=== PATIENT | female | born 1935 | race Caucasian/White ===

== ENCOUNTER 2019-07-01 12:00 | Emergency (ER) | payer MEDICARE, OTHER ==
[2019-07-01 12:09] VITALS: BP 141/79; PULSE 104
[2019-07-01] MEDS ORDERED: Albuterol/Ipratropium 3.0-0.5 MG/3 ML Neb Soln NEB ONE (12:13)
[2019-07-01] MEDS ORDERED: Sodium Chloride 0.9% 10 ML Syringe FLUSH PRN (12:13)
--- NOTE | 2019-07-01 12:41 | EDM.PDOC ---
<Dory Jerome [place] - Last Filed: 07/01/19 14:11> ED HPI GENERAL MEDICAL PROBLEM - General Chief Complaint: Respiratory Problem Stated Complaint: SOB Time Seen by Provider: 07/01/19 12:04 Source of Information: Reports: Patient, RN Notes Reviewed History Limitations: Reports: No Limitations - History of Present Illness INITIAL COMMENTS - FREE TEXT/NARRATIVE: Patient is an 83-year-old female who presents to the ED for the evaluation of increasing shortness of breath. The patient notes this has been increasing since Friday, she states she is not able to do much of her activities at all without feeling winded. She is on chronic oxygen at 4 to 5 L during the day, and 2 L at night. Her primary care provider is Dr. Partida. She notes that she was seen by him last week, and she called him again for follow-up as she was not feeling much better, and he told her to come here for further evaluation. Patient is not complaining of any chest pain, fevers or chills, nausea or vomiting or diarrhea. She does have a mild cough, she does state that she got the influenza vaccine for this year. She does appreciate a mild amount of swelling on her ankles, she states she is also not coughing any sputum up. She states she has a history of pulmonary hypertension, but does not have any history of COPD or asthma that she has been told. The patient also has a history of factor V Leiden deficiency, and blood clots and pulmonary embolus. On warfarin therapy for an anticoagulant. - Related Data Allergies Allergy/AdvReac Type Severity Reaction Status Date / Time naproxen Allergy Rash Verified 07/01/19 12:09 Home Meds: Home Meds Calcium Carbonate [Calcium] 2,000 mg PO DAILY 05/10/14 [History] Cholecalciferol (Vitamin D3) [Vitamin D3] 2,000 unit PO DAILY 05/10/14 [History] Glucosamine/Chondro Herrera A [Cosamin DS] 1 each PO BID 05/10/14 [History] Omeprazole [Prilosec] 40 mg PO DAILY 05/10/14 [History] Warfarin [Coumadin] 5 mg PO DAILY #30 tablet 06/06/14 [Rx] Albuterol Sulfate [Ventolin Hfa] 18 gm IH QID PRN #1 hfa.aer.[id number] 03/14/16 [Rx] Furosemide [Lasix] 60 mg PO DAILY 03/14/16 [History] Dulaglutide [Trulicity] 1.5 mg SQ DAILY 07/01/19 [History] Magnesium 30 mg PO 07/01/19 [History] Montelukast [Singulair] 10 mg PO DAILY 07/01/19 [History] Potassium Chloride 20 meq PO DAILY 07/01/19 [History] Rosuvastatin [Crestor] 10 mg PO DAILY 07/01/19 [History] Spironolactone [Aldactone] 100 mg PO DAILY 07/01/19 [History] amLODIPine [Norvasc] 5 mg PO DAILY 07/01/19 [History] Past Medical History HEENT History: Reports: Cataract, Other (See Below) Other HEENT History: wears glasses Cardiovascular History: Reports: Blood Clots/VTE/DVT, High Cholesterol Respiratory History: Reports: PE Gastrointestinal History: Reports: GERD RN PSYCHIATRIC History: Reports: Hematologic History: Reports: Other (See Below) Other Hematologic History: factor 5 positive - Past Surgical History HEENT Surgical History: Reports: Cataract Surgery Cardiovascular Surgical History: Reports: Other (See Below) GI Surgical History: Reports: Appendectomy, Cholecystectomy Female Surgical History: Reports: Hysterectomy Musculoskeletal Surgical History: Reports: None Social & Family History - Family History Family Medical History: Noncontributory - Tobacco Use Smoking Status *Q: Former Smoker Used Tobacco, but Quit: Yes Month/Year Tobacco Last Used: 06/1979 Second Hand Smoke Exposure: Yes - Caffeine Use Caffeine Use: Reports: Coffee - Recreational Drug Use Recreational Drug Use: No ED ROS GENERAL - Review of Systems Review Of Systems: See Below Constitutional: Denies: Fever, Chills HEENT: Denies: Rhinitis Respiratory: Reports: Shortness of Breath. Denies: Cough, Sputum Cardiovascular: Denies: Chest Pain GI/Abdominal: Denies: Abdominal Pain, Diarrhea, Nausea, Vomiting Neurological: Denies: Confusion, Syncope ED EXAM, GENERAL - Physical Exam Exam: See Below Exam Limited By: No Limitations General Appearance: Alert, WD/WN, Mild Distress (pt is breathing heavy, but in normal rhythm) Eye Exam: Bilateral Eye: EOMI, Normal Inspection, PERRL Ears: Normal External Exam Nose: Normal Inspection Throat/Mouth: Normal Inspection, Normal Lips, Normal Teeth, Normal Gums, Normal Oropharynx, Normal Voice, No Airway Compromise Head: Atraumatic, Normocephalic Neck: Normal Inspection Respiratory/Chest: No Respiratory Distress, Lungs Clear, No Accessory Muscle Use , Chest Non-Tender, Decreased Breath Sounds (diffuse bilaterally) Cardiovascular: Normal Peripheral Pulses, Regular Rate, Rhythm, No Murmur, Other (1+ edema to bilateral ankles) Peripheral Pulses: 3+: Radial (L), Radial (R), Dorsalis Pedis (L), Dorsalis Pedis (R) GI/Abdominal: Normal Bowel Sounds, Soft, Non-Tender, No Distention, No Mass Extremities: Normal Inspection, Normal Capillary Refill Neurological: Alert, Oriented, Normal Cognition, No Motor/Sensory Deficits Psychiatric: Normal Affect, Normal Mood, Anxious (mildly d/t SOB) Skin Exam: Warm, Dry, Intact, Normal Color, No Rash EKG INTERPRETATION EKG Date: 07/01/19 Time: 12:35 Rhythm: NSR Rate (Beats/Min): 89 Elsa: Normal P-Wave: Present QRS: Normal ST-T: Normal QT: Normal EKG Interpretation Comments: Reviewed with Dr. Vasquez, no acute ischemic changes noted. Course - Vital Signs Last Recorded V/S: Last Vital Signs Temp 98.1 F 07/01/19 12:03 Pulse 104 H 07/01/19 12:03 Resp 24 H 07/01/19 12:03 BP 141/79 H 07/01/19 12:03 Pulse Ox 96 07/01/19 14:07 - Orders/Labs/Meds Labs: Laboratory Tests 07/01/19 07/01/19 07/01/19 Range/Units 12:30 12:30 12:30 WBC 7.52 (3.98-10.04) K/mm3 RBC 4.39 (3.98-5.22) M/mm3 Hgb 13.0 (11.2-15.7) gm/dl Hct 37.8 (34.1-44.9) % MCV 86.1 D (79.4-94.8) fl MCH 29.6 (25.6-32.2) pg MCHC 34.4 (32.2-35.5) g/dl RDW Std Deviation 40.5 (36.4-46.3) fL Plt Count 297 (182-369) K/mm3 MPV 8.2 L (9.4-12.3) fl Neutrophils % (Manual) 72 H (40-60) % Band Neutrophils % 0 (0-10) % Lymphocytes % (Manual) 4 L (20-40) % Atypical Lymphs % 12 % Monocytes % (Manual) 11 H (2-10) % Eosinophils % (Manual) 0 L (0.7-5.8) % Basophils % (Manual) 1 (0.1-1.2) Platelet Estimate Adequate Plt Morphology Comment See note RBC Morph Comment Not Reportable PT 26.5 H (9.7-12.0) SECONDS INR 2.56 APTT 37 H (22-31) SECONDS D-Dimer, Quantitative (0.19-0.50) mg/L Puncture Site ABG pH (7.35-7.45) ABG pCO2 (35.0-45.0) mmHg ABG pO2 (80.0-100.0) mmHg ABG HCO3 (22.0-26.0) meq/L ABG O2 Saturation (96.0-97.0) % ABG Base Excess (-2-2.0) Andre Test A-a Gradient mmHg O2 Delivery Device Oxygen Flow Rate FiO2 (21.00-100.00) % Sodium 122 L D (136-145) mEq/L Potassium 6.1 H D (3.5-5.1) mEq/L Chloride 86 L (98-107) mEq/L Carbon Dioxide 26 (21-32) mEq/L Anion Gap 16.1 H (5-15) BUN 37 H (7-18) mg/dL Creatinine 2.1 H (0.55-1.02) mg/dL Est Cr Clr Drug Dosing 15.09 mL/min Estimated GFR (MDRD) 23 (>60) mL/min BUN/Creatinine Ratio 17.6 (14-18) Glucose 115 (83-115) mg/dL Calcium 9.4 (8.5-10.1) mg/dL Total Bilirubin 0.7 (0.2-1.0) mg/dL AST 40 H (15-37) U/L ALT 59 (14-59) U/L Alkaline Phosphatase 47 (46-116) U/L Troponin I < 0.017 (0.00-0.056) ng/mL NT-Pro-B Natriuret Pep (0-450) pg/mL Total Protein 7.5 (6.4-8.2) g/dl Albumin 3.3 L (3.4-5.0) g/dl Globulin 4.2 gm/dL Albumin/Globulin Ratio 0.8 L (1-2) 07/01/19 07/01/19 07/01/19 Range/Units 12:30 12:30 12:34 WBC (3.98-10.04) K/mm3 RBC (3.98-5.22) M/mm3 Hgb (11.2-15.7) gm/dl Hct (34.1-44.9) % MCV (79.4-94.8) fl MCH (25.6-32.2) pg MCHC (32.2-35.5) g/dl RDW Std Deviation (36.4-46.3) fL Plt Count (182-369) K/mm3 MPV (9.4-12.3) fl Neutrophils % (Manual) (40-60) % Band Neutrophils % (0-10) % Lymphocytes % (Manual) (20-40) % Atypical Lymphs % % Monocytes % (Manual) (2-10) % Eosinophils % (Manual) (0.7-5.8) % Basophils % (Manual) (0.1-1.2) Platelet Estimate Plt Morphology Comment RBC Morph Comment PT (9.7-12.0) SECONDS INR APTT (22-31) SECONDS D-Dimer, Quantitative 0.25 (0.19-0.50) mg/L Puncture Site Rt radial ABG pH 7.44 (7.35-7.45) ABG pCO2 35.0 (35.0-45.0) mmHg ABG pO2 112.0 H (80.0-100.0) mmHg ABG HCO3 23.3 (22.0-26.0) meq/L ABG O2 Saturation 98.9 H (96.0-97.0) % ABG Base Excess 0.0 (-2-2.0) Andre Test Positive A-a Gradient 102 mmHg O2 Delivery Device Nasal cannula Oxygen Flow Rate 4.0 FiO2 36.00 (21.00-100.00) % Sodium (136-145) mEq/L Potassium (3.5-5.1) mEq/L Chloride (98-107) mEq/L Carbon Dioxide (21-32) mEq/L Anion Gap (5-15) BUN (7-18) mg/dL Creatinine (0.55-1.02) mg/dL Est Cr Clr Drug Dosing mL/min Estimated GFR (MDRD) (>60) mL/min BUN/Creatinine Ratio (14-18) Glucose (83-115) mg/dL Calcium (8.5-10.1) mg/dL Total Bilirubin (0.2-1.0) mg/dL AST (15-37) U/L ALT (14-59) U/L Alkaline Phosphatase (46-116) U/L Troponin I (0.00-0.056) ng/mL NT-Pro-B Natriuret Pep 386 (0-450) pg/mL Total Protein (6.4-8.2) g/dl Albumin (3.4-5.0) g/dl Globulin gm/dL Albumin/Globulin Ratio (1-2) Meds: Medications Discontinued Medications Generic Name Dose Route Start Last Admin Trade Name Freq PRN Reason Stop Dose Admin Albuterol 2.5 mg 07/01/19 14:07 07/01/19 14:07 Proventil Neb Soln [facility] 07/01/19 14:08 2.5 mg ONETIME ONE Administration Albuterol/Ipratropium 3 ml 07/01/19 12:13 07/01/19 12:37 Duoneb 3.0-0.5 Mg/3 Ml [facility] 07/01/19 12:14 3 ml ONETIME ONE Administration Calcium Gluconate 1 gm 07/01/19 14:06 07/01/19 14:17 Calcium Gluconate IVPUSH 07/01/19 14:07 1 gm ONETIME ONE Administration Sodium Bicarbonate 50 meq 07/01/19 14:06 07/01/19 14:17 Sodium Bicarbonate 8.4% IVPUSH 07/01/19 14:07 50 meq ONETIME ONE Administration Sodium Chloride 10 ml 07/01/19 12:13 07/01/19 13:01 Saline Flush FLUSH 10 ml ASDIRECTED PRN Administration Keep Vein Open - Re-Assessments/Exams Free Text/Narrative Re-Assessment/Exam: 07/01/19 12:41 Patient presents to the ED for the evaluation of increasing shortness of breath. I did order an EKG, chest x-ray, CBC, CMP, troponin, d-dimer, coagulation studies, BNP, an ABG, and influenza screen, and a DuoNeb for initial management. 07/01/19 13:57 Preliminary labs have resulted. CBC essentially WNL, metabolic panel impressive for a decreased sodium at 122, and increased potassium at 2.1, creatinine is also mildly elevated at 2.1, her baseline seems to run around 1.6-1.7. At this time due to the nature of her illnesses, and metabolic abnormalities I do believe she needs hospital admission and she would be better served at [facility] in [place] where her specialty doctors are. Patient and family member agree, patient will be transferred to the [facility] for further management. I did talk with Dr. Rodriguez, hospitalist and she accept the patient for transfer at this time. Work requesting management of her hyperkalemia, and wanted some meds given. I did discuss this with Dr. Vasquez, and he recommends doing calcium gluconate, 1 g, and sodium bicarb 50 mEq, and repeating an albuterol neb. As we recently had to ambulance transfers from this facility, we will have time to get this done, and will transfer the patient as ambulance service is available. Departure - Departure Time of Disposition: 14:04 Disposition: DC/Tfer to Acute Hospital 02 Condition: Fair Clinical Impression: Pulmonary hypertension, Hyponatremia, Hyperkalemia, Renal insufficiency - Discharge Information *PRESCRIPTION DRUG MONITORING PROGRAM REVIEWED*: No *COPY OF PRESCRIPTION DRUG MONITORING REPORT IN PATIENT ANTONETTE: No Referrals: Ludin Burk MD [Primary Care Provider] - Forms: ED Department Discharge Sepsis Event Note - Evaluation Sepsis Screening Result: Possible Sepsis Risk - Focused Exam Date Exam was Performed: 07/01/19 Time Exam was Performed: 14:11 <Ashish Vasquez - Last Filed: 07/04/19 07:38> Course - Re-Assessments/Exams Free Text/Narrative Re-Assessment/Exam: 07/01/19 14:49 Initial hx and exam was done by DEVAN Merida. I agree with her history and exam as documented. I have also interviewed and examined patient. 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 When I first saw her today she was quite tachypnic even at rest with oxygen. Her history of pulmonary hypertension is her major underlying medical problem. Now we have the findings of hyperkalemia, hyponatremia and rising creatinine. Her states that she is on potassium supplementation and also is on spironolactone in addition to her furosemide and other current medications. She is under the care of pulmonology in [place]. She is going to be best served by going to [facility] where specialty consultation will be available as needed for complicated history and multiple current medical problems. She has been given albuterol nebs, we have given calcium gluconate 1 g IV for her hyperkalemia and also 1 amp sodium bicarbonate. Her EKG was narrow complex with very mildly peaked T waves. Other labs are as documented. Chest x-ray did not show obvious infiltrate or pulmonary congestion. She will be transferred by ground ambulance. Sepsis Event Note - Focused Exam Date Exam was Performed: 07/04/19 Time Exam was Performed: 07:37
[2019-07-01] MEDS ORDERED: Calcium Gluconate 10% 1 GM/10 ML SDV IVPUSH ONE (14:06)
[2019-07-01] MEDS ORDERED: Sodium Bicarbonate 8.4% 50 MEQ/50 ML Syringe IVPUSH ONE (14:06)
[2019-07-01] MEDS ORDERED: Albuterol 0.083% 2.5 MG/3 ML Neb Soln NEB ONE (14:07)
--- NOTE | 2019-07-01 14:19 | CR ---
Chest: Two views of the chest were obtained. Comparison: Prior chest x-ray of 11/13/18. Heart size is normal. Upper mediastinum is normal. Lung markings are mildly increased believed to be chronic. No acute parenchymal change is suggested. Stable granuloma is noted within the left upper lung. Degenerative change is noted within the spine. Mild anterior wedge deformity is noted within the mid thoracic spine which is stable. Impression: 1. Findings as noted above. 2. Nothing acute is appreciated. Diagnostic code #2 Study was dictated in [place] [employer] [place]
== END 2019-07-01 15:40 ==
LOC: JD.ED 12:00
DX: E87.5 Hyperkalemia (principal); E87.1 Hypo-osmolality and hyponatremia; N28.9 Disorder of kidney and ureter, unspecified; I27.20 Pulmonary hypertension, unspecified; E78.00 Pure hypercholesterolemia, unspecified; Z86.718 Personal history of other venous thrombosis and embolism; K21.9 Gastro-esophageal reflux disease without esophagitis; Z86.711 Personal history of pulmonary embolism; Z87.891 Personal history of nicotine dependence; Z88.8 Allergy status to other drugs, medicaments and biological substances; Z79.01 Long term (current) use of anticoagulants; Z79.899 Other long term (current) drug therapy
CPT/HCPCS: 36415; 36600; 71046; 80053; 82803; 83880; 84484; 85007; 85027; 85379; 85610; 85730; 87804; 93005; 94640; 96374; 96375; 99285; J0610; 93010; 99284; J7620-GY

== ENCOUNTER 2020-04-14 14:29 | Inpatient (IN) | payer MEDICARE, OTHER ==
--- NOTE | 2020-04-14 15:05 | EDM.PDOC ---
ED HPI GENERAL MEDICAL PROBLEM - General Chief Complaint: Respiratory Problem Stated Complaint: COVID + WITH COUGH AND SOB Time Seen by Provider: 04/14/20 15:05 Source of Information: Reports: Patient History Limitations: Reports: No Limitations - History of Present Illness INITIAL COMMENTS - FREE TEXT/NARRATIVE: 84-year-old female from [facility] presents to the ED per [facility] with known Covid positive diagnosis last evening. She was screened for this disease on April 12. She developed symptoms that day with fever headache and body ache. Subsequently has developed a more congested intermittently productive cough. Initial sputum was yellow but today it was clear. She is oxygen dependent at 2 L usually overnight and 4 L during the day as she deteriorates quite quickly on minimal exertion. 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 She failed Eliquis treatment and developed a second PE 2 weeks after the first. She subsequently been placed on Coumadin and advised to stay on Coumadin for the rest of her life by Dr. Garcia her customer experience associate. Patient is generally weak. She did take Tylenol last evening but nothing today. Recently her INR was elevated at 4.6. Her Coumadin dosage used to be 7.5 mg every day except for 1 day a week she took 5 mg. She currently has started 7.5 mg alternating with 5 mg. She had labs tested but nobody got back to her with current INR. Patient has loss of appetite. She had 1 diarrheal stool last evening. Minimal sore throat and nasal congestion. Still has a good sense of taste and smell. She does feel subjectively dyspneic. She is course very anxious as she understands that Covid could be life-threatening. Patient was in hospital last spring for 3-1/2 weeks and was discharged I believe from [facility] in [place] to a penitentiary with anticipation of . She got better and better in the penitentiary and actually was able to be discharged to [facility] with her I believe in February of this year. By history she also has mild congestive heart failure and is currently listed as being on Lasix 60 mg daily and Aldactone 100 mg once daily. Was unclear about this diagnosis. 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 O2 sats in the ED are 100% on 3 L/min by nasal cannula. Onset: Sudden Onset Date: 10/28/20 (Hearted with headache and low-grade fever and chills 3 days ago.) Duration: Day(s): (Hunter Armijo date day 3 of illness.), Getting Worse Location: Reports: Generalized, Other (Neurolyse myalgia with low-grade headache. Increased dyspnea even at rest.) Quality: Reports: Other (Covid positive diagnosis last evening.) Severity: Moderate Improves with: Reports: Medication Worsens with: Reports: Movement Context: Reports: Sick Contact (Her was diagnosed with COVID-19 illness 1 week ago). Denies: Activity, Exercise, Lifting Associated Symptoms: Reports: Cough, cough w sputum (Sputum was yellow a few days ago but the last day and a half has been clear to white.), Fever/Chills, Headaches, Loss of Appetite, Malaise, Shortness of Breath (Increased from her norm.), Other (1 diarrhea stool last evening.). Denies: Confusion, Chest Pain, Nausea/Vomiting, Syncope, Weakness Treatments CRUSHER: Reports: Acetaminophen, Oxygen - Related Data Allergies Allergy/AdvReac Type Severity Reaction Status Date / Time naproxen Allergy Severe Rash Verified 04/14/20 14:41 Home Meds: Home Meds Calcium Carbonate [Calcium] 2,000 mg PO DAILY 05/10/14 [History] Cholecalciferol (Vitamin D3) [Vitamin D3] 2,000 unit PO DAILY 05/10/14 [History] Glucosamine/Chondro Herrera A [Cosamin DS] 1 each PO BID 05/10/14 [History] Omeprazole [Prilosec] 40 mg PO DAILY 05/10/14 [History] Furosemide [Lasix] 60 mg PO DAILY 03/14/16 [History] Dulaglutide [Trulicity] 1.5 mg SQ DAILY 07/01/19 [History] Montelukast [Singulair] 10 mg PO DAILY 07/01/19 [History] Potassium Chloride 20 meq PO DAILY 07/01/19 [History] Rosuvastatin [Crestor] 10 mg PO DAILY 07/01/19 [History] Spironolactone [Aldactone] 100 mg PO DAILY 07/01/19 [History] amLODIPine [Norvasc] 5 mg PO DAILY 07/01/19 [History] Albuterol Sulfate 2.5 mg IH ASDIRECTED 04/14/20 [History] Ferrous Gluconate 324 mg PO ASDIRECTED 04/14/20 [History] Losartan Potassium 25 mg PO ASDIRECTED 04/14/20 [History] Magnesium 250 mg PO ASDIRECTED 04/14/20 [History] Warfarin [Coumadin] 5 mg PO ASDIRECTED 04/14/20 [History] Zolpidem Tartrate [Ambien] 2.5 mg PO BEDTIME 04/14/20 [History] Past Medical History HEENT History: Reports: Cataract, Other (See Below) Other HEENT History: wears glasses Cardiovascular History: Reports: Blood Clots/VTE/DVT, High Cholesterol Respiratory History: Reports: PE Gastrointestinal History: Reports: 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: Reports: Hematologic History: Reports: Other (See Below) Other Hematologic History: factor 5 positive - Past Surgical History HEENT Surgical History: Reports: Cataract Surgery Cardiovascular Surgical History: Reports: Other (See Below) GI Surgical History: Reports: Appendectomy, Cholecystectomy Female Surgical History: Reports: Hysterectomy Musculoskeletal Surgical History: Reports: None Social & Family History - Family History Family Medical History: Noncontributory - Caffeine Use Caffeine Use: Reports: Coffee - Living Situation & Occupation Living situation: Reports: Occupation: Retired (Both her and her are currently living at [facility] ED ROS GENERAL - Review of Systems Review Of Systems: See Below Constitutional: Reports: Fever, Chills, Malaise, Weakness, Fatigue, Decreased Appetite (Quite severe loss of appetite.) HEENT: Reports: Sinus Problem, Throat Pain (Minimal sinus congestion) Respiratory: Reports: Shortness of Breath (. Mild sore throat.), Cough, Sputum. Denies: Wheezing, Pleuritic Chest Pain Cardiovascular: Reports: Dyspnea on Exertion (Niccoli due to known pulmonary tension development after pulmonary embolus x2.), Orthopnea. Denies: Chest Pain (Sputum was yellow-tinged 2 days ago but is now more clear.), Blood Pressure Problem, Claudication, Edema, Lightheadedness Endocrine: Reports: Fatigue GI/Abdominal: Reports: Anorexia, Diarrhea, Nausea (Intermittent nausea.). Denies: Abdominal Pain, Constipation, Difficulty Swallowing (Loose diarrheal stool last evening.), Distension, Flatus, Hematemesis, Hematochezia, Vomiting, Other : Reports: Other (Is appreciated urine is darker in color than normal.) Musculoskeletal: Reports: Muscle Pain (Neurolyse myalgia.) Skin: Reports: Bruising (Bruises easily as she is on Coumadin. Recently over the last week diagnosed with elevated INR at 4.5.) Neurological: Reports: No Symptoms, Dizziness, Headache, Difficulty Walking, Weakness. Denies: Confusion, Numbness, Syncope, Tingling Psychiatric: Reports: No Symptoms (Due to weakness.) Hematologic/Lymphatic: Reports: No Symptoms Immunologic: Reports: No Symptoms ED EXAM, GENERAL - Physical Exam Exam: See Below Exam Limited By: No Limitations General Appearance: Alert, WD/WN, Mild Distress, Other (Temperature is 37.6 even though she feels much warmer than this. Heart rate was 93 respiratory of 16 with O2 sats of 99% on 3 L/min by nasal cannula. BP is 1 3879.) Eye Exam: Bilateral Eye: Normal Inspection, PERRL Throat/Mouth: Normal Lips, Normal Teeth, Other (Is mildly dry and coated.) Head: Atraumatic, Normocephalic Neck: Normal Inspection, Supple, Non-Tender, Full Range of Motion. No: Lymphadenopathy (L), Lymphadenopathy (R) Respiratory/Chest: Respiratory Distress (Mild tachypnea.), Decreased Breath Sounds (. Creased air into the lower 40% lung swanson posteriorly.), Rales (Coarse rales throughout the left lung swanson) Cardiovascular: Regular Rate, Rhythm, No Edema, No Gallop, No Murmur, No Rub Peripheral Pulses: 2+: Carotid (L), Carotid (R), Posterior Tibial (L), Posterior Tibial (R), Dorsalis Pedis (L), Dorsalis Pedis (R) GI/Abdominal: Soft, Non-Tender ( mildly hyper increase in all 4 quadrants.), No Organomegaly, No Mass, Pelvis Stable, Abnormal Bowel Sounds (Bowel sounds are) Back Exam: Normal Inspection, Full Range of Motion. No: CVA Tenderness (L), CVA Tenderness (R) Extremities: Normal Inspection, Normal Range of Motion, Non-Tender, Pedal Edema Neurological: Alert, Oriented, CN II-XII Intact, Normal Cognition Psychiatric: Anxious, Tearful Skin Exam: Warm, Dry, Intact, Normal Color, No Rash #1 Interpretation EKG Date: 04/14/20 Time: 16:07 Rate (Beats/Min): 90 [place]: LAD-Left [place] Deviation (-31 degrees.) P-Wave: Present QRS: Other (Tall R wave in lead I 1 suggest left ventricular hypertrophy pattern. There is poor R wave progression with late transition pattern. Consider right ventricular hypertrophy. Diffuse low voltage appreciated in the precordial leads.) ST-T: Other (Diffuse early repolarization pattern. T wave flattening lead V2 nonspecific.) QT: Normal EKG Interpretation Comments: Abnormal ECG Course - Vital Signs Last Recorded V/S: Last Vital Signs Temp 37.6 C 04/14/20 14:42 Pulse 93 04/14/20 14:42 Resp 16 04/14/20 14:42 BP 138/79 04/14/20 14:42 Pulse Ox 99 04/14/20 15:52 - Orders/Labs/Meds Orders: Active Orders 24 hr Category Date Time Status EKG Documentation Completion [RC] STAT Care 04/14/20 15:07 Active Oxygen Therapy [RC] ASDIRECTED Care 04/14/20 15:09 Active CULTURE BLOOD [BC] Stat Lab 04/14/20 15:30 Received CULTURE BLOOD [BC] Stat Lab 04/14/20 16:05 Received FERRITIN [CHEM] Stat Lab 04/14/20 15:30 Received URINALYSIS W/MICROSCOPIC [UA W/MICROSCOPIC] [URIN] Stat Lab 04/14/20 15:10 Ordered Acetaminophen [TylenoL] Med 04/14/20 15:06 Active 650 mg PO Q4H PRN Dextrose 5%-0.9% NaCl [Dextrose 5%-Normal Saline] 1,000 Med 04/14/20 15:15 Active ml IV ASDIRECTED Blood Culture x2 Reflex Set [OM.PC] Stat Oth 04/14/20 15:09 Ordered Medication Orders Acetaminophen (Tylenol) 650 mg PO Q4H PRN PRN Reason: Pain Last Admin: 04/14/20 16:02 Dose: 650 mg Documented by: TOBIN Dextrose/Sodium Chloride (Dextrose 5%-Normal Saline) 1,000 mls @ 100 mls/hr IV ASDIRECTED EMIGDIO Last Admin: 04/14/20 16:03 Dose: 100 mls/hr Documented by: TOBIN Labs: Laboratory Tests 04/14/20 04/14/20 04/14/20 Range/Units 15:30 15:30 15:30 WBC 4.95 (3.98-10.04) K/mm3 RBC 4.26 (3.98-5.22) M/mm3 Hgb 12.3 (11.2-15.7) gm/dl Hct 38.9 (34.1-44.9) % MCV 91.3 (79.4-94.8) fl MCH 28.9 (25.6-32.2) pg MCHC 31.6 L (32.2-35.5) g/dl RDW Std Deviation 44.4 (36.4-46.3) fL Plt Count 157 L D (182-369) K/mm3 MPV 9.2 L (9.4-12.3) fl Neut % (Auto) 75.1 H (34.0-71.1) % Lymph % (Auto) 18.0 L (19.3-51.7) % [place] % (Auto) 6.9 (4.7-12.5) % Eos % (Auto) 0 L (0.7-5.8) Baso % (Auto) 0.0 L (0.1-1.2) % Neut # (Auto) 3.72 (1.56-6.13) K/mm3 Lymph # (Auto) 0.89 L (1.18-3.74) K/mm3 [place] # (Auto) 0.34 (0.24-0.36) K/mm3 Eos # (Auto) 0.00 L (0.04-0.36) K/mm3 Baso # (Auto) 0.00 L (0.01-0.08) K/mm3 ESR (0-20) mm/hr PT 23.3 H (9.7-12.0) SECONDS INR 2.21 APTT 41.6 H (21.7-31.4) SECONDS Sodium 137 (136-145) mEq/L Potassium 3.9 (3.5-5.1) mEq/L Chloride 99 (98-107) mEq/L Carbon Dioxide 27 (21-32) mEq/L Anion Gap 14.9 (5-15) BUN 26 H (7-18) mg/dL Creatinine 1.4 H (0.55-1.02) mg/dL Est Cr Clr Drug Dosing 22.25 mL/min Estimated GFR (MDRD) 36 (>60) mL/min BUN/Creatinine Ratio 18.6 H (14-18) Glucose 100 (83-115) mg/dL Lactic Acid (0.4-2.0) mmol/L Calcium 8.5 (8.5-10.1) mg/dL Magnesium 2.1 (1.8-2.4) mg/dl Total Bilirubin 0.4 (0.2-1.0) mg/dL AST 43 H (15-37) U/L ALT 40 (14-59) U/L Alkaline Phosphatase 61 (46-116) U/L Lactate Dehydrogenase 351 H (81-234) U/L Troponin I < 0.017 (0.00-0.056) ng/mL C-Reactive Protein 8.8 H* (<1.0) mg/dL NT-Pro-B Natriuret Pep (0-450) pg/mL Total Protein 7.1 (6.4-8.2) g/dl Albumin 3.0 L (3.4-5.0) g/dl Globulin 4.1 gm/dL Albumin/Globulin Ratio 0.7 L (1-2) 04/14/20 04/14/20 04/14/20 Range/Units 15:30 15:30 15:30 WBC (3.98-10.04) K/mm3 RBC (3.98-5.22) M/mm3 Hgb (11.2-15.7) gm/dl Hct (34.1-44.9) % MCV (79.4-94.8) fl MCH (25.6-32.2) pg MCHC (32.2-35.5) g/dl RDW Std Deviation (36.4-46.3) fL Plt Count (182-369) K/mm3 MPV (9.4-12.3) fl Neut % (Auto) (34.0-71.1) % Lymph % (Auto) (19.3-51.7) % [place] % (Auto) (4.7-12.5) % Eos % (Auto) (0.7-5.8) Baso % (Auto) (0.1-1.2) % Neut # (Auto) (1.56-6.13) K/mm3 Lymph # (Auto) (1.18-3.74) K/mm3 [place] # (Auto) (0.24-0.36) K/mm3 Eos # (Auto) (0.04-0.36) K/mm3 Baso # (Auto) (0.01-0.08) K/mm3 ESR 53 H (0-20) mm/hr PT (9.7-12.0) SECONDS INR APTT (21.7-31.4) SECONDS Sodium (136-145) mEq/L Potassium (3.5-5.1) mEq/L Chloride (98-107) mEq/L Carbon Dioxide (21-32) mEq/L Anion Gap (5-15) BUN (7-18) mg/dL Creatinine (0.55-1.02) mg/dL Est Cr Clr Drug Dosing mL/min Estimated GFR (MDRD) (>60) mL/min BUN/Creatinine Ratio (14-18) Glucose (83-115) mg/dL Lactic Acid 0.8 (0.4-2.0) mmol/L Calcium (8.5-10.1) mg/dL Magnesium (1.8-2.4) mg/dl Total Bilirubin (0.2-1.0) mg/dL AST (15-37) U/L ALT (14-59) U/L Alkaline Phosphatase (46-116) U/L Lactate Dehydrogenase (81-234) U/L Troponin I (0.00-0.056) ng/mL C-Reactive Protein (<1.0) mg/dL NT-Pro-B Natriuret Pep 129 (0-450) pg/mL Total Protein (6.4-8.2) g/dl Albumin (3.4-5.0) g/dl Globulin gm/dL Albumin/Globulin Ratio (1-2) Meds: Medications Generic Name Dose Route Start Last Admin Trade Name Freq PRN Reason Stop Dose Admin Acetaminophen 650 mg 04/14/20 15:06 04/14/20 16:02 Tylenol PO 650 mg Q4H PRN Administration Pain Dextrose/Sodium Chloride 1,000 mls @ 100 mls/hr 04/14/20 15:15 04/14/20 16:03 Dextrose 5%-Normal Saline IV 100 mls/hr ASDIRECTED EMIGDIO Administration - Radiology Interpretation Free Text/Narrative:: 84-year-old female presents to the ED with known Covid positive testing on April 06 and received results last evening that she is positive. Her was diagnosed with Covid positivity 1 week ago. He is age 89. They both reside at [facility]. 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 She has COPD/pulmonary hypertension secondary to pulmonary emboli x2 about 2 weeks apart that occurred perhaps 3 to 4 years ago. She failed initial treatment with Eliquis and developed a second PE in spite of treatment 2 weeks later. She since has been on Coumadin to prevent PE. She reported last week her INR was elevated between 4.2 and 4.7. She has changed her Coumadin dosing which is in the evening to 7.5 mg alternating with 5 mg every other day. She has had her PT/INR done this week but has not received the results. Patient is febrile. She is anorexic. She is weak. She is on oxygen usually 4 L/min during the day when active. She is on 2 L/min per nasal cannula overnight. She is currently on 3 L per nasal cannula and maintaining sats of 99%. She appreciates a productive cough mostly of white-clear secretions without hemoptysis. She had 1 diarrheal stool last night. She has a headache minimal sinus congestion and has her sense of taste and smell preserved. Last Tylenol dose was last evening. Plan she will have Covid labs performed and blood cultures x2. This will include an LDH, ferritin, troponin, lactic acid level. Single view chest x-ray will be done. Note this is day 3 of current illness. - Re-Assessments/Exams Free Text/Narrative Re-Assessment/Exam: 04/14/20 16:00: X-ray done portably reveals an elevated right hemidiaphragm. She has a linear band suggesting fluid or scarring in the azygous fissure on the right side. Cardiac silhouette is likely normal per portable technique. No pleural effusions are evident. There is a slight groundglass appearance to theL lower/mid lung . 04/14/20 16:34 Lab reveals a normal white count at 4.95. The auto differential reveals 75% neutrophils. Hemoglobin is 12.3 with hematocrit of 38.9. Platelet count is 157,000. Sed rate is elevated at 53. PTT today is 41.6 with a PT of 23.3 and an INR of 2.21. Sodium is 137 with a potassium of 3.9. Chloride 99 with a bicarb 27. Anion gap is 14.9. BUN is 26 with a creatinine of 1.4. GFR is 36 i.e. stage IIIb renal insufficiency. Glucose 100 with a lactic acid of 0.8. Calcium is 8.5. Magnesium is normal at 2.1. Bilirubin is normal at 0.4 AST minimally elevated at 43. ALT is 40. Lactate dehydrogenase is elevated at 351. Troponin I is less than 0.017. C-reactive protein elevated 8.8. BNP is 129. Total protein 7.1 with an albumin fraction of 3.0. Will require admission to the hospital as she is a high risk patient due to COVID-19 illness. Is currently residing in a assisted living center at [facility]. 04/14/20 16:49 Discussed the case with Dr. Burns and he is willing to admit her to the floor at this time. She is in the early stages of COVID-19 but of course is extremely high risk for deterioration due to need for continuous oxygen and pulmonary hypertension secondary to massive PE in the past. Analysis is pending. Departure - Departure Time of Disposition: 16:50 Disposition: Admitted As Inpatient 66 Condition: Fair Clinical Impression: Pulmonary hypertension, COVID-19 determined by clinical diagnostic criteria, Supplemental oxygen dependent Chronic renal insufficiency, stage III (moderate) Qualifiers: Chronic kidney disease stage 3 subtype: stage 3b (GFR 30-44) Qualified Code(s): N18.32 - Chronic kidney disease, stage 3b - Discharge Information *PRESCRIPTION DRUG MONITORING PROGRAM REVIEWED*: Not Applicable *COPY OF PRESCRIPTION DRUG MONITORING REPORT IN PATIENT ANTONETTE: Not Applicable Referrals: Ludin Burk MD [Primary Care Provider] - Forms: ED Department Discharge Sepsis Event Note (ED) - Evaluation Sepsis Screening Result: No Definite Risk - Focused Exam Vital Signs: Vital Signs Temp Pulse Resp BP Pulse Ox Pulse Ox 04/14/20 15:52 99 04/14/20 14:42 37.6 C 93 16 138/79 99 - My Orders Last 24 Hours: My Active Orders 04/14/20 15:06 Acetaminophen [TylenoL] 650 mg PO Q4H PRN 04/14/20 15:07 EKG Documentation Completion [RC] STAT 04/14/20 15:09 Oxygen Therapy [RC] ASDIRECTED Blood Culture x2 Reflex Set [OM.PC] Stat 04/14/20 15:10 URINALYSIS W/MICROSCOPIC [UA W/MICROSCOPIC] [URIN] Stat 04/14/20 15:15 Dextrose 5%-0.9% NaCl [Dextrose 5%-Normal Saline] 1,000 ml IV ASDIRECTED 04/14/20 15:30 CULTURE BLOOD [BC] Stat FERRITIN [CHEM] Stat 04/14/20 16:05 CULTURE BLOOD [BC] Stat - Assessment/Plan Last 24 Hours: My Active Orders 04/14/20 15:06 Acetaminophen [TylenoL] 650 mg PO Q4H PRN 04/14/20 15:07 EKG Documentation Completion [RC] STAT 04/14/20 15:09 Oxygen Therapy [RC] ASDIRECTED Blood Culture x2 Reflex Set [OM.PC] Stat 04/14/20 15:10 URINALYSIS W/MICROSCOPIC [UA W/MICROSCOPIC] [URIN] Stat 04/14/20 15:15 Dextrose 5%-0.9% NaCl [Dextrose 5%-Normal Saline] 1,000 ml IV ASDIRECTED 04/14/20 15:30 CULTURE BLOOD [BC] Stat FERRITIN [CHEM] Stat 04/14/20 16:05 CULTURE BLOOD [BC] Stat
[2020-04-14] MEDS ORDERED: Acetaminophen 325 MG Tab PO PRN (15:06)
--- NOTE | 2020-04-14 15:39 | CR ---
PROCEDURE INFORMATION: Exam: XR Chest, 1 View Exam date and time: 04/14/2020 2:56 PM Age: 84 years old Clinical indication: Shortness of breath and other: Pulmonary hypertension; Additional info: Covid- 19 positive TECHNIQUE: Imaging protocol: XR of the chest Views: 1 view. COMPARISON: CT Chest wo Cont 10/11/2019 12:07 PM FINDINGS: Lungs: Nonspecific faint ground-glass opacities are suggested in the left mid to lower lung Pleural space: There are no pleural effusions present. Heart/Mediastinum: The heart is not enlarged. There is prominence of the central pulmonary arteries compatible with pulmonary hypertension. Diaphragm: There is nonspecific elevation of the right hemidiaphragm. Bones/joints: Unremarkable IMPRESSION: Nonspecific faint ground-glass opacities in the left lung. Thank you for allowing us to participate in the care of your patient. Dictated and Authenticated by: Mik Lynn MD 04/14/2020 4:32 PM Central Time ([place] & [place]) [email or web address]
[2020-04-14] MEDS: Dextrose 5%-0.9% NaCl 1,000 ML IV SCH (16:03)
[2020-04-14] MEDS ORDERED: Ondansetron 4 MG/2 ML SDV IV PRN (17:33)
[2020-04-14] MEDS ORDERED: Ondansetron 4 MG Tab.DIS PO PRN (17:33)
[2020-04-14] MEDS ORDERED: REMDESIVIR 200 MG in Sodium Chloride 0.9% 250 ML IV ONE (17:33)
[2020-04-14] MEDS: Dexamethasone 4 MG Tab PO SCH (18:33)
[2020-04-14] MEDS ORDERED: Warfarin 5 MG Tab PO ONE (20:30)
--- NOTE | 2020-04-14 20:38 | PCM.HP.2 ---
H&P History of Present Illness - General Date of Service: 04/14/20 Admit Problem/Dx: Admission Diagnosis/Problem Admission Diagnosis/Problem Dyspnea - History of Present Illness Initial Comments - Free Text/Narative: 84-year-old female who is oxygen dependent secondary to 2 previous episodes of pulmonary embolism within 2 weeks, failing Eliquis the first time and being put on warfarin, presented to the outpatient clinic with worsening shortness of breath, fatigue, cough, and dyspnea on exertion. Patient was diagnosed yesterday with Covid and first developed symptoms, fatigue, 2 days ago. She states today she became more short of breath with activity but at rest she feels like she is at baseline. During the days she is often on 4 L via nasal cannula because she generally desaturates with activity. At night she is only on 2 L/min via nasal cannula. She does have a history of mild congestive heart f ailure and states that she takes furosemide 40 mg alternating with 20 mg daily. She states she was on higher doses and spironolactone in the past. In the emergency department her oxygen saturation was 100% on 3 L via nasal cannula. She denies any fevers or chills at home. She has a mildly productive cough. Patient does state that she has a poor appetite and has not eaten much. She had fish for lunch and was only able to eat half of it. - Related Data Allergies/Adverse Reactions: Allergies Allergy/AdvReac Type Severity Reaction Status Date / Time naproxen Allergy Severe Rash Verified 04/14/20 18:45 Home Medications: Home Meds Calcium Carbonate [Calcium] 2,000 mg PO DAILY 05/10/14 [History] Cholecalciferol (Vitamin D3) [Vitamin D3] 5,000 unit PO DAILY 05/10/14 [History] Glucosamine/Chondro Herrera A [Cosamin DS] 1 each PO BID 05/10/14 [History] Omeprazole [Prilosec] 40 mg PO DAILY 05/10/14 [History] Furosemide [Lasix] 20 mg PO DAILY 03/14/16 [History] Dulaglutide [Trulicity] 1.5 mg SQ DAILY 07/01/19 [History] Montelukast [Singulair] 10 mg PO DAILY 07/01/19 [History] Potassium Chloride 20 meq PO DAILY 07/01/19 [History] Rosuvastatin [Crestor] 10 mg PO DAILY 07/01/19 [History] Spironolactone [Aldactone] 100 mg PO DAILY 07/01/19 [History] amLODIPine [Norvasc] 5 mg PO DAILY 07/01/19 [History] Albuterol Sulfate 2.5 mg IH ASDIRECTED 04/14/20 [History] Ferrous Gluconate 324 mg PO ASDIRECTED 04/14/20 [History] Losartan Potassium 12.5 mg PO ASDIRECTED 04/14/20 [History] Magnesium 400 mg PO ASDIRECTED 04/14/20 [History] Warfarin [Coumadin] 7.5 mg PO ASDIRECTED 04/14/20 [History] Zolpidem Tartrate [Ambien] 2.5 mg PO BEDTIME PRN 04/14/20 [History] Past Medical History HEENT History: Reports: Cataract, Other (See Below) Other HEENT History: wears glasses Cardiovascular History: Reports: Blood Clots/VTE/DVT, High Cholesterol Other Cardiovascular History: bilateral PEs Respiratory History: Reports: PE, SOB Other Respiratory History: wears 4L O2 during day and 2L O2 at night Gastrointestinal History: Reports: GERD SOLE SKIVER History: Reports: Hematologic History: Reports: Other (See Below) Other Hematologic History: factor 5 positive - Infectious Disease History Infectious Disease History: Reports: Chicken Pox, Measles, Mumps Other Infectious Disease History: positive covid 04/12 - Past Surgical History HEENT Surgical History: Reports: Cataract Surgery GI Surgical History: Reports: Appendectomy, Cholecystectomy Female Surgical History: Reports: Hysterectomy Musculoskeletal Surgical History: Reports: None Social & Family History - Family History Family Medical History: Noncontributory - Tobacco Use Tobacco Use Status *Q: Never Tobacco User Second Hand Smoke Exposure: No - Caffeine Use Caffeine Use: Reports: Coffee - Recreational Drug Use Recreational Drug Use: No - Living Situation & Occupation Living situation: Reports: Occupation: Retired (Both her and her are currently living at [facility] [place] H&P Review of Systems - Review of Systems: Review Of Systems: Comprehensive ROS is negative, except as noted in HPI. Exam - Exam Exam: See Below - Vital Signs Vital Signs: Last Vital Signs Temp 99.9 F 04/14/20 17:57 Pulse 88 04/14/20 17:57 Resp 23 H 04/14/20 17:57 BP 109/86 04/14/20 17:57 Pulse Ox 96 04/14/20 18:12 Weight: 69.264 kg - Exam Quality Assessment: Supplemental Oxygen General: Alert, Oriented, 4 HEENT: Conjunctiva Clear, Hearing Intact, Mucosa Moist & [place] Neck: Supple, Trachea Midline, 2 Lungs: Rales (Bibasilar). No: Normal Respiratory Effort (Mildly increased respiratory effort and rate) Cardiovascular: Regular Rate, Regular Rhythm, Normal S1, Normal S2 GI/Abdominal Exam: Normal Bowel Sounds, Soft, Non-Tender, No Organomegaly, No Distention, No Abnormal Bruit Extremities: Normal Inspection, Normal Range of Motion, No Pedal Edema, Normal Capillary Refill Skin: Warm, Dry, Intact Neuro Extensive - Mental Status: Alert, Oriented x3, Normal Mood/Affect, Normal Cognition Psychiatric: Alert, Normal Affect, Normal Mood - Patient Data Lab Results Last 24 hrs: Laboratory Results - last 24 hr 04/14/20 04/14/20 04/14/20 Range/Units 15:30 15:30 15:30 WBC 4.95 (3.98-10.04) K/mm3 RBC 4.26 (3.98-5.22) M/mm3 Hgb 12.3 (11.2-15.7) gm/dl Hct 38.9 (34.1-44.9) % MCV 91.3 (79.4-94.8) fl MCH 28.9 (25.6-32.2) pg MCHC 31.6 L (32.2-35.5) g/dl RDW Std Deviation 44.4 (36.4-46.3) fL Plt Count 157 L D (182-369) K/mm3 MPV 9.2 L (9.4-12.3) fl Neut % (Auto) 75.1 H (34.0-71.1) % Lymph % (Auto) 18.0 L (19.3-51.7) % [place] % (Auto) 6.9 (4.7-12.5) % Eos % (Auto) 0 L (0.7-5.8) Baso % (Auto) 0.0 L (0.1-1.2) % Neut # (Auto) 3.72 (1.56-6.13) K/mm3 Lymph # (Auto) 0.89 L (1.18-3.74) K/mm3 [place] # (Auto) 0.34 (0.24-0.36) K/mm3 Eos # (Auto) 0.00 L (0.04-0.36) K/mm3 Baso # (Auto) 0.00 L (0.01-0.08) K/mm3 ESR (0-20) mm/hr PT 23.3 H (9.7-12.0) SECONDS INR 2.21 APTT 41.6 H (21.7-31.4) SECONDS Sodium 137 (136-145) mEq/L Potassium 3.9 (3.5-5.1) mEq/L Chloride 99 (98-107) mEq/L Carbon Dioxide 27 (21-32) mEq/L Anion Gap 14.9 (5-15) BUN 26 H (7-18) mg/dL Creatinine 1.4 H (0.55-1.02) mg/dL Est Cr Clr Drug Dosing 22.25 mL/min Estimated GFR (MDRD) 36 (>60) mL/min BUN/Creatinine Ratio 18.6 H (14-18) Glucose 100 (83-115) mg/dL Lactic Acid (0.4-2.0) mmol/L Calcium 8.5 (8.5-10.1) mg/dL Magnesium 2.1 (1.8-2.4) mg/dl Ferritin (8-252) ng/ml Total Bilirubin 0.4 (0.2-1.0) mg/dL AST 43 H (15-37) U/L ALT 40 (14-59) U/L Alkaline Phosphatase 61 (46-116) U/L Lactate Dehydrogenase 351 H (81-234) U/L Troponin I < 0.017 (0.00-0.056) ng/mL C-Reactive Protein 8.8 H* (<1.0) mg/dL NT-Pro-B Natriuret Pep (0-450) pg/mL Total Protein 7.1 (6.4-8.2) g/dl Albumin 3.0 L (3.4-5.0) g/dl Globulin 4.1 gm/dL Albumin/Globulin Ratio 0.7 L (1-2) Urine Color (Yellow) Urine Appearance (Clear) Urine pH (5.0-8.0) Ur Specific [place] (1.005-1.030) Urine Protein (Negative) Urine Glucose (UA) (Negative) Urine Ketones (Negative) Urine Occult Blood (Negative) Urine Nitrite (Negative) Urine Bilirubin (Negative) Urine Urobilinogen (0.2-1.0) Ur Leukocyte Esterase (Negative) U Hyaline Cast (Auto) (0-5) /lpf Urine RBC (0-5) /hpf Urine WBC (0-5) /hpf Ur Squamous Epith Cells (0-5) /hpf Urine Bacteria (FEW) /hpf Urine Mucus (FEW) /hpf Blood Type 04/14/20 04/14/20 04/14/20 Range/Units 15:30 15:30 15:30 WBC (3.98-10.04) K/mm3 RBC (3.98-5.22) M/mm3 Hgb (11.2-15.7) gm/dl Hct (34.1-44.9) % MCV (79.4-94.8) fl MCH (25.6-32.2) pg MCHC (32.2-35.5) g/dl RDW Std Deviation (36.4-46.3) fL Plt Count (182-369) K/mm3 MPV (9.4-12.3) fl Neut % (Auto) (34.0-71.1) % Lymph % (Auto) (19.3-51.7) % [place] % (Auto) (4.7-12.5) % Eos % (Auto) (0.7-5.8) Baso % (Auto) (0.1-1.2) % Neut # (Auto) (1.56-6.13) K/mm3 Lymph # (Auto) (1.18-3.74) K/mm3 [place] # (Auto) (0.24-0.36) K/mm3 Eos # (Auto) (0.04-0.36) K/mm3 Baso # (Auto) (0.01-0.08) K/mm3 ESR 53 H (0-20) mm/hr PT (9.7-12.0) SECONDS INR APTT (21.7-31.4) SECONDS Sodium (136-145) mEq/L Potassium (3.5-5.1) mEq/L Chloride (98-107) mEq/L Carbon Dioxide (21-32) mEq/L Anion Gap (5-15) BUN (7-18) mg/dL Creatinine (0.55-1.02) mg/dL Est Cr Clr Drug Dosing mL/min Estimated GFR (MDRD) (>60) mL/min BUN/Creatinine Ratio (14-18) Glucose (83-115) mg/dL Lactic Acid (0.4-2.0) mmol/L Calcium (8.5-10.1) mg/dL Magnesium (1.8-2.4) mg/dl Ferritin 2134 H (8-252) ng/ml Total Bilirubin (0.2-1.0) mg/dL AST (15-37) U/L ALT (14-59) U/L Alkaline Phosphatase (46-116) U/L Lactate Dehydrogenase (81-234) U/L Troponin I (0.00-0.056) ng/mL C-Reactive Protein (<1.0) mg/dL NT-Pro-B Natriuret Pep 129 (0-450) pg/mL Total Protein (6.4-8.2) g/dl Albumin (3.4-5.0) g/dl Globulin gm/dL Albumin/Globulin Ratio (1-2) Urine Color (Yellow) Urine Appearance (Clear) Urine pH (5.0-8.0) Ur Specific [place] (1.005-1.030) Urine Protein (Negative) Urine Glucose (UA) (Negative) Urine Ketones (Negative) Urine Occult Blood (Negative) Urine Nitrite (Negative) Urine Bilirubin (Negative) Urine Urobilinogen (0.2-1.0) Ur Leukocyte Esterase (Negative) U Hyaline Cast (Auto) (0-5) /lpf Urine RBC (0-5) /hpf Urine WBC (0-5) /hpf Ur Squamous Epith Cells (0-5) /hpf Urine Bacteria (FEW) /hpf Urine Mucus (FEW) /hpf Blood Type 04/14/20 04/14/20 04/14/20 Range/Units 15:30 15:30 17:27 WBC (3.98-10.04) K/mm3 RBC (3.98-5.22) M/mm3 Hgb (11.2-15.7) gm/dl Hct (34.1-44.9) % MCV (79.4-94.8) fl MCH (25.6-32.2) pg MCHC (32.2-35.5) g/dl RDW Std Deviation (36.4-46.3) fL Plt Count (182-369) K/mm3 MPV (9.4-12.3) fl Neut % (Auto) (34.0-71.1) % Lymph % (Auto) (19.3-51.7) % [place] % (Auto) (4.7-12.5) % Eos % (Auto) (0.7-5.8) Baso % (Auto) (0.1-1.2) % Neut # (Auto) (1.56-6.13) K/mm3 Lymph # (Auto) (1.18-3.74) K/mm3 [place] # (Auto) (0.24-0.36) K/mm3 Eos # (Auto) (0.04-0.36) K/mm3 Baso # (Auto) (0.01-0.08) K/mm3 ESR (0-20) mm/hr PT (9.7-12.0) SECONDS INR APTT (21.7-31.4) SECONDS Sodium (136-145) mEq/L Potassium (3.5-5.1) mEq/L Chloride (98-107) mEq/L Carbon Dioxide (21-32) mEq/L Anion Gap (5-15) BUN (7-18) mg/dL Creatinine (0.55-1.02) mg/dL Est Cr Clr Drug Dosing mL/min Estimated GFR (MDRD) (>60) mL/min BUN/Creatinine Ratio (14-18) Glucose (83-115) mg/dL Lactic Acid 0.8 (0.4-2.0) mmol/L Calcium (8.5-10.1) mg/dL Magnesium (1.8-2.4) mg/dl Ferritin (8-252) ng/ml Total Bilirubin (0.2-1.0) mg/dL AST (15-37) U/L ALT (14-59) U/L Alkaline Phosphatase (46-116) U/L Lactate Dehydrogenase (81-234) U/L Troponin I (0.00-0.056) ng/mL C-Reactive Protein (<1.0) mg/dL NT-Pro-B Natriuret Pep (0-450) pg/mL Total Protein (6.4-8.2) g/dl Albumin (3.4-5.0) g/dl Globulin gm/dL Albumin/Globulin Ratio (1-2) Urine Color Yellow (Yellow) Urine Appearance Clear (Clear) Urine pH 5.5 (5.0-8.0) Ur Specific [place] > or = 1.030 (1.005-1.030) Urine Protein 1+ H (Negative) Urine Glucose (UA) Negative (Negative) Urine Ketones Trace H (Negative) Urine Occult Blood Negative (Negative) Urine Nitrite Negative (Negative) Urine Bilirubin Negative (Negative) Urine Urobilinogen 0.2 (0.2-1.0) Ur Leukocyte Esterase Trace H (Negative) U Hyaline Cast (Auto) 5-10 H (0-5) /lpf Urine RBC Not seen (0-5) /hpf Urine WBC 5-10 H (0-5) /hpf Ur Squamous Epith Cells 0-5 (0-5) /hpf Urine Bacteria Moderate H (FEW) /hpf Urine Mucus Not seen (FEW) /hpf Blood Type A POSITIVE Result Diagrams: 04/14/20 15:30 04/14/20 15:30 #1 Interpretation EKG Date: 04/14/20 Rhythm: NSR [place]: LAD-Left [place] Deviation (Left anterior hemiblock) QRS: Other (Poor R wave progression with tall R wave in 1. Likely LVH) ST-T: Normal QT: Normal Sepsis Event Note - Evaluation Sepsis Screening Result: No Definite Risk - Focused Exam Vital Signs: Vital Signs Temp Temp Pulse Pulse Resp BP BP 04/14/20 18:12 04/14/20 17:57 99.9 F 88 23 H 109/86 04/14/20 17:30 97.8 F 04/14/20 16:33 04/14/20 15:52 04/14/20 14:42 99.6 F 93 16 138/79 Pulse Ox Pulse Ox 04/14/20 18:12 96 04/14/20 17:57 96 04/14/20 17:30 04/14/20 16:33 99 04/14/20 15:52 99 04/14/20 14:42 99 - Problem List (1) Pneumonia due to COVID-19 virus SNOMED Code(s): 019485387956653649 ICD Code: U07.1 - COVID-19; J12.89 - OTHER VIRAL PNEUMONIA Status: Acute Current Visit: Yes (2) Chronic renal insufficiency, stage III (moderate) SNOMED Code(s): 414218138 ICD Code: N18.30 - CHRONIC KIDNEY DISEASE, STAGE 3 UNSPECIFIED Status: Acute Current Visit: Yes Qualifiers: Chronic kidney disease stage 3 subtype: stage 3b (GFR 30-44) Qualified Code(s): N18.32 - Chronic kidney disease, stage 3b (3) Pulmonary hypertension SNOMED Code(s): 17845458 ICD Code: I27.20 - PULMONARY HYPERTENSION, UNSPECIFIED Status: Acute Current Visit: Yes (4) HTN, Essential hypertension SNOMED Code(s): 60730940 ICD Code: I10 - ESSENTIAL (PRIMARY) HYPERTENSION Status: Acute Current Visit: No Problem List Initiated/Reviewed/Updated: Yes Orders Last 24hrs: Active Orders 24 hr Category Date Time Status Admission Status [Patient Status] [ADT] Routine ADT 04/14/20 16:54 Active Oxygen Therapy [RC] PRN Care 04/14/20 17:34 Active RT Aerosol Therapy [RC] ASDIRECTED Care 04/14/20 18:12 Active RT Chest Physiotherapy [RC] ASDIRECTED Care 04/14/20 18:12 Active RT Incentive Spirometry [RC] ASDIRECTED Care 04/14/20 18:12 Active Up With Assistance [RC] ASDIRECTED Care 04/14/20 17:33 Active VTE/DVT Education [RC] PER UNIT ROUTINE Care 04/14/20 17:34 Active Verify Patient Consent Obtain [RC] ASDIRECTED Care 04/14/20 17:34 Active Vital Signs [RC] Q4HR Care 04/14/20 17:34 Active PT Evaluation and Treatment [CONS] Routine Cons 04/14/20 17:33 Active Regular Diet [DIET] Diet 04/14/20 Breakfast Active ABO/RH TYPE [BBK] Routine Lab 04/14/20 15:30 Results C-REACTIVE PROTEIN [CHEM] AM Lab 04/15/20 05:11 Ordered CBC WITH AUTO DIFF [HEME] AM Lab 04/15/20 05:11 Ordered CMP [COMPREHENSIVE METABOLIC PN,CMP] [CHEM] AM Lab 04/15/20 05:11 Ordered CULTURE BLOOD [BC] Stat Lab 04/14/20 15:30 Received CULTURE BLOOD [BC] Stat Lab 04/14/20 16:05 Received DD [D-DIMER QUANTITATIVE] [COAG] AM Lab 04/15/20 05:11 Ordered FRESH FROZEN PLASMA [BBK] Routine Lab 04/14/20 15:30 Results INR,PT,PROTHROMBIN TIME [COAG] AM Lab 04/15/20 05:11 Ordered INR,PT,PROTHROMBIN TIME [COAG] AM Lab 04/16/20 05:11 Ordered INR,PT,PROTHROMBIN TIME [COAG] AM Lab 04/17/20 05:11 Ordered INR,PT,PROTHROMBIN TIME [COAG] AM Lab 04/18/20 05:11 Ordered INR,PT,PROTHROMBIN TIME [COAG] AM Lab 04/19/20 05:11 Ordered INR,PT,PROTHROMBIN TIME [COAG] AM Lab 04/20/20 05:11 Ordered MAGNESIUM [CHEM] AM Lab 04/15/20 05:11 Ordered PATIENT RETYPE [BBK] Routine Lab 04/14/20 19:44 Received PHOSPHORUS [CHEM] AM Lab 04/15/20 05:11 Ordered Acetaminophen [TylenoL] Med 04/14/20 15:06 Active 650 mg PO Q4H PRN Albuterol [Proventil Neb Soln] Med 04/14/20 21:00 Active 2.5 mg NEB TIDRT Dextrose 5%-0.9% NaCl [Dextrose 5%-Normal Saline] 1,000 Med 04/14/20 15:15 Active ml IV ASDIRECTED Ondansetron [Zofran ODT] Med 04/14/20 17:33 Active 4 mg PO Q4H PRN Ondansetron [Zofran] Med 04/14/20 17:33 Active 4 mg IV Q4H PRN Pharmacy to Dose - Warfarin Med 04/14/20 17:45 Pending 1 dose .XX ASDIRECTED Remdesivir (Eua) [Remdesivir (EUA)] 100 mg Med 04/15/20 19:00 Active Sodium Chloride 0.9% [Normal Saline] 100 ml IV Q24H Warfarin [Coumadin] Med 04/14/20 20:30 Once 5 mg PO ONETIME ONE dexAMETHasone Med 04/14/20 18:00 Active 6 mg PO Q24H Blood Culture x2 Reflex Set [OM.PC] Stat Oth 04/14/20 15:09 Ordered Isolation [COMM] Stat Oth 04/14/20 17:34 Ordered Transfuse Fresh Frozen Plasma [COMM] Routine Oth 04/14/20 17:34 Ordered Resuscitation Status Routine Resus Stat 04/14/20 17:33 Ordered Medication Orders Acetaminophen (Tylenol) 650 mg PO Q4H PRN PRN Reason: Pain Last Admin: 04/14/20 16:02 Dose: 650 mg Documented by: TOBIN Albuterol (Proventil Neb Soln) 2.5 mg NEB TIDRT [facility] Dexamethasone (Dexamethasone) 6 mg PO Q24H [facility] Stop: 04/23/20 18:01 Last Admin: 04/14/20 18:33 Dose: 6 mg Documented by: KELESY Dextrose/Sodium Chloride (Dextrose 5%-Normal Saline) 1,000 mls @ 100 mls/hr IV ASDIRECTED [facility] Last Admin: 04/14/20 16:03 Dose: 100 mls/hr Documented by: TOBIN Remdesivir 100 mg/ Sodium (Chloride) 100 mls @ 100 mls/hr IV Q24H [facility] Stop: 04/18/20 19:59 Ondansetron HCl (Zofran) 4 mg IV Q4H PRN PRN Reason: Nausea/Vomiting Ondansetron HCl (Zofran Odt) 4 mg PO Q4H PRN PRN Reason: nausea, able to take PO Warfarin Sodium (Pharmacy To Dose - Warfarin) 1 dose .XX ASDIRECTED [facility] Warfarin Sodium (Coumadin) 5 mg PO ONETIME ONE Stop: 04/14/20 20:31 Assessment/Plan Comment:: Assessment 84-year-old female with 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 * X-ray is consistent with a groundglass opacity in the left lung also elevated right hemidiaphragm. This will make treatment more difficult because of the reduced pulmonary capacity. Patient also has underlying lung disease requiring supplemental O2 from pulmonary emboli, history of congestive heart failure, LVH via EKG criteria, and hypertension. This places the patient at high risk for poor outcome regarding pneumonia caused by COVID-19. Fortunately patient is early on in the course of the infection with symptoms only starting 2 days ago. She is also on warfarin hopefully reducing the risk for micro emboli. Fortunately it appears her heart failure is well controlled with a normal proBNP. * WBC is 4.95, INR 2.21, CRP 8.8, AST 43, ALT 40, LDH 351, proBNP 829, lactic acid 0.8, troponin less than 0.017 * I anticipate patient will have a high risk for worsening. She is very early on in the disease and generally the inflammatory response starts 5 to 10 days after initial symptoms. With aggressive treatment early on we could possibly prevent progression to the severe inflammatory component. Stage III chronic renal insufficiency Hypertension * Estimated GFR 36 which appears stable over the last year. Creatinine 1.4, BUN 26, 1+ protein on UA * Currently on losartan and Lasix History of pulmonary embolism on warfarin for anticoagulation Factor V deficiency positive * INR 2.21 * Coumadin alternating 7.5 and 5 mg daily Plan * Admit to medical floor on telemetry and continuous pulse ox * Start Covid specific treatment with remdesivir, convalescent plasma, and dexamethasone. * 1 unit convalescent plasma on admission and then the second unit 12 hours later to decrease risk for volume overload * Continue home meds * Follow CBC, CMP, mag, phosphorus, D-dimer, CRP * Antibiotics not necessary at this time. * CODE STATUS: Full code * VTE prophylaxis with warfarin Patient lives at [facility] and primary care provider is Dr. Ludin Partida. - Mortality Measure Prognosis:: Poor
[2020-04-14] MEDS ORDERED: Zolpidem 5 MG Tab PO PRN (20:39)
[2020-04-14] MEDS ORDERED: Losartan 25 MG Tab PO SCH (20:45)
[2020-04-14] MEDS ORDERED: Non-Formulary Medication 1 Each (Magnesium [Magnesium] 400 MG) PO SCH (20:45)
[2020-04-14] MEDS: Albuterol 0.083% 2.5 MG/3 ML Neb Soln NEB SCH (21:00)
[2020-04-14] MEDS ORDERED: Albuterol 0.021% 0.63 MG/3 ML Neb Soln NEB SCH ×2 (21:00)
[2020-04-14] MEDS ORDERED: Sodium Chloride 0.9% 250 ML IV SCH (21:45)
[2020-04-15] MEDS: Dextrose 5%-0.9% NaCl 1,000 ML IV SCH (05:45)
[2020-04-15] MEDS: Pantoprazole 40 MG Tab.CR PO SCH ×2 (05:53→06:08)
[2020-04-15] MEDS: Albuterol 0.083% 2.5 MG/3 ML Neb Soln NEB SCH ×3 (06:26→20:41)
[2020-04-15] MEDS: Losartan 25 MG Tab PO SCH (09:05)
[2020-04-15] MEDS: Potassium Chloride 20 MEQ Tab.ER PO SCH (09:06)
[2020-04-15] MEDS: Furosemide 20 MG Tab PO SCH (09:07)
[2020-04-15] MEDS: Magnesium Oxide 400 MG Tab PO SCH ×2 (09:07→21:28)
[2020-04-15] MEDS: Cholecalciferol (Vitamin D3) 25 MCG Tab PO SCH (09:08)
[2020-04-15] MEDS ORDERED: Warfarin 7.5 MG Tab PO SCH (18:00)
[2020-04-15] MEDS: REMDESIVIR 100 MG in Sodium Chloride 0.9% 100 ML IV SCH (18:10)
[2020-04-15] MEDS: Dexamethasone 4 MG Tab PO SCH (18:10)
--- NOTE | 2020-04-15 19:26 | PCM.PN ---
- General Info Date of Service: 04/15/20 Admission Dx/Problem (Free Text): Admission Diagnosis/Problem Admission Diagnosis/Problem Dyspnea Subjective Update: No significant change overnight. She still has a cough and shortness of breath. Appetite has been good and she has had 2 bowel movements. Functional Status: Reports: Pain Controlled - Review of Systems General: Reports: No Symptoms HEENT: Reports: No Symptoms Pulmonary: Reports: Shortness of Breath, Cough Cardiovascular: Reports: No Symptoms Gastrointestinal: Reports: No Symptoms Genitourinary: Reports: No Symptoms Neurological: Reports: No Symptoms Psychiatric: Reports: No Symptoms - Patient Data Vitals - Most Recent: Last Vital Signs Temp 97.9 F 04/15/20 18:16 Pulse 74 04/15/20 18:16 Resp 22 H 04/15/20 18:16 BP 110/70 04/15/20 18:16 Pulse Ox 96 04/15/20 18:16 Weight - Most Recent: 69.264 kg I&O - Last 24 Hours: Intake & Output 04/15/20 04/15/20 04/15/20 06:59 14:59 22:59 Intake Total 9824 293 1781 Output Total 900 850 Balance 1025 520 730 Lab Results Last 24 Hours: Laboratory Results - last 24 hr 04/14/20 04/14/20 04/14/20 Range/Units 04:10 15:30 23:00 WBC (3.98-10.04) K/mm3 RBC (3.98-5.22) M/mm3 Hgb (11.2-15.7) gm/dl Hct (34.1-44.9) % MCV (79.4-94.8) fl MCH (25.6-32.2) pg MCHC (32.2-35.5) g/dl RDW Std Deviation (36.4-46.3) fL Plt Count (182-369) K/mm3 MPV (9.4-12.3) fl Neut % (Auto) (34.0-71.1) % Lymph % (Auto) (19.3-51.7) % [place] % (Auto) (4.7-12.5) % Eos % (Auto) (0.7-5.8) Baso % (Auto) (0.1-1.2) % Neut # (Auto) (1.56-6.13) K/mm3 Lymph # (Auto) (1.18-3.74) K/mm3 [place] # (Auto) (0.24-0.36) K/mm3 Eos # (Auto) (0.04-0.36) K/mm3 Baso # (Auto) (0.01-0.08) K/mm3 Manual Slide Review PT (9.7-12.0) SECONDS INR D-Dimer, Quantitative (0.19-0.50) mg/L Sodium (136-145) mEq/L Potassium (3.5-5.1) mEq/L Chloride (98-107) mEq/L Carbon Dioxide (21-32) mEq/L Anion Gap (5-15) BUN (7-18) mg/dL Creatinine (0.55-1.02) mg/dL Est Cr Clr Drug Dosing mL/min Estimated GFR (MDRD) (>60) mL/min BUN/Creatinine Ratio (14-18) Glucose (83-115) mg/dL Calcium (8.5-10.1) mg/dL Phosphorus (2.6-4.7) mg/dL Magnesium (1.8-2.4) mg/dl Total Bilirubin (0.2-1.0) mg/dL AST (15-37) U/L ALT (14-59) U/L Alkaline Phosphatase (46-116) U/L C-Reactive Protein (<1.0) mg/dL Total Protein (6.4-8.2) g/dl Albumin (3.4-5.0) g/dl Globulin gm/dL Albumin/Globulin Ratio (1-2) Procalcitonin <0.05 (<0.10) ng/mL MRSA (PCR) Negative Blood Type A POSITIVE 04/15/20 04/15/20 04/15/20 Range/Units 04:10 04:10 04:10 WBC 2.81 L (3.98-10.04) K/mm3 RBC 3.97 L (3.98-5.22) M/mm3 Hgb 11.4 (11.2-15.7) gm/dl Hct 36.2 (34.1-44.9) % MCV 91.2 (79.4-94.8) fl MCH 28.7 (25.6-32.2) pg MCHC 31.5 L (32.2-35.5) g/dl RDW Std Deviation 43.0 (36.4-46.3) fL Plt Count 143 L (182-369) K/mm3 MPV 9.3 L (9.4-12.3) fl Neut % (Auto) 72.9 H (34.0-71.1) % Lymph % (Auto) 24.2 (19.3-51.7) % [place] % (Auto) 2.5 L (4.7-12.5) % Eos % (Auto) 0 L (0.7-5.8) Baso % (Auto) 0.0 L (0.1-1.2) % Neut # (Auto) 2.05 (1.56-6.13) K/mm3 Lymph # (Auto) 0.68 L (1.18-3.74) K/mm3 [place] # (Auto) 0.07 L (0.24-0.36) K/mm3 Eos # (Auto) 0.00 L (0.04-0.36) K/mm3 Baso # (Auto) 0.00 L (0.01-0.08) K/mm3 Manual Slide Review Abnormal smear PT 18.3 H (9.7-12.0) SECONDS INR 1.73 D-Dimer, Quantitative 0.23 (0.19-0.50) mg/L Sodium 141 (136-145) mEq/L Potassium 3.9 (3.5-5.1) mEq/L Chloride 105 (98-107) mEq/L Carbon Dioxide 26 (21-32) mEq/L Anion Gap 13.9 (5-15) BUN 27 H (7-18) mg/dL Creatinine 1.3 H (0.55-1.02) mg/dL Est Cr Clr Drug Dosing 28.81 mL/min Estimated GFR (MDRD) 39 (>60) mL/min BUN/Creatinine Ratio 20.8 H (14-18) Glucose 206 H (83-115) mg/dL Calcium 8.5 (8.5-10.1) mg/dL Phosphorus 3.4 (2.6-4.7) mg/dL Magnesium 2.2 (1.8-2.4) mg/dl Total Bilirubin 0.3 (0.2-1.0) mg/dL AST 41 H (15-37) U/L ALT 42 (14-59) U/L Alkaline Phosphatase 60 (46-116) U/L C-Reactive Protein 8.8 H* (<1.0) mg/dL Total Protein 6.5 (6.4-8.2) g/dl Albumin 2.6 L (3.4-5.0) g/dl Globulin 3.9 gm/dL Albumin/Globulin Ratio 0.7 L (1-2) Procalcitonin (<0.10) ng/mL MRSA (PCR) Blood Type Kevyn Results Last 24 Hours: Microbiology 04/14/20 15:30 Aerobic Blood Culture - Preliminary Blood - Venous NO GROWTH AFTER 1 DAY Anaerobic Blood Culture - Preliminary NO GROWTH AFTER 1 DAY 04/14/20 16:05 Aerobic Blood Culture - Preliminary Blood - Venous - Lab Draw NO GROWTH AFTER 1 DAY Anaerobic Blood Culture - Preliminary NO GROWTH AFTER 1 DAY 04/14/20 17:29 Urine Culture - Preliminary Urine, Bladder Gram Negative Rods 04/15/20 11:00 Gram Stain - Final Sputum - Expectorated Med Orders - Current: Current Medications Acetaminophen (Tylenol) 650 mg PO Q4H PRN PRN Reason: Pain Last Admin: 04/14/20 16:02 Dose: 650 mg Documented by: Albuterol (Proventil Neb Soln) 2.5 mg NEB TIDRT [facility] Last Admin: 04/15/20 13:58 Dose: 2.5 mg Documented by: Cholecalciferol (Vitamin D3) 125 mcg PO DAILY [facility] Last Admin: 04/15/20 09:08 Dose: 125 mcg Documented by: Dexamethasone (Dexamethasone) 6 mg PO Q24H [facility] Stop: 04/23/20 18:01 Last Admin: 04/15/20 18:10 Dose: 6 mg Documented by: Furosemide (Lasix) 30 mg PO DAILY [facility] Last Admin: 04/15/20 09:07 Dose: 30 mg Documented by: Remdesivir 100 mg/ Sodium (Chloride) 100 mls @ 100 mls/hr IV Q24H [facility] Stop: 04/18/20 19:59 Last Admin: 04/15/20 18:10 Dose: 100 mls/hr Documented by: Losartan Potassium (Cozaar) 12.5 mg PO DAILY [facility] Last Admin: 04/15/20 09:05 Dose: 12.5 mg Documented by: Magnesium Oxide (Magnesium Oxide) 400 mg PO BID [facility] Last Admin: 04/15/20 09:07 Dose: 400 mg Documented by: Ondansetron HCl (Zofran) 4 mg IV Q4H PRN PRN Reason: Nausea/Vomiting Ondansetron HCl (Zofran Odt) 4 mg PO Q4H PRN PRN Reason: nausea, able to take PO Pantoprazole Sodium (Protonix) 40 mg PO DAILY@0700 [facility] Last Admin: 04/15/20 06:08 Dose: Not Given Documented by: Potassium Chloride (Klor-Con M20) 20 meq PO DAILY [facility] Last Admin: 04/15/20 09:06 Dose: 20 meq Documented by: Warfarin Sodium (Pharmacy To Dose - Warfarin) 0 dose .XX ASDIRECTED PRN PRN Reason: RX TO DOSE WARFARIN Warfarin Sodium (Coumadin) 7.5 mg PO QPM [facility] Stop: 04/15/20 21:00 Last Admin: 04/15/20 18:10 Dose: 7.5 mg Documented by: Zolpidem Tartrate (Ambien) 2.5 mg PO BEDTIME PRN PRN Reason: Insomnia Discontinued Medications Albuterol (Proventil Neb Soln) 2.5 mg NEB TID EMIGDIO Albuterol (Proventil Neb Soln) 2.5 mg NEB TIDRT [facility] Dextrose/Sodium Chloride (Dextrose 5%-Normal Saline) 1,000 mls @ 100 mls/hr IV ASDIRECTED [facility] Last Admin: 04/15/20 05:45 Dose: 100 mls/hr Documented by: Remdesivir 200 mg/ Sodium (Chloride) 250 mls @ 250 mls/hr IV ONETIME ONE Stop: 04/14/20 17:34 Last Admin: 04/14/20 18:32 Dose: 250 mls/hr Documented by: Sodium Chloride (Normal Saline) 250 mls @ 50 mls/hr IV ASDIRECTED [facility] Losartan Potassium (Cozaar) 12.5 mg PO ASDIRECTED [facility] Non-Formulary Medication (Magnesium [Magnesium]) 400 mg PO ASDIRECTED [facility] Warfarin Sodium (Coumadin) 5 mg PO ONETIME ONE Stop: 04/14/20 20:31 Last Admin: 04/14/20 20:51 Dose: 5 mg Documented by: - Exam Quality Assessment: Supplemental Oxygen General: Alert, Oriented HEENT: Pupils Equal, Mucous Membr. Moist/[place] Neck: Supple Lungs: Rales ([place]as[place]). No: Normal Respiratory Effort (Increase respiratory rate and effort) Cardiovascular: Regular Rate, Regular Rhythm GI/Abdominal Exam: Normal Bowel Sounds, Soft, Non-Tender, No Organomegaly, No Distention Back Exam: Normal Inspection, Full Range of Motion Extremities: Normal Inspection, Normal Range of Motion, Non-Tender, No Pedal Edema, Normal Capillary Refill Skin: Warm, Dry, Intact Psy/Mental Status: Alert, Normal Affect, Normal Mood Sepsis Event Note - Evaluation Sepsis Screening Result: No Definite Risk - Focused Exam Vital Signs: Vital Signs Temp Pulse Resp BP Pulse Ox Pulse Ox 04/15/20 18:16 97.9 F 74 22 H 110/70 96 04/15/20 13:59 97 04/15/20 12:48 98.6 F 68 22 H 112/77 95 04/15/20 09:05 133/65 04/15/20 08:43 97.5 F 78 133/65 87 L - Problem List & Annotations (1) Pneumonia due to COVID-19 virus SNOMED Code(s): 632810201948600478 Code(s): U07.1 - COVID-19; J12.89 - OTHER VIRAL PNEUMONIA Status: Acute Current Visit: Yes (2) Chronic renal insufficiency, stage III (moderate) SNOMED Code(s): 733671338 Code(s): N18.30 - CHRONIC KIDNEY DISEASE, STAGE 3 UNSPECIFIED Status: Acute Current Visit: Yes Qualifiers: Chronic kidney disease stage 3 subtype: stage 3b (GFR 30-44) Qualified Code(s): N18.32 - Chronic kidney disease, stage 3b (3) Pulmonary hypertension SNOMED Code(s): 93074494 Code(s): I27.20 - PULMONARY HYPERTENSION, UNSPECIFIED Status: Acute Current Visit: Yes (4) HTN, Essential hypertension SNOMED Code(s): 40342787 Code(s): I10 - ESSENTIAL (PRIMARY) HYPERTENSION Status: Acute Current Visit: No - Problem List Review Problem List Initiated/Reviewed/Updated: Yes - My Orders Last 24 Hours: My Active Orders 04/14/20 20:39 Zolpidem [Ambien] 2.5 mg PO BEDTIME PRN 04/14/20 21:00 Albuterol [Proventil Neb Soln] 2.5 mg NEB TIDRT 04/14/20 21:40 Patient Status [ADT] Routine 04/14/20 21:42 Pulse Oximetry Continuous Monitoring [OM.PC] Routine 04/15/20 07:00 Pantoprazole [ProTONIX] 40 mg PO DAILY@0700 04/15/20 09:00 Cholecalciferol (Vitamin D3) [Vitamin D3] 125 mcg PO DAILY Furosemide [Lasix] 30 mg PO DAILY Losartan [Cozaar] 12.5 mg PO DAILY Magnesium Oxide 400 mg PO BID Potassium Chloride [Klor-Con M20] 20 meq PO DAILY 04/15/20 09:56 DIOMEDES Hose [Antiembolic Hose] [OM.PC] Routine 04/15/20 09:57 Antiembolic Devices [RC] PER UNIT ROUTINE 04/15/20 11:00 CULTURE SPUTUM + SMEAR [RM] Routine 04/15/20 18:00 Warfarin [Coumadin] 7.5 mg PO QPM 04/15/20 19:00 Remdesivir (Eua) [Remdesivir (EUA)] 100 mg Sodium Chloride 0.9% [Normal Saline] 100 ml IV Q24H 04/16/20 05:11 INR,PT,PROTHROMBIN TIME [COAG] AM 04/17/20 05:11 INR,PT,PROTHROMBIN TIME [COAG] AM 04/18/20 05:11 INR,PT,PROTHROMBIN TIME [COAG] AM 04/19/20 05:11 INR,PT,PROTHROMBIN TIME [COAG] AM 04/20/20 05:11 INR,PT,PROTHROMBIN TIME [COAG] AM - Plan Plan:: Assessment 04/14/2020 84-year-old female with 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 * X-ray is consistent with a groundglass opacity in the left lung also elevated right hemidiaphragm. This will make treatment more difficult because of the reduced pulmonary capacity. Patient also has underlying lung disease requiring supplemental O2 from pulmonary emboli, history of congestive heart failure, LVH via EKG criteria, and hypertension. This places the patient at high risk for poor outcome regarding pneumonia caused by COVID-19. Fortunately patient is early on in the course of the infection with symptoms only starting 2 days ago. She is also on warfarin hopefully reducing the risk for micro emboli. Fortunately it appears her heart failure is well controlled with a normal proBNP. * WBC is 4.95, INR 2.21, CRP 8.8, AST 43, ALT 40, LDH 351, proBNP 829, lactic acid 0.8, troponin less than 0.017 * I anticipate patient will have a high risk for worsening. She is very early on in the disease and generally the inflammatory response starts 5 to 10 days after initial symptoms. With aggressive treatment early on we could possibly prevent progression to the severe inflammatory component. Stage III chronic renal insufficiency Hypertension * Estimated GFR 36 which appears stable over the last year. Creatinine 1.4, BUN 26, 1+ protein on UA * Currently on losartan and Lasix History of pulmonary embolism on warfarin for anticoagulation Factor V deficiency positive * INR 2.21 * Coumadin alternating 7.5 and 5 mg daily 04/15/2020 * Pneumonia secondary to COVID-19 * Pulmonary hypertension secondary to previous pulmonary emboli * Interstitial lung disease * Anticoagulation on warfarin * Hypertension * Stage III chronic renal insufficiency Patient without any significant change in symptoms or oxygenation overnight. Currently on 2 to 3 L nasal cannula, but is usually on 4 L during the day and 2 L at night. Her INR was slightly low today at 1.7. D-dimer 0.23 and CRP of 8.8. Renal function slightly improved with an estimated GFR of 39 and a creatinine of 1.3. Blood sugars are starting to increase with a glucose of 206. This is likely secondary to dexamethasone. Plan * Remdesivir day 2 of 5 * Dexamethasone day 2 of 10 * 2 units convalescent plasma given * Stop IV fluids * Follow CBC, CMP, mag, phosphorus, D-dimer, CRP * FiO2 to keep SPO2 between 88 and 94%. She is on 4 L during the day and 2 L at night at baseline * Antibiotics not necessary at this time. * CODE STATUS: Full code * VTE prophylaxis with warfarin Patient lives at [facility] and primary care provider is Dr. Ludin Partida.
[2020-04-16] MEDS ORDERED: Albuterol 0.083% 2.5 MG/3 ML Neb Soln ONE (01:19)
[2020-04-16] MEDS: Albuterol 0.083% 2.5 MG/3 ML Neb Soln NEB SCH ×3 (06:06→21:35)
[2020-04-16] MEDS: Pantoprazole 40 MG Tab.CR PO SCH (06:15)
[2020-04-16] MEDS: Cholecalciferol (Vitamin D3) 25 MCG Tab PO SCH (08:54)
[2020-04-16] MEDS: Furosemide 20 MG Tab PO SCH (08:54)
[2020-04-16] MEDS: Losartan 25 MG Tab PO SCH (08:55)
[2020-04-16] MEDS: Magnesium Oxide 400 MG Tab PO SCH ×2 (08:56→20:47)
[2020-04-16] MEDS: Potassium Chloride 20 MEQ Tab.ER PO SCH (08:56)
[2020-04-16] MEDS: cefTRIAXone 2 GM in Sodium Chloride 0.9% 100 ML IV SCH (10:20)
[2020-04-16] MEDS: Azithromycin 500 MG in Sodium Chloride 0.9% 250 ML IV SCH (10:54)
[2020-04-16] MEDS ORDERED: Furosemide 20 MG/2 ML VIAL IVPUSH ONE (12:45)
[2020-04-16] MEDS: Dexamethasone 4 MG Tab PO SCH (17:08)
[2020-04-16] MEDS: REMDESIVIR 100 MG in Sodium Chloride 0.9% 100 ML IV SCH (18:20)
--- NOTE | 2020-04-16 19:12 | PCM.PN ---
- General Info Date of Service: 04/16/20 Admission Dx/Problem (Free Text): Admission Diagnosis/Problem Admission Diagnosis/Problem Dyspnea Subjective Update: Patient is more short of breath today. She is having significant desaturations with activity. Her appetite is good eating 100% of her meals. She has had a 1.7 kg increase in weight since yesterday. Functional Status: Reports: Pain Controlled - Review of Systems General: Reports: No Symptoms HEENT: Reports: No Symptoms Pulmonary: Reports: Shortness of Breath, Cough Cardiovascular: Reports: No Symptoms Gastrointestinal: Reports: No Symptoms Musculoskeletal: Reports: No Symptoms Neurological: Reports: No Symptoms Psychiatric: Reports: No Symptoms - Patient Data Vitals - Most Recent: Last Vital Signs Temp 98.4 F 04/16/20 14:40 Pulse 94 04/16/20 14:40 Resp 20 04/16/20 14:40 BP 122/66 04/16/20 14:40 Pulse Ox 89 L 04/16/20 14:40 Weight - Most Recent: 70.942 kg I&O - Last 24 Hours: Intake & Output 04/16/20 04/16/20 04/16/20 06:59 14:59 22:59 Intake Total 480 1000 Output Total 1750 Balance 480 -750 Lab Results Last 24 Hours: Laboratory Results - last 24 hr 04/16/20 04/16/20 04/16/20 Range/Units 05:54 05:54 05:54 WBC 4.19 (3.98-10.04) K/mm3 RBC 3.93 L (3.98-5.22) M/mm3 Hgb 11.1 L (11.2-15.7) gm/dl Hct 35.5 (34.1-44.9) % MCV 90.3 (79.4-94.8) fl MCH 28.2 (25.6-32.2) pg MCHC 31.3 L (32.2-35.5) g/dl RDW Std Deviation 42.8 (36.4-46.3) fL Plt Count 150 L (182-369) K/mm3 MPV 9.4 (9.4-12.3) fl Neut % (Auto) 74.9 H (34.0-71.1) % Lymph % (Auto) 19.6 (19.3-51.7) % [place] % (Auto) 5.3 (4.7-12.5) % Eos % (Auto) 0 L (0.7-5.8) Baso % (Auto) 0.0 L (0.1-1.2) % Neut # (Auto) 3.14 (1.56-6.13) K/mm3 Lymph # (Auto) 0.82 L (1.18-3.74) K/mm3 [place] # (Auto) 0.22 L (0.24-0.36) K/mm3 Eos # (Auto) 0.00 L (0.04-0.36) K/mm3 Baso # (Auto) 0.00 L (0.01-0.08) K/mm3 PT 22.8 H (9.7-12.0) SECONDS INR 2.16 D-Dimer, Quantitative 0.33 (0.19-0.50) mg/L Sodium 142 (136-145) mEq/L Potassium 4.5 (3.5-5.1) mEq/L Chloride 107 (98-107) mEq/L Carbon Dioxide 26 (21-32) mEq/L Anion Gap 13.5 (5-15) BUN 32 H (7-18) mg/dL Creatinine 1.3 H (0.55-1.02) mg/dL Est Cr Clr Drug Dosing 28.81 mL/min Estimated GFR (MDRD) 39 (>60) mL/min BUN/Creatinine Ratio 24.6 H (14-18) Glucose 156 H (83-115) mg/dL Calcium 8.4 L (8.5-10.1) mg/dL Phosphorus 3.4 (2.6-4.7) mg/dL Magnesium 2.0 (1.8-2.4) mg/dl Total Bilirubin 0.3 (0.2-1.0) mg/dL AST 52 H (15-37) U/L ALT 49 (14-59) U/L Alkaline Phosphatase 56 (46-116) U/L C-Reactive Protein 5.4 H* (<1.0) mg/dL Total Protein 6.0 L (6.4-8.2) g/dl Albumin 2.4 L (3.4-5.0) g/dl Globulin 3.6 gm/dL Albumin/Globulin Ratio 0.7 L (1-2) Kevyn Results Last 24 Hours: Microbiology 10/30/20 15:30 Aerobic Blood Culture - Preliminary Blood - Venous NO GROWTH AFTER 2 DAYS Anaerobic Blood Culture - Preliminary NO GROWTH AFTER 2 DAYS 04/14/20 16:05 Aerobic Blood Culture - Preliminary Blood - Venous - Lab Draw NO GROWTH AFTER 2 DAYS Anaerobic Blood Culture - Preliminary NO GROWTH AFTER 2 DAYS 04/15/20 11:00 Gram Stain - Final Sputum - Expectorated Sputum Culture - Preliminary 04/14/20 17:29 Urine Culture - Final Urine, Bladder Escherichia Coli Med Orders - Current: Current Medications Acetaminophen (Tylenol) 650 mg PO Q4H PRN PRN Reason: Pain Last Admin: 04/14/20 16:02 Dose: 650 mg Documented by: Albuterol (Proventil Neb Soln) 2.5 mg NEB TIDRT [facility] Last Admin: 04/16/20 13:51 Dose: 2.5 mg Documented by: Cholecalciferol (Vitamin D3) 125 mcg PO DAILY [facility] Last Admin: 04/16/20 08:54 Dose: 125 mcg Documented by: Dexamethasone (Dexamethasone) 6 mg PO Q24H [facility] Stop: 04/23/20 18:01 Last Admin: 04/16/20 17:08 Dose: 6 mg Documented by: Furosemide (Lasix) 30 mg PO DAILY [facility] Last Admin: 04/16/20 08:54 Dose: 30 mg Documented by: Remdesivir 100 mg/ Sodium (Chloride) 100 mls @ 100 mls/hr IV Q24H [facility] Stop: 04/18/20 19:59 Last Admin: 04/16/20 18:20 Dose: 100 mls/hr Documented by: Ceftriaxone Sodium 2 gm/ (Sodium Chloride) 100 mls @ 200 mls/hr IV Q24H [facility] Stop: 04/20/20 09:59 Last Admin: 04/16/20 10:20 Dose: 200 mls/hr Documented by: Azithromycin 500 mg/ Sodium (Chloride) 250 mls @ 250 mls/hr IV Q24H [facility] Stop: 04/18/20 10:59 Last Admin: 04/16/20 10:54 Dose: 250 mls/hr Documented by: Losartan Potassium (Cozaar) 12.5 mg PO DAILY [facility] Last Admin: 04/16/20 08:55 Dose: 12.5 mg Documented by: Magnesium Oxide (Magnesium Oxide) 400 mg PO BID [facility] Last Admin: 04/16/20 08:56 Dose: 400 mg Documented by: Ondansetron HCl (Zofran) 4 mg IV Q4H PRN PRN Reason: Nausea/Vomiting Ondansetron HCl (Zofran Odt) 4 mg PO Q4H PRN PRN Reason: nausea, able to take PO Pantoprazole Sodium (Protonix) 40 mg PO DAILY@0700 [facility] Last Admin: 04/16/20 06:15 Dose: 40 mg Documented by: Potassium Chloride (Klor-Con M20) 20 meq PO DAILY [facility] Last Admin: 04/16/20 08:56 Dose: 20 meq Documented by: Warfarin Sodium (Pharmacy To Dose - Warfarin) 0 dose .XX ASDIRECTED PRN PRN Reason: RX TO DOSE WARFARIN Zolpidem Tartrate (Ambien) 2.5 mg PO BEDTIME PRN PRN Reason: Insomnia Discontinued Medications Albuterol (Proventil Neb Soln) 2.5 mg NEB TID EMIGDIO Albuterol (Proventil Neb Soln) 2.5 mg NEB TIDRT EMIGDIO Albuterol (Proventil Neb Soln) Confirm Administered Dose 2.5 mg .ROUTE .STK-MED ONE Stop: 04/16/20 01:20 MST Last Admin: 04/16/20 05:39 Dose: Not Given Documented by: Furosemide (Lasix) 20 mg IVPUSH ONETIME ONE Stop: 04/16/20 12:46 Last Admin: 04/16/20 12:59 Dose: 20 mg Documented by: Dextrose/Sodium Chloride (Dextrose 5%-Normal Saline) 1,000 mls @ 100 mls/hr IV ASDIRECTED [facility] Last Admin: 04/15/20 05:45 Dose: 100 mls/hr Documented by: Remdesivir 200 mg/ Sodium (Chloride) 250 mls @ 250 mls/hr IV ONETIME ONE Stop: 04/14/20 17:34 Last Admin: 04/14/20 18:32 Dose: 250 mls/hr Documented by: Sodium Chloride (Normal Saline) 250 mls @ 50 mls/hr IV ASDIRECTED [facility] Losartan Potassium (Cozaar) 12.5 mg PO ASDIRECTED [facility] Non-Formulary Medication (Magnesium [Magnesium]) 400 mg PO ASDIRECTED [facility] Warfarin Sodium (Coumadin) 5 mg PO ONETIME ONE Stop: 04/14/20 20:31 Last Admin: 04/14/20 20:51 Dose: 5 mg Documented by: Warfarin Sodium (Coumadin) 7.5 mg PO QPM EMIGDIO Stop: 04/15/20 21:00 Last Admin: 04/15/20 18:10 Dose: 7.5 mg Documented by: - Exam Quality Assessment: Supplemental Oxygen General: Alert, Oriented HEENT: Pupils Equal, Mucous Membr. Moist/Doran Neck: Supple Lungs: Rales (Bibasilar). No: Normal Respiratory Effort (Increased respiratory rate and effort) Cardiovascular: Regular Rate, Regular Rhythm GI/Abdominal Exam: Normal Bowel Sounds, Soft, Non-Tender, No Distention, No Abnormal Bruit Back Exam: Normal Inspection, Full Range of Motion Extremities: Normal Inspection, Normal Range of Motion, Non-Tender, No Pedal Edema, Normal Capillary Refill Skin: Warm, Dry, Intact Neurological: No New Focal Deficit Psy/Mental Status: Alert, Normal Affect, Normal Mood Sepsis Event Note - Evaluation Sepsis Screening Result: No Definite Risk - Focused Exam Vital Signs: Vital Signs Temp Pulse Resp BP Pulse Ox Pulse Ox 04/16/20 14:40 98.4 F 92 20 122/66 89 L 04/16/20 13:51 92 L 04/16/20 11:33 98.2 F 77 18 122/88 96 04/16/20 08:55 118/52 L 04/16/20 08:43 98.2 F 90 20 118/52 L 95 - Problem List & Annotations (1) Pneumonia due to COVID-19 virus SNOMED Code(s): 388509537875427610 Code(s): U07.1 - COVID-19; J12.89 - OTHER VIRAL PNEUMONIA Status: Acute Current Visit: Yes (2) Chronic renal insufficiency, stage III (moderate) SNOMED Code(s): 275797229 Code(s): N18.30 - CHRONIC KIDNEY DISEASE, STAGE 3 UNSPECIFIED Status: Acute Current Visit: Yes Qualifiers: Chronic kidney disease stage 3 subtype: stage 3b (GFR 30-44) Qualified Code(s): N18.32 - Chronic kidney disease, stage 3b (3) Pulmonary hypertension SNOMED Code(s): 73644052 Code(s): I27.20 - PULMONARY HYPERTENSION, UNSPECIFIED Status: Acute Current Visit: Yes (4) HTN, Essential hypertension SNOMED Code(s): 76272818 Code(s): I10 - ESSENTIAL (PRIMARY) HYPERTENSION Status: Acute Current Visit: No - Problem List Review Problem List Initiated/Reviewed/Updated: Yes - My Orders Last 24 Hours: My Active Orders 04/16/20 09:30 cefTRIAXone [Rocephin] 2 gm Sodium Chloride 0.9% [Normal Saline] 100 ml IV Q24H 04/16/20 10:00 Azithromycin [Zithromax] 500 mg Sodium Chloride 0.9% [Normal Saline (AdvBag)] 250 ml IV Q24H 04/17/20 05:11 INR,PT,PROTHROMBIN TIME [COAG] AM 04/18/20 05:11 INR,PT,PROTHROMBIN TIME [COAG] AM 04/19/20 05:11 INR,PT,PROTHROMBIN TIME [COAG] AM 04/20/20 05:11 INR,PT,PROTHROMBIN TIME [COAG] AM - Plan Plan:: Assessment 04/14/2020 84-year-old female with 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 * X-ray is consistent with a groundglass opacity in the left lung also elevated right hemidiaphragm. This will make treatment more difficult because of the reduced pulmonary capacity. Patient also has underlying lung disease requiring supplemental O2 from pulmonary emboli, history of congestive heart failure, LVH via EKG criteria, and hypertension. This places the patient at high risk for poor outcome regarding pneumonia caused by COVID-19. Fortunately patient is early on in the course of the infection with symptoms only starting 2 days ago. She is also on warfarin hopefully reducing the risk for micro emboli. Fortunately it appears her heart failure is well controlled with a normal proBNP. * WBC is 4.95, INR 2.21, CRP 8.8, AST 43, ALT 40, LDH 351, proBNP 829, lactic acid 0.8, troponin less than 0.017 * I anticipate patient will have a high risk for worsening. She is very early on in the disease and generally the inflammatory response starts 5 to 10 days after initial symptoms. With aggressive treatment early on we could possibly prevent progression to the severe inflammatory component. Stage III chronic renal insufficiency Hypertension * Estimated GFR 36 which appears stable over the last year. Creatinine 1.4, BUN 26, 1+ protein on UA * Currently on losartan and Lasix History of pulmonary embolism on warfarin for anticoagulation Factor V deficiency positive * INR 2.21 * Coumadin alternating 7.5 and 5 mg daily 04/15/2020 * Pneumonia secondary to COVID-19 * Pulmonary hypertension secondary to previous pulmonary emboli * Interstitial lung disease * Anticoagulation on warfarin * Hypertension * Stage III chronic renal insufficiency Patient without any significant change in symptoms or oxygenation overnight. Currently on 2 to 3 L nasal cannula, but is usually on 4 L during the day and 2 L at night. Her INR was slightly low today at 1.7. D-dimer 0.23 and CRP of 8.8. Renal function slightly improved with an estimated GFR of 39 and a creatinine of 1.3. Blood sugars are starting to increase with a glucose of 206. This is likely secondary to dexamethasone. 04/16/2020 * Pneumonia secondary to COVID-19 * Pulmonary hypertension secondary to previous pulmonary emboli * Interstitial lung disease * Anticoagulation on warfarin * Hypertension * Stage III chronic renal insufficiency * Hypoalbuminemia Patient is generally worse overnight. This is not surprising considering the stage of the illness. She is requiring 4 L all the time now even at rest. Lab work continues to be reassuring with C-reactive protein of 5.4, D-dimer of 0.33, normal white count and neutrophil count. INR 2.16. Renal function is stable with GFR 39, creatinine 1.3, BUN 32. Albumin does continue to drop and is down to 2.4. She did have a slight weight increase and may benefit from extra Lasix today. Plan * Remdesivir day 3 of 5 * Dexamethasone day 3 of 10 * 2 units convalescent plasma given * Give an extra 20 mg IV Lasix this afternoon. * Follow CBC, CMP, mag, phosphorus, D-dimer, CRP * FiO2 to keep SPO2 between 88 and 94%. She is on 4 L during the day and 2 L at night at baseline * Start on Rocephin and azithromycin. Will need to follow INR closely. * CODE STATUS: Full code * VTE prophylaxis with warfarin Patient lives at [facility] and primary care provider is Dr. Ludin Partida.
[2020-04-16] MEDS ORDERED: Warfarin 5 MG Tab PO ONE (20:15)
[2020-04-17] MEDS: Albuterol 0.083% 2.5 MG/3 ML Neb Soln NEB SCH ×3 (05:46→20:40)
[2020-04-17] MEDS: Pantoprazole 40 MG Tab.CR PO SCH (06:10)
[2020-04-17] MEDS: Magnesium Oxide 400 MG Tab PO SCH ×2 (09:29→20:04)
[2020-04-17] MEDS: Cholecalciferol (Vitamin D3) 25 MCG Tab PO SCH (09:30)
[2020-04-17] MEDS: Losartan 25 MG Tab PO SCH (09:30)
[2020-04-17] MEDS: Potassium Chloride 20 MEQ Tab.ER PO SCH (09:30)
[2020-04-17] MEDS: Furosemide 20 MG Tab PO SCH (09:30)
[2020-04-17] MEDS: cefTRIAXone 2 GM in Sodium Chloride 0.9% 100 ML IV SCH (09:31)
[2020-04-17] MEDS: Azithromycin 500 MG in Sodium Chloride 0.9% 250 ML IV SCH ×2 (09:31→10:09)
--- NOTE | 2020-04-17 10:53 | CR ---
"PROCEDURE INFORMATION: Exam: XR Chest, 1 View Exam date and time: 04/17/2020 8:20 AM Age: 84 years old Clinical indication: Other: Covid-19 positive TECHNIQUE: Imaging protocol: XR of the chest Views: 1 view. COMPARISON: CR Chest 1V Frontal 04/14/2020 2:56 PM FINDINGS: Lungs: Lung volumes are low, decreased since 04/14/2020, more pronounced on the right compared to the left, with continued marked elevation of the right hemidiaphragm. Bilateral mixed interstitial and airspace opacities have increased, with a perihilar and left-sided predominance. Small calcified granuloma at the left apex. Bilateral central bronchial wall thickening. Small calcified granuloma at the right lung base. Mild central vascular congestion is likely present. Pleural space: Thickening of the right minor fissure, likely with atelectasis along the fissure as well. No pleural effusion or pneumothorax. Heart/Mediastinum: Heart size is upper normal. Aorta is mildly tortuous. There is atherosclerotic calcification at the aortic arch. Bones/joints: No acute osseous abnormality. Degenerative changes at the glenohumeral and acromioclavicular joints. IMPRESSION: 1. Patchy bilateral mixed interstitial and airspace opacities which have increased, with a perihilar and left-sided predominance. 2. Mild central vascular congestion likely present. 3. Low lung volumes particularly on the right. Thank you for allowing us to participate in the care of your patient. MAYE ORTIZ | Final Radiology Report CONFIDENTIALITY STATEMENT This report is intended only for use by the referring physician, and only in accordance with law. If you received this in error, call [phone]. Page 2 of 2 Dictated and Authenticated by: Gay Canales MD 04/17/2020 10:00 AM Central Time ([place] & [place]) PERRY"
--- NOTE | 2020-04-17 15:51 | PCM.PN ---
- General Info Date of Service: 04/17/20 Admission Dx/Problem (Free Text): Admission Diagnosis/Problem Admission Diagnosis/Problem Dyspnea Subjective Update: Patient states that she thinks she is feeling a little better today. Has a little less shortness of breath and appetite is returning. Functional Status: Reports: Pain Controlled - Review of Systems General: Reports: Fatigue HEENT: Reports: No Symptoms Pulmonary: Reports: Shortness of Breath, Cough Cardiovascular: Reports: No Symptoms Gastrointestinal: Reports: No Symptoms Musculoskeletal: Reports: No Symptoms Psychiatric: Reports: No Symptoms - Patient Data Vitals - Most Recent: Last Vital Signs Temp 97.5 F 04/17/20 12:09 Pulse 74 04/17/20 12:09 Resp 20 04/17/20 12:09 BP 101/56 L 04/17/20 12:09 Pulse Ox 88 L 04/17/20 14:04 Weight - Most Recent: 153 lb 8 oz I&O - Last 24 Hours: Intake & Output 04/17/20 04/17/20 04/17/20 06:59 14:59 22:59 Intake Total 900 360 Output Total 1650 Balance -750 360 Imaging Impressions - Last 24 Hours: Chest x-ray 1 view: 1. Patchy bilateral mixed interstitial and airspace opacities which have increased, with a perihilar and left-sided predominance. 2. Mild central vascular congestion likely present. 3. Low lung volumes particularly on the right Lab Results Last 24 Hours: Laboratory Results - last 24 hr 04/17/20 04/17/20 04/17/20 Range/Units 05:36 05:36 05:36 WBC 4.69 (3.98-10.04) K/mm3 RBC 4.03 (3.98-5.22) M/mm3 Hgb 11.3 (11.2-15.7) gm/dl Hct 36.0 (34.1-44.9) % MCV 89.3 (79.4-94.8) fl MCH 28.0 (25.6-32.2) pg MCHC 31.4 L (32.2-35.5) g/dl RDW Std Deviation 42.5 (36.4-46.3) fL Plt Count 155 L (182-369) K/mm3 MPV 9.5 (9.4-12.3) fl Neut % (Auto) 81.2 H (34.0-71.1) % Lymph % (Auto) 12.2 L (19.3-51.7) % Blount % (Auto) 6.6 (4.7-12.5) % Eos % (Auto) 0 L (0.7-5.8) Baso % (Auto) 0.0 L (0.1-1.2) % Neut # (Auto) 3.81 (1.56-6.13) K/mm3 Lymph # (Auto) 0.57 L (1.18-3.74) K/mm3 Blount # (Auto) 0.31 (0.24-0.36) K/mm3 Eos # (Auto) 0.00 L (0.04-0.36) K/mm3 Baso # (Auto) 0.00 L (0.01-0.08) K/mm3 PT 27.4 H (9.7-12.0) SECONDS INR 2.61 Sodium 138 (136-145) mEq/L Potassium 3.7 (3.5-5.1) mEq/L Chloride 103 (98-107) mEq/L Carbon Dioxide 25 (21-32) mEq/L Anion Gap 13.7 (5-15) BUN 40 H (7-18) mg/dL Creatinine 1.5 H (0.55-1.02) mg/dL Est Cr Clr Drug Dosing 24.97 mL/min Estimated GFR (MDRD) 33 (>60) mL/min BUN/Creatinine Ratio 26.7 H (14-18) Glucose 159 H (83-115) mg/dL Calcium 8.6 (8.5-10.1) mg/dL Phosphorus 4.3 (2.6-4.7) mg/dL Magnesium 1.9 (1.8-2.4) mg/dl Total Bilirubin 0.3 (0.2-1.0) mg/dL AST 73 H (15-37) U/L ALT 82 H (14-59) U/L Alkaline Phosphatase 59 (46-116) U/L C-Reactive Protein 3.6 H* (<1.0) mg/dL Total Protein 6.2 L (6.4-8.2) g/dl Albumin 2.5 L (3.4-5.0) g/dl Globulin 3.7 gm/dL Albumin/Globulin Ratio 0.7 L (1-2) Kevyn Results Last 24 Hours: Microbiology 04/15/20 11:00 Gram Stain - Final Sputum - Expectorated Sputum Culture - Final NORMAL RESPIRATORY EDA 2 DAYS 04/14/20 15:30 Aerobic Blood Culture - Preliminary Blood - Venous NO GROWTH AFTER 2 DAYS Anaerobic Blood Culture - Preliminary NO GROWTH AFTER 2 DAYS 04/14/20 16:05 Aerobic Blood Culture - Preliminary Blood - Venous - Lab Draw NO GROWTH AFTER 2 DAYS Anaerobic Blood Culture - Preliminary NO GROWTH AFTER 2 DAYS 04/14/20 17:29 Urine Culture - Final Urine, Bladder Escherichia Coli Med Orders - Current: Current Medications Acetaminophen (Tylenol) 650 mg PO Q4H PRN PRN Reason: Pain Last Admin: 04/14/20 16:02 Dose: 650 mg Documented by: Albuterol (Proventil Neb Soln) 2.5 mg NEB TIDRT [facility] Last Admin: 04/17/20 14:04 Dose: 2.5 mg Documented by: Cholecalciferol (Vitamin D3) 125 mcg PO DAILY [facility] Last Admin: 04/17/20 09:30 Dose: 125 mcg Documented by: Dexamethasone (Dexamethasone) 6 mg PO Q24H [facility] Stop: 04/23/20 18:01 Last Admin: 04/16/20 17:08 Dose: 6 mg Documented by: Furosemide (Lasix) 30 mg PO DAILY [facility] Last Admin: 04/17/20 09:30 Dose: 30 mg Documented by: Remdesivir 100 mg/ Sodium (Chloride) 100 mls @ 100 mls/hr IV Q24H [facility] Stop: 04/18/20 19:59 Last Admin: 04/16/20 18:20 Dose: 100 mls/hr Documented by: Ceftriaxone Sodium 2 gm/ (Sodium Chloride) 100 mls @ 200 mls/hr IV Q24H [facility] Stop: 04/20/20 09:59 Last Admin: 04/17/20 09:31 Dose: 200 mls/hr Documented by: Azithromycin 500 mg/ Sodium (Chloride) 250 mls @ 250 mls/hr IV Q24H [facility] Stop: 04/18/20 10:59 Last Admin: 04/17/20 10:09 Dose: 250 mls/hr Documented by: Losartan Potassium (Cozaar) 12.5 mg PO DAILY [facility] Last Admin: 04/17/20 09:30 Dose: 12.5 mg Documented by: Magnesium Oxide (Magnesium Oxide) 400 mg PO BID [facility] Last Admin: 04/17/20 09:29 Dose: 400 mg Documented by: Ondansetron HCl (Zofran) 4 mg IV Q4H PRN PRN Reason: Nausea/Vomiting Ondansetron HCl (Zofran Odt) 4 mg PO Q4H PRN PRN Reason: nausea, able to take PO Pantoprazole Sodium (Protonix) 40 mg PO DAILY@0700 [facility] Last Admin: 04/17/20 06:10 Dose: 40 mg Documented by: Potassium Chloride (Klor-Con M20) 20 meq PO DAILY [facility] Last Admin: 04/17/20 09:30 Dose: 20 meq Documented by: Warfarin Sodium (Pharmacy To Dose - Warfarin) 0 dose .XX ASDIRECTED PRN PRN Reason: RX TO DOSE WARFARIN Warfarin Sodium (Coumadin) 5 mg PO QPM [facility] Stop: 04/17/20 18:01 Zolpidem Tartrate (Ambien) 2.5 mg PO BEDTIME PRN PRN Reason: Insomnia Discontinued Medications Albuterol (Proventil Neb Soln) 2.5 mg NEB TID EMIGDIO Albuterol (Proventil Neb Soln) 2.5 mg NEB TIDRT [facility] Albuterol (Proventil Neb Soln) Confirm Administered Dose 2.5 mg .ROUTE .STK-MED ONE Stop: 04/16/20 01:20 [facility] Last Admin: 04/16/20 05:39 Dose: Not Given Documented by: Furosemide (Lasix) 20 mg IVPUSH ONETIME ONE Stop: 04/16/20 12:46 Last Admin: 04/16/20 12:59 Dose: 20 mg Documented by: Dextrose/Sodium Chloride (Dextrose 5%-Normal Saline) 1,000 mls @ 100 mls/hr IV ASDIRECTED [facility] Last Admin: 04/15/20 05:45 Dose: 100 mls/hr Documented by: Remdesivir 200 mg/ Sodium (Chloride) 250 mls @ 250 mls/hr IV ONETIME ONE Stop: 04/14/20 17:34 Last Admin: 04/14/20 18:32 Dose: 250 mls/hr Documented by: Sodium Chloride (Normal Saline) 250 mls @ 50 mls/hr IV ASDIRECTED [facility] Losartan Potassium (Cozaar) 12.5 mg PO ASDIRECTED [facility] Non-Formulary Medication (Magnesium [Magnesium]) 400 mg PO ASDIRECTED [facility] Warfarin Sodium (Pharmacy To Dose - Warfarin) 0 dose .XX ASDIRECTED PRN PRN Reason: RX TO DOSE WARFARIN Warfarin Sodium (Coumadin) 5 mg PO ONETIME ONE Stop: 04/14/20 20:31 Last Admin: 04/14/20 20:51 Dose: 5 mg Documented by: Warfarin Sodium (Coumadin) 7.5 mg PO QPM [facility] Stop: 04/15/20 21:00 Last Admin: 04/15/20 18:10 Dose: 7.5 mg Documented by: Warfarin Sodium (Coumadin) 5 mg PO ONETIME ONE Stop: 04/16/20 20:16 Last Admin: 04/16/20 20:46 Dose: 5 mg Documented by: - Exam Quality Assessment: Supplemental Oxygen General: Alert, Oriented HEENT: Pupils Equal, Mucous Membr. Moist/[place] Neck: Supple Lungs: Rales (Scattered). No: Normal Respiratory Effort (Increased respiratory rate and mild increase in effort) Cardiovascular: Regular Rate, Regular Rhythm GI/Abdominal Exam: Normal Bowel Sounds, Soft, Non-Tender, No Distention Extremities: Normal Inspection, Normal Range of Motion, Non-Tender, No Pedal Edema, Normal Capillary Refill Skin: Warm, Dry, Intact Neurological: No New Focal Deficit Psy/Mental Status: Alert, Normal Affect, Normal Mood Sepsis Event Note - Evaluation Sepsis Screening Result: No Definite Risk - Focused Exam Vital Signs: Vital Signs Temp Pulse Resp BP Pulse Ox Pulse Ox 04/17/20 14:04 88 L 04/17/20 12:09 97.5 F 74 20 101/56 L 90 L 04/17/20 09:30 122/61 04/17/20 09:29 98.1 F 87 20 122/61 94 L 04/17/20 07:52 89 L 04/17/20 05:52 93 L 04/17/20 04:38 97.7 F 54 L 20 113/53 L 88 L - Problem List & Annotations (1) Pneumonia due to COVID-19 virus SNOMED Code(s): 847582786475924975 Code(s): U07.1 - COVID-19; J12.89 - OTHER VIRAL PNEUMONIA Status: Acute Current Visit: Yes (2) Chronic renal insufficiency, stage III (moderate) SNOMED Code(s): 496633191 Code(s): N18.30 - CHRONIC KIDNEY DISEASE, STAGE 3 UNSPECIFIED Status: Acute Current Visit: Yes Qualifiers: Chronic kidney disease stage 3 subtype: stage 3b (GFR 30-44) Qualified Code(s): N18.32 - Chronic kidney disease, stage 3b (3) Pulmonary hypertension SNOMED Code(s): 47809051 Code(s): I27.20 - PULMONARY HYPERTENSION, UNSPECIFIED Status: Acute Current Visit: Yes (4) HTN, Essential hypertension SNOMED Code(s): 63865886 Code(s): I10 - ESSENTIAL (PRIMARY) HYPERTENSION Status: Acute Current Visit: No - Problem List Review Problem List Initiated/Reviewed/Updated: Yes - My Orders Last 24 Hours: My Active Orders 04/16/20 22:14 Warfarin Pharmacy to Dose [Pharmacy to Dose - Warfarin] 0 dose .XX ASDIRECTED PRN 04/17/20 Lunch Regular Diet [DIET] 04/17/20 18:00 Warfarin [Coumadin] 5 mg PO QPM 04/18/20 05:11 INR,PT,PROTHROMBIN TIME [COAG] AM 04/19/20 05:11 INR,PT,PROTHROMBIN TIME [COAG] AM 04/20/20 05:11 INR,PT,PROTHROMBIN TIME [COAG] AM - Plan Plan:: Assessment 04/14/2020 84-year-old female with 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 * X-ray is consistent with a groundglass opacity in the left lung also elevated right hemidiaphragm. This will make treatment more difficult because of the reduced pulmonary capacity. Patient also has underlying lung disease requiring supplemental O2 from pulmonary emboli, history of congestive heart failure, LVH via EKG criteria, and hypertension. This places the patient at high risk for poor outcome regarding pneumonia caused by COVID-19. Fortunately patient is early on in the course of the infection with symptoms only starting 2 days ago. She is also on warfarin hopefully reducing the risk for micro emboli. Fortunately it appears her heart failure is well controlled with a normal proBNP. * WBC is 4.95, INR 2.21, CRP 8.8, AST 43, ALT 40, LDH 351, proBNP 829, lactic acid 0.8, troponin less than 0.017 * I anticipate patient will have a high risk for worsening. She is very early on in the disease and generally the inflammatory response starts 5 to 10 days after initial symptoms. With aggressive treatment early on we could possibly prevent progression to the severe inflammatory component. Stage III chronic renal insufficiency Hypertension * Estimated GFR 36 which appears stable over the last year. Creatinine 1.4, BUN 26, 1+ protein on UA * Currently on losartan and Lasix History of pulmonary embolism on warfarin for anticoagulation Factor V deficiency positive * INR 2.21 * Coumadin alternating 7.5 and 5 mg daily 04/15/2020 * Pneumonia secondary to COVID-19 * Pulmonary hypertension secondary to previous pulmonary emboli * Interstitial lung disease * Anticoagulation on warfarin * Hypertension * Stage III chronic renal insufficiency Patient without any significant change in symptoms or oxygenation overnight. Currently on 2 to 3 L nasal cannula, but is usually on 4 L during the day and 2 L at night. Her INR was slightly low today at 1.7. D-dimer 0.23 and CRP of 8.8. Renal function slightly improved with an estimated GFR of 39 and a creatinine of 1.3. Blood sugars are starting to increase with a glucose of 206. This is likely secondary to dexamethasone. 04/16/2020 * Pneumonia secondary to COVID-19 * Pulmonary hypertension secondary to previous pulmonary emboli * Interstitial lung disease * Anticoagulation on warfarin * Hypertension * Stage III chronic renal insufficiency * Hypoalbuminemia Patient is generally worse overnight. This is not surprising considering the stage of the illness. She is requiring 4 L all the time now even at rest. Lab work continues to be reassuring with C-reactive protein of 5.4, D-dimer of 0.33, normal white count and neutrophil count. INR 2.16. Renal function is stable with GFR 39, creatinine 1.3, BUN 32. Albumin does continue to drop and is down to 2.4. She did have a slight weight increase and may benefit from extra Lasix today. 04/17/2020 * Pneumonia secondary to COVID-19 * Pulmonary hypertension secondary to previous pulmonary emboli * Interstitial lung disease * Anticoagulation on warfarin * Hypertension * Stage III chronic renal insufficiency * Hypoalbuminemia Symptomatically she has improved. Oxygenation is about the same as it was yesterday. Chest x-ray shows some vascular congestion and she did receive her Lasix 30 mg p.o. this morning. Lab work is consistent with some mild intravascular volume depletion. INR 2.6, GFR 33 which is down, creatinine 1.5, BUN 40, C-reactive protein 3.6 Plan * Remdesivir day 4 of 5 * Dexamethasone day 4 of 10 * 2 units convalescent plasma given * Lasix 30 mg p.o. daily * Follow CBC, CMP, mag, phosphorus, * FiO2 to keep SPO2 between 88 and 94%. Baseline: 4 L during the day and 2 L at night * Continue Rocephin and azithromycin, will need to follow INR closely. * CODE STATUS: Full code * VTE prophylaxis with warfarin Patient lives at [facility] and primary care provider is Dr. Ludin Partida.
[2020-04-17] MEDS ORDERED: Warfarin 5 MG Tab PO SCH (18:00)
[2020-04-17] MEDS: Dexamethasone 4 MG Tab PO SCH (18:57)
[2020-04-17] MEDS: REMDESIVIR 100 MG in Sodium Chloride 0.9% 100 ML IV SCH (18:57)
[2020-04-18] MEDS: Albuterol 0.083% 2.5 MG/3 ML Neb Soln NEB SCH ×3 (05:17→20:33)
[2020-04-18] MEDS: Pantoprazole 40 MG Tab.CR PO SCH ×2 (05:38→08:03)
[2020-04-18] MEDS: cefTRIAXone 2 GM in Sodium Chloride 0.9% 100 ML IV SCH (08:33)
[2020-04-18] MEDS: Furosemide 20 MG Tab PO SCH (08:35)
[2020-04-18] MEDS: Potassium Chloride 20 MEQ Tab.ER PO SCH (08:36)
[2020-04-18] MEDS: Losartan 25 MG Tab PO SCH (08:36)
[2020-04-18] MEDS: Magnesium Oxide 400 MG Tab PO SCH ×2 (08:38→21:46)
[2020-04-18] MEDS: Cholecalciferol (Vitamin D3) 25 MCG Tab PO SCH (08:38)
[2020-04-18] MEDS: Azithromycin 500 MG in Sodium Chloride 0.9% 250 ML IV SCH (09:31)
[2020-04-18] MEDS ORDERED: Warfarin Sliding Scale PO SCH (18:00)
[2020-04-18] MEDS: Dexamethasone 4 MG Tab PO SCH (18:31)
[2020-04-18] MEDS: REMDESIVIR 100 MG in Sodium Chloride 0.9% 100 ML IV SCH (18:33)
--- NOTE | 2020-04-18 19:11 | PCM.PN ---
- General Info Date of Service: 04/18/20 Admission Dx/Problem (Free Text): Admission Diagnosis/Problem Admission Diagnosis/Problem Dyspnea Subjective Update: Patient states that she is about the same as yesterday. 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 She was placed on atovaquone and told that anytime she rec eived steroids she need to be placed on this. She has been on it several times at 750 mg twice daily and she is usually on it for 3 weeks. Oxygenation continues to be poor. She is now requiring 5 L and she will drop to 70% FiO2 if she gets up to go the bathroom even on 4 L. Functional Status: Reports: Pain Controlled - Review of Systems General: Reports: No Symptoms HEENT: Reports: No Symptoms Pulmonary: Reports: Shortness of Breath, Cough Cardiovascular: Reports: No Symptoms Gastrointestinal: Reports: No Symptoms Musculoskeletal: Reports: No Symptoms Neurological: Reports: No Symptoms Psychiatric: Reports: No Symptoms - Patient Data Vitals - Most Recent: Last Vital Signs Temp 97.9 F 04/18/20 11:15 Pulse 87 04/18/20 11:15 Resp 16 04/18/20 11:15 BP 112/57 L 04/18/20 11:15 Pulse Ox 89 L 04/18/20 16:26 Weight - Most Recent: 154 lb I&O - Last 24 Hours: Intake & Output 04/18/20 04/18/20 04/18/20 06:59 14:59 22:59 Intake Total 272 020 4245 Output Total 1500 1100 Balance -1000 960 -50 Imaging Impressions - Last 24 Hours: Chest x-ray yesterday showed patchy bilateral mixed interstitial and airspace opacities which have increased with a perihilar and left-sided predominance. Lab Results Last 24 Hours: Laboratory Results - last 24 hr 04/18/20 04/18/20 04/18/20 Range/Units 05:29 05:29 05:29 WBC 5.27 (3.98-10.04) K/mm3 RBC 4.04 (3.98-5.22) M/mm3 Hgb 11.6 (11.2-15.7) gm/dl Hct 35.8 (34.1-44.9) % MCV 88.6 (79.4-94.8) fl MCH 28.7 (25.6-32.2) pg MCHC 32.4 (32.2-35.5) g/dl RDW Std Deviation 41.8 (36.4-46.3) fL Plt Count 166 L (182-369) K/mm3 MPV 10.0 (9.4-12.3) fl Neut % (Auto) 83.8 H (34.0-71.1) % Lymph % (Auto) 11.8 L (19.3-51.7) % [place] % (Auto) 4.0 L (4.7-12.5) % Eos % (Auto) 0.2 L (0.7-5.8) Baso % (Auto) 0.0 L (0.1-1.2) % Neut # (Auto) 4.42 (1.56-6.13) K/mm3 Lymph # (Auto) 0.62 L (1.18-3.74) K/mm3 [place] # (Auto) 0.21 L (0.24-0.36) K/mm3 Eos # (Auto) 0.01 L (0.04-0.36) K/mm3 Baso # (Auto) 0.00 L (0.01-0.08) K/mm3 PT 37.3 H D (9.7-12.0) SECONDS INR 3.57 Sodium 140 (136-145) mEq/L Potassium 4.1 (3.5-5.1) mEq/L Chloride 105 (98-107) mEq/L Carbon Dioxide 25 (21-32) mEq/L Anion Gap 14.1 (5-15) BUN 40 H (7-18) mg/dL Creatinine 1.5 H (0.55-1.02) mg/dL Est Cr Clr Drug Dosing 24.97 mL/min Estimated GFR (MDRD) 33 (>60) mL/min BUN/Creatinine Ratio 26.7 H (14-18) Glucose 180 H (83-115) mg/dL Calcium 8.3 L (8.5-10.1) mg/dL Phosphorus 3.6 (2.6-4.7) mg/dL Magnesium 2.0 (1.8-2.4) mg/dl Total Bilirubin 0.3 (0.2-1.0) mg/dL AST 53 H (15-37) U/L ALT 78 H (14-59) U/L Alkaline Phosphatase 64 (46-116) U/L Total Protein 6.0 L (6.4-8.2) g/dl Albumin 2.4 L (3.4-5.0) g/dl Globulin 3.6 gm/dL Albumin/Globulin Ratio 0.7 L (1-2) Kevyn Results Last 24 Hours: Microbiology 04/14/20 15:30 Aerobic Blood Culture - Preliminary Blood - Venous NO GROWTH AFTER 4 DAYS Anaerobic Blood Culture - Preliminary NO GROWTH AFTER 4 DAYS 04/14/20 16:05 Aerobic Blood Culture - Preliminary Blood - Venous - Lab Draw NO GROWTH AFTER 4 DAYS Anaerobic Blood Culture - Preliminary NO GROWTH AFTER 4 DAYS Med Orders - Current: Current Medications Acetaminophen (Tylenol) 650 mg PO Q4H PRN PRN Reason: Pain Last Admin: 04/14/20 16:02 Dose: 650 mg Documented by: Albuterol (Proventil Neb Soln) 2.5 mg NEB TIDRT [facility] Last Admin: 04/18/20 13:21 Dose: 2.5 mg Documented by: Cholecalciferol (Vitamin D3) 125 mcg PO DAILY [facility] Last Admin: 04/18/20 08:38 Dose: 125 mcg Documented by: Dexamethasone (Dexamethasone) 6 mg PO Q24H [facility] Stop: 04/23/20 18:01 Last Admin: 04/18/20 18:31 Dose: 6 mg Documented by: Furosemide (Lasix) 30 mg PO DAILY [facility] Last Admin: 04/18/20 08:35 Dose: 30 mg Documented by: Remdesivir 100 mg/ Sodium (Chloride) 100 mls @ 100 mls/hr IV Q24H [facility] Stop: 04/18/20 19:59 Last Admin: 04/18/20 18:33 Dose: 100 mls/hr Documented by: Ceftriaxone Sodium 2 gm/ (Sodium Chloride) 100 mls @ 200 mls/hr IV Q24H [facility] Stop: 04/20/20 09:59 Last Admin: 04/18/20 08:33 Dose: 200 mls/hr Documented by: Losartan Potassium (Cozaar) 12.5 mg PO DAILY [facility] Last Admin: 04/18/20 08:36 Dose: 12.5 mg Documented by: Magnesium Oxide (Magnesium Oxide) 400 mg PO BID [facility] Last Admin: 04/18/20 08:38 Dose: 400 mg Documented by: Atovaquone 750 Mg/5 (Ml Ptom) 0 each PO BID [facility] Ondansetron HCl (Zofran) 4 mg IV Q4H PRN PRN Reason: Nausea/Vomiting Ondansetron HCl (Zofran Odt) 4 mg PO Q4H PRN PRN Reason: nausea, able to take PO Pantoprazole Sodium (Protonix) 40 mg PO DAILY@0700 [facility] Last Admin: 04/18/20 08:03 Dose: Not Given Documented by: Potassium Chloride (Klor-Con M20) 20 meq PO DAILY [facility] Last Admin: 04/18/20 08:36 Dose: 20 meq Documented by: Warfarin Sodium (Pharmacy To Dose - Warfarin) 0 dose .XX ASDIRECTED PRN PRN Reason: RX TO DOSE WARFARIN Zolpidem Tartrate (Ambien) 2.5 mg PO BEDTIME PRN PRN Reason: Insomnia Discontinued Medications Albuterol (Proventil Neb Soln) 2.5 mg NEB TID EMIGDIO Albuterol (Proventil Neb Soln) 2.5 mg NEB TIDRT EMIGDIO Albuterol (Proventil Neb Soln) Confirm Administered Dose 2.5 mg .ROUTE .STK-MED ONE Stop: 04/16/20 01:20 [facility] Last Admin: 04/16/20 05:39 Dose: Not Given Documented by: Furosemide (Lasix) 20 mg IVPUSH ONETIME ONE Stop: 04/16/20 12:46 Last Admin: 04/16/20 12:59 Dose: 20 mg Documented by: Dextrose/Sodium Chloride (Dextrose 5%-Normal Saline) 1,000 mls @ 100 mls/hr IV ASDIRECTED [facility] Last Admin: 04/15/20 05:45 Dose: 100 mls/hr Documented by: Remdesivir 200 mg/ Sodium (Chloride) 250 mls @ 250 mls/hr IV ONETIME ONE Stop: 04/14/20 17:34 Last Admin: 04/14/20 18:32 Dose: 250 mls/hr Documented by: Sodium Chloride (Normal Saline) 250 mls @ 50 mls/hr IV ASDIRECTED [facility] Azithromycin 500 mg/ Sodium (Chloride) 250 mls @ 250 mls/hr IV Q24H [facility]IG[facility]IO Stop: 04/18/20 10:59 Last Admin: 04/18/20 09:31 Dose: 250 mls/hr Documented by: Losartan Potassium (Cozaar) 12.5 mg PO ASDIRECTED [facility] Non-Formulary Medication (Magnesium [Magnesium]) 400 mg PO ASDIRECTED [facility] Warfarin Sodium (Pharmacy To Dose - Warfarin) 0 dose .XX ASDIRECTED PRN PRN Reason: RX TO DOSE WARFARIN Warfarin Sodium (Coumadin) 5 mg PO ONETIME ONE Stop: 04/14/20 20:31 Last Admin: 04/14/20 20:51 Dose: 5 mg Documented by: Warfarin Sodium (Coumadin) 7.5 mg PO QPM [facility] Stop: 04/15/20 21:00 Last Admin: 04/15/20 18:10 Dose: 7.5 mg Documented by: Warfarin Sodium (Coumadin) 5 mg PO ONETIME ONE Stop: 04/16/20 20:16 Last Admin: 04/16/20 20:46 Dose: 5 mg Documented by: Warfarin Sodium (Coumadin) 5 mg PO QPM [facility] Stop: 04/17/20 18:01 Last Admin: 04/17/20 18:57 Dose: 5 mg Documented by: Warfarin Sodium (Coumadin Sliding Scale) 0 each PO QPM [facility] Stop: 04/18/20 18:01 Last Admin: 04/18/20 18:33 Dose: Not Given Documented by: - Exam Quality Assessment: Supplemental Oxygen General: Alert, Oriented HEENT: Pupils Equal, Mucous Membr. Moist/[place] Neck: Supple Lungs: Decreased Breath Sounds, Rales (Bibasilar rales). No: Normal Respiratory Effort (Increased respiratory rate and effort.) Cardiovascular: Regular Rate, Regular Rhythm GI/Abdominal Exam: Normal Bowel Sounds, Soft, Non-Tender, Distended (Obese) Extremities: Normal Inspection, Normal Capillary Refill, Pedal Edema Skin: Warm, Dry, Intact Neurological: No New Focal Deficit Psy/Mental Status: Alert, Normal Affect, Normal Mood Sepsis Event Note - Evaluation Sepsis Screening Result: No Definite Risk - Focused Exam Vital Signs: Vital Signs Temp Pulse Resp BP Pulse Ox Pulse Ox 04/18/20 16:26 89 L 04/18/20 14:12 91 L 04/18/20 13:21 96 04/18/20 11:15 97.9 F 87 16 112/57 L 89 L 04/18/20 09:00 91 L 04/18/20 08:36 120/59 L 04/18/20 08:13 98.6 F 89 16 120/59 L 91 L - Problem List & Annotations (1) Pneumonia due to COVID-19 virus SNOMED Code(s): 255238197327776928 Code(s): U07.1 - COVID-19; J12.89 - OTHER VIRAL PNEUMONIA Status: Acute Current Visit: Yes (2) Chronic renal insufficiency, stage III (moderate) SNOMED Code(s): 012422270 Code(s): N18.30 - CHRONIC KIDNEY DISEASE, STAGE 3 UNSPECIFIED Status: Acute Current Visit: Yes Qualifiers: Chronic kidney disease stage 3 subtype: stage 3b (GFR 30-44) Qualified Code(s): N18.32 - Chronic kidney disease, stage 3b (3) Pulmonary hypertension SNOMED Code(s): 12489074 Code(s): I27.20 - PULMONARY HYPERTENSION, UNSPECIFIED Status: Acute Current Visit: Yes (4) HTN, Essential hypertension SNOMED Code(s): 06184942 Code(s): I10 - ESSENTIAL (PRIMARY) HYPERTENSION Status: Acute Current Visit: No - Problem List Review Problem List Initiated/Reviewed/Updated: Yes - My Orders Last 24 Hours: My Active Orders 04/18/20 11:23 Urinary Catheter Assessment [RC] ASDIRECTED 04/18/20 11:30 Urinary Catheter Insertion [Insert Urinary Catheter] [OM.PC] Q24H 04/19/20 05:11 INR,PT,PROTHROMBIN TIME [COAG] AM 04/19/20 21:00 Non-Formulary Medication [NF Drug] 0 each PO BID 04/20/20 05:11 INR,PT,PROTHROMBIN TIME [COAG] AM - Plan Plan:: Assessment 04/14/2020 84-year-old female with 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 * X-ray is consistent with a groundglass opacity in the left lung also elevated right hemidiaphragm. This will make treatment more difficult because of the reduced pulmonary capacity. Patient also has underlying lung disease requiring supplemental O2 from pulmonary emboli, history of congestive heart failure, LVH via EKG criteria, and hypertension. This places the patient at high risk for poor outcome regarding pneumonia caused by COVID-19. Fortunately patient is early on in the course of the infection with symptoms only starting 2 days ago. She is also on warfarin hopefully reducing the risk for micro emboli. Fortunately it appears her heart failure is well controlled with a normal proBNP. * WBC is 4.95, INR 2.21, CRP 8.8, AST 43, ALT 40, LDH 351, proBNP 829, lactic acid 0.8, troponin less than 0.017 * I anticipate patient will have a high risk for worsening. She is very early on in the disease and generally the inflammatory response starts 5 to 10 days after initial symptoms. With aggressive treatment early on we could possibly prevent progression to the severe inflammatory component. Stage III chronic renal insufficiency Hypertension * Estimated GFR 36 which appears stable over the last year. Creatinine 1.4, BUN 26, 1+ protein on UA * Currently on losartan and Lasix History of pulmonary embolism on warfarin for anticoagulation Factor V deficiency positive * INR 2.21 * Coumadin alternating 7.5 and 5 mg daily 04/15/2020 * Pneumonia secondary to COVID-19 * Pulmonary hypertension secondary to previous pulmonary emboli * Interstitial lung disease * Anticoagulation on warfarin * Hypertension * Stage III chronic renal insufficiency Patient without any significant change in symptoms or oxygenation overnight. Currently on 2 to 3 L nasal cannula, but is usually on 4 L during the day and 2 L at night. Her INR was slightly low today at 1.7. D-dimer 0.23 and CRP of 8.8. Renal function slightly improved with an estimated GFR of 39 and a creatinine of 1.3. Blood sugars are starting to increase with a glucose of 206. This is likely secondary to dexamethasone. 04/16/2020 * Pneumonia secondary to COVID-19 * Pulmonary hypertension secondary to previous pulmonary emboli * Interstitial lung disease * Anticoagulation on warfarin * Hypertension * Stage III chronic renal insufficiency * Hypoalbuminemia Patient is generally worse overnight. This is not surprising considering the stage of the illness. She is requiring 4 L all the time now even at rest. Lab work continues to be reassuring with C-reactive protein of 5.4, D-dimer of 0.33, normal white count and neutrophil count. INR 2.16. Renal function is stable with GFR 39, creatinine 1.3, BUN 32. Albumin does continue to drop and is down to 2.4. She did have a slight weight increase and may benefit from extra Lasix today. 04/17/2020 * Pneumonia secondary to COVID-19 * Pulmonary hypertension secondary to previous pulmonary emboli * Interstitial lung disease * Anticoagulation on warfarin * Hypertension * Stage III chronic renal insufficiency * Hypoalbuminemia Symptomatically she has improved. Oxygenation is about the same as it was yesterday. Chest x-ray shows some vascular congestion and she did receive her Lasix 30 mg p.o. this morning. Lab work is consistent with some mild intravascular volume depletion. INR 2.6, GFR 33 which is down, creatinine 1.5, BUN 40, C-reactive protein 3.6 04/18/2020 * Pneumonia secondary to COVID-19 * History of pneumocystis pneumonia. * Pulmonary hypertension secondary to previous pulmonary emboli * Interstitial lung disease * Anticoagulation on warfarin-INR 3.57, pharmacy to dose * Hypertension-Blood pressure well controlled * Stage III chronic renal insufficiency-GFR 33, creatinine 1.5 * Hypoalbuminemia-Albumin 2.4 * Steroid-induced hyperglycemia-blood sugars increasing secondary to dexamethasone. No significant change. She has a history of Pneumocystis carinii and therefore needs to be placed on atovaquone. We called her local pharmacy who said they will order it and get it to us hopefully tomorrow. We are unable to get it from our pharmacy. Oxygenation is significantly worsening. She will finish her 5 days of remdesivir and 5 out of 10 days of dexamethasone today. Plan * Start atovaquone as soon as we get it 750 mg twice daily * Fingerstick blood sugars before every meal and before bedtime * Low-dose sliding scale insulin * Lasix 30 mg p.o. daily * Follow CBC, CMP, mag, phosphorus, * FiO2 to keep SPO2 between 88 and 94%. Baseline: 4 L during the day and 2 L at night * Completed remdesivir, convalescent plasma, azithromycin * Dexamethasone day 5 of 10 * Continue Rocephin will need to follow INR closely. * CODE STATUS: Full code * VTE prophylaxis with warfarin Patient lives at [facility] and primary care provider is Dr. Ludin Partida.
[2020-04-18] MEDS ORDERED: 50% Dextrose in Water 50 ML Syringe IV PRN (22:21)
[2020-04-19] MEDS: Albuterol 0.083% 2.5 MG/3 ML Neb Soln NEB SCH ×3 (05:15→21:14)
[2020-04-19] MEDS: Pantoprazole 40 MG Tab.CR PO SCH (06:20)
[2020-04-19] MEDS: Insulin Lispro 100 Units/ML 3 ML Vial SUBCUT SCH ×4 (09:00→21:51)
[2020-04-19] MEDS: Losartan 25 MG Tab PO SCH (09:04)
[2020-04-19] MEDS: Cholecalciferol (Vitamin D3) 25 MCG Tab PO SCH (09:04)
[2020-04-19] MEDS: Magnesium Oxide 400 MG Tab PO SCH ×2 (09:04→21:50)
[2020-04-19] MEDS: Potassium Chloride 20 MEQ Tab.ER PO SCH (09:06)
[2020-04-19] MEDS: Furosemide 20 MG Tab PO SCH (09:06)
[2020-04-19] MEDS: cefTRIAXone 2 GM in Sodium Chloride 0.9% 100 ML IV SCH (09:09)
--- NOTE | 2020-04-19 15:34 | PCM.PN ---
- General Info Date of Service: 04/19/20 Subjective Update: Patient feels SOB at rest, more profound with activity. Functional Status: Reports: Tolerating Diet - Review of Systems General: Reports: Weakness HEENT: Reports: No Symptoms Pulmonary: Reports: Shortness of Breath Cardiovascular: Reports: No Symptoms Gastrointestinal: Reports: No Symptoms Genitourinary: Reports: No Symptoms Musculoskeletal: Reports: No Symptoms Skin: Reports: No Symptoms Neurological: Reports: No Symptoms Psychiatric: Reports: No Symptoms - Patient Data Vitals - Most Recent: Last Vital Signs Temp 36.6 C 04/19/20 08:18 Pulse 81 04/19/20 08:18 Resp 20 04/19/20 08:18 BP 135/54 L 04/19/20 09:04 Pulse Ox 93 L 04/19/20 15:00 Weight - Most Recent: 69.853 kg I&O - Last 24 Hours: Intake & Output 04/19/20 04/19/20 04/19/20 06:59 14:59 22:59 Intake Total 200 580 Output Total 200 800 Balance 0 -220 Lab Results Last 24 Hours: Laboratory Results - last 24 hr 04/19/20 04/19/20 04/19/20 Range/Units 04:41 04:41 04:41 WBC 7.05 (3.98-10.04) K/mm3 RBC 3.98 (3.98-5.22) M/mm3 Hgb 11.2 (11.2-15.7) gm/dl Hct 35.6 (34.1-44.9) % MCV 89.4 (79.4-94.8) fl MCH 28.1 (25.6-32.2) pg MCHC 31.5 L (32.2-35.5) g/dl RDW Std Deviation 42.1 (36.4-46.3) fL Plt Count 157 L (182-369) K/mm3 MPV 10.3 (9.4-12.3) fl Neut % (Auto) 91.3 H (34.0-71.1) % Lymph % (Auto) 6.2 L (19.3-51.7) % [place] % (Auto) 2.1 L (4.7-12.5) % Eos % (Auto) 0 L (0.7-5.8) Baso % (Auto) 0.0 L (0.1-1.2) % Neut # (Auto) 6.43 H (1.56-6.13) K/mm3 Lymph # (Auto) 0.44 L (1.18-3.74) K/mm3 [place] # (Auto) 0.15 L (0.24-0.36) K/mm3 Eos # (Auto) 0.00 L (0.04-0.36) K/mm3 Baso # (Auto) 0.00 L (0.01-0.08) K/mm3 Manual Slide Review Abnormal smear PT 44.5 H (9.7-12.0) SECONDS INR 4.28 D-Dimer, Quantitative 5.70 H (0.19-0.50) mg/L Sodium 141 (136-145) mEq/L Potassium 4.1 (3.5-5.1) mEq/L Chloride 105 (98-107) mEq/L Carbon Dioxide 27 (21-32) mEq/L Anion Gap 13.1 (5-15) BUN 40 H (7-18) mg/dL Creatinine 1.4 H (0.55-1.02) mg/dL Est Cr Clr Drug Dosing 26.75 mL/min Estimated GFR (MDRD) 36 (>60) mL/min BUN/Creatinine Ratio 28.6 H (14-18) Glucose 183 H (83-115) mg/dL POC Glucose (83-110) mg/dL Calcium 8.2 L (8.5-10.1) mg/dL Phosphorus 3.1 (2.6-4.7) mg/dL Magnesium 1.9 (1.8-2.4) mg/dl Total Bilirubin 0.4 (0.2-1.0) mg/dL AST 29 (15-37) U/L ALT 65 H (14-59) U/L Alkaline Phosphatase 67 (46-116) U/L C-Reactive Protein 2.5 H* (<1.0) mg/dL Total Protein 5.7 L (6.4-8.2) g/dl Albumin 2.2 L (3.4-5.0) g/dl Globulin 3.5 gm/dL Albumin/Globulin Ratio 0.6 L (1-2) 04/19/20 04/19/20 Range/Units 06:23 11:11 WBC (3.98-10.04) K/mm3 RBC (3.98-5.22) M/mm3 Hgb (11.2-15.7) gm/dl Hct (34.1-44.9) % MCV (79.4-94.8) fl MCH (25.6-32.2) pg MCHC (32.2-35.5) g/dl RDW Std Deviation (36.4-46.3) fL Plt Count (182-369) K/mm3 MPV (9.4-12.3) fl Neut % (Auto) (34.0-71.1) % Lymph % (Auto) (19.3-51.7) % [place] % (Auto) (4.7-12.5) % Eos % (Auto) (0.7-5.8) Baso % (Auto) (0.1-1.2) % Neut # (Auto) (1.56-6.13) K/mm3 Lymph # (Auto) (1.18-3.74) K/mm3 [place] # (Auto) (0.24-0.36) K/mm3 Eos # (Auto) (0.04-0.36) K/mm3 Baso # (Auto) (0.01-0.08) K/mm3 Manual Slide Review PT (9.7-12.0) SECONDS INR D-Dimer, Quantitative (0.19-0.50) mg/L Sodium (136-145) mEq/L Potassium (3.5-5.1) mEq/L Chloride (98-107) mEq/L Carbon Dioxide (21-32) mEq/L Anion Gap (5-15) BUN (7-18) mg/dL Creatinine (0.55-1.02) mg/dL Est Cr Clr Drug Dosing mL/min Estimated GFR (MDRD) (>60) mL/min BUN/Creatinine Ratio (14-18) Glucose (83-115) mg/dL POC Glucose 173 H 293 H (83-110) mg/dL Calcium (8.5-10.1) mg/dL Phosphorus (2.6-4.7) mg/dL Magnesium (1.8-2.4) mg/dl Total Bilirubin (0.2-1.0) mg/dL AST (15-37) U/L ALT (14-59) U/L Alkaline Phosphatase (46-116) U/L C-Reactive Protein (<1.0) mg/dL Total Protein (6.4-8.2) g/dl Albumin (3.4-5.0) g/dl Globulin gm/dL Albumin/Globulin Ratio (1-2) Kevyn Results Last 24 Hours: Microbiology 04/14/20 15:30 Aerobic Blood Culture - Preliminary Blood - Venous NO GROWTH AFTER 4 DAYS Anaerobic Blood Culture - Preliminary NO GROWTH AFTER 4 DAYS 04/14/20 16:05 Aerobic Blood Culture - Preliminary Blood - Venous - Lab Draw NO GROWTH AFTER 4 DAYS Anaerobic Blood Culture - Preliminary NO GROWTH AFTER 4 DAYS Med Orders - Current: Current Medications Acetaminophen (Tylenol) 650 mg PO Q4H PRN PRN Reason: Pain Last Admin: 04/14/20 16:02 Dose: 650 mg Documented by: Albuterol (Proventil Neb Soln) 2.5 mg NEB TIDRT [facility] Last Admin: 04/19/20 14:30 Dose: 2.5 mg Documented by: Cholecalciferol (Vitamin D3) 125 mcg PO DAILY [facility] Last Admin: 04/19/20 09:04 Dose: 125 mcg Documented by: Dexamethasone (Dexamethasone) 6 mg PO Q24H [facility] Stop: 04/23/20 18:01 Last Admin: 04/18/20 18:31 Dose: 6 mg Documented by: Dextrose/Water (Dextrose 50% In Water) 50 ml IV ASDIRECTED PRN PRN Reason: Hypoglycemia Furosemide (Lasix) 30 mg PO DAILY [facility] Last Admin: 04/19/20 09:06 Dose: 30 mg Documented by: Ceftriaxone Sodium 2 gm/ (Sodium Chloride) 100 mls @ 200 mls/hr IV Q24H [facility] Stop: 04/20/20 09:59 Last Admin: 04/19/20 09:09 Dose: 200 mls/hr Documented by: Insulin Human Lispro (Humalog) 0 unit SUBCUT QIDACANDBED [facility]; Protocol Last Admin: 04/19/20 12:19 Dose: 3 units Documented by: Losartan Potassium (Cozaar) 12.5 mg PO DAILY [facility] Last Admin: 04/19/20 09:04 Dose: 12.5 mg Documented by: Magnesium Oxide (Magnesium Oxide) 400 mg PO BID [facility] Last Admin: 04/19/20 09:04 Dose: 400 mg Documented by: Atovaquone 750 Mg/5 (Ml Ptom) 0 each PO BID [facility] Ondansetron HCl (Zofran) 4 mg IV Q4H PRN PRN Reason: Nausea/Vomiting Ondansetron HCl (Zofran Odt) 4 mg PO Q4H PRN PRN Reason: nausea, able to take PO Pantoprazole Sodium (Protonix) 40 mg PO DAILY@0700 [facility] Last Admin: 04/19/20 06:20 Dose: 40 mg Documented by: Potassium Chloride (Klor-Con M20) 20 meq PO DAILY [facility] Last Admin: 04/19/20 09:06 Dose: 20 meq Documented by: Warfarin Sodium (Pharmacy To Dose - Warfarin) 0 dose .XX ASDIRECTED PRN PRN Reason: RX TO DOSE WARFARIN Warfarin Sodium (Coumadin Sliding Scale) 0 each PO QPM [facility] Stop: 04/19/20 18:01 Zolpidem Tartrate (Ambien) 2.5 mg PO BEDTIME PRN PRN Reason: Insomnia Discontinued Medications Albuterol (Proventil Neb Soln) 2.5 mg NEB TID EMIGDIO Albuterol (Proventil Neb Soln) 2.5 mg NEB TIDRT [facility] Albuterol (Proventil Neb Soln) Confirm Administered Dose 2.5 mg .ROUTE .STK-MED ONE Stop: 04/16/20 01:20 [facility] Last Admin: 04/16/20 05:39 Dose: Not Given Documented by: Furosemide (Lasix) 20 mg IVPUSH ONETIME ONE Stop: 04/16/20 12:46 Last Admin: 04/16/20 12:59 Dose: 20 mg Documented by: Dextrose/Sodium Chloride (Dextrose 5%-Normal Saline) 1,000 mls @ 100 mls/hr IV ASDIRECTED [facility] Last Admin: 04/15/20 05:45 Dose: 100 mls/hr Documented by: Remdesivir 200 mg/ Sodium (Chloride) 250 mls @ 250 mls/hr IV ONETIME ONE Stop: 04/14/20 17:34 Last Admin: 04/14/20 18:32 Dose: 250 mls/hr Documented by: Remdesivir 100 mg/ Sodium (Chloride) 100 mls @ 100 mls/hr IV Q24H [facility] Stop: 04/18/20 19:59 Last Admin: 04/18/20 18:33 Dose: 100 mls/hr Documented by: Sodium Chloride (Normal Saline) 250 mls @ 50 mls/hr IV ASDIRECTED [facility] Azithromycin 500 mg/ Sodium (Chloride) 250 mls @ 250 mls/hr IV Q24H [facility] Stop: 04/18/20 10:59 Last Admin: 04/18/20 09:31 Dose: 250 mls/hr Documented by: Losartan Potassium (Cozaar) 12.5 mg PO ASDIRECTED [facility] Non-Formulary Medication (Magnesium [Magnesium]) 400 mg PO ASDIRECTED [facility] Warfarin Sodium (Pharmacy To Dose - Warfarin) 0 dose .XX ASDIRECTED PRN PRN Reason: RX TO DOSE WARFARIN Warfarin Sodium (Coumadin) 5 mg PO ONETIME ONE Stop: 04/14/20 20:31 Last Admin: 04/14/20 20:51 Dose: 5 mg Documented by: Warfarin Sodium (Coumadin) 7.5 mg PO QPM [facility] Stop: 04/15/20 21:00 Last Admin: 04/15/20 18:10 Dose: 7.5 mg Documented by: Warfarin Sodium (Coumadin) 5 mg PO ONETIME ONE Stop: 04/16/20 20:16 Last Admin: 04/16/20 20:46 Dose: 5 mg Documented by: Warfarin Sodium (Coumadin) 5 mg PO QPM [facility] Stop: 04/17/20 18:01 Last Admin: 04/17/20 18:57 Dose: 5 mg Documented by: Warfarin Sodium (Coumadin Sliding Scale) 0 each PO QPM [facility] Stop: 04/18/20 18:01 Last Admin: 04/18/20 18:33 Dose: Not Given Documented by: - Exam Quality Assessment: Supplemental Oxygen, DVT Prophylaxis General: Alert, Oriented, Cooperative, Mild Distress HEENT: Pupils Equal, Pupils Reactive, EOMI Neck: Trachea Midline, No JVD Lungs: Decreased Breath Sounds, Rhonchi Cardiovascular: Regular Rate, Regular Rhythm GI/Abdominal Exam: Normal Bowel Sounds, Soft, Non-Tender (Female) Exam: Deferred Back Exam: Normal Inspection Extremities: Normal Inspection Skin: Warm Neurological: No New Focal Deficit Psy/Mental Status: Alert, Anxious Sepsis Event Note - Evaluation Sepsis Screening Result: No Definite Risk - Focused Exam Vital Signs: Vital Signs Temp Temp Pulse Pulse Resp BP BP 04/19/20 15:00 04/19/20 14:30 04/19/20 09:18 04/19/20 09:04 135/54 L 04/19/20 08:18 36.6 C 81 20 135/54 L 04/19/20 05:19 04/19/20 05:17 04/19/20 04:50 36.6 C 73 20 135/56 L 04/19/20 04:00 36.6 C 72 20 135/56 L Pulse Ox Pulse Ox Pulse Ox 04/19/20 15:00 93 L 04/19/20 14:30 91 L 04/19/20 09:18 89 L 04/19/20 09:04 04/19/20 08:18 78 L 04/19/20 05:19 95 04/19/20 05:17 95 04/19/20 04:50 86 L 04/19/20 04:00 86 L - Problem List & Annotations (1) COVID-19 determined by clinical diagnostic criteria SNOMED Code(s): 164014383, 154632685 Code(s): U07.1 - COVID-19 Status: Acute Current Visit: Yes (2) Chronic renal insufficiency, stage III (moderate) SNOMED Code(s): 979512525 Code(s): N18.30 - CHRONIC KIDNEY DISEASE, STAGE 3 UNSPECIFIED Status: Acute Current Visit: Yes Qualifiers: Chronic kidney disease stage 3 subtype: stage 3b (GFR 30-44) Qualified Code(s): N18.32 - Chronic kidney disease, stage 3b (3) Pneumonia due to COVID-19 virus SNOMED Code(s): 991701719482926307 Code(s): U07.1 - COVID-19; J12.89 - OTHER VIRAL PNEUMONIA Status: Acute Current Visit: Yes (4) Pulmonary hypertension SNOMED Code(s): 38078763 Code(s): I27.20 - PULMONARY HYPERTENSION, UNSPECIFIED Status: Acute Current Visit: Yes (5) Supplemental oxygen dependent SNOMED Code(s): 353404561074 Code(s): Z99.81 - DEPENDENCE ON SUPPLEMENTAL OXYGEN Status: Acute Current Visit: Yes (6) HTN, Essential hypertension SNOMED Code(s): 55546814 Code(s): I10 - ESSENTIAL (PRIMARY) HYPERTENSION Status: Acute Current Visit: No - Problem List Review Problem List Initiated/Reviewed/Updated: Yes - Plan Plan:: Assessment 04/14/2020 84-year-old female with 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 * X-ray is consistent with a groundglass opacity in the left lung also elevated right hemidiaphragm. This will make treatment more difficult because of the reduced pulmonary capacity. Patient also has underlying lung disease requiring supplemental O2 from pulmonary emboli, history of congestive heart failure, LVH via EKG criteria, and hypertension. This places the patient at high risk for poor outcome regarding pneumonia caused by COVID-19. Fortunately patient is early on in the course of the infection with symptoms only starting 2 days ago. She is also on warfarin hopefully reducing the risk for micro emboli. Fortunately it appears her heart failure is well controlled with a normal proBNP. * WBC is 4.95, INR 2.21, CRP 8.8, AST 43, ALT 40, LDH 351, proBNP 829, lactic acid 0.8, troponin less than 0.017 * I anticipate patient will have a high risk for worsening. She is very early on in the disease and generally the inflammatory response starts 5 to 10 days after initial symptoms. With aggressive treatment early on we could possibly prevent progression to the severe inflammatory component. Stage III chronic renal insufficiency Hypertension * Estimated GFR 36 which appears stable over the last year. Creatinine 1.4, BUN 26, 1+ protein on UA * Currently on losartan and Lasix History of pulmonary embolism on warfarin for anticoagulation Factor V deficiency positive * INR 2.21 * Coumadin alternating 7.5 and 5 mg daily 04/15/2020 * Pneumonia secondary to COVID-19 * Pulmonary hypertension secondary to previous pulmonary emboli * Interstitial lung disease * Anticoagulation on warfarin * Hypertension * Stage III chronic renal insufficiency Patient without any significant change in symptoms or oxygenation overnight. Currently on 2 to 3 L nasal cannula, but is usually on 4 L during the day and 2 L at night. Her INR was slightly low today at 1.7. D-dimer 0.23 and CRP of 8.8. Renal function slightly improved with an estimated GFR of 39 and a creatinine of 1.3. Blood sugars are starting to increase with a glucose of 206. This is likely secondary to dexamethasone. 04/16/2020 * Pneumonia secondary to COVID-19 * Pulmonary hypertension secondary to previous pulmonary emboli * Interstitial lung disease * Anticoagulation on warfarin * Hypertension * Stage III chronic renal insufficiency * Hypoalbuminemia Patient is generally worse overnight. This is not surprising considering the stage of the illness. She is requiring 4 L all the time now even at rest. Lab work continues to be reassuring with C-reactive protein of 5.4, D-dimer of 0.33, normal white count and neutrophil count. INR 2.16. Renal function is stable with GFR 39, creatinine 1.3, BUN 32. Albumin does continue to drop and is down to 2.4. She did have a slight weight increase and may benefit from extra Lasix today. 04/17/2020 * Pneumonia secondary to COVID-19 * Pulmonary hypertension secondary to previous pulmonary emboli * Interstitial lung disease * Anticoagulation on warfarin * Hypertension * Stage III chronic renal insufficiency * Hypoalbuminemia Symptomatically she has improved. Oxygenation is about the same as it was yesterday. Chest x-ray shows some vascular congestion and she did receive her Lasix 30 mg p.o. this morning. Lab work is consistent with some mild intravascular volume depletion. INR 2.6, GFR 33 which is down, creatinine 1.5, BUN 40, C-reactive protein 3.6 04/18/2020 * Pneumonia secondary to COVID-19 * History of pneumocystis pneumonia. * Pulmonary hypertension secondary to previous pulmonary emboli * Interstitial lung disease * Anticoagulation on warfarin-INR 3.57, pharmacy to dose * Hypertension-Blood pressure well controlled * Stage III chronic renal insufficiency-GFR 33, creatinine 1.5 * Hypoalbuminemia-Albumin 2.4 * Steroid-induced hyperglycemia-blood sugars increasing secondary to dexamethasone. No significant change. She has a history of Pneumocystis carinii and therefore needs to be placed on atovaquone. We called her local pharmacy who said they will order it and get it to us hopefully tomorrow. We are unable to get it from our pharmacy. Oxygenation is significantly worsening. She will finish her 5 days of remdesivir and 5 out of 10 days of dexamethasone today. Plan * Atovaquone 750 mg twice daily, first dose 04/19/2020 * Fingerstick blood sugars before every meal and before bedtime * Low-dose sliding scale insulin * Lasix 30 mg p.o. daily * Follow CBC, CMP, mag, phosphorus, * FiO2 to keep SPO2 between 88 and 94%. Baseline: 4 L during the day and 2 L at night * Completed remdesivir, convalescent plasma, azithromycin * Dexamethasone day 5 of 10 * Continue Rocephin will need to follow INR closely. * CODE STATUS: Full code * VTE prophylaxis with warfarin Patient lives at [facility] and primary care provider is Dr. Ludin Partida.
[2020-04-19] MEDS ORDERED: Warfarin Sliding Scale PO SCH (18:00)
[2020-04-19] MEDS: Dexamethasone 4 MG Tab PO SCH (18:04)
[2020-04-19] MEDS: ATOVAQUONE 750 MG/5 ML PO SCH (21:51)
[2020-04-20] MEDS: Albuterol 0.083% 2.5 MG/3 ML Neb Soln NEB SCH ×3 (05:47→20:36)
[2020-04-20] MEDS: Pantoprazole 40 MG Tab.CR PO SCH (06:58)
[2020-04-20] MEDS: Insulin Lispro 100 Units/ML 3 ML Vial SUBCUT SCH ×4 (07:52→22:28)
[2020-04-20] MEDS: Furosemide 20 MG Tab PO SCH (08:28)
[2020-04-20] MEDS: Potassium Chloride 20 MEQ Tab.ER PO SCH (08:28)
[2020-04-20] MEDS: Magnesium Oxide 400 MG Tab PO SCH ×2 (08:29→22:26)
[2020-04-20] MEDS: Losartan 25 MG Tab PO SCH (08:29)
[2020-04-20] MEDS: Cholecalciferol (Vitamin D3) 25 MCG Tab PO SCH (08:30)
[2020-04-20] MEDS: ATOVAQUONE 750 MG/5 ML PO SCH ×2 (08:30→22:30)
[2020-04-20] MEDS: cefTRIAXone 2 GM in Sodium Chloride 0.9% 100 ML IV SCH (08:30)
--- NOTE | 2020-04-20 16:02 | PCM.PN ---
- General Info Date of Service: 04/20/20 Subjective Update: Patient reports no improvement. Imaging to be checked, CXR. [facility]. Functional Status: Reports: Tolerating Diet - Review of Systems General: Reports: Weakness, Fatigue HEENT: Reports: No Symptoms Pulmonary: Reports: Shortness of Breath Cardiovascular: Reports: No Symptoms Gastrointestinal: Reports: No Symptoms Genitourinary: Reports: No Symptoms Musculoskeletal: Reports: No Symptoms Skin: Reports: No Symptoms Neurological: Reports: No Symptoms Psychiatric: Reports: No Symptoms - Patient Data Vitals - Most Recent: Last Vital Signs Temp 36.9 C 04/20/20 11:05 Pulse 76 04/20/20 11:05 Resp 20 04/20/20 11:05 BP 107/74 04/20/20 11:05 Pulse Ox 91 L 04/20/20 13:38 Weight - Most Recent: 69.853 kg I&O - Last 24 Hours: Intake & Output 04/20/20 04/20/20 04/20/20 06:59 14:59 22:59 Intake Total 300 540 Output Total 625 Balance -325 540 Lab Results Last 24 Hours: Laboratory Results - last 24 hr 04/14/20 04/19/20 04/19/20 Range/Units 15:30 16:48 21:05 WBC (3.98-10.04) K/mm3 RBC (3.98-5.22) M/mm3 Hgb (11.2-15.7) gm/dl Hct (34.1-44.9) % MCV (79.4-94.8) fl MCH (25.6-32.2) pg MCHC (32.2-35.5) g/dl RDW Std Deviation (36.4-46.3) fL Plt Count (182-369) K/mm3 MPV (9.4-12.3) fl Neut % (Auto) (34.0-71.1) % Lymph % (Auto) (19.3-51.7) % Archuleta % (Auto) (4.7-12.5) % Eos % (Auto) (0.7-5.8) Baso % (Auto) (0.1-1.2) % Neut # (Auto) (1.56-6.13) K/mm3 Lymph # (Auto) (1.18-3.74) K/mm3 Archuleta # (Auto) (0.24-0.36) K/mm3 Eos # (Auto) (0.04-0.36) K/mm3 Baso # (Auto) (0.01-0.08) K/mm3 Manual Slide Review PT (9.7-12.0) SECONDS INR Sodium (136-145) mEq/L Potassium (3.5-5.1) mEq/L Chloride (98-107) mEq/L Carbon Dioxide (21-32) mEq/L Anion Gap (5-15) BUN (7-18) mg/dL Creatinine (0.55-1.02) mg/dL Est Cr Clr Drug Dosing mL/min Estimated GFR (MDRD) (>60) mL/min BUN/Creatinine Ratio (14-18) Glucose (83-115) mg/dL POC Glucose 196 H 250 H (83-110) mg/dL Calcium (8.5-10.1) mg/dL Mycoplasma pneumon IgM (NEGATIVE) Blood Type A POSITIVE 04/20/20 04/20/20 04/20/20 Range/Units 05:04 05:04 05:04 WBC 6.73 (3.98-10.04) K/mm3 RBC 4.02 (3.98-5.22) M/mm3 Hgb 11.4 (11.2-15.7) gm/dl Hct 35.6 (34.1-44.9) % MCV 88.6 (79.4-94.8) fl MCH 28.4 (25.6-32.2) pg MCHC 32.0 L (32.2-35.5) g/dl RDW Std Deviation 40.9 (36.4-46.3) fL Plt Count 97 L (182-369) K/mm3 MPV 10.2 (9.4-12.3) fl Neut % (Auto) 90.7 H (34.0-71.1) % Lymph % (Auto) 5.8 L (19.3-51.7) % Archuleta % (Auto) 2.5 L (4.7-12.5) % Eos % (Auto) 0 L (0.7-5.8) Baso % (Auto) 0.1 (0.1-1.2) % Neut # (Auto) 6.10 (1.56-6.13) K/mm3 Lymph # (Auto) 0.39 L (1.18-3.74) K/mm3 Archule[place] # (Auto) 0.17 L (0.24-0.36) K/mm3 Eos # (Auto) 0.00 L (0.04-0.36) K/mm3 Baso # (Auto) 0.01 (0.01-0.08) K/mm3 Manual Slide Review Abnormal smear PT 39.8 H (9.7-12.0) SECONDS INR 3.82 Sodium 139 (136-145) mEq/L Potassium 3.9 (3.5-5.1) mEq/L Chloride 102 (98-107) mEq/L Carbon Dioxide 28 (21-32) mEq/L Anion Gap 12.9 (5-15) BUN 48 H (7-18) mg/dL Creatinine 1.4 H (0.55-1.02) mg/dL Est Cr Clr Drug Dosing 26.75 mL/min Estimated GFR (MDRD) 36 (>60) mL/min BUN/Creatinine Ratio 34.3 H (14-18) Glucose 191 H (83-115) mg/dL POC Glucose (83-110) mg/dL Calcium 8.4 L (8.5-10.1) mg/dL Mycoplasma pneumon IgM Negative (NEGATIVE) Blood Type 04/20/20 04/20/20 Range/Units 06:59 11:03 WBC (3.98-10.04) K/mm3 RBC (3.98-5.22) M/mm3 Hgb (11.2-15.7) gm/dl Hct (34.1-44.9) % MCV (79.4-94.8) fl MCH (25.6-32.2) pg MCHC (32.2-35.5) g/dl RDW Std Deviation (36.4-46.3) fL Plt Count (182-369) K/mm3 MPV (9.4-12.3) fl Neut % (Auto) (34.0-71.1) % Lymph % (Auto) (19.3-51.7) % Archule[place] % (Auto) (4.7-12.5) % Eos % (Auto) (0.7-5.8) Baso % (Auto) (0.1-1.2) % Neut # (Auto) (1.56-6.13) K/mm3 Lymph # (Auto) (1.18-3.74) K/mm3 [place] # (Auto) (0.24-0.36) K/mm3 Eos # (Auto) (0.04-0.36) K/mm3 Baso # (Auto) (0.01-0.08) K/mm3 Manual Slide Review PT (9.7-12.0) SECONDS INR Sodium (136-145) mEq/L Potassium (3.5-5.1) mEq/L Chloride (98-107) mEq/L Carbon Dioxide (21-32) mEq/L Anion Gap (5-15) BUN (7-18) mg/dL Creatinine (0.55-1.02) mg/dL Est Cr Clr Drug Dosing mL/min Estimated GFR (MDRD) (>60) mL/min BUN/Creatinine Ratio (14-18) Glucose (83-115) mg/dL POC Glucose 175 H 315 H (83-110) mg/dL Calcium (8.5-10.1) mg/dL Mycoplasma pneumon IgM (NEGATIVE) Blood Type Kevyn Results Last 24 Hours: Microbiology 04/14/20 15:30 Aerobic Blood Culture - Preliminary Blood - Venous NO GROWTH AFTER 5 DAYS Anaerobic Blood Culture - Preliminary NO GROWTH AFTER 5 DAYS 04/14/20 16:05 Aerobic Blood Culture - Preliminary Blood - Venous - Lab Draw NO GROWTH AFTER 5 DAYS Anaerobic Blood Culture - Preliminary NO GROWTH AFTER 5 DAYS Med Orders - Current: Current Medications Acetaminophen (Tylenol) 650 mg PO Q4H PRN PRN Reason: Pain Last Admin: 04/14/20 16:02 Dose: 650 mg Documented by: Albuterol (Proventil Neb Soln) 2.5 mg NEB TIDRT [facility] Last Admin: 04/20/20 13:37 Dose: 2.5 mg Documented by: Cholecalciferol (Vitamin D3) 125 mcg PO DAILY [facility] Last Admin: 04/20/20 08:30 Dose: 125 mcg Documented by: Dexamethasone (Dexamethasone) 6 mg PO Q24H [facility] Stop: 04/23/20 18:01 Last Admin: 04/19/20 18:04 Dose: 6 mg Documented by: Dextrose/Water (Dextrose 50% In Water) 50 ml IV ASDIRECTED PRN PRN Reason: Hypoglycemia Furosemide (Lasix) 30 mg PO DAILY [facility] Last Admin: 04/20/20 08:28 Dose: 30 mg Documented by: Insulin Human Lispro (Humalog) 0 unit SUBCUT QIDACANDBED [facility]; Protocol Last Admin: 04/20/20 11:32 Dose: 4 units Documented by: Losartan Potassium (Cozaar) 12.5 mg PO DAILY [facility] Last Admin: 04/20/20 08:29 Dose: 12.5 mg Documented by: Magnesium Oxide (Magnesium Oxide) 400 mg PO BID [facility] Last Admin: 04/20/20 08:29 Dose: 400 mg Documented by: Atovaquone 750 Mg/5 (Ml Ptom) 0 each PO BID [facility] Last Admin: 04/20/20 08:30 Dose: 1 each Documented by: Ondansetron HCl (Zofran) 4 mg IV Q4H PRN PRN Reason: Nausea/Vomiting Ondansetron HCl (Zofran Odt) 4 mg PO Q4H PRN PRN Reason: nausea, able to take PO Pantoprazole Sodium (Protonix) 40 mg PO DAILY@0700 [facility] Last Admin: 04/20/20 06:58 Dose: 40 mg Documented by: Potassium Chloride (Klor-Con M20) 20 meq PO DAILY [facility] Last Admin: 04/20/20 08:28 Dose: 20 meq Documented by: Warfarin Sodium (Pharmacy To Dose - Warfarin) 0 dose .XX ASDIRECTED PRN PRN Reason: RX TO DOSE WARFARIN Warfarin Sodium (Coumadin) 1 mg PO QPM [facility] Stop: 04/20/20 18:01 Zolpidem Tartrate (Ambien) 2.5 mg PO BEDTIME PRN PRN Reason: Insomnia Discontinued Medications Albuterol (Proventil Neb Soln) 2.5 mg NEB TID [facility] Albuterol (Proventil Neb Soln) 2.5 mg NEB TIDRT [facility] Albuterol (Proventil Neb Soln) Confirm Administered Dose 2.5 mg .ROUTE .STK-MED ONE Stop: 04/16/20 01:20 [facility] Last Admin: 04/16/20 05:39 Dose: Not Given Documented by: Furosemide (Lasix) 20 mg IVPUSH ONETIME ONE Stop: 04/16/20 12:46 Last Admin: 04/16/20 12:59 Dose: 20 mg Documented by: Dextrose/Sodium Chloride (Dextrose 5%-Normal Saline) 1,000 mls @ 100 mls/hr IV ASDIRECTED [facility] Last Admin: 04/15/20 05:45 Dose: 100 mls/hr Documented by: Remdesivir 200 mg/ Sodium (Chloride) 250 mls @ 250 mls/hr IV ONETIME ONE Stop: 04/14/20 17:34 Last Admin: 04/14/20 18:32 Dose: 250 mls/hr Documented by: Remdesivir 100 mg/ Sodium (Chloride) 100 mls @ 100 mls/hr IV Q24H [facility] Stop: 04/18/20 19:59 Last Admin: 04/18/20 18:33 Dose: 100 mls/hr Documented by: Sodium Chloride (Normal Saline) 250 mls @ 50 mls/hr IV ASDIRECTED [facility] Ceftriaxone Sodium 2 gm/ (Sodium Chloride) 100 mls @ 200 mls/hr IV Q24H [facility] Stop: 04/20/20 09:59 Last Admin: 04/20/20 08:30 Dose: 200 mls/hr Documented by: Azithromycin 500 mg/ Sodium (Chloride) 250 mls @ 250 mls/hr IV Q24H [facility] Stop: 04/18/20 10:59 Last Admin: 04/18/20 09:31 Dose: 250 mls/hr Documented by: Losartan Potassium (Cozaar) 12.5 mg PO ASDIRECTED [facility] Non-Formulary Medication (Magnesium [Magnesium]) 400 mg PO ASDIRECTED [facility] Warfarin Sodium (Pharmacy To Dose - Warfarin) 0 dose .XX ASDIRECTED PRN PRN Reason: RX TO DOSE WARFARIN Warfarin Sodium (Coumadin) 5 mg PO ONETIME ONE Stop: 04/14/20 20:31 Last Admin: 04/14/20 20:51 Dose: 5 mg Documented by: Warfarin Sodium (Coumadin) 7.5 mg PO QPM [facility] Stop: 04/15/20 21:00 Last Admin: 04/15/20 18:10 Dose: 7.5 mg Documented by: Warfarin Sodium (Coumadin) 5 mg PO ONETIME ONE Stop: 04/16/20 20:16 Last Admin: 04/16/20 20:46 Dose: 5 mg Documented by: Warfarin Sodium (Coumadin) 5 mg PO QPM [facility] Stop: 04/17/20 18:01 Last Admin: 04/17/20 18:57 Dose: 5 mg Documented by: Warfarin Sodium (Coumadin Sliding Scale) 0 each PO QPM [facility] Stop: 04/18/20 18:01 Last Admin: 04/18/20 18:33 Dose: Not Given Documented by: Warfarin Sodium (Coumadin Sliding Scale) 0 each PO QPM [facility] Stop: 04/19/20 18:01 Last Admin: 04/19/20 18:04 Dose: Not Given Documented by: - Exam Quality Assessment: Supplemental Oxygen General: Alert, Oriented, Cooperative HEENT: Pupils Equal, Pupils Reactive, EOMI Neck: Trachea Midline Lungs: Normal Respiratory Effort Cardiovascular: Regular Rate, Regular Rhythm GI/Abdominal Exam: Normal Bowel Sounds, Soft, Non-Tender, No Distention (Female) Exam: Deferred Back Exam: Normal Inspection Extremities: Normal Inspection, Normal Capillary Refill Skin: Warm Neurological: No New Focal Deficit, Normal Speech Psy/Mental Status: Alert Sepsis Event Note - Evaluation Sepsis Screening Result: No Definite Risk - Focused Exam Vital Signs: Vital Signs Temp Pulse Resp BP Pulse Ox Pulse Ox 04/20/20 13:38 91 L 04/20/20 11:05 36.9 C 76 20 107/74 88 L 04/20/20 08:42 90 L 04/20/20 08:29 128/79 04/20/20 08:15 37.0 C 92 20 128/79 84 L 04/20/20 05:48 93 L 04/20/20 04:56 69 88 L 04/20/20 04:55 36.7 C 71 20 133/83 87 L - Problem List & Annotations (1) COVID-19 determined by clinical diagnostic criteria SNOMED Code(s): 775462001, 149137686 Code(s): U07.1 - COVID-19 Status: Acute Current Visit: Yes (2) Chronic renal insufficiency, stage III (moderate) SNOMED Code(s): 717990106 Code(s): N18.30 - CHRONIC KIDNEY DISEASE, STAGE 3 UNSPECIFIED Status: Chronic Current Visit: Yes Qualifiers: Chronic kidney disease stage 3 subtype: stage 3b (GFR 30-44) Qualified Code(s): N18.32 - Chronic kidney disease, stage 3b (3) Pneumonia due to COVID-19 virus SNOMED Code(s): 464280794526185248 Code(s): U07.1 - COVID-19; J12.89 - OTHER VIRAL PNEUMONIA Status: Acute Current Visit: Yes (4) Pulmonary hypertension SNOMED Code(s): 77880619 Code(s): I27.20 - PULMONARY HYPERTENSION, UNSPECIFIED Status: Chronic Current Visit: Yes (5) Supplemental oxygen dependent SNOMED Code(s): 128734571209 Code(s): Z99.81 - DEPENDENCE ON SUPPLEMENTAL OXYGEN Status: Acute Current Visit: Yes (6) HTN, Essential hypertension SNOMED Code(s): 50890077 Code(s): I10 - ESSENTIAL (PRIMARY) HYPERTENSION Status: Chronic Current Visit: No - Problem List Review Problem List Initiated/Reviewed/Updated: Yes - My Orders Last 24 Hours: My Active Orders 04/20/20 18:00 Warfarin [Coumadin] 1 mg PO QPM 04/21/20 05:11 INR,PT,PROTHROMBIN TIME [COAG] AM 04/21/20 06:00 BASIC METABOLIC PANEL,BMP [CHEM] DAILY CRP [C-REACTIVE PROTEIN] [CHEM] DAILY D Dimer [D-DIMER QUANTITATIVE] [COAG] DAILY MAGNESIUM [CHEM] DAILY 04/21/20 08:00 CXR [Chest 1V Frontal] [CR] Routine 04/22/20 05:11 INR,PT,PROTHROMBIN TIME [COAG] AM 04/22/20 06:00 BASIC METABOLIC PANEL,BMP [CHEM] DAILY CRP [C-REACTIVE PROTEIN] [CHEM] DAILY D Dimer [D-DIMER QUANTITATIVE] [COAG] DAILY MAGNESIUM [CHEM] DAILY 04/23/20 05:11 INR,PT,PROTHROMBIN TIME [COAG] AM 04/23/20 06:00 BASIC METABOLIC PANEL,BMP [CHEM] DAILY CRP [C-REACTIVE PROTEIN] [CHEM] DAILY D Dimer [D-DIMER QUANTITATIVE] [COAG] DAILY 04/24/20 05:11 INR,PT,PROTHROMBIN TIME [COAG] AM 04/24/20 06:00 BASIC METABOLIC PANEL,BMP [CHEM] DAILY CRP [C-REACTIVE PROTEIN] [CHEM] DAILY - Plan Plan:: Assessment 04/14/2020 84-year-old female with 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 * X-ray is consistent with a groundglass opacity in the left lung also elevated right hemidiaphragm. This will make treatment more difficult because of the reduced pulmonary capacity. Patient also has underlying lung disease requiring supplemental O2 from pulmonary emboli, history of congestive heart failure, LVH via EKG criteria, and hypertension. This places the patient at high risk for poor outcome regarding pneumonia caused by COVID-19. For tunately patient is early on in the course of the infection with symptoms only starting 2 days ago. She is also on warfarin hopefully reducing the risk for micro emboli. Fortunately it appears her heart failure is well controlled with a normal proBNP. * WBC is 4.95, INR 2.21, CRP 8.8, AST 43, ALT 40, LDH 351, proBNP 829, lactic acid 0.8, troponin less than 0.017 * I anticipate patient will have a high risk for worsening. She is very early on in the disease and generally the inflammatory response starts 5 to 10 days after initial symptoms. With aggressive treatment early on we could possibly prevent progression to the severe inflammatory component. Stage III chronic renal insufficiency Hypertension * Estimated GFR 36 which appears stable over the last year. Creatinine 1.4, BUN 26, 1+ protein on UA * Currently on losartan and Lasix History of pulmonary embolism on warfarin for anticoagulation Factor V deficiency positive * INR 2.21 * Coumadin alternating 7.5 and 5 mg daily 04/15/2020 * Pneumonia secondary to COVID-19 * Pulmonary hypertension secondary to previous pulmonary emboli * Interstitial lung disease * Anticoagulation on warfarin * Hypertension * Stage III chronic renal insufficiency Patient without any significant change in symptoms or oxygenation overnight. Currently on 2 to 3 L nasal cannula, but is usually on 4 L during the day and 2 L at night. Her INR was slightly low today at 1.7. D-dimer 0.23 and CRP of 8.8. Renal function slightly improved with an estimated GFR of 39 and a creatinine of 1.3. Blood sugars are starting to increase with a glucose of 206. This is likely secondary to dexamethasone. 04/16/2020 * Pneumonia secondary to COVID-19 * Pulmonary hypertension secondary to previous pulmonary emboli * Interstitial lung disease * Anticoagulation on warfarin * Hypertension * Stage III chronic renal insufficiency * Hypoalbuminemia Patient is generally worse overnight. This is not surprising considering the stage of the illness. She is requiring 4 L all the time now even at rest. Lab work continues to be reassuring with C-reactive protein of 5.4, D-dimer of 0.33, normal white count and neutrophil count. INR 2.16. Renal function is stable with GFR 39, creatinine 1.3, BUN 32. Albumin does continue to drop and is down to 2.4. She did have a slight weight increase and may benefit from extra Lasix today. 04/17/2020 * Pneumonia secondary to COVID-19 * Pulmonary hypertension secondary to previous pulmonary emboli * Interstitial lung disease * Anticoagulation on warfarin * Hypertension * Stage III chronic renal insufficiency * Hypoalbuminemia Symptomatically she has improved. Oxygenation is about the same as it was yesterday. Chest x-ray shows some vascular congestion and she did receive her Lasix 30 mg p.o. this morning. Lab work is consistent with some mild intravascular volume depletion. INR 2.6, GFR 33 which is down, creatinine 1.5, BUN 40, C-reactive protein 3.6 04/18/2020 * Pneumonia secondary to COVID-19 * History of pneumocystis pneumonia. * Pulmonary hypertension secondary to previous pulmonary emboli * Interstitial lung disease * Anticoagulation on warfarin-INR 3.57, pharmacy to dose * Hypertension-Blood pressure well controlled * Stage III chronic renal insufficiency-GFR 33, creatinine 1.5 * Hypoalbuminemia-Albumin 2.4 * Steroid-induced hyperglycemia-blood sugars increasing secondary to dexamethasone. No significant change. She has a history of Pneumocystis carinii and therefore needs to be placed on atovaquone. We called her local pharmacy who said they will order it and get it to us hopefully tomorrow. We are unable to get it from our pharmacy. Oxygenation is significantly worsening. She will finish her 5 days of remdesivir and 5 out of 10 days of dexamethasone today. Impression: CVD-19, PNA; atypical PNA Hypercoagulable state, D Dimer INR, Coumadin on hold; supra-therapeutic Chronic IL disease PCP PNA PHTN Pulmonary embolus HTN Plan * Atovaquone 750 mg twice daily, first dose 04/19/2020 * CXR, 1 view * Check mycoplasma * Titrate O2, current HF 50/55% * Query empiric ATBs re: HCAP * Fingerstick blood sugars before every meal and before bedtime * Low-dose sliding scale insulin * Lasix 30 mg p.o. daily * Follow CBC, CMP, mag, phosphorus, * FiO2 to keep SPO2 between 88 and 94%. Baseline: 4 L during the day and 2 L at night * Completed remdesivir, convalescent plasma, azithromycin * Dexamethasone day 6 of 10 * Continue Rocephin will need to follow INR closely. * CODE STATUS: Full code * VTE prophylaxis with warfarin * DC plan->Patient lives at [facility] and primary care provider is Dr. Ludin Partida.
[2020-04-20] MEDS: Dexamethasone 4 MG Tab PO SCH (17:01)
[2020-04-21] MEDS: Albuterol 0.083% 2.5 MG/3 ML Neb Soln NEB SCH ×3 (05:29→20:44)
[2020-04-21] MEDS: Pantoprazole 40 MG Tab.CR PO SCH (07:29)
[2020-04-21] MEDS: Losartan 25 MG Tab PO SCH (08:23)
[2020-04-21] MEDS: Magnesium Oxide 400 MG Tab PO SCH ×2 (08:23→20:09)
[2020-04-21] MEDS: Cholecalciferol (Vitamin D3) 25 MCG Tab PO SCH (08:23)
[2020-04-21] MEDS: Potassium Chloride 20 MEQ Tab.ER PO SCH (08:24)
[2020-04-21] MEDS: Furosemide 20 MG Tab PO SCH (08:24)
[2020-04-21] MEDS: Insulin Lispro 100 Units/ML 3 ML Vial SUBCUT SCH ×4 (08:24→20:20)
[2020-04-21] MEDS: ATOVAQUONE 750 MG/5 ML PO SCH ×2 (08:29→20:09)
--- NOTE | 2020-04-21 09:28 | CR ---
PROCEDURE INFORMATION: Exam: XR Chest, 1 View Exam date and time: 04/21/2020 8:28 AM Age: 84 years old Clinical indication: Other: Viral pna TECHNIQUE: Imaging protocol: XR of the chest Views: 1 view. COMPARISON: CR Chest 1V Frontal 04/17/2020 8:20 AM FINDINGS: Lungs: There are similar mixed patchy interstitial and airspace opacities bilaterally. Pleural space: Unremarkable. No pleural effusion. No pneumothorax. Heart/Mediastinum: The cardiomediastinal silhouette is fairly stable in appearance. Diaphragm: The right hemidiaphragm is again elevated. Bones/joints: Unremarkable. IMPRESSION: Stable radiographic appearance of the chest since 04/17/20. Thank you for allowing us to participate in the care of your patient. Dictated and Authenticated by: Iftikhar Blackman MD 04/21/2020 10:23 AM Central Time ([place] & [place]) PERRY
[2020-04-21] MEDS ORDERED: Iopamidol 755 Mg/ML 100 ML Bottle IVPUSH ONE (10:21)
[2020-04-21] MEDS ORDERED: Sodium Chloride 0.9% 10 ML Syringe FLUSH PRN (10:21)
[2020-04-21] MEDS ORDERED: Sodium Chloride 0.9% 100 ML IV SCH (10:30)
--- NOTE | 2020-04-21 11:15 | CT ---
"PROCEDURE INFORMATION: Exam: CT Angiography Chest With Contrast Exam date and time: 04/21/2020 10:27 AM Age: 84 years old Clinical indication: Abnormal findings; Abnormal diagnostic tests; Elevated d- dimer; Additional info: Rule out pulmonary embolism TECHNIQUE: Imaging protocol: Computed tomographic angiography of the chest with intravenous contrast. 3D rendering (Not supervised by radiologist): MIP and/or 3D reconstructed images were created by the technologist. Radiation optimization: All CT scans at this facility use at least one of these dose optimization techniques: automated exposure control; mA and/or kV adjustment per patient size (includes targeted exams where dose is matched to clinical indication); or iterative reconstruction. Contrast material: ISOVUE 370; Contrast volume: 100 ml; Contrast route: INTRAVENOUS (IV); COMPARISON: CT - Chest wo Cont 10/11/2019 12:07:05 PM (report not provided) FINDINGS: Pulmonary arteries: There appear to be small filling defects of pulmonary embolus in peripheral pulmonary arterial branches in the right upper lobe (image 4:41) and in the right lower lobe (image 4:66). No embolus is identified elsewhere. Aorta: The thoracic aorta is nonaneurysmal. Atherosclerotic vascular calcifications are noted. Lungs: The lungs demonstrate ground-glass opacity throughout, moderate in the right upper and lower lobes, mild in the right middle lobe and more extensive in the left upper and lower lobes. Some of this is associated with intralobular septal thickening. A calcified granuloma is again present in the left upper lobe. The central airways appear patent. Pleural space: Unremarkable. No pneumothorax. No pleural effusion. Heart: Coronary artery calcifications are noted. No significant pericardial effusion. RV/LV ratio is less than 1. Lymph nodes: There are calcified pretracheal and subcarinal lymph nodes, without pathologic mediastinal or hilar lymphadenopathy identified. MAYE ORTIZ | Final Radiology Report CONFIDENTIALITY STATEMENT This report is intended only for use by the referring physician, and only in accordance with law. If you received this in error, call [phone]. Page 2 of 2 Gallbladder and bile ducts: Cholecystectomy clips are again present. Bones/joints: Degenerative changes again involve the spine and shoulders. Soft tissues: Unremarkable. IMPRESSION: 1. Small peripheral pulmonary emboli in the right upper and lower lobes without evidence of right heart compromise. 2. Bilateral pulmonary opacities as described. Such imaging features are commonly reported with COVID-19 pneumonia, but other processes such as influenza pneumonia and organizing pneumonia, as can be seen with drug toxicity and connective tissue disease, can cause a similar imaging pattern. (Reference: Kayden) REFERENCES: Kayden Perales et al., [employer] Society of [place] Expert Consensus Statement on Reporting Chest CT Findings Related to COVID-19. Endorsed by the Society of Thoracic Radiology, the [place], and RSNA. Published September 08, 2019. Thank you for allowing us to participate in the care of your patient. Dictated and Authenticated by: Iftikhar Blackman MD 04/21/2020 12:14 PM Central Time ([place] & [place]) PERRY"
[2020-04-21] MEDS ORDERED: Heparin Sodium/D5W 25,000 UNITS/500 ML BAG IV SCH ×2 (11:30→11:45)
--- NOTE | 2020-04-21 12:04 | PCM.PN ---
- General Info Date of Service: 04/21/20 Subjective Update: No change, c/o SOB. Mycoplasma is negative. Will check Chest CTA, re: PE; D Dimer>30, will recheck to confirm elevation. Possible change in AC vs empiric IV ATBs (Vancomycin/Zopsyn)-TBD. Functional Status: Reports: Pain Controlled, Tolerating Diet, Ambulating (minimal) - Review of Systems General: Reports: Weakness, Malaise HEENT: Reports: No Symptoms Pulmonary: Reports: Shortness of Breath, Pleuritic Chest Pain Cardiovascular: Reports: No Symptoms Gastrointestinal: Reports: No Symptoms Genitourinary: Reports: No Symptoms Musculoskeletal: Reports: No Symptoms Skin: Reports: No Symptoms Neurological: Reports: No Symptoms Psychiatric: Reports: No Symptoms - Patient Data Vitals - Most Recent: Last Vital Signs Temp 37.0 C 04/21/20 11:36 Pulse 77 04/21/20 11:36 Resp 18 04/21/20 11:36 BP 111/71 04/21/20 11:36 Pulse Ox 90 L 04/21/20 11:36 Weight - Most Recent: 70.035 kg I&O - Last 24 Hours: Intake & Output 04/20/20 04/21/20 04/21/20 22:59 06:59 14:59 Intake Total 1760 350 Output Total 1625 425 300 Balance 135 -425 50 Lab Results Last 24 Hours: Laboratory Results - last 24 hr 04/14/20 04/20/20 04/20/20 Range/Units 15:30 05:04 05:04 WBC 6.73 (3.98-10.04) K/mm3 RBC 4.02 (3.98-5.22) M/mm3 Hgb 11.4 (11.2-15.7) gm/dl Hct 35.6 (34.1-44.9) % MCV 88.6 (79.4-94.8) fl MCH 28.4 (25.6-32.2) pg MCHC 32.0 L (32.2-35.5) g/dl RDW Std Deviation 40.9 (36.4-46.3) fL Plt Count 97 L (182-369) K/mm3 MPV 10.2 (9.4-12.3) fl Neut % (Auto) 90.7 H (34.0-71.1) % Lymph % (Auto) 5.8 L (19.3-51.7) % [place] % (Auto) 2.5 L (4.7-12.5) % Eos % (Auto) 0 L (0.7-5.8) Baso % (Auto) 0.1 (0.1-1.2) % Neut # (Auto) 6.10 (1.56-6.13) K/mm3 Lymph # (Auto) 0.39 L (1.18-3.74) K/mm3 [place] # (Auto) 0.17 L (0.24-0.36) K/mm3 Eos # (Auto) 0.00 L (0.04-0.36) K/mm3 Baso # (Auto) 0.01 (0.01-0.08) K/mm3 Manual Slide Review Abnormal smear PT (9.7-12.0) SECONDS INR D-Dimer, Quantitative (0.19-0.50) mg/L Puncture Site ABG pH (7.35-7.45) ABG pCO2 (35.0-45.0) mmHg ABG pO2 (80.0-100.0) mmHg ABG HCO3 (22.0-26.0) meq/L ABG O2 Saturation (96.0-97.0) % ABG Base Excess (-2-2.0) Andre Test A-a Gradient mmHg O2 Delivery Device Oxygen Flow Rate FiO2 (21.00-100.00) % Sodium 139 (136-145) mEq/L Potassium 3.9 (3.5-5.1) mEq/L Chloride 102 (98-107) mEq/L Carbon Dioxide 28 (21-32) mEq/L Anion Gap 12.9 (5-15) BUN 48 H (7-18) mg/dL Creatinine 1.4 H (0.55-1.02) mg/dL Est Cr Clr Drug Dosing 26.75 mL/min Estimated GFR (MDRD) 36 (>60) mL/min BUN/Creatinine Ratio 34.3 H (14-18) Glucose 191 H (83-115) mg/dL POC Glucose (83-110) mg/dL Calcium 8.4 L (8.5-10.1) mg/dL Magnesium (1.8-2.4) mg/dl C-Reactive Protein (<1.0) mg/dL Mycoplasma pneumon IgM Negative (NEGATIVE) Blood Type A POSITIVE 04/20/20 04/20/20 04/21/20 Range/Units 16:52 21:14 05:38 WBC (3.98-10.04) K/mm3 RBC (3.98-5.22) M/mm3 Hgb (11.2-15.7) gm/dl Hct (34.1-44.9) % MCV (79.4-94.8) fl MCH (25.6-32.2) pg MCHC (32.2-35.5) g/dl RDW Std Deviation (36.4-46.3) fL Plt Count (182-369) K/mm3 MPV (9.4-12.3) fl Neut % (Auto) (34.0-71.1) % Lymph % (Auto) (19.3-51.7) % [place] % (Auto) (4.7-12.5) % Eos % (Auto) (0.7-5.8) Baso % (Auto) (0.1-1.2) % Neut # (Auto) (1.56-6.13) K/mm3 Lymph # (Auto) (1.18-3.74) K/mm3 [place] # (Auto) (0.24-0.36) K/mm3 Eos # (Auto) (0.04-0.36) K/mm3 Baso # (Auto) (0.01-0.08) K/mm3 Manual Slide Review PT 36.9 H (9.7-12.0) SECONDS INR 3.54 D-Dimer, Quantitative (0.19-0.50) mg/L Puncture Site ABG pH (7.35-7.45) ABG pCO2 (35.0-45.0) mmHg ABG pO2 (80.0-100.0) mmHg ABG HCO3 (22.0-26.0) meq/L ABG O2 Saturation (96.0-97.0) % ABG Base Excess (-2-2.0) Andre Test A-a Gradient mmHg O2 Delivery Device Oxygen Flow Rate FiO2 (21.00-100.00) % Sodium (136-145) mEq/L Potassium (3.5-5.1) mEq/L Chloride (98-107) mEq/L Carbon Dioxide (21-32) mEq/L Anion Gap (5-15) BUN (7-18) mg/dL Creatinine (0.55-1.02) mg/dL Est Cr Clr Drug Dosing mL/min Estimated GFR (MDRD) (>60) mL/min BUN/Creatinine Ratio (14-18) Glucose (83-115) mg/dL POC Glucose 146 H 323 H (83-110) mg/dL Calcium (8.5-10.1) mg/dL Magnesium (1.8-2.4) mg/dl C-Reactive Protein (<1.0) mg/dL Mycoplasma pneumon IgM (NEGATIVE) Blood Type 04/21/20 04/21/20 04/21/20 Range/Units 05:38 05:38 05:38 WBC 6.61 (3.98-10.04) K/mm3 RBC 4.08 (3.98-5.22) M/mm3 Hgb 11.6 (11.2-15.7) gm/dl Hct 36.0 (34.1-44.9) % MCV 88.2 (79.4-94.8) fl MCH 28.4 (25.6-32.2) pg MCHC 32.2 (32.2-35.5) g/dl RDW Std Deviation 40.9 (36.4-46.3) fL Plt Count 90 L (182-369) K/mm3 MPV 10.0 (9.4-12.3) fl Neut % (Auto) 88.9 H (34.0-71.1) % Lymph % (Auto) 7.1 L (19.3-51.7) % [place] % (Auto) 2.7 L (4.7-12.5) % Eos % (Auto) 0 L (0.7-5.8) Baso % (Auto) 0.2 (0.1-1.2) % Neut # (Auto) 5.88 (1.56-6.13) K/mm3 Lymph # (Auto) 0.47 L (1.18-3.74) K/mm3 [place] # (Auto) 0.18 L (0.24-0.36) K/mm3 Eos # (Auto) 0.00 L (0.04-0.36) K/mm3 Baso # (Auto) 0.01 (0.01-0.08) K/mm3 Manual Slide Review Abnormal smear PT (9.7-12.0) SECONDS INR D-Dimer, Quantitative > 35.20 H (0.19-0.50) mg/L Puncture Site ABG pH (7.35-7.45) ABG pCO2 (35.0-45.0) mmHg ABG pO2 (80.0-100.0) mmHg ABG HCO3 (22.0-26.0) meq/L ABG O2 Saturation (96.0-97.0) % ABG Base Excess (-2-2.0) Andre Test A-a Gradient mmHg O2 Delivery Device Oxygen Flow Rate FiO2 (21.00-100.00) % Sodium 138 (136-145) mEq/L Potassium 4.3 (3.5-5.1) mEq/L Chloride 102 (98-107) mEq/L Carbon Dioxide 27 (21-32) mEq/L Anion Gap 13.3 (5-15) BUN 46 H (7-18) mg/dL Creatinine 1.3 H (0.55-1.02) mg/dL Est Cr Clr Drug Dosing 28.81 mL/min Estimated GFR (MDRD) 39 (>60) mL/min BUN/Creatinine Ratio 35.4 H (14-18) Glucose 175 H (83-115) mg/dL POC Glucose (83-110) mg/dL Calcium 8.2 L (8.5-10.1) mg/dL Magnesium 2.3 (1.8-2.4) mg/dl C-Reactive Protein 3.2 H* (<1.0) mg/dL Mycoplasma pneumon IgM (NEGATIVE) Blood Type 04/21/20 04/21/20 04/21/20 Range/Units 05:38 06:29 11:33 WBC (3.98-10.04) K/mm3 RBC (3.98-5.22) M/mm3 Hgb (11.2-15.7) gm/dl Hct (34.1-44.9) % MCV (79.4-94.8) fl MCH (25.6-32.2) pg MCHC (32.2-35.5) g/dl RDW Std Deviation (36.4-46.3) fL Plt Count (182-369) K/mm3 MPV (9.4-12.3) fl Neut % (Auto) (34.0-71.1) % Lymph % (Auto) (19.3-51.7) % [place] % (Auto) (4.7-12.5) % Eos % (Auto) (0.7-5.8) Baso % (Auto) (0.1-1.2) % Neut # (Auto) (1.56-6.13) K/mm3 Lymph # (Auto) (1.18-3.74) K/mm3 [place] # (Auto) (0.24-0.36) K/mm3 Eos # (Auto) (0.04-0.36) K/mm3 Baso # (Auto) (0.01-0.08) K/mm3 Manual Slide Review PT (9.7-12.0) SECONDS INR D-Dimer, Quantitative (0.19-0.50) mg/L Puncture Site ABG pH (7.35-7.45) ABG pCO2 (35.0-45.0) mmHg ABG pO2 (80.0-100.0) mmHg ABG HCO3 (22.0-26.0) meq/L ABG O2 Saturation (96.0-97.0) % ABG Base Excess (-2-2.0) Andre Test A-a Gradient mmHg O2 Delivery Device Oxygen Flow Rate FiO2 (21.00-100.00) % Sodium (136-145) mEq/L Potassium (3.5-5.1) mEq/L Chloride (98-107) mEq/L Carbon Dioxide (21-32) mEq/L Anion Gap (5-15) BUN (7-18) mg/dL Creatinine (0.55-1.02) mg/dL Est Cr Clr Drug Dosing mL/min Estimated GFR (MDRD) (>60) mL/min BUN/Creatinine Ratio (14-18) Glucose (83-115) mg/dL POC Glucose 169 H 313 H (83-110) mg/dL Calcium (8.5-10.1) mg/dL Magnesium (1.8-2.4) mg/dl C-Reactive Protein (<1.0) mg/dL Mycoplasma pneumon IgM Negative (NEGATIVE) Blood Type 04/21/20 Range/Units 11:54 WBC (3.98-10.04) K/mm3 RBC (3.98-5.22) M/mm3 Hgb (11.2-15.7) gm/dl Hct (34.1-44.9) % MCV (79.4-94.8) fl MCH (25.6-32.2) pg MCHC (32.2-35.5) g/dl RDW Std Deviation (36.4-46.3) fL Plt Count (182-369) K/mm3 MPV (9.4-12.3) fl Neut % (Auto) (34.0-71.1) % Lymph % (Auto) (19.3-51.7) % [place] % (Auto) (4.7-12.5) % Eos % (Auto) (0.7-5.8) Baso % (Auto) (0.1-1.2) % Neut # (Auto) (1.56-6.13) K/mm3 Lymph # (Auto) (1.18-3.74) K/mm3 [place] # (Auto) (0.24-0.36) K/mm3 Eos # (Auto) (0.04-0.36) K/mm3 Baso # (Auto) (0.01-0.08) K/mm3 Manual Slide Review PT (9.7-12.0) SECONDS INR D-Dimer, Quantitative (0.19-0.50) mg/L Puncture Site Lt radial ABG pH 7.49 H (7.35-7.45) ABG pCO2 35.4 (35.0-45.0) mmHg ABG pO2 67.0 L (80.0-100.0) mmHg ABG HCO3 26.4 H (22.0-26.0) meq/L ABG O2 Saturation 93.1 L (96.0-97.0) % ABG Base Excess 3.4 H (-2-2.0) Andre Test Positive A-a Gradient 280 mmHg O2 Delivery Device [place] nasal cannula Oxygen Flow Rate 55.0 FiO2 55.00 (21.00-100.00) % Sodium (136-145) mEq/L Potassium (3.5-5.1) mEq/L Chloride (98-107) mEq/L Carbon Dioxide (21-32) mEq/L Anion Gap (5-15) BUN (7-18) mg/dL Creatinine (0.55-1.02) mg/dL Est Cr Clr Drug Dosing mL/min Estimated GFR (MDRD) (>60) mL/min BUN/Creatinine Ratio (14-18) Glucose (83-115) mg/dL POC Glucose (83-110) mg/dL Calcium (8.5-10.1) mg/dL Magnesium (1.8-2.4) mg/dl C-Reactive Protein (<1.0) mg/dL Mycoplasma pneumon IgM (NEGATIVE) Blood Type Kevyn Results Last 24 Hours: Microbiology 04/14/20 15:30 Aerobic Blood Culture - Preliminary Blood - Venous NO GROWTH AFTER 6 DAYS Anaerobic Blood Culture - Preliminary NO GROWTH AFTER 6 DAYS 04/14/20 16:05 Aerobic Blood Culture - Preliminary Blood - Venous - Lab Draw NO GROWTH AFTER 6 DAYS Anaerobic Blood Culture - Preliminary NO GROWTH AFTER 6 DAYS Med Orders - Current: Current Medications Acetaminophen (Tylenol) 650 mg PO Q4H PRN PRN Reason: Pain Last Admin: 04/14/20 16:02 Dose: 650 mg Documented by: Albuterol (Proventil Neb Soln) 2.5 mg NEB TIDRT [facility] Last Admin: 04/21/20 05:29 Dose: 2.5 mg Documented by: Cholecalciferol (Vitamin D3) 125 mcg PO DAILY [facility] Last Admin: 04/21/20 08:23 Dose: 125 mcg Documented by: Dexamethasone (Dexamethasone) 6 mg PO Q24H [facility] Stop: 04/23/20 18:01 Last Admin: 04/20/20 17:01 Dose: 6 mg Documented by: Dextrose/Water (Dextrose 50% In Water) 50 ml IV ASDIRECTED PRN PRN Reason: Hypoglycemia Furosemide (Lasix) 30 mg PO DAILY [facility] Last Admin: 04/21/20 08:24 Dose: 30 mg Documented by: Sodium Chloride (Normal Saline) 100 mls @ 75 mls/hr IV ASDIRECTED [facility] Stop: 04/21/20 13:00 Last Admin: 04/21/20 11:05 Dose: 75 mls/hr Documented by: Heparin Sodium/Dextrose (Heparin 25,000 Units In D5w 500 Ml) 25,000 units in 500 mls @ 16 mls/hr IV TITRATE [facility]; Protocol Insulin Human Lispro (Humalog) 0 unit SUBCUT QIDACANDBED [facility]; Protocol Last Admin: 04/21/20 08:24 Dose: 1 units Documented by: Losartan Potassium (Cozaar) 12.5 mg PO DAILY [facility] Last Admin: 04/21/20 08:23 Dose: 12.5 mg Documented by: Magnesium Oxide (Magnesium Oxide) 400 mg PO BID [facility] Last Admin: 04/21/20 08:23 Dose: 400 mg Documented by: Atovaquone 750 Mg/5 (Ml Ptom) 0 each PO BID [facility] Last Admin: 04/21/20 08:29 Dose: 5 each Documented by: Ondansetron HCl (Zofran) 4 mg IV Q4H PRN PRN Reason: Nausea/Vomiting Ondansetron HCl (Zofran Odt) 4 mg PO Q4H PRN PRN Reason: nausea, able to take PO Pantoprazole Sodium (Protonix) 40 mg PO DAILY@0700 [facility] Last Admin: 04/21/20 07:29 Dose: 40 mg Documented by: Potassium Chloride (Klor-Con M20) 20 meq PO DAILY [facility] Last Admin: 04/21/20 08:24 Dose: 20 meq Documented by: Sodium Chloride (Saline Flush) 10 ml FLUSH ONETIME PRN PRN Reason: IV FLUSH Stop: 04/21/20 13:00 Last Admin: 04/21/20 11:05 Dose: 10 ml Documented by: Zolpidem Tartrate (Ambien) 2.5 mg PO BEDTIME PRN PRN Reason: Insomnia Discontinued Medications Albuterol (Proventil Neb Soln) 2.5 mg NEB TID [facility] Albuterol (Proventil Neb Soln) 2.5 mg NEB TIDRT [facility] Albuterol (Proventil Neb Soln) Confirm Administered Dose 2.5 mg .ROUTE .STK-MED ONE Stop: 04/16/20 01:20 MST Last Admin: 04/16/20 05:39 Dose: Not Given Documented by: Furosemide (Lasix) 20 mg IVPUSH ONETIME ONE Stop: 04/16/20 12:46 Last Admin: 04/16/20 12:59 Dose: 20 mg Documented by: Dextrose/Sodium Chloride (Dextrose 5%-Normal Saline) 1,000 mls @ 100 mls/hr IV ASDIRECTED [facility] Last Admin: 04/15/20 05:45 Dose: 100 mls/hr Documented by: Remdesivir 200 mg/ Sodium (Chloride) 250 mls @ 250 mls/hr IV ONETIME ONE Stop: 04/14/20 17:34 Last Admin: 04/14/20 18:32 Dose: 250 mls/hr Documented by: Remdesivir 100 mg/ Sodium (Chloride) 100 mls @ 100 mls/hr IV Q24H [facility] Stop: 04/18/20 19:59 Last Admin: 04/18/20 18:33 Dose: 100 mls/hr Documented by: Sodium Chloride (Normal Saline) 250 mls @ 50 mls/hr IV ASDIRECTED [facility] Ceftriaxone Sodium 2 gm/ (Sodium Chloride) 100 mls @ 200 mls/hr IV Q24H [facility] Stop: 04/20/20 09:59 Last Admin: 04/20/20 08:30 Dose: 200 mls/hr Documented by: Azithromycin 500 mg/ Sodium (Chloride) 250 mls @ 250 mls/hr IV Q24H [facility] Stop: 04/18/20 10:59 Last Admin: 04/18/20 09:31 Dose: 250 mls/hr Documented by: Iopamidol (Isovue-370 (76%)) 100 ml IVPUSH ONETIME ONE Stop: 04/21/20 10:22 Last Admin: 04/21/20 11:05 Dose: 100 ml Documented by: Losartan Potassium (Cozaar) 12.5 mg PO ASDIRECTED [facility] Non-Formulary Medication (Magnesium [Magnesium]) 400 mg PO ASDIRECTED [facility] Warfarin Sodium (Pharmacy To Dose - Warfarin) 0 dose .XX ASDIRECTED PRN PRN Reason: RX TO DOSE WARFARIN Warfarin Sodium (Coumadin) 5 mg PO ONETIME ONE Stop: 04/14/20 20:31 Last Admin: 04/14/20 20:51 Dose: 5 mg Documented by: Warfarin Sodium (Coumadin) 7.5 mg PO QPM [facility] Stop: 04/15/20 21:00 Last Admin: 04/15/20 18:10 Dose: 7.5 mg Documented by: Warfarin Sodium (Coumadin) 5 mg PO ONETIME ONE Stop: 04/16/20 20:16 Last Admin: 04/16/20 20:46 Dose: 5 mg Documented by: Warfarin Sodium (Pharmacy To Dose - Warfarin) 0 dose .XX ASDIRECTED PRN PRN Reason: RX TO DOSE WARFARIN Warfarin Sodium (Coumadin) 5 mg PO QPM [facility] Stop: 04/17/20 18:01 Last Admin: 04/17/20 18:57 Dose: 5 mg Documented by: Warfarin Sodium (Coumadin Sliding Scale) 0 each PO QPM [facility] Stop: 04/18/20 18:01 Last Admin: 04/18/20 18:33 Dose: Not Given Documented by: Warfarin Sodium (Coumadin Sliding Scale) 0 each PO QPM [facility] Stop: 04/19/20 18:01 Last Admin: 04/19/20 18:04 Dose: Not Given Documented by: Warfarin Sodium (Coumadin) 1 mg PO QPM [facility] Stop: 04/20/20 18:01 Last Admin: 04/20/20 17:01 Dose: 1 mg Documented by: - Exam Quality Assessment: Supplemental Oxygen, DVT Prophylaxis General: Alert, Oriented, Cooperative, Mild Distress HEENT: Pupils Equal, Pupils Reactive, EOMI Neck: Trachea Midline, No JVD Lungs: Normal Respiratory Effort, Decreased Breath Sounds (decreased greater R side), Rales Cardiovascular: Regular Rate, Regular Rhythm GI/Abdominal Exam: Normal Bowel Sounds, Soft, Non-Tender, No Organomegaly, No Distention (Female) Exam: Deferred Back Exam: Normal Inspection Extremities: Normal Inspection, No Pedal Edema, Normal Capillary Refill Skin: Warm, Dry Neurological: No New Focal Deficit, Normal Speech Psy/Mental Status: Alert, Normal Affect, Normal Mood Sepsis Event Note - Evaluation Sepsis Screening Result: No Definite Risk - Focused Exam Vital Signs: Vital Signs Temp Pulse Resp BP Pulse Ox Pulse Ox 04/21/20 11:36 37.0 C 77 18 111/71 90 L 04/21/20 09:29 89 L 04/21/20 08:23 138/74 04/21/20 08:16 36.7 C 82 30 H 138/74 80 L 04/21/20 05:29 89 L 04/21/20 04:29 36.6 C 65 22 H 149/73 H 94 L 04/21/20 00:19 92 L - Problem List & Annotations (1) COVID-19 determined by clinical diagnostic criteria SNOMED Code(s): 841897407, 482567770 Code(s): U07.1 - COVID-19 Status: Acute Current Visit: Yes (2) Chronic renal insufficiency, stage III (moderate) SNOMED Code(s): 657889479 Code(s): N18.30 - CHRONIC KIDNEY DISEASE, STAGE 3 UNSPECIFIED Status: Chronic Current Visit: Yes Qualifiers: Chronic kidney disease stage 3 subtype: stage 3b (GFR 30-44) Qualified Code(s): N18.32 - Chronic kidney disease, stage 3b (3) Pneumonia due to COVID-19 virus SNOMED Code(s): 851684929254958530 Code(s): U07.1 - COVID-19; J12.89 - OTHER VIRAL PNEUMONIA Status: Acute Current Visit: Yes (4) Pulmonary hypertension SNOMED Code(s): 34396059 Code(s): I27.20 - PULMONARY HYPERTENSION, UNSPECIFIED Status: Chronic Current Visit: Yes (5) Supplemental oxygen dependent SNOMED Code(s): 703236601165 Code(s): Z99.81 - DEPENDENCE ON SUPPLEMENTAL OXYGEN Status: Acute Current Visit: Yes (6) HTN, Essential hypertension SNOMED Code(s): 94725039 Code(s): I10 - ESSENTIAL (PRIMARY) HYPERTENSION Status: Chronic Current Visit: No (7) Pulmonary embolism associated with COVID-19 SNOMED Code(s): 784906618 Code(s): U07.1 - COVID-19; I26.99 - OTHER PULMONARY EMBOLISM WITHOUT ACUTE COR PULMONALE Status: Acute Current Visit: Yes - Problem List Review Problem List Initiated/Reviewed/Updated: Yes - My Orders Last 24 Hours: My Active Orders 04/20/20 17:45 STREP PNEUMONIAE ANTIGEN [MREF] Routine 04/21/20 09:00 Consult to Spiritual Care [CONS] Routine 04/21/20 09:36 PTT,PARTIAL THROMBOPLSTIN TIME [COAG] Stat 04/21/20 11:30 Heparin Sodium/D5W [Heparin 25,000 Units in D5W 500 ML] 25,000 units in 500 ml IV TITRATE 04/22/20 05:11 INR,PT,PROTHROMBIN TIME [COAG] AM 04/22/20 06:00 BASIC METABOLIC PANEL,BMP [CHEM] DAILY CRP [C-REACTIVE PROTEIN] [CHEM] DAILY D Dimer [D-DIMER QUANTITATIVE] [COAG] DAILY MAGNESIUM [CHEM] DAILY 04/23/20 05:11 INR,PT,PROTHROMBIN TIME [COAG] AM 04/23/20 06:00 BASIC METABOLIC PANEL,BMP [CHEM] DAILY CRP [C-REACTIVE PROTEIN] [CHEM] DAILY D Dimer [D-DIMER QUANTITATIVE] [COAG] DAILY 04/24/20 05:11 INR,PT,PROTHROMBIN TIME [COAG] AM 04/24/20 06:00 BASIC METABOLIC PANEL,BMP [CHEM] DAILY CRP [C-REACTIVE PROTEIN] [CHEM] DAILY - Plan Plan:: Assessment 04/14/2020 84-year-old female with 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 * X-ray is consistent with a groundglass opacity in the left lung also elevated right hemidiaphragm. This will make treatment more difficult because of the reduced pulmonary capacity. Patient also has underlying lung disease requiring supplemental O2 from pulmonary emboli, history of congestive heart failure, LVH via EKG criteria, and hypertension. This places the patient at high risk for poor outcome regarding pneumonia caused by COVID-19. Fortunately patient is early on in the course of the infection with symptoms only starting 2 days ago. She is also on warfarin hopefully reducing the risk for micro emboli. Fortunately it appears her heart failure is well controlled with a normal proBNP. * WBC is 4.95, INR 2.21, CRP 8.8, AST 43, ALT 40, LDH 351, proBNP 829, lactic acid 0.8, troponin less than 0.017 * I anticipate patient will have a high risk for worsening. She is very early on in the disease and generally the inflammatory response starts 5 to 10 days after initial symptoms. With aggressive treatment early on we could possibly prevent progression to the severe inflammatory component. Stage III chronic renal insufficiency Hypertension * Estimated GFR 36 which appears stable over the last year. Creatinine 1.4, BUN 26, 1+ protein on UA * Currently on losartan and Lasix History of pulmonary embolism on warfarin for anticoagulation Factor V deficiency positive * INR 2.21 * Coumadin alternating 7.5 and 5 mg daily 04/15/2020 * Pneumonia secondary to COVID-19 * Pulmonary hypertension secondary to previous pulmonary emboli * Interstitial lung disease * Anticoagulation on warfarin * Hypertension * Stage III chronic renal insufficiency Patient without any significant change in symptoms or oxygenation overnight. Currently on 2 to 3 L nasal cannula, but is usually on 4 L during the day and 2 L at night. Her INR was slightly low today at 1.7. D-dimer 0.23 and CRP of 8.8. Renal function slightly improved with an estimated GFR of 39 and a creatinine of 1.3. Blood sugars are starting to increase with a glucose of 206. This is likely secondary to dexamethasone. 04/16/2020 * Pneumonia secondary to COVID-19 * Pulmonary hypertension secondary to previous pulmonary emboli * Interstitial lung disease * Anticoagulation on warfarin * Hypertension * Stage III chronic renal insufficiency * Hypoalbuminemia Patient is generally worse overnight. This is not surprising considering the stage of the illness. She is requiring 4 L all the time now even at rest. Lab work continues to be reassuring with C-reactive protein of 5.4, D-dimer of 0.33, normal white count and neutrophil count. INR 2.16. Renal function is stable with GFR 39, creatinine 1.3, BUN 32. Albumin does continue to drop and is down to 2.4. She did have a slight weight increase and may benefit from extra Lasix today. 04/17/2020 * Pneumonia secondary to COVID-19 * Pulmonary hypertension secondary to previous pulmonary emboli * Interstitial lung disease * Anticoagulation on warfarin * Hypertension * Stage III chronic renal insufficiency * Hypoalbuminemia Symptomatically she has improved. Oxygenation is about the same as it was yesterday. Chest x-ray shows some vascular congestion and she did receive her Lasix 30 mg p.o. this morning. Lab work is consistent with some mild intravascular volume depletion. INR 2.6, GFR 33 which is down, creatinine 1.5, BUN 40, C-reactive protein 3.6 04/18/2020 * Pneumonia secondary to COVID-19 * History of pneumocystis pneumonia. * Pulmonary hypertension secondary to previous pulmonary emboli * Interstitial lung disease * Anticoagulation on warfarin-INR 3.57, pharmacy to dose * Hypertension-Blood pressure well controlled * Stage III chronic renal insufficiency-GFR 33, creatinine 1.5 * Hypoalbuminemia-Albumin 2.4 * Steroid-induced hyperglycemia-blood sugars increasing secondary to dexamethasone. No significant change. She has a history of Pneumocystis carinii and therefore needs to be placed on atovaquone. We called her local pharmacy who said they will order it and get it to us hopefully tomorrow. We are unable to get it from our pharmacy. Oxygenation is significantly worsening. She will finish her 5 days of remdesivir and 5 out of 10 days of dexamethasone today. Impression: Covid-19 PNA Hypoxemia Right side PEs (upper/lower lobe) S/P Chest CTA Elevated D Dimer d/t PEs Supra-therapeutic INR Chronic S/P Frances filter PHTN PCP PNA CKD, stage III Plan * Atovaquone 750 mg twice daily, first dose 04/19/2020 * Fingerstick blood sugars before every meal and before bedtime * Low-dose sliding scale insulin * Lasix 30 mg p.o. daily * Follow CBC, CMP, mag, phosphorus, * FiO2 to keep SPO2 between 88 and 94%. Baseline: 4 L during the day and 2 L at night * Completed remdesivir, convalescent plasma, azithromycin * Dexamethasone day 8 of 10 * Continue Rocephin will need to follow INR closely. * 2D echo re: right sided strain * CODE STATUS: Full code * UFH gtt started; will confirm VTE/PE history regarding VKA only or NOAC exposure. Patient lives at [facility] and primary care provider is Dr. Ludin Partida.
[2020-04-21] MEDS ORDERED: Heparin Sodium 5,000 Units/ML Vial IVPUSH ONE (17:00)
[2020-04-21] MEDS: Dexamethasone 4 MG Tab PO SCH (17:06)
--- NOTE | 2020-04-21 19:26 | PCM.SN.2 ---
- Free Text/Narrative Note: Called to start IV. Needed ultrasound to locate and start IVs X2 after X3 attempts. First IV started at left proximal AC basilic vein with 1.88" 20g catheter. Second attempt was distal left forearm, but was unable to thread. Third attempt was at cephalic vein in left AC with 20g 1.88" catheter. Both were secured in the usual fashion. Sterile chloropreps were used at all sites prior to needling. PPE was worn by [employer] and RN to help perform cares and place IVs.
[2020-04-22] MEDS: Insulin Lispro 100 Units/ML 3 ML Vial SUBCUT SCH ×6 (00:20→22:57)
[2020-04-22] MEDS: Pantoprazole 40 MG Tab.CR PO SCH (06:11)
[2020-04-22] MEDS: Albuterol 0.083% 2.5 MG/3 ML Neb Soln NEB SCH ×3 (06:32→21:23)
[2020-04-22] MEDS ORDERED: Heparin Sodium 5,000 Units/ML Vial IVPUSH ONE (08:03)
[2020-04-22] MEDS: Magnesium Oxide 400 MG Tab PO SCH ×2 (08:32→20:13)
[2020-04-22] MEDS: Losartan 25 MG Tab PO SCH (09:06)
[2020-04-22] MEDS: Cholecalciferol (Vitamin D3) 25 MCG Tab PO SCH (09:06)
[2020-04-22] MEDS: ATOVAQUONE 750 MG/5 ML PO SCH ×2 (09:06→20:13)
[2020-04-22] MEDS: Furosemide 20 MG Tab PO SCH (09:06)
[2020-04-22] MEDS: Potassium Chloride 20 MEQ Tab.ER PO SCH (09:06)
--- NOTE | 2020-04-22 11:51 | PCM.PN ---
- General Info Date of Service: 04/22/20 Functional Status: Reports: Tolerating Diet, Ambulating - Review of Systems General: Reports: Weakness, Fatigue HEENT: Reports: No Symptoms Pulmonary: Reports: Shortness of Breath Cardiovascular: Reports: No Symptoms Gastrointestinal: Reports: No Symptoms Genitourinary: Reports: No Symptoms Musculoskeletal: Reports: No Symptoms Skin: Reports: No Symptoms Neurological: Reports: No Symptoms Psychiatric: Reports: No Symptoms - Patient Data Vitals - Most Recent: Last Vital Signs Temp 36.6 C 04/22/20 08:00 Pulse 71 04/22/20 08:00 Resp 28 H 04/22/20 08:00 BP 129/74 04/22/20 08:00 Pulse Ox 91 L 04/22/20 09:10 Weight - Most Recent: 70.67 kg I&O - Last 24 Hours: Intake & Output 04/21/20 04/22/20 04/22/20 22:59 06:59 14:59 Intake Total 1130 266 480 Output Total 550 800 400 Balance 580 -534 80 Lab Results Last 24 Hours: Laboratory Results - last 24 hr 04/21/20 04/21/20 04/21/20 Range/Units 09:36 11:54 16:05 WBC (3.98-10.04) K/mm3 RBC (3.98-5.22) M/mm3 Hgb (11.2-15.7) gm/dl Hct (34.1-44.9) % MCV (79.4-94.8) fl MCH (25.6-32.2) pg MCHC (32.2-35.5) g/dl RDW Std Deviation (36.4-46.3) fL Plt Count (182-369) K/mm3 MPV (9.4-12.3) fl Neut % (Auto) (34.0-71.1) % Lymph % (Auto) (19.3-51.7) % [place] % (Auto) (4.7-12.5) % Eos % (Auto) (0.7-5.8) Baso % (Auto) (0.1-1.2) % Neut # (Auto) (1.56-6.13) K/mm3 Lymph # (Auto) (1.18-3.74) K/mm3 [place] # (Auto) (0.24-0.36) K/mm3 Eos # (Auto) (0.04-0.36) K/mm3 Baso # (Auto) (0.01-0.08) K/mm3 Manual Slide Review PT (9.7-12.0) SECONDS INR APTT 35.3 H 34.2 H (21.7-31.4) SECONDS D-Dimer, Quantitative (0.19-0.50) mg/L Puncture Site Lt radial ABG pH 7.49 H (7.35-7.45) ABG pCO2 35.4 (35.0-45.0) mmHg ABG pO2 67.0 L (80.0-100.0) mmHg ABG HCO3 26.4 H (22.0-26.0) meq/L ABG O2 Saturation 93.1 L (96.0-97.0) % ABG Base Excess 3.4 H (-2-2.0) Andre Test Positive A-a Gradient 280 mmHg O2 Delivery Device Hiflow nasal cannula Oxygen Flow Rate 55.0 FiO2 55.00 (21.00-100.00) % Sodium (136-145) mEq/L Potassium (3.5-5.1) mEq/L Chloride (98-107) mEq/L Carbon Dioxide (21-32) mEq/L Anion Gap (5-15) BUN (7-18) mg/dL Creatinine (0.55-1.02) mg/dL Est Cr Clr Drug Dosing mL/min Estimated GFR (MDRD) (>60) mL/min BUN/Creatinine Ratio (14-18) Glucose (83-115) mg/dL POC Glucose (83-110) mg/dL Calcium (8.5-10.1) mg/dL Magnesium (1.8-2.4) mg/dl C-Reactive Protein (<1.0) mg/dL 04/21/20 04/21/20 04/21/20 Range/Units 16:51 20:18 23:18 WBC (3.98-10.04) K/mm3 RBC (3.98-5.22) M/mm3 Hgb (11.2-15.7) gm/dl Hct (34.1-44.9) % MCV (79.4-94.8) fl MCH (25.6-32.2) pg MCHC (32.2-35.5) g/dl RDW Std Deviation (36.4-46.3) fL Plt Count (182-369) K/mm3 MPV (9.4-12.3) fl Neut % (Auto) (34.0-71.1) % Lymph % (Auto) (19.3-51.7) % [place] % (Auto) (4.7-12.5) % Eos % (Auto) (0.7-5.8) Baso % (Auto) (0.1-1.2) % Neut # (Auto) (1.56-6.13) K/mm3 Lymph # (Auto) (1.18-3.74) K/mm3 [place] # (Auto) (0.24-0.36) K/mm3 Eos # (Auto) (0.04-0.36) K/mm3 Baso # (Auto) (0.01-0.08) K/mm3 Manual Slide Review PT (9.7-12.0) SECONDS INR APTT > 139.0 H* D (21.7-31.4) SECONDS D-Dimer, Quantitative (0.19-0.50) mg/L Puncture Site ABG pH (7.35-7.45) ABG pCO2 (35.0-45.0) mmHg ABG pO2 (80.0-100.0) mmHg ABG HCO3 (22.0-26.0) meq/L ABG O2 Saturation (96.0-97.0) % ABG Base Excess (-2-2.0) Andre Test A-a Gradient mmHg O2 Delivery Device Oxygen Flow Rate FiO2 (21.00-100.00) % Sodium (136-145) mEq/L Potassium (3.5-5.1) mEq/L Chloride (98-107) mEq/L Carbon Dioxide (21-32) mEq/L Anion Gap (5-15) BUN (7-18) mg/dL Creatinine (0.55-1.02) mg/dL Est Cr Clr Drug Dosing mL/min Estimated GFR (MDRD) (>60) mL/min BUN/Creatinine Ratio (14-18) Glucose (83-115) mg/dL POC Glucose 160 H 360 H (83-110) mg/dL Calcium (8.5-10.1) mg/dL Magnesium (1.8-2.4) mg/dl C-Reactive Protein (<1.0) mg/dL 04/22/20 04/22/20 04/22/20 Range/Units 00:44 06:09 06:09 WBC (3.98-10.04) K/mm3 RBC (3.98-5.22) M/mm3 Hgb (11.2-15.7) gm/dl Hct (34.1-44.9) % MCV (79.4-94.8) fl MCH (25.6-32.2) pg MCHC (32.2-35.5) g/dl RDW Std Deviation (36.4-46.3) fL Plt Count (182-369) K/mm3 MPV (9.4-12.3) fl Neut % (Auto) (34.0-71.1) % Lymph % (Auto) (19.3-51.7) % [place] % (Auto) (4.7-12.5) % Eos % (Auto) (0.7-5.8) Baso % (Auto) (0.1-1.2) % Neut # (Auto) (1.56-6.13) K/mm3 Lymph # (Auto) (1.18-3.74) K/mm3 [place] # (Auto) (0.24-0.36) K/mm3 Eos # (Auto) (0.04-0.36) K/mm3 Baso # (Auto) (0.01-0.08) K/mm3 Manual Slide Review PT 25.8 H D (9.7-12.0) SECONDS INR 2.45 APTT 79.8 H D 32.2 H D (21.7-31.4) SECONDS D-Dimer, Quantitative 27.02 H (0.19-0.50) mg/L Puncture Site ABG pH (7.35-7.45) ABG pCO2 (35.0-45.0) mmHg ABG pO2 (80.0-100.0) mmHg ABG HCO3 (22.0-26.0) meq/L ABG O2 Saturation (96.0-97.0) % ABG Base Excess (-2-2.0) Andre Test A-a Gradient mmHg O2 Delivery Device Oxygen Flow Rate FiO2 (21.00-100.00) % Sodium (136-145) mEq/L Potassium (3.5-5.1) mEq/L Chloride (98-107) mEq/L Carbon Dioxide (21-32) mEq/L Anion Gap (5-15) BUN (7-18) mg/dL Creatinine (0.55-1.02) mg/dL Est Cr Clr Drug Dosing mL/min Estimated GFR (MDRD) (>60) mL/min BUN/Creatinine Ratio (14-18) Glucose (83-115) mg/dL POC Glucose (83-110) mg/dL Calcium (8.5-10.1) mg/dL Magnesium (1.8-2.4) mg/dl C-Reactive Protein (<1.0) mg/dL 04/22/20 04/22/20 04/22/20 Range/Units 06:09 06:09 06:18 WBC 7.25 (3.98-10.04) K/mm3 RBC 3.91 L (3.98-5.22) M/mm3 Hgb 11.2 (11.2-15.7) gm/dl Hct 34.4 (34.1-44.9) % MCV 88.0 (79.4-94.8) fl MCH 28.6 (25.6-32.2) pg MCHC 32.6 (32.2-35.5) g/dl RDW Std Deviation 40.9 (36.4-46.3) fL Plt Count 104 L (182-369) K/mm3 MPV 10.3 (9.4-12.3) fl Neut % (Auto) 89.5 H (34.0-71.1) % Lymph % (Auto) 6.8 L (19.3-51.7) % [place] % (Auto) 2.6 L (4.7-12.5) % Eos % (Auto) 0 L (0.7-5.8) Baso % (Auto) 0.1 (0.1-1.2) % Neut # (Auto) 6.49 H (1.56-6.13) K/mm3 Lymph # (Auto) 0.49 L (1.18-3.74) K/mm3 [place] # (Auto) 0.19 L (0.24-0.36) K/mm3 Eos # (Auto) 0.00 L (0.04-0.36) K/mm3 Baso # (Auto) 0.01 (0.01-0.08) K/mm3 Manual Slide Review Abnormal smear PT (9.7-12.0) SECONDS INR APTT (21.7-31.4) SECONDS D-Dimer, Quantitative (0.19-0.50) mg/L Puncture Site ABG pH (7.35-7.45) ABG pCO2 (35.0-45.0) mmHg ABG pO2 (80.0-100.0) mmHg ABG HCO3 (22.0-26.0) meq/L ABG O2 Saturation (96.0-97.0) % ABG Base Excess (-2-2.0) Andre Test A-a Gradient mmHg O2 Delivery Device Oxygen Flow Rate FiO2 (21.00-100.00) % Sodium 137 (136-145) mEq/L Potassium 4.6 (3.5-5.1) mEq/L Chloride 101 (98-107) mEq/L Carbon Dioxide 27 (21-32) mEq/L Anion Gap 13.6 (5-15) BUN 46 H (7-18) mg/dL Creatinine 1.3 H (0.55-1.02) mg/dL Est Cr Clr Drug Dosing 28.81 mL/min Estimated GFR (MDRD) 39 (>60) mL/min BUN/Creatinine Ratio 35.4 H (14-18) Glucose 191 H (83-115) mg/dL POC Glucose 198 H (83-110) mg/dL Calcium 8.2 L (8.5-10.1) mg/dL Magnesium 2.5 H (1.8-2.4) mg/dl C-Reactive Protein 2.3 H* (<1.0) mg/dL Kevyn Results Last 24 Hours: Microbiology 04/20/20 17:45 Streptococcus pneumoniae Antigen (M - Final Urine - Clean Catch Midstream 04/14/20 15:30 Aerobic Blood Culture - Final Blood - Venous NO GROWTH AFTER 7 DAYS Anaerobic Blood Culture - Final NO GROWTH AFTER 7 DAYS 04/14/20 16:05 Aerobic Blood Culture - Final Blood - Venous - Lab Draw NO GROWTH AFTER 7 DAYS Anaerobic Blood Culture - Final NO GROWTH AFTER 7 DAYS Med Orders - Current: Current Medications Acetaminophen (Tylenol) 650 mg PO Q4H PRN PRN Reason: Pain Last Admin: 04/14/20 16:02 Dose: 650 mg Documented by: Albuterol (Proventil Neb Soln) 2.5 mg NEB TIDRT [facility] Last Admin: 04/22/20 06:32 Dose: 2.5 mg Documented by: Cholecalciferol (Vitamin D3) 125 mcg PO DAILY [facility] Last Admin: 04/21/20 08:23 Dose: 125 mcg Documented by: Dexamethasone (Dexamethasone) 6 mg PO Q24H [facility] Stop: 04/23/20 18:01 Last Admin: 04/21/20 17:06 Dose: 6 mg Documented by: Dextrose/Water (Dextrose 50% In Water) 50 ml IV ASDIRECTED PRN PRN Reason: Hypoglycemia Furosemide (Lasix) 30 mg PO DAILY [facility] Last Admin: 04/21/20 08:24 Dose: 30 mg Documented by: Heparin Sodium/Dextrose (Heparin 25,000 Units In D5w 500 Ml) 25,000 units in 500 mls @ 16 mls/hr IV TITRATE [facility]; Protocol Last Titration: 04/22/20 08:12 Dose: 1,220 units/hr, 24.4 mls/hr Documented by: Insulin Human Lispro (Humalog) 0 unit SUBCUT QIDACANDBED [facility]; Protocol Losartan Potassium (Cozaar) 12.5 mg PO DAILY [facility] Last Admin: 04/21/20 08:23 Dose: 12.5 mg Documented by: Magnesium Oxide (Magnesium Oxide) 400 mg PO BID [facility] Last Admin: 04/22/20 08:32 Dose: 400 mg Documented by: Atovaquone 750 Mg/5 (Ml Ptom) 0 each PO BID [facility] Last Admin: 04/21/20 20:09 Dose: 5 each Documented by: Ondansetron HCl (Zofran) 4 mg IV Q4H PRN PRN Reason: Nausea/Vomiting Ondansetron HCl (Zofran Odt) 4 mg PO Q4H PRN PRN Reason: nausea, able to take PO Pantoprazole Sodium (Protonix) 40 mg PO DAILY@0700 [facility] Last Admin: 04/22/20 06:11 Dose: 40 mg Documented by: Potassium Chloride (Klor-Con M20) 20 meq PO DAILY [facility] Last Admin: 04/21/20 08:24 Dose: 20 meq Documented by: Zolpidem Tartrate (Ambien) 2.5 mg PO BEDTIME PRN PRN Reason: Insomnia Discontinued Medications Albuterol (Proventil Neb Soln) 2.5 mg NEB TID EMIGDIO Albuterol (Proventil Neb Soln) 2.5 mg NEB TIDRT EMIGDIO Albuterol (Proventil Neb Soln) Confirm Administered Dose 2.5 mg .ROUTE .STK-MED ONE Stop: 04/16/20 01:20 [facility] Last Admin: 04/16/20 05:39 Dose: Not Given Documented by: Furosemide (Lasix) 20 mg IVPUSH ONETIME ONE Stop: 04/16/20 12:46 Last Admin: 04/16/20 12:59 Dose: 20 mg Documented by: Heparin Sodium (Porcine) (Heparin Sodium) 2,500 units IVPUSH ONETIME ONE Stop: 04/21/20 17:01 Last Admin: 04/21/20 16:59 Dose: 2,500 units Documented by: Heparin Sodium (Porcine) (Heparin Sodium) 2,500 units IVPUSH ONETIME ONE Stop: 04/22/20 08:04 Last Admin: 04/22/20 08:11 Dose: 2,500 units Documented by: Dextrose/Sodium Chloride (Dextrose 5%-Normal Saline) 1,000 mls @ 100 mls/hr IV ASDIRECTED [facility] Last Admin: 04/15/20 05:45 Dose: 100 mls/hr Documented by: Remdesivir 200 mg/ Sodium (Chloride) 250 mls @ 250 mls/hr IV ONETIME ONE Stop: 04/14/20 17:34 Last Admin: 04/14/20 18:32 Dose: 250 mls/hr Documented by: Remdesivir 100 mg/ Sodium (Chloride) 100 mls @ 100 mls/hr IV Q24H [facility] Stop: 04/18/20 19:59 Last Admin: 04/18/20 18:33 Dose: 100 mls/hr Documented by: Sodium Chloride (Normal Saline) 250 mls @ 50 mls/hr IV ASDIRECTED [facility] Ceftriaxone Sodium 2 gm/ (Sodium Chloride) 100 mls @ 200 mls/hr IV Q24H [facility] Stop: 04/20/20 09:59 Last Admin: 04/20/20 08:30 Dose: 200 mls/hr Documented by: Azithromycin 500 mg/ Sodium (Chloride) 250 mls @ 250 mls/hr IV Q24H [facility] Stop: 04/18/20 10:59 Last Admin: 04/18/20 09:31 Dose: 250 mls/hr Documented by: Sodium Chloride (Normal Saline) 100 mls @ 75 mls/hr IV ASDIRECTED EMIGDIO Stop: 04/21/20 13:00 Last Admin: 04/21/20 11:05 Dose: 75 mls/hr Documented by: Insulin Human Lispro (Humalog) 0 unit SUBCUT QIDACANDBED [facility]; Protocol Last Admin: 04/22/20 08:09 Dose: 1 units Documented by: Iopamidol (Isovue-370 (76%)) 100 ml IVPUSH ONETIME ONE Stop: 04/21/20 10:22 Last Admin: 04/21/20 11:05 Dose: 100 ml Documented by: Losartan Potassium (Cozaar) 12.5 mg PO ASDIRECTED [facility] Non-Formulary Medication (Magnesium [Magnesium]) 400 mg PO ASDIRECTED [facility] Sodium Chloride (Saline Flush) 10 ml FLUSH ONETIME PRN PRN Reason: IV FLUSH Stop: 04/21/20 13:00 Last Admin: 04/21/20 11:05 Dose: 10 ml Documented by: Warfarin Sodium (Pharmacy To Dose - Warfarin) 0 dose .XX ASDIRECTED PRN PRN Reason: RX TO DOSE WARFARIN Warfarin Sodium (Coumadin) 5 mg PO ONETIME ONE Stop: 04/14/20 20:31 Last Admin: 04/14/20 20:51 Dose: 5 mg Documented by: Warfarin Sodium (Coumadin) 7.5 mg PO QPM [facility] Stop: 04/15/20 21:00 Last Admin: 04/15/20 18:10 Dose: 7.5 mg Documented by: Warfarin Sodium (Coumadin) 5 mg PO ONETIME ONE Stop: 04/16/20 20:16 Last Admin: 04/16/20 20:46 Dose: 5 mg Documented by: Warfarin Sodium (Pharmacy To Dose - Warfarin) 0 dose .XX ASDIRECTED PRN PRN Reason: RX TO DOSE WARFARIN Warfarin Sodium (Coumadin) 5 mg PO QPM [facility] Stop: 04/17/20 18:01 Last Admin: 04/17/20 18:57 Dose: 5 mg Documented by: Warfarin Sodium (Coumadin Sliding Scale) 0 each PO QPM [facility] Stop: 04/18/20 18:01 Last Admin: 04/18/20 18:33 Dose: Not Given Documented by: Warfarin Sodium (Coumadin Sliding Scale) 0 each PO QPM [facility] Stop: 04/19/20 18:01 Last Admin: 04/19/20 18:04 Dose: Not Given Documented by: Warfarin Sodium (Coumadin) 1 mg PO QPM [facility] Stop: 04/20/20 18:01 Last Admin: 04/20/20 17:01 Dose: 1 mg Documented by: - Exam Quality Assessment: Supplemental Oxygen General: Alert, Oriented, Cooperative, No Acute Distress HEENT: Pupils Equal, Pupils Reactive, EOMI Neck: Trachea Midline, No JVD Lungs: Normal Respiratory Effort, Decreased Breath Sounds, Rales Cardiovascular: Regular Rate, Regular Rhythm GI/Abdominal Exam: Normal Bowel Sounds, Soft, Non-Tender, No Distention (Female) Exam: Deferred Back Exam: Normal Inspection Extremities: Normal Inspection, Normal Capillary Refill Skin: Warm Neurological: No New Focal Deficit, Normal Speech Psy/Mental Status: Alert Sepsis Event Note - Evaluation Sepsis Screening Result: No Definite Risk - Focused Exam Vital Signs: Vital Signs Temp Temp Pulse Pulse Resp BP BP 04/22/20 09:10 04/22/20 08:00 36.6 C 71 28 H 129/74 04/22/20 06:35 04/22/20 03:32 36.7 C 65 133/83 Pulse Ox Pulse Ox 04/22/20 09:10 91 L 04/22/20 08:00 90 L 04/22/20 06:35 88 L 04/22/20 03:32 93 L - Problem List & Annotations (1) COVID-19 determined by clinical diagnostic criteria SNOMED Code(s): 444772878, 539410119 Code(s): U07.1 - COVID-19 Status: Acute Current Visit: Yes (2) Chronic renal insufficiency, stage III (moderate) SNOMED Code(s): 434858408 Code(s): N18.30 - CHRONIC KIDNEY DISEASE, STAGE 3 UNSPECIFIED Status: Chronic Current Visit: Yes Qualifiers: Chronic kidney disease stage 3 subtype: stage 3b (GFR 30-44) Qualified Code(s): N18.32 - Chronic kidney disease, stage 3b (3) Pneumonia due to COVID-19 virus SNOMED Code(s): 105792731751535798 Code(s): U07.1 - COVID-19; J12.89 - OTHER VIRAL PNEUMONIA Status: Acute Current Visit: Yes (4) Pulmonary hypertension SNOMED Code(s): 05710045 Code(s): I27.20 - PULMONARY HYPERTENSION, UNSPECIFIED Status: Chronic Current Visit: Yes (5) Supplemental oxygen dependent SNOMED Code(s): 461405237271 Code(s): Z99.81 - DEPENDENCE ON SUPPLEMENTAL OXYGEN Status: Acute Current Visit: Yes (6) HTN, Essential hypertension SNOMED Code(s): 22243647 Code(s): I10 - ESSENTIAL (PRIMARY) HYPERTENSION Status: Chronic Current Visit: No (7) Pulmonary embolism associated with COVID-19 SNOMED Code(s): 253307520 Code(s): U07.1 - COVID-19; I26.99 - OTHER PULMONARY EMBOLISM WITHOUT ACUTE COR PULMONALE Status: Acute Current Visit: Yes - Problem List Review Problem List Initiated/Reviewed/Updated: Yes - My Orders Last 24 Hours: My Active Orders 04/21/20 11:30 Heparin Sodium/D5W [Heparin 25,000 Units in D5W 500 ML] 25,000 units in 500 ml IV TITRATE 04/22/20 Lunch [employer] Diet [DIET] Insulin Lispro [HumaLOG] See Protocol SUBCUT QIDACANDBED 04/22/20 11:16 GLUCOSE RANDOM [CHEM] Stat 04/22/20 12:30 aPTT [PTT,PARTIAL THROMBOPLSTIN TIME] [COAG] Routine 04/23/20 05:11 INR,PT,PROTHROMBIN TIME [COAG] AM 04/23/20 06:00 BASIC METABOLIC PANEL,BMP [CHEM] DAILY CRP [C-REACTIVE PROTEIN] [CHEM] DAILY D Dimer [D-DIMER QUANTITATIVE] [COAG] DAILY 04/24/20 05:11 INR,PT,PROTHROMBIN TIME [COAG] AM 04/24/20 06:00 BASIC METABOLIC PANEL,BMP [CHEM] DAILY CRP [C-REACTIVE PROTEIN] [CHEM] DAILY 04/24/20 07:00 CBC W/O DIFF,HEMOGRAM [HEME] MOTH@0700 04/27/20 07:00 CBC W/O DIFF,HEMOGRAM [HEME] MOTH@69905/01/20 07:00 CBC W/O DIFF,HEMOGRAM [HEME] MOTH@699 05/04/20 07:00 CBC W/O DIFF,HEMOGRAM [HEME] MOTH@0700 05/08/20 07:00 CBC W/O DIFF,HEMOGRAM [HEME] MOTH@0700 05/11/20 07:00 CBC W/O DIFF,HEMOGRAM [HEME] MOTH@0700 - Plan Plan:: Assessment 04/14/2020 84-year-old female with 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 * X-ray is consistent with a groundglass opacity in the left lung also elevated right hemidiaphragm. This will make treatment more difficult because of the reduced pulmonary capacity. Patient also has underlying lung disease requiring supplemental O2 from pulmonary emboli, history of congestive heart failure, LVH via EKG criteria, and hypertension. This places the patient at high risk for poor outcome regarding pneumonia caused by COVID-19. Fortunately patient is early on in the course of the infection with symptoms only starting 2 days ago. She is also on warfarin hopefully reducing the risk for micro emboli. Fortunately it appears her heart failure is well controlled with a normal proBNP. * WBC is 4.95, INR 2.21, CRP 8.8, AST 43, ALT 40, LDH 351, proBNP 829, lactic acid 0.8, troponin less than 0.017 * I anticipate patient will have a high risk for worsening. She is very early on in the disease and generally the inflammatory response starts 5 to 10 days after initial symptoms. With aggressive treatment early on we could possibly prevent progression to the severe inflammatory component. Stage III chronic renal insufficiency Hypertension * Estimated GFR 36 which appears stable over the last year. Creatinine 1.4, BUN 26, 1+ protein on UA * Currently on losartan and Lasix History of pulmonary embolism on warfarin for anticoagulation Factor V deficiency positive * INR 2.21 * Coumadin alternating 7.5 and 5 mg daily 04/15/2020 * Pneumonia secondary to COVID-19 * Pulmonary hypertension secondary to previous pulmonary emboli * Interstitial lung disease * Anticoagulation on warfarin * Hypertension * Stage III chronic renal insufficiency Patient without any significant change in symptoms or oxygenation overnight. Currently on 2 to 3 L nasal cannula, but is usually on 4 L during the day and 2 L at night. Her INR was slightly low today at 1.7. D-dimer 0.23 and CRP of 8.8. Renal function slightly improved with an estimated GFR of 39 and a creatinine of 1.3. Blood sugars are starting to increase with a glucose of 206. This is likely secondary to dexamethasone. 04/16/2020 * Pneumonia secondary to COVID-19 * Pulmonary hypertension secondary to previous pulmonary emboli * Interstitial lung disease * Anticoagulation on warfarin * Hypertension * Stage III chronic renal insufficiency * Hypoalbuminemia Patient is generally worse overnight. This is not surprising considering the stage of the illness. She is requiring 4 L all the time now even at rest. Lab work continues to be reassuring with C-reactive protein of 5.4, D-dimer of 0.33, normal white count and neutrophil count. INR 2.16. Renal function is stable with GFR 39, creatinine 1.3, BUN 32. Albumin does continue to drop and is down to 2.4. She did have a slight weight increase and may benefit from extra Lasix today. 04/17/2020 * Pneumonia secondary to COVID-19 * Pulmonary hypertension secondary to previous pulmonary emboli * Interstitial lung disease * Anticoagulation on warfarin * Hypertension * Stage III chronic renal insufficiency * Hypoalbuminemia Symptomatically she has improved. Oxygenation is about the same as it was yesterday. Chest x-ray shows some vascular congestion and she did receive her Lasix 30 mg p.o. this morning. Lab work is consistent with some mild intravascular volume depletion. INR 2.6, GFR 33 which is down, creatinine 1.5, BUN 40, C-reactive protein 3.6 04/19/2020 * Pneumonia secondary to COVID-19 * History of pneumocystis pneumonia. * Pulmonary hypertension secondary to previous pulmonary emboli * Interstitial lung disease * Anticoagulation on warfarin-INR 3.57, pharmacy to dose * Hypertension-Blood pressure well controlled * Stage III chronic renal insufficiency-GFR 33, creatinine 1.5 * Hypoalbuminemia-Albumin 2.4 * Steroid-induced hyperglycemia-blood sugars increasing secondary to dexamethasone. No significant change. She has a history of Pneumocystis carinii and therefore needs to be placed on atovaquone. We called her local pharmacy who said they will order it and get it to us hopefully tomorrow. We are unable to get it from our pharmacy. Oxygenation is significantly worsening. She will finish her 5 days of remdesivir and 5 out of 10 days of dexamethasone today. Impression: Covid-19 PNA Hypoxemia HCAP-empiric coverage (Vancomycin, Zosyn) Right side PEs (upper/lower lobe) S/P Chest CTA Elevated D Dimer d/t PEs; UFH gtt-elevated PTT; Lovenox not used d/t renal function Supra-therapeutic INR Chronic Query Factor V Leiden; history of failed NOAC--thus VKA S/P Frances filter PHTN PCP PNA CKD, stage III Plan * Atovaquone 750 mg twice daily, first dose 04/19/2020 * Fingerstick blood sugars before every meal and before bedtime * Low-dose sliding scale insulin * Lasix 30 mg p.o. daily * Follow CBC, CMP, mag, phosphorus, * FiO2 to keep SPO2 between 88 and 94%. Baseline: 4 L during the day and 2 L at night * Completed remdesivir, convalescent plasma, azithromycin * Dexamethasone day 9 of 10; confirm compeletion of therapy date * Vanco/Zosyn adjust frequency per pharmacy. * 2D echo re: right sided strain * PICC line d/t venous access difficulties. * CODE STATUS: Full code * UFH gtt started, recheck PTT at 1800.. Patient lives at [facility] and primary care provider is Dr. Ludin Partida.
[2020-04-22] MEDS ORDERED: Piperacillin/Tazobactam 4.5 GM in Sodium Chloride 0.9% 100 ML IV ONE (12:15)
[2020-04-22] MEDS ORDERED: Vancomycin 1.5 GM in Sodium Chloride 0.9% 500 ML IV ONE ×2 (13:00→15:15)
[2020-04-22] MEDS ORDERED: Vancomycin 1 GM SDV ONE (14:47)
--- NOTE | 2020-04-22 14:53 | PCM.SN.2 ---
- Free Text/Narrative Note: PICC Line Insertion. Order confirmed by nursing as requested by Dr. Tayler Langston. Informed consent obtained. Patient's questions were asked and answered. Timeout with nursing X2 at bedside at 1020. Patient needing line access for multiple therapies, primarily heparin and antibiotics. Patient has had multiple infiltrations of regular IVs and heparin, including one of the ones I started last night in her left proximal AC. Sterile chloroprep with drape and gown. Covid-19 precautions by everybody in the room. 2mL of 1% lidocaine skin wheal at skin was placed with 25g needle from kit. The right proximal AC basilic vein was cannulated with a 20g IV per PICC kit, using an [id number] technique with a sterile-socked linear ultrasound probe. Easy threading of guide wire. Introducer placed easily after skin gerardo with PICC kit provided sterile blade. Flushed X2 [place] NXT dual lumen 5 Polish catheter threaded easily. Radiology called to confirm placement. Initial measure at skin was 45cm and the tip appeared too deep and possibly in Right atrium, accordingly, the catheter was pulled back to 40cm at the skin and re-imaged prior to sending images to radiology. The second image catheter tip was found to be resting in the aortocaval junction per stat read from radiology. Catheter was flushed vigorously with 20 mL sterile normal saline per each port lumen with pressure caps applied. Both ports draw heme and flush easily. The arm was dressed with a Stat-lock and some biopatch-like Tegaderm this facility has for this purpose. The line is okay to use for therapies per radiology and myself. The patient tolerated the procedure well and was conversant throughout. The arm at the site measures 29.5cm on paper tape. Total procedure time was 30 minutes from 1020 to 1050. We then waited an additional 40 minutes to hear from radiology before removing the guidewire and then [place] capping the lines and making sure once again they tejal heme and flushed well with 10 mL sterile NS per each lumen. I suspect, despite holding pressure to the site the entire time we waited for the radiology read that the dressing will need changed prior to the usual 24 hour francisco. RNs are to observe site for excessive bleeding and have stopped heparin for at least an hour to recheck aPTT.
[2020-04-22] MEDS ORDERED: Piperacillin/Tazobactam 4.5 GM in Sodium Chloride 0.9% 100 ML IV SCH ×3 (15:15→20:00)
[2020-04-22] MEDS: Dexamethasone 4 MG Tab PO SCH (19:00)
[2020-04-22] MEDS: Heparin Sodium/D5W 25,000 UNITS/500 ML BAG IV SCH (20:01)
[2020-04-22] MEDS: Piperacillin/Tazobactam 4.5 GM in Sodium Chloride 0.9% 100 ML IV SCH (22:29)
[2020-04-23] MEDS: Pantoprazole 40 MG Tab.CR PO SCH (06:02)
[2020-04-23] MEDS: Piperacillin/Tazobactam 4.5 GM in Sodium Chloride 0.9% 100 ML IV SCH ×3 (06:02→21:03)
[2020-04-23] MEDS: Albuterol 0.083% 2.5 MG/3 ML Neb Soln NEB SCH ×3 (06:46→21:14)
[2020-04-23] MEDS: Insulin Lispro 100 Units/ML 3 ML Vial SUBCUT SCH ×5 (08:43→23:39)
[2020-04-23] MEDS: Magnesium Oxide 400 MG Tab PO SCH ×2 (08:45→20:44)
[2020-04-23] MEDS: Cholecalciferol (Vitamin D3) 25 MCG Tab PO SCH (08:46)
[2020-04-23] MEDS: Losartan 25 MG Tab PO SCH (08:47)
[2020-04-23] MEDS: Furosemide 20 MG Tab PO SCH (08:47)
[2020-04-23] MEDS: Potassium Chloride 20 MEQ Tab.ER PO SCH (08:48)
[2020-04-23] MEDS: ATOVAQUONE 750 MG/5 ML PO SCH ×2 (08:49→20:44)
--- NOTE | 2020-04-23 14:45 | PCM.PN ---
- General Info Date of Service: 04/23/20 Subjective Update: Patient is less SOB, PTT is appropriate. INR has decreased to < 2.0. Patient is on Vancomycin and Zosyn for possible HCAP. Functional Status: Reports: Pain Controlled, Tolerating Diet - Review of Systems General: Reports: Weakness HEENT: Reports: No Symptoms Pulmonary: Reports: Shortness of Breath (decreased) Cardiovascular: Reports: No Symptoms Gastrointestinal: Reports: No Symptoms Genitourinary: Reports: No Symptoms Musculoskeletal: Reports: No Symptoms Skin: Reports: No Symptoms Neurological: Reports: No Symptoms Psychiatric: Reports: No Symptoms - Patient Data Vitals - Most Recent: Last Vital Signs Temp 37.0 C 04/23/20 08:42 Pulse 86 04/23/20 09:00 Resp 24 H 04/23/20 09:00 BP 131/94 H 04/23/20 08:47 Pulse Ox 90 L 04/23/20 13:58 Weight - Most Recent: 71.622 kg I&O - Last 24 Hours: Intake & Output 04/22/20 04/23/20 04/23/20 22:59 06:59 14:59 Intake Total 800 1022 400 Output Total 850 1500 500 Balance -50 -438 100 Lab Results Last 24 Hours: Laboratory Results - last 24 hr 04/22/20 04/22/20 04/22/20 Range/Units 15:15 17:04 18:06 WBC (3.98-10.04) K/mm3 RBC (3.98-5.22) M/mm3 Hgb (11.2-15.7) gm/dl Hct (34.1-44.9) % MCV (79.4-94.8) fl MCH (25.6-32.2) pg MCHC (32.2-35.5) g/dl RDW Std Deviation (36.4-46.3) fL Plt Count (182-369) K/mm3 MPV (9.4-12.3) fl Neut % (Auto) (34.0-71.1) % Lymph % (Auto) (19.3-51.7) % Gregg % (Auto) (4.7-12.5) % Eos % (Auto) (0.7-5.8) Baso % (Auto) (0.1-1.2) % Neut # (Auto) (1.56-6.13) K/mm3 Lymph # (Auto) (1.18-3.74) K/mm3 Gregg # (Auto) (0.24-0.36) K/mm3 Eos # (Auto) (0.04-0.36) K/mm3 Baso # (Auto) (0.01-0.08) K/mm3 Manual Slide Review PT (9.7-12.0) SECONDS INR APTT > 139.0 H* 53.2 H D (21.7-31.4) SECONDS D-Dimer, Quantitative (0.19-0.50) mg/L Sodium (136-145) mEq/L Potassium (3.5-5.1) mEq/L Chloride (98-107) mEq/L Carbon Dioxide (21-32) mEq/L Anion Gap (5-15) BUN (7-18) mg/dL Creatinine (0.55-1.02) mg/dL Est Cr Clr Drug Dosing mL/min Estimated GFR (MDRD) (>60) mL/min BUN/Creatinine Ratio (14-18) Glucose (83-115) mg/dL POC Glucose 138 H (83-110) mg/dL Calcium (8.5-10.1) mg/dL C-Reactive Protein (<1.0) mg/dL 04/22/20 04/23/20 04/23/20 Range/Units 20:11 00:18 05:00 WBC (3.98-10.04) K/mm3 RBC (3.98-5.22) M/mm3 Hgb (11.2-15.7) gm/dl Hct (34.1-44.9) % MCV (79.4-94.8) fl MCH (25.6-32.2) pg MCHC (32.2-35.5) g/dl RDW Std Deviation (36.4-46.3) fL Plt Count (182-369) K/mm3 MPV (9.4-12.3) fl Neut % (Auto) (34.0-71.1) % Lymph % (Auto) (19.3-51.7) % Gregg % (Auto) (4.7-12.5) % Eos % (Auto) (0.7-5.8) Baso % (Auto) (0.1-1.2) % Neut # (Auto) (1.56-6.13) K/mm3 Lymph # (Auto) (1.18-3.74) K/mm3 Gregg # (Auto) (0.24-0.36) K/mm3 Eos # (Auto) (0.04-0.36) K/mm3 Baso # (Auto) (0.01-0.08) K/mm3 Manual Slide Review PT 20.7 H (9.7-12.0) SECONDS INR 1.96 APTT 61.7 H (21.7-31.4) SECONDS D-Dimer, Quantitative (0.19-0.50) mg/L Sodium (136-145) mEq/L Potassium (3.5-5.1) mEq/L Chloride (98-107) mEq/L Carbon Dioxide (21-32) mEq/L Anion Gap (5-15) BUN (7-18) mg/dL Creatinine (0.55-1.02) mg/dL Est Cr Clr Drug Dosing mL/min Estimated GFR (MDRD) (>60) mL/min BUN/Creatinine Ratio (14-18) Glucose (83-115) mg/dL POC Glucose 262 H (83-110) mg/dL Calcium (8.5-10.1) mg/dL C-Reactive Protein (<1.0) mg/dL 04/23/20 04/23/20 04/23/20 Range/Units 05:00 05:00 05:00 WBC 7.53 (3.98-10.04) K/mm3 RBC 3.64 L (3.98-5.22) M/mm3 Hgb 10.4 L (11.2-15.7) gm/dl Hct 32.0 L (34.1-44.9) % MCV 87.9 (79.4-94.8) fl MCH 28.6 (25.6-32.2) pg MCHC 32.5 (32.2-35.5) g/dl RDW Std Deviation 40.3 (36.4-46.3) fL Plt Count 114 L (182-369) K/mm3 MPV 10.4 (9.4-12.3) fl Neut % (Auto) 92.9 H (34.0-71.1) % Lymph % (Auto) 4.6 L (19.3-51.7) % Gregg % (Auto) 1.7 L (4.7-12.5) % Eos % (Auto) 0 L (0.7-5.8) Baso % (Auto) 0.0 L (0.1-1.2) % Neut # (Auto) 6.99 H (1.56-6.13) K/mm3 Lymph # (Auto) 0.35 L (1.18-3.74) K/mm3 Gregg # (Auto) 0.13 L (0.24-0.36) K/mm3 Eos # (Auto) 0.00 L (0.04-0.36) K/mm3 Baso # (Auto) 0.00 L (0.01-0.08) K/mm3 Manual Slide Review Abnormal smear PT (9.7-12.0) SECONDS INR APTT (21.7-31.4) SECONDS D-Dimer, Quantitative 15.87 H (0.19-0.50) mg/L Sodium 137 (136-145) mEq/L Potassium 4.7 (3.5-5.1) mEq/L Chloride 102 (98-107) mEq/L Carbon Dioxide 29 (21-32) mEq/L Anion Gap 10.7 (5-15) BUN 41 H (7-18) mg/dL Creatinine 1.4 H (0.55-1.02) mg/dL Est Cr Clr Drug Dosing 26.75 mL/min Estimated GFR (MDRD) 36 (>60) mL/min BUN/Creatinine Ratio 29.3 H (14-18) Glucose 220 H (83-115) mg/dL POC Glucose (83-110) mg/dL Calcium 7.8 L (8.5-10.1) mg/dL C-Reactive Protein 1.5 H* (<1.0) mg/dL 04/23/20 04/23/20 04/23/20 Range/Units 05:00 05:50 11:15 WBC (3.98-10.04) K/mm3 RBC (3.98-5.22) M/mm3 Hgb (11.2-15.7) gm/dl Hct (34.1-44.9) % MCV (79.4-94.8) fl MCH (25.6-32.2) pg MCHC (32.2-35.5) g/dl RDW Std Deviation (36.4-46.3) fL Plt Count (182-369) K/mm3 MPV (9.4-12.3) fl Neut % (Auto) (34.0-71.1) % Lymph % (Auto) (19.3-51.7) % Gregg % (Auto) (4.7-12.5) % Eos % (Auto) (0.7-5.8) Baso % (Auto) (0.1-1.2) % Neut # (Auto) (1.56-6.13) K/mm3 Lymph # (Auto) (1.18-3.74) K/mm3 Gregg # (Auto) (0.24-0.36) K/mm3 Eos # (Auto) (0.04-0.36) K/mm3 Baso # (Auto) (0.01-0.08) K/mm3 Manual Slide Review PT (9.7-12.0) SECONDS INR APTT 57.3 H (21.7-31.4) SECONDS D-Dimer, Quantitative (0.19-0.50) mg/L Sodium (136-145) mEq/L Potassium (3.5-5.1) mEq/L Chloride (98-107) mEq/L Carbon Dioxide (21-32) mEq/L Anion Gap (5-15) BUN (7-18) mg/dL Creatinine (0.55-1.02) mg/dL Est Cr Clr Drug Dosing mL/min Estimated GFR (MDRD) (>60) mL/min BUN/Creatinine Ratio (14-18) Glucose (83-115) mg/dL POC Glucose 192 H 258 H (83-110) mg/dL Calcium (8.5-10.1) mg/dL C-Reactive Protein (<1.0) mg/dL 04/23/20 04/23/20 Range/Units 11:17 11:17 WBC (3.98-10.04) K/mm3 RBC (3.98-5.22) M/mm3 Hgb (11.2-15.7) gm/dl Hct (34.1-44.9) % MCV (79.4-94.8) fl MCH (25.6-32.2) pg MCHC (32.2-35.5) g/dl RDW Std Deviation (36.4-46.3) fL Plt Count (182-369) K/mm3 MPV (9.4-12.3) fl Neut % (Auto) (34.0-71.1) % Lymph % (Auto) (19.3-51.7) % Gregg % (Auto) (4.7-12.5) % Eos % (Auto) (0.7-5.8) Baso % (Auto) (0.1-1.2) % Neut # (Auto) (1.56-6.13) K/mm3 Lymph # (Auto) (1.18-3.74) K/mm3 Gregg # (Auto) (0.24-0.36) K/mm3 Eos # (Auto) (0.04-0.36) K/mm3 Baso # (Auto) (0.01-0.08) K/mm3 Manual Slide Review PT (9.7-12.0) SECONDS INR APTT Cancelled 65.2 H (21.7-31.4) SECONDS D-Dimer, Quantitative (0.19-0.50) mg/L Sodium (136-145) mEq/L Potassium (3.5-5.1) mEq/L Chloride (98-107) mEq/L Carbon Dioxide (21-32) mEq/L Anion Gap (5-15) BUN (7-18) mg/dL Creatinine (0.55-1.02) mg/dL Est Cr Clr Drug Dosing mL/min Estimated GFR (MDRD) (>60) mL/min BUN/Creatinine Ratio (14-18) Glucose (83-115) mg/dL POC Glucose (83-110) mg/dL Calcium (8.5-10.1) mg/dL C-Reactive Protein (<1.0) mg/dL Med Orders - Current: Current Medications Acetaminophen (Tylenol) 650 mg PO Q4H PRN PRN Reason: Pain Last Admin: 04/14/20 16:02 Dose: 650 mg Documented by: Albuterol (Proventil Neb Soln) 2.5 mg NEB TIDRT EMIGDIO Last Admin: 04/23/20 13:57 Dose: 2.5 mg Documented by: Cholecalciferol (Vitamin D3) 125 mcg PO DAILY [facility] Last Admin: 04/23/20 08:46 Dose: 125 mcg Documented by: Dexamethasone (Dexamethasone) 6 mg PO Q24H [facility] Stop: 04/23/20 18:01 Last Admin: 04/22/20 19:00 Dose: 6 mg Documented by: Dextrose/Water (Dextrose 50% In Water) 50 ml IV ASDIRECTED PRN PRN Reason: Hypoglycemia Furosemide (Lasix) 30 mg PO DAILY [facility] Last Admin: 04/23/20 08:47 Dose: 30 mg Documented by: Vancomycin HCl 1 gm/ Sodium (Chloride) 250 mls @ 250 mls/hr IV Q24H [facility] Last Admin: 04/23/20 14:30 Dose: 250 mls/hr Documented by: Piperacillin Sod/Tazobactam (Sod 4.5 gm/ Sodium Chloride) 100 mls @ 25 mls/hr IV Q8H [facility] Last Admin: 04/23/20 06:02 Dose: 25 mls/hr Documented by: Heparin Sodium/Dextrose (Heparin 25,000 Units In D5w 500 Ml) 25,000 units in 500 mls @ 12 mls/hr IV TITRATE [facility]; Protocol Last Admin: 04/22/20 20:01 Dose: 600 units/hr, 12 mls/hr Documented by: Insulin Human Lispro (Humalog) 0 unit SUBCUT QIDACANDBED [facility]; Protocol Last Admin: 04/23/20 12:13 Dose: 6 units Documented by: Losartan Potassium (Cozaar) 12.5 mg PO DAILY [facility] Last Admin: 04/23/20 08:47 Dose: 12.5 mg Documented by: Magnesium Oxide (Magnesium Oxide) 400 mg PO BID [facility] Last Admin: 04/23/20 08:45 Dose: 400 mg Documented by: Atovaquone 750 Mg/5 (Ml Ptom) 0 each PO BID [facility] Last Admin: 04/23/20 08:49 Dose: 1 each Documented by: Ondansetron HCl (Zofran) 4 mg IV Q4H PRN PRN Reason: Nausea/Vomiting Ondansetron HCl (Zofran Odt) 4 mg PO Q4H PRN PRN Reason: nausea, able to take PO Pantoprazole Sodium (Protonix) 40 mg PO DAILY@0700 [facility] Last Admin: 04/23/20 06:02 Dose: 40 mg Documented by: Potassium Chloride (Klor-Con M20) 20 meq PO DAILY [facility] Last Admin: 04/23/20 08:48 Dose: 20 meq Documented by: Vancomycin HCl (Pharmacy To Dose - Vancomycin) 1 dose .XX ASDIRECTED PRN PRN Reason: RX TO DOSE VANCO Zolpidem Tartrate (Ambien) 2.5 mg PO BEDTIME PRN PRN Reason: Insomnia Discontinued Medications Albuterol (Proventil Neb Soln) 2.5 mg NEB TID EMIGDIO Albuterol (Proventil Neb Soln) 2.5 mg NEB TIDRT EMIGDIO Albuterol (Proventil Neb Soln) Confirm Administered Dose 2.5 mg .ROUTE .STK-MED ONE Stop: 04/16/20 01:20 [facility] Last Admin: 04/16/20 05:39 Dose: Not Given Documented by: Furosemide (Lasix) 20 mg IVPUSH ONETIME ONE Stop: 04/16/20 12:46 Last Admin: 04/16/20 12:59 Dose: 20 mg Documented by: Heparin Sodium (Porcine) (Heparin Sodium) 2,500 units IVPUSH ONETIME ONE Stop: 04/21/20 17:01 Last Admin: 04/21/20 16:59 Dose: 2,500 units Documented by: Heparin Sodium (Porcine) (Heparin Sodium) 2,500 units IVPUSH ONETIME ONE Stop: 04/22/20 08:04 Last Admin: 04/22/20 08:11 Dose: 2,500 units Documented by: Dextrose/Sodium Chloride (Dextrose 5%-Normal Saline) 1,000 mls @ 100 mls/hr IV ASDIRECTED [facility] Last Admin: 04/15/20 05:45 Dose: 100 mls/hr Documented by: Remdesivir 200 mg/ Sodium (Chloride) 250 mls @ 250 mls/hr IV ONETIME ONE Stop: 04/14/20 17:34 Last Admin: 04/14/20 18:32 Dose: 250 mls/hr Documented by: Remdesivir 100 mg/ Sodium (Chloride) 100 mls @ 100 mls/hr IV Q24H [facility] Stop: 04/18/20 19:59 Last Admin: 04/18/20 18:33 Dose: 100 mls/hr Documented by: Sodium Chloride (Normal Saline) 250 mls @ 50 mls/hr IV ASDIRECTED [facility] Ceftriaxone Sodium 2 gm/ (Sodium Chloride) 100 mls @ 200 mls/hr IV Q24H [facility] Stop: 04/20/20 09:59 Last Admin: 04/20/20 08:30 Dose: 200 mls/hr Documented by: Azithromycin 500 mg/ Sodium (Chloride) 250 mls @ 250 mls/hr IV Q24H [facility] Stop: 04/18/20 10:59 Last Admin: 04/18/20 09:31 Dose: 250 mls/hr Documented by: Sodium Chloride (Normal Saline) 100 mls @ 75 mls/hr IV ASDIRECTED [facility] Stop: 04/21/20 13:00 Last Admin: 04/21/20 11:05 Dose: 75 mls/hr Documented by: Heparin Sodium/Dextrose (Heparin 25,000 Units In D5w 500 Ml) 25,000 units in 500 mls @ 16 mls/hr IV TITRATE [facility]; Protocol Last Titration: 04/22/20 08:12 Dose: 1,220 units/hr, 24.4 mls/hr Documented by: Vancomycin HCl 1 gm/ Sodium (Chloride) 250 mls @ 250 mls/hr IV Q24H [facility] Piperacillin Sod/Tazobactam (Sod 4.5 gm/ Sodium Chloride) 100 mls @ 25 mls/hr IV Q8H [facility] Piperacillin Sod/Tazobactam (Sod 4.5 gm/ Sodium Chloride) 100 mls @ 200 mls/hr IV ONETIME ONE Stop: 04/22/20 12:44 Last Admin: 04/22/20 15:42 Dose: 200 mls/hr Documented by: Vancomycin HCl 1.5 gm/ Sodium (Chloride) 500 mls @ 333.333 mls/hr IV ONETIME ONE Stop: 04/22/20 14:29 Last Admin: 04/22/20 15:40 Dose: 333.333 mls/hr Documented by: Vancomycin HCl 1.5 gm/ Sodium (Chloride) 500 mls @ 333.333 mls/hr IV ONETIME ONE Stop: 04/22/20 16:44 Last Admin: 04/22/20 19:02 Dose: Not Given Documented by: Piperacillin Sod/Tazobactam (Sod 4.5 gm/ Sodium Chloride) 100 mls @ 25 mls/hr IV Q8H [facility] Piperacillin Sod/Tazobactam (Sod 4.5 gm/ Sodium Chloride) 100 mls @ 25 mls/hr IV Q8H [facility] Last Admin: 04/23/20 07:36 Dose: Not Given Documented by: Insulin Human Lispro (Humalog) 0 unit SUBCUT QIDACANDBED [facility]; Protocol Last Admin: 04/22/20 08:09 Dose: 1 units Documented by: Iopamidol (Isovue-370 (76%)) 100 ml IVPUSH ONETIME ONE Stop: 04/21/20 10:22 Last Admin: 04/21/20 11:05 Dose: 100 ml Documented by: Losartan Potassium (Cozaar) 12.5 mg PO ASDIRECTED [facility] Non-Formulary Medication (Magnesium [Magnesium]) 400 mg PO ASDIRECTED [facility] Sodium Chloride (Saline Flush) 10 ml FLUSH ONETIME PRN PRN Reason: IV FLUSH Stop: 04/21/20 13:00 Last Admin: 04/21/20 11:05 Dose: 10 ml Documented by: Vancomycin HCl (Vancomycin) Confirm Administered Dose 2 gm .ROUTE .STK-MED ONE Stop: 04/22/20 14:48 Last Admin: 04/22/20 19:19 Dose: Not Given Documented by: Warfarin Sodium (Pharmacy To Dose - Warfarin) 0 dose .XX ASDIRECTED PRN PRN Reason: RX TO DOSE WARFARIN Warfarin Sodium (Coumadin) 5 mg PO ONETIME ONE Stop: 04/14/20 20:31 Last Admin: 04/14/20 20:51 Dose: 5 mg Documented by: Warfarin Sodium (Coumadin) 7.5 mg PO QPM [facility] Stop: 04/15/20 21:00 Last Admin: 04/15/20 18:10 Dose: 7.5 mg Documented by: Warfarin Sodium (Coumadin) 5 mg PO ONETIME ONE Stop: 04/16/20 20:16 Last Admin: 04/16/20 20:46 Dose: 5 mg Documented by: Warfarin Sodium (Pharmacy To Dose - Warfarin) 0 dose .XX ASDIRECTED PRN PRN Reason: RX TO DOSE WARFARIN Warfarin Sodium (Coumadin) 5 mg PO QPM [facility] Stop: 04/17/20 18:01 Last Admin: 04/17/20 18:57 Dose: 5 mg Documented by: Warfarin Sodium (Coumadin Sliding Scale) 0 each PO QPM [facility] Stop: 04/18/20 18:01 Last Admin: 04/18/20 18:33 Dose: Not Given Documented by: Warfarin Sodium (Coumadin Sliding Scale) 0 each PO QPM [facility] Stop: 04/19/20 18:01 Last Admin: 04/19/20 18:04 Dose: Not Given Documented by: Warfarin Sodium (Coumadin) 1 mg PO QPM [facility] Stop: 04/20/20 18:01 Last Admin: 04/20/20 17:01 Dose: 1 mg Documented by: - Exam Quality Assessment: Supplemental Oxygen (HFNC), DVT Prophylaxis (UFH gtt) General: Alert, Oriented, Cooperative, No Acute Distress HEENT: Pupils Equal, Pupils Reactive, EOMI Neck: Trachea Midline, No JVD Lungs: Normal Respiratory Effort, Decreased Breath Sounds Cardiovascular: Regular Rate, Regular Rhythm GI/Abdominal Exam: Normal Bowel Sounds, Soft, Non-Tender, No Organomegaly, No Distention (Female) Exam: Deferred Back Exam: Normal Inspection Extremities: Normal Inspection, No Pedal Edema, Normal Capillary Refill Skin: Warm Neurological: No New Focal Deficit, Normal Speech Psy/Mental Status: Alert, Normal Affect, Normal Mood Sepsis Event Note - Evaluation Sepsis Screening Result: No Definite Risk - Focused Exam Vital Signs: Vital Signs Temp Pulse Pulse Resp BP Pulse Ox Pulse Ox 04/23/20 13:58 90 L 04/23/20 10:59 91 L 04/23/20 09:00 86 24 H 89 L 04/23/20 08:47 131/94 H 04/23/20 08:42 37.0 C 101 H 24 H 131/94 H 86 L 04/23/20 06:48 92 L - Problem List & Annotations (1) COVID-19 determined by clinical diagnostic criteria SNOMED Code(s): 496484762, 177522883 Code(s): U07.1 - COVID-19 Status: Acute Current Visit: Yes (2) Chronic renal insufficiency, stage III (moderate) SNOMED Code(s): 759051398 Code(s): N18.30 - CHRONIC KIDNEY DISEASE, STAGE 3 UNSPECIFIED Status: Chronic Current Visit: Yes Qualifiers: Chronic kidney disease stage 3 subtype: stage 3b (GFR 30-44) Qualified Code(s): N18.32 - Chronic kidney disease, stage 3b (3) Pneumonia due to COVID-19 virus SNOMED Code(s): 204219334459283546 Code(s): U07.1 - COVID-19; J12.89 - OTHER VIRAL PNEUMONIA Status: Acute Current Visit: Yes (4) Pulmonary hypertension SNOMED Code(s): 65964611 Code(s): I27.20 - PULMONARY HYPERTENSION, UNSPECIFIED Status: Chronic Current Visit: Yes (5) Supplemental oxygen dependent SNOMED Code(s): 268909641274 Code(s): Z99.81 - DEPENDENCE ON SUPPLEMENTAL OXYGEN Status: Acute Current Visit: Yes (6) HTN, Essential hypertension SNOMED Code(s): 98407989 Code(s): I10 - ESSENTIAL (PRIMARY) HYPERTENSION Status: Chronic Current Visit: No (7) Pulmonary embolism associated with COVID-19 SNOMED Code(s): 838025595 Code(s): U07.1 - COVID-19; I26.99 - OTHER PULMONARY EMBOLISM WITHOUT ACUTE COR PULMONALE Status: Acute Current Visit: Yes (8) Healthcare associated bacterial pneumonia SNOMED Code(s): 095638938 Code(s): J15.9 - UNSPECIFIED BACTERIAL PNEUMONIA Status: Acute Current Visit: Yes - Problem List Review Problem List Initiated/Reviewed/Updated: Yes - My Orders Last 24 Hours: My Active Orders 04/22/20 13:55 OR PCXR-No Charge-PICC/Central [CR] Routine 04/22/20 20:00 Heparin Sodium/D5W [Heparin 25,000 Units in D5W 500 ML] 25,000 units in 500 ml IV TITRATE 04/22/20 22:00 Piperacillin/Tazobactam [Piperacil-Tazobact] 4.5 gm Sodium Chloride 0.9% [Normal Saline] 100 ml IV Q8H 04/23/20 15:00 Vancomycin [Vancocin] 1 gm Sodium Chloride 0.9% [Normal Saline (AdvBag)] 250 ml IV Q24H 04/24/20 05:11 INR,PT,PROTHROMBIN TIME [COAG] AM 04/24/20 06:00 BASIC METABOLIC PANEL,BMP [CHEM] DAILY CRP [C-REACTIVE PROTEIN] [CHEM] DAILY 04/24/20 07:00 CBC W/O DIFF,HEMOGRAM [HEME] MOTH@0700 04/24/20 14:00 VANCOMYCIN TROUGH [CHEM] Timed 04/27/20 07:00 CBC W/O DIFF,HEMOGRAM [HEME] MOTH@0700 05/01/20 07:00 CBC W/O DIFF,HEMOGRAM [HEME] MOTH@0700 05/04/20 07:00 CBC W/O DIFF,HEMOGRAM [HEME] MOTH@0700 05/08/20 07:00 CBC W/O DIFF,HEMOGRAM [HEME] MOTH@0700 05/11/20 07:00 CBC W/O DIFF,HEMOGRAM [HEME] MOTH@0700 - Plan Plan:: Assessment 04/14/2020 84-year-old female with 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 * X-ray is consistent with a groundglass opacity in the left lung also elevated right hemidiaphragm. This will make treatment more difficult because of the reduced pulmonary capacity. Patient also has underlying lung disease requiring supplemental O2 from pulmonary emboli, history of congestive heart failure, LVH via EKG criteria, and hypertension. This places the patient at high risk for poor outcome regarding pneumonia caused by COVID-19. Fortunately patient is early on in the course of the infection with symptoms only starting 2 days ago. She is also on warfarin hopefully reducing the risk for micro emboli. Fortunately it appears her heart failure is well controlled with a normal proBNP. * WBC is 4.95, INR 2.21, CRP 8.8, AST 43, ALT 40, LDH 351, proBNP 829, lactic acid 0.8, troponin less than 0.017 * I anticipate patient will have a high risk for worsening. She is very early on in the disease and generally the inflammatory response starts 5 to 10 days after initial symptoms. With aggressive treatment early on we could possibly prevent progression to the severe inflammatory component. Stage III chronic renal insufficiency Hypertension * Estimated GFR 36 which appears stable over the last year. Creatinine 1.4, BUN 26, 1+ protein on UA * Currently on losartan and Lasix History of pulmonary embolism on warfarin for anticoagulation Factor V deficiency positive * INR 2.21 * Coumadin alternating 7.5 and 5 mg daily 04/15/2020 * Pneumonia secondary to COVID-19 * Pulmonary hypertension secondary to previous pulmonary emboli * Interstitial lung disease * Anticoagulation on warfarin * Hypertension * Stage III chronic renal insufficiency Patient without any significant change in symptoms or oxygenation overnight. Currently on 2 to 3 L nasal cannula, but is usually on 4 L during the day and 2 L at night. Her INR was slightly low today at 1.7. D-dimer 0.23 and CRP of 8.8. Renal function slightly improved with an estimated GFR of 39 and a creatinine of 1.3. Blood sugars are starting to increase with a glucose of 206. This is likely secondary to dexamethasone. 04/16/2020 * Pneumonia secondary to COVID-19 * Pulmonary hypertension secondary to previous pulmonary emboli * Interstitial lung disease * Anticoagulation on warfarin * Hypertension * Stage III chronic renal insufficiency * Hypoalbuminemia Patient is generally worse overnight. This is not surprising considering the stage of the illness. She is requiring 4 L all the time now even at rest. Lab work continues to be reassuring with C-reactive protein of 5.4, D-dimer of 0.33, normal white count and neutrophil count. INR 2.16. Renal function is stable with GFR 39, creatinine 1.3, BUN 32. Albumin does continue to drop and is down to 2.4. She did have a slight weight increase and may benefit from extra Lasix today. 04/17/2020 * Pneumonia secondary to COVID-19 * Pulmonary hypertension secondary to previous pulmonary emboli * Interstitial lung disease * Anticoagulation on warfarin * Hypertension * Stage III chronic renal insufficiency * Hypoalbuminemia Symptomatically she has improved. Oxygenation is about the same as it was yesterday. Chest x-ray shows some vascular congestion and she did receive her Lasix 30 mg p.o. this morning. Lab work is consistent with some mild intravascular volume depletion. INR 2.6, GFR 33 which is down, creatinine 1.5, BUN 40, C-reactive protein 3.6 04/19/2020 * Pneumonia secondary to COVID-19 * History of pneumocystis pneumonia. * Pulmonary hypertension secondary to previous pulmonary emboli * Interstitial lung disease * Anticoagulation on warfarin-INR 3.57, pharmacy to dose * Hypertension-Blood pressure well controlled * Stage III chronic renal insufficiency-GFR 33, creatinine 1.5 * Hypoalbuminemia-Albumin 2.4 * Steroid-induced hyperglycemia-blood sugars increasing secondary to dexamethasone. No significant change. She has a history of Pneumocystis carinii and therefore needs to be placed on atovaquone. We called her local pharmacy who said they will order it and get it to us hopefully tomorrow. We are unable to get it from our pharmacy. Oxygenation is significantly worsening. She will finish her 5 days of remdesivir and 5 out of 10 days of dexamethasone today. Impression: S/P PICC line 2D echo, LVEF 60-65%; grade I diastolic dysfunction; RV mildly enlarged/mild RA dilatation/RV with WMA/Moderately reduced RV systolic function (changed cf RV function, 04/2019) Covid-19 PNA Hypoxemia-improved HCAP-empiric coverage (Vancomycin, Zosyn) Right side PEs (upper/lower lobe) S/P Chest CTA Elevated D Dimer d/t PEs; UFH gtt-appropriate PTT; Lovenox not used d/t renal function INR < 2.0; Coumadin held. Chronic Query Factor V Leiden; history of failed NOAC--thus VKA S/P Frances filter PHTN PCP PNA CKD, stage III Plan * Atovaquone 750 mg twice daily, first dose 04/19/2020 * Fingerstick blood sugars before every meal and before bedtime * Low-dose sliding scale insulin * Lasix 30 mg p.o. daily * Follow CBC, CMP, mag, phosphorus, * FiO2 to keep SPO2 between 88 and 94%. Baseline: 4 L during the day and 2 L at night * Completed remdesivir, convalescent plasma, azithromycin * Dexamethasone day 03/25; confirm completion of therapy date * Vanco/Zosyn adjust frequency per pharmacy. * CODE STATUS: Full code * UFH gtt started, recheck PTT at 1800.. Patient lives at [facility] and primary care provider is Dr. Ludin Partida.
[2020-04-23] MEDS: Dexamethasone 4 MG Tab PO SCH (17:20)
[2020-04-23] MEDS: Heparin Sodium/D5W 25,000 UNITS/500 ML BAG IV SCH (21:05)
[2020-04-24] MEDS: Pantoprazole 40 MG Tab.CR PO SCH ×2 (05:49→07:03)
[2020-04-24] MEDS: Piperacillin/Tazobactam 4.5 GM in Sodium Chloride 0.9% 100 ML IV SCH ×3 (05:49→18:26)
[2020-04-24] MEDS: Albuterol 0.083% 2.5 MG/3 ML Neb Soln NEB SCH ×3 (06:06→21:31)
[2020-04-24] MEDS ORDERED: Metoprolol Tartrate 5 MG/5 ML SDV IVPUSH PRN (08:18)
[2020-04-24] MEDS ORDERED: Metoprolol Tartrate 25 MG Tab PO SCH (08:30)
[2020-04-24] MEDS: Insulin Lispro 100 Units/ML 3 ML Vial SUBCUT SCH ×4 (09:03→22:05)
[2020-04-24] MEDS: Furosemide 20 MG Tab PO SCH (09:09)
[2020-04-24] MEDS: Losartan 25 MG Tab PO SCH (09:09)
[2020-04-24] MEDS: Potassium Chloride 20 MEQ Tab.ER PO SCH (09:09)
[2020-04-24] MEDS: Cholecalciferol (Vitamin D3) 25 MCG Tab PO SCH (09:10)
[2020-04-24] MEDS: Magnesium Oxide 400 MG Tab PO SCH ×2 (09:10→20:22)
[2020-04-24] MEDS: ATOVAQUONE 750 MG/5 ML PO SCH ×2 (10:16→20:27)
--- NOTE | 2020-04-24 10:19 | PCM.PN ---
- General Info Date of Service: 04/24/20 Subjective Update: Patient had SOB, lightheadedness with A Fib with RVR. In the context of RV function, will add digoxin to BB. Functional Status: Reports: Tolerating Diet - Review of Systems General: Reports: Weakness HEENT: Reports: No Symptoms Pulmonary: Reports: Shortness of Breath Cardiovascular: Reports: No Symptoms Gastrointestinal: Reports: No Symptoms Genitourinary: Reports: No Symptoms Musculoskeletal: Reports: No Symptoms Skin: Reports: No Symptoms Neurological: Reports: No Symptoms Psychiatric: Reports: No Symptoms - Patient Data Vitals - Most Recent: Last Vital Signs Temp 36.6 C 04/24/20 08:29 Pulse 108 H 04/24/20 10:17 Resp 24 H 04/24/20 08:29 BP 109/50 L 04/24/20 10:17 Pulse Ox 92 L 04/24/20 08:29 Weight - Most Recent: 71.849 kg I&O - Last 24 Hours: Intake & Output 04/23/20 04/24/20 04/24/20 22:59 06:59 14:59 Intake Total 1870 1443 440 Output Total 675 800 Balance 1195 643 440 Lab Results Last 24 Hours: Laboratory Results - last 24 hr 04/23/20 04/23/20 04/23/20 Range/Units 11:15 11:17 11:17 WBC (3.98-10.04) K/mm3 RBC (3.98-5.22) M/mm3 Hgb (11.2-15.7) gm/dl Hct (34.1-44.9) % MCV (79.4-94.8) fl MCH (25.6-32.2) pg MCHC (32.2-35.5) g/dl RDW Std Deviation (36.4-46.3) fL Plt Count (182-369) K/mm3 MPV (9.4-12.3) fl Neut % (Auto) (34.0-71.1) % Lymph % (Auto) (19.3-51.7) % Terry % (Auto) (4.7-12.5) % Eos % (Auto) (0.7-5.8) Baso % (Auto) (0.1-1.2) % Neut # (Auto) (1.56-6.13) K/mm3 Lymph # (Auto) (1.18-3.74) K/mm3 Terry # (Auto) (0.24-0.36) K/mm3 Eos # (Auto) (0.04-0.36) K/mm3 Baso # (Auto) (0.01-0.08) K/mm3 Manual Slide Review PT (9.7-12.0) SECONDS INR APTT Cancelled 65.2 H Sodium (136-145) mEq/L Potassium (3.5-5.1) mEq/L Chloride (98-107) mEq/L Carbon Dioxide (21-32) mEq/L Anion Gap (5-15) BUN (7-18) mg/dL Creatinine (0.55-1.02) mg/dL Est Cr Clr Drug Dosing mL/min Estimated GFR (MDRD) (>60) mL/min BUN/Creatinine Ratio (14-18) Glucose (83-115) mg/dL POC Glucose 258 H (83-110) mg/dL Calcium (8.5-10.1) mg/dL C-Reactive Protein (<1.0) mg/dL 04/23/20 04/23/20 04/24/20 Range/Units 17:20 20:43 05:26 WBC (3.98-10.04) K/mm3 RBC (3.98-5.22) M/mm3 Hgb (11.2-15.7) gm/dl Hct (34.1-44.9) % MCV (79.4-94.8) fl MCH (25.6-32.2) pg MCHC (32.2-35.5) g/dl RDW Std Deviation (36.4-46.3) fL Plt Count (182-369) K/mm3 MPV (9.4-12.3) fl Neut % (Auto) (34.0-71.1) % Lymph % (Auto) (19.3-51.7) % Terry % (Auto) (4.7-12.5) % Eos % (Auto) (0.7-5.8) Baso % (Auto) (0.1-1.2) % Neut # (Auto) (1.56-6.13) K/mm3 Lymph # (Auto) (1.18-3.74) K/mm3 Terry # (Auto) (0.24-0.36) K/mm3 Eos # (Auto) (0.04-0.36) K/mm3 Baso # (Auto) (0.01-0.08) K/mm3 Manual Slide Review PT 16.1 H (9.7-12.0) SECONDS INR 1.52 APTT Sodium (136-145) mEq/L Potassium (3.5-5.1) mEq/L Chloride (98-107) mEq/L Carbon Dioxide (21-32) mEq/L Anion Gap (5-15) BUN (7-18) mg/dL Creatinine (0.55-1.02) mg/dL Est Cr Clr Drug Dosing mL/min Estimated GFR (MDRD) (>60) mL/min BUN/Creatinine Ratio (14-18) Glucose (83-115) mg/dL POC Glucose 195 H 369 H (83-110) mg/dL Calcium (8.5-10.1) mg/dL C-Reactive Protein (<1.0) mg/dL 04/24/20 04/24/20 04/24/20 Range/Units 05:26 05:26 05:26 WBC 8.48 (3.98-10.04) K/mm3 RBC 3.63 L (3.98-5.22) M/mm3 Hgb 10.3 L (11.2-15.7) gm/dl Hct 31.9 L (34.1-44.9) % MCV 87.9 (79.4-94.8) fl MCH 28.4 (25.6-32.2) pg MCHC 32.3 (32.2-35.5) g/dl RDW Std Deviation 40.9 (36.4-46.3) fL Plt Count 137 L (182-369) K/mm3 MPV 10.6 (9.4-12.3) fl Neut % (Auto) 90.0 H (34.0-71.1) % Lymph % (Auto) 5.9 L (19.3-51.7) % Terry % (Auto) 2.7 L (4.7-12.5) % Eos % (Auto) 0 L (0.7-5.8) Baso % (Auto) 0.1 (0.1-1.2) % Neut # (Auto) 7.63 H (1.56-6.13) K/mm3 Lymph # (Auto) 0.50 L (1.18-3.74) K/mm3 Terry # (Auto) 0.23 L (0.24-0.36) K/mm3 Eos # (Auto) 0.00 L (0.04-0.36) K/mm3 Baso # (Auto) 0.01 (0.01-0.08) K/mm3 Manual Slide Review Abnormal smear PT (9.7-12.0) SECONDS INR APTT 61.4 H Sodium 137 (136-145) mEq/L Potassium 4.8 (3.5-5.1) mEq/L Chloride 102 (98-107) mEq/L Carbon Dioxide 29 (21-32) mEq/L Anion Gap 10.8 (5-15) BUN 49 H (7-18) mg/dL Creatinine 1.5 H (0.55-1.02) mg/dL Est Cr Clr Drug Dosing 24.97 mL/min Estimated GFR (MDRD) 33 (>60) mL/min BUN/Creatinine Ratio 32.7 H (14-18) Glucose 207 H (83-115) mg/dL POC Glucose (83-110) mg/dL Calcium 8.0 L (8.5-10.1) mg/dL C-Reactive Protein 1.1 H* (<1.0) mg/dL 04/24/20 Range/Units 05:45 WBC (3.98-10.04) K/mm3 RBC (3.98-5.22) M/mm3 Hgb (11.2-15.7) gm/dl Hct (34.1-44.9) % MCV (79.4-94.8) fl MCH (25.6-32.2) pg MCHC (32.2-35.5) g/dl RDW Std Deviation (36.4-46.3) fL Plt Count (182-369) K/mm3 MPV (9.4-12.3) fl Neut % (Auto) (34.0-71.1) % Lymph % (Auto) (19.3-51.7) % Terry % (Auto) (4.7-12.5) % Eos % (Auto) (0.7-5.8) Baso % (Auto) (0.1-1.2) % Neut # (Auto) (1.56-6.13) K/mm3 Lymph # (Auto) (1.18-3.74) K/mm3 Terry # (Auto) (0.24-0.36) K/mm3 Eos # (Auto) (0.04-0.36) K/mm3 Baso # (Auto) (0.01-0.08) K/mm3 Manual Slide Review PT (9.7-12.0) SECONDS INR APTT Sodium (136-145) mEq/L Potassium (3.5-5.1) mEq/L Chloride (98-107) mEq/L Carbon Dioxide (21-32) mEq/L Anion Gap (5-15) BUN (7-18) mg/dL Creatinine (0.55-1.02) mg/dL Est Cr Clr Drug Dosing mL/min Estimated GFR (MDRD) (>60) mL/min BUN/Creatinine Ratio (14-18) Glucose (83-115) mg/dL POC Glucose 192 H (83-110) mg/dL Calcium (8.5-10.1) mg/dL C-Reactive Protein (<1.0) mg/dL Med Orders - Current: Current Medications Acetaminophen (Tylenol) 650 mg PO Q4H PRN PRN Reason: Pain Last Admin: 04/14/20 16:02 Dose: 650 mg Documented by: Albuterol (Proventil Neb Soln) 2.5 mg NEB TIDRT [facility] Last Admin: 04/24/20 06:06 Dose: 2.5 mg Documented by: Cholecalciferol (Vitamin D3) 125 mcg PO DAILY [facility] Last Admin: 04/24/20 09:10 Dose: 125 mcg Documented by: Dextrose/Water (Dextrose 50% In Water) 50 ml IV ASDIRECTED PRN PRN Reason: Hypoglycemia Furosemide (Lasix) 30 mg PO DAILY [facility] Last Admin: 04/24/20 09:09 Dose: 30 mg Documented by: Vancomycin HCl 1 gm/ Sodium (Chloride) 250 mls @ 250 mls/hr IV Q24H [facility] Last Admin: 04/23/20 14:30 Dose: 250 mls/hr Documented by: Piperacillin Sod/Tazobactam (Sod 4.5 gm/ Sodium Chloride) 100 mls @ 25 mls/hr IV Q8H [facility] Last Admin: 04/24/20 05:49 Dose: 25 mls/hr Documented by: Heparin Sodium/Dextrose (Heparin 25,000 Units In D5w 500 Ml) 25,000 units in 500 mls @ 12 mls/hr IV TITRATE [facility]; Protocol Last Admin: 04/23/20 21:05 Dose: 600 units/hr, 12 mls/hr Documented by: Insulin Human Lispro (Humalog) 0 unit SUBCUT QIDACANDBED [facility]; Protocol Last Admin: 04/24/20 09:03 Dose: 2 units Documented by: Losartan Potassium (Cozaar) 12.5 mg PO DAILY [facility] Last Admin: 04/24/20 09:09 Dose: 12.5 mg Documented by: Magnesium Oxide (Magnesium Oxide) 400 mg PO BID [facility] Last Admin: 04/24/20 09:10 Dose: 400 mg Documented by: Metoprolol Tartrate (Lopressor) 5 mg IVPUSH Q4H PRN PRN Reason: HR>120 Last Admin: 04/24/20 08:43 Dose: 5 mg Documented by: Metoprolol Tartrate (Lopressor) 12.5 mg PO Q8H [facility] Atovaquone 750 Mg/5 (Ml Ptom) 0 each PO BID [facility] Last Admin: 04/24/20 10:16 Dose: 1 each Documented by: Ondansetron HCl (Zofran) 4 mg IV Q4H PRN PRN Reason: Nausea/Vomiting Ondansetron HCl (Zofran Odt) 4 mg PO Q4H PRN PRN Reason: nausea, able to take PO Pantoprazole Sodium (Protonix) 40 mg PO DAILY@0700 [facility] Last Admin: 04/24/20 07:03 Dose: Not Given Documented by: Potassium Chloride (Klor-Con M20) 20 meq PO DAILY [facility] Last Admin: 04/24/20 09:09 Dose: 20 meq Documented by: Vancomycin HCl (Pharmacy To Dose - Vancomycin) 1 dose .XX ASDIRECTED PRN PRN Reason: RX TO DOSE VANCO Zolpidem Tartrate (Ambien) 2.5 mg PO BEDTIME PRN PRN Reason: Insomnia Discontinued Medications Albuterol (Proventil Neb Soln) 2.5 mg NEB TID [facility] Albuterol (Proventil Neb Soln) 2.5 mg NEB TIDRT [facility] Albuterol (Proventil Neb Soln) Confirm Administered Dose 2.5 mg .ROUTE .STK-MED ONE Stop: 04/16/20 01:20 [facility] Last Admin: 04/16/20 05:39 Dose: Not Given Documented by: Dexamethasone (Dexamethasone) 6 mg PO Q24H [facility] Stop: 04/23/20 18:01 Last Admin: 04/23/20 17:20 Dose: 6 mg Documented by: Furosemide (Lasix) 20 mg IVPUSH ONETIME ONE Stop: 04/16/20 12:46 Last Admin: 04/16/20 12:59 Dose: 20 mg Documented by: Heparin Sodium (Porcine) (Heparin Sodium) 2,500 units IVPUSH ONETIME ONE Stop: 04/21/20 17:01 Last Admin: 04/21/20 16:59 Dose: 2,500 units Documented by: Heparin Sodium (Porcine) (Heparin Sodium) 2,500 units IVPUSH ONETIME ONE Stop: 04/22/20 08:04 Last Admin: 04/22/20 08:11 Dose: 2,500 units Documented by: Dextrose/Sodium Chloride (Dextrose 5%-Normal Saline) 1,000 mls @ 100 mls/hr IV ASDIRECTED [facility] Last Admin: 04/15/20 05:45 Dose: 100 mls/hr Documented by: Remdesivir 200 mg/ Sodium (Chloride) 250 mls @ 250 mls/hr IV ONETIME ONE Stop: 04/14/20 17:34 Last Admin: 04/14/20 18:32 Dose: 250 mls/hr Documented by: Remdesivir 100 mg/ Sodium (Chloride) 100 mls @ 100 mls/hr IV Q24H [facility] Stop: 04/18/20 19:59 Last Admin: 04/18/20 18:33 Dose: 100 mls/hr Documented by: Sodium Chloride (Normal Saline) 250 mls @ 50 mls/hr IV ASDIRECTED [facility] Ceftriaxone Sodium 2 gm/ (Sodium Chloride) 100 mls @ 200 mls/hr IV Q24H [facility] Stop: 04/20/20 09:59 Last Admin: 04/20/20 08:30 Dose: 200 mls/hr Documented by: Azithromycin 500 mg/ Sodium (Chloride) 250 mls @ 250 mls/hr IV Q24H [facility] Stop: 04/18/20 10:59 Last Admin: 04/18/20 09:31 Dose: 250 mls/hr Documented by: Sodium Chloride (Normal Saline) 100 mls @ 75 mls/hr IV ASDIRECTED [facility] Stop: 04/21/20 13:00 Last Admin: 04/21/20 11:05 Dose: 75 mls/hr Documented by: Heparin Sodium/Dextrose (Heparin 25,000 Units In D5w 500 Ml) 25,000 units in 500 mls @ 16 mls/hr IV TITRATE [facility]; Protocol Last Titration: 04/22/20 08:12 Dose: 1,220 units/hr, 24.4 mls/hr Documented by: Vancomycin HCl 1 gm/ Sodium (Chloride) 250 mls @ 250 mls/hr IV Q24H [facility] Piperacillin Sod/Tazobactam (Sod 4.5 gm/ Sodium Chloride) 100 mls @ 25 mls/hr IV Q8H [facility] Piperacillin Sod/Tazobactam (Sod 4.5 gm/ Sodium Chloride) 100 mls @ 200 mls/hr IV ONETIME ONE Stop: 04/22/20 12:44 Last Admin: 04/22/20 15:42 Dose: 200 mls/hr Documented by: Vancomycin HCl 1.5 gm/ Sodium (Chloride) 500 mls @ 333.333 mls/hr IV ONETIME ONE Stop: 04/22/20 14:29 Last Admin: 04/22/20 15:40 Dose: 333.333 mls/hr Documented by: Vancomycin HCl 1.5 gm/ Sodium (Chloride) 500 mls @ 333.333 mls/hr IV ONETIME ONE Stop: 04/22/20 16:44 Last Admin: 04/22/20 19:02 Dose: Not Given Documented by: Piperacillin Sod/Tazobactam (Sod 4.5 gm/ Sodium Chloride) 100 mls @ 25 mls/hr IV Q8H [facility] Piperacillin Sod/Tazobactam (Sod 4.5 gm/ Sodium Chloride) 100 mls @ 25 mls/hr IV Q8H [facility] Last Admin: 04/23/20 07:36 Dose: Not Given Documented by: Insulin Human Lispro (Humalog) 0 unit SUBCUT QIDACANDBED [facility]; Protocol Last Admin: 04/22/20 08:09 Dose: 1 units Documented by: Iopamidol (Isovue-370 (76%)) 100 ml IVPUSH ONETIME ONE Stop: 04/21/20 10:22 Last Admin: 04/21/20 11:05 Dose: 100 ml Documented by: Losartan Potassium (Cozaar) 12.5 mg PO ASDIRECTED [facility] Metoprolol Tartrate (Lopressor) 12.5 mg PO Q12H [facility] Last Admin: 04/24/20 10:17 Dose: 12.5 mg Documented by: Non-Formulary Medication (Magnesium [Magnesium]) 400 mg PO ASDIRECTED [facility] Sodium Chloride (Saline Flush) 10 ml FLUSH ONETIME PRN PRN Reason: IV FLUSH Stop: 04/21/20 13:00 Last Admin: 04/21/20 11:05 Dose: 10 ml Documented by: Vancomycin HCl (Vancomycin) Confirm Administered Dose 2 gm .ROUTE .STK-MED ONE Stop: 04/22/20 14:48 Last Admin: 04/22/20 19:19 Dose: Not Given Documented by: Warfarin Sodium (Pharmacy To Dose - Warfarin) 0 dose .XX ASDIRECTED PRN PRN Reason: RX TO DOSE WARFARIN Warfarin Sodium (Coumadin) 5 mg PO ONETIME ONE Stop: 04/14/20 20:31 Last Admin: 04/14/20 20:51 Dose: 5 mg Documented by: Warfarin Sodium (Coumadin) 7.5 mg PO QPM [facility] Stop: 04/15/20 21:00 Last Admin: 04/15/20 18:10 Dose: 7.5 mg Documented by: Warfarin Sodium (Coumadin) 5 mg PO ONETIME ONE Stop: 04/16/20 20:16 Last Admin: 04/16/20 20:46 Dose: 5 mg Documented by: Warfarin Sodium (Pharmacy To Dose - Warfarin) 0 dose .XX ASDIRECTED PRN PRN Reason: RX TO DOSE WARFARIN Warfarin Sodium (Coumadin) 5 mg PO QPM [facility] Stop: 04/17/20 18:01 Last Admin: 04/17/20 18:57 Dose: 5 mg Documented by: Warfarin Sodium (Coumadin Sliding Scale) 0 each PO QPM [facility] Stop: 04/18/20 18:01 Last Admin: 04/18/20 18:33 Dose: Not Given Documented by: Warfarin Sodium (Coumadin Sliding Scale) 0 each PO QPM [facility] Stop: 04/19/20 18:01 Last Admin: 04/19/20 18:04 Dose: Not Given Documented by: Warfarin Sodium (Coumadin) 1 mg PO QPM [facility] Stop: 04/20/20 18:01 Last Admin: 04/20/20 17:01 Dose: 1 mg Documented by: - Exam Quality Assessment: Supplemental Oxygen, DVT Prophylaxis General: Alert, Oriented, Cooperative, No Acute Distress HEENT: Pupils Equal, Pupils Reactive, EOMI Neck: Trachea Midline, No JVD Lungs: Normal Respiratory Effort Cardiovascular: Irregular Rhythm, Tachycardia GI/Abdominal Exam: Normal Bowel Sounds, Soft, Non-Tender, No Organomegaly, No Distention (Female) Exam: Deferred Back Exam: Normal Inspection Extremities: Normal Inspection Skin: Warm Neurological: No New Focal Deficit, Normal Speech Psy/Mental Status: Alert, Normal Affect, Normal Mood Sepsis Event Note - Evaluation Sepsis Screening Result: No Definite Risk - Focused Exam Vital Signs: Vital Signs Temp Pulse Resp BP Pulse Ox Pulse Ox 04/24/20 10:17 108 H 109/50 L 04/24/20 09:09 110/76 04/24/20 09:05 110/76 04/24/20 08:43 129 H 140/97 H 04/24/20 08:29 36.6 C 129 H 24 H 140/97 H 92 L 04/24/20 06:08 90 L 04/24/20 00:46 36.4 C 68 24 H 115/91 H 89 L - Problem List & Annotations (1) COVID-19 determined by clinical diagnostic criteria SNOMED Code(s): 199111761, 275289762 Code(s): U07.1 - COVID-19 Status: Acute Current Visit: Yes (2) Chronic renal insufficiency, stage III (moderate) SNOMED Code(s): 424441786 Code(s): N18.30 - CHRONIC KIDNEY DISEASE, STAGE 3 UNSPECIFIED Status: Chronic Current Visit: Yes Qualifiers: Chronic kidney disease stage 3 subtype: stage 3b (GFR 30-44) Qualified Code(s): N18.32 - Chronic kidney disease, stage 3b (3) Pneumonia due to COVID-19 virus SNOMED Code(s): 822820083452965780 Code(s): U07.1 - COVID-19; J12.89 - OTHER VIRAL PNEUMONIA Status: Acute Current Visit: Yes (4) Pulmonary hypertension SNOMED Code(s): 50679553 Code(s): I27.20 - PULMONARY HYPERTENSION, UNSPECIFIED Status: Chronic Current Visit: Yes (5) Supplemental oxygen dependent SNOMED Code(s): 456496703130 Code(s): Z99.81 - DEPENDENCE ON SUPPLEMENTAL OXYGEN Status: Acute Current Visit: Yes (6) HTN, Essential hypertension SNOMED Code(s): 42995569 Code(s): I10 - ESSENTIAL (PRIMARY) HYPERTENSION Status: Chronic Current Visit: No (7) Pulmonary embolism associated with COVID-19 SNOMED Code(s): 076202480 Code(s): U07.1 - COVID-19; I26.99 - OTHER PULMONARY EMBOLISM WITHOUT ACUTE COR PULMONALE Status: Acute Current Visit: Yes (8) Healthcare associated bacterial pneumonia SNOMED Code(s): 763582983 Code(s): J15.9 - UNSPECIFIED BACTERIAL PNEUMONIA Status: Acute Current Visit: Yes (9) Atrial fibrillation with RVR SNOMED Code(s): 533029169765454 Code(s): I48.91 - UNSPECIFIED ATRIAL FIBRILLATION Status: Acute Current Visit: Yes - Problem List Review Problem List Initiated/Reviewed/Updated: Yes - My Orders Last 24 Hours: My Active Orders 04/23/20 15:00 Vancomycin [Vancocin] 1 gm Sodium Chloride 0.9% [Normal Saline (AdvBag)] 250 ml IV Q24H 04/24/20 08:17 EKG 12 Lead [EK] Stat 04/24/20 08:18 EKG Documentation Completion [RC] ASDIRECTED Metoprolol Tartrate [Lopressor] 5 mg IVPUSH Q4H PRN 04/24/20 10:30 Metoprolol Tartrate [Lopressor] 12.5 mg PO Q8H 04/24/20 14:00 VANCOMYCIN TROUGH [CHEM] Timed 04/25/20 05:11 aPTT [PTT,PARTIAL THROMBOPLSTIN TIME] [COAG] AM 04/26/20 05:11 aPTT [PTT,PARTIAL THROMBOPLSTIN TIME] [COAG] AM 04/27/20 05:11 aPTT [PTT,PARTIAL THROMBOPLSTIN TIME] [COAG] AM 04/27/20 07:00 CBC W/O DIFF,HEMOGRAM [HEME] MOTH@0700 05/01/20 07:00 CBC W/O DIFF,HEMOGRAM [HEME] MOTH@0700 05/04/20 07:00 CBC W/O DIFF,HEMOGRAM [HEME] MOTH@0700 05/08/20 07:00 CBC W/O DIFF,HEMOGRAM [HEME] MOTH@0700 05/11/20 07:00 CBC W/O DIFF,HEMOGRAM [HEME] MOTH@0700 - Plan Plan:: Assessment 04/14/2020 84-year-old female with 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 * X-ray is consistent with a groundglass opacity in the left lung also elevated right hemidiaphragm. This will make treatment more difficult because of the reduced pulmonary capacity. Patient also has underlying lung disease requiring supplemental O2 from pulmonary emboli, history of congestive heart failure, LVH via EKG criteria, and hypertension. This places the patient at high risk for poor outcome regarding pneumonia caused by COVID-19. Fortunately patient is early on in the course of the infection with symptoms only starting 2 days ago. She is also on warfarin hopefully reducing the risk for micro emboli. Fortunately it appears her heart failure is well controlled with a normal proBNP. * WBC is 4.95, INR 2.21, CRP 8.8, AST 43, ALT 40, LDH 351, proBNP 829, lactic acid 0.8, troponin less than 0.017 * I anticipate patient will have a high risk for worsening. She is very early on in the disease and generally the inflammatory response starts 5 to 10 days after initial symptoms. With aggressive treatment early on we could possibly prevent progression to the severe inflammatory component. Stage III chronic renal insufficiency Hypertension * Estimated GFR 36 which appears stable over the last year. Creatinine 1.4, BUN 26, 1+ protein on UA * Currently on losartan and Lasix History of pulmonary embolism on warfarin for anticoagulation Factor V deficiency positive * INR 2.21 * Coumadin alternating 7.5 and 5 mg daily 04/15/2020 * Pneumonia secondary to COVID-19 * Pulmonary hypertension secondary to previous pulmonary emboli * Interstitial lung disease * Anticoagulation on warfarin * Hypertension * Stage III chronic renal insufficiency Patient without any significant change in symptoms or oxygenation overnight. Currently on 2 to 3 L nasal cannula, but is usually on 4 L during the day and 2 L at night. Her INR was slightly low today at 1.7. D-dimer 0.23 and CRP of 8.8. Renal function slightly improved with an estimated GFR of 39 and a creatinine of 1.3. Blood sugars are starting to increase with a glucose of 206. This is likely secondary to dexamethasone. 04/16/2020 * Pneumonia secondary to COVID-19 * Pulmonary hypertension secondary to previous pulmonary emboli * Interstitial lung disease * Anticoagulation on warfarin * Hypertension * Stage III chronic renal insufficiency * Hypoalbuminemia Patient is generally worse overnight. This is not surprising considering the stage of the illness. She is requiring 4 L all the time now even at rest. Lab work continues to be reassuring with C-reactive protein of 5.4, D-dimer of 0.33, normal white count and neutrophil count. INR 2.16. Renal function is stable with GFR 39, creatinine 1.3, BUN 32. Albumin does continue to drop and is down to 2.4. She did have a slight weight increase and may benefit from extra Lasix today. 04/17/2020 * Pneumonia secondary to COVID-19 * Pulmonary hypertension secondary to previous pulmonary emboli * Interstitial lung disease * Anticoagulation on warfarin * Hypertension * Stage III chronic renal insufficiency * Hypoalbuminemia Symptomatically she has improved. Oxygenation is about the same as it was yesterday. Chest x-ray shows some vascular congestion and she did receive her Lasix 30 mg p.o. this morning. Lab work is consistent with some mild intravascu lar volume depletion. INR 2.6, GFR 33 which is down, creatinine 1.5, BUN 40, C- reactive protein 3.6 04/19/2020 * Pneumonia secondary to COVID-19 * History of pneumocystis pneumonia. * Pulmonary hypertension secondary to previous pulmonary emboli * Interstitial lung disease * Anticoagulation on warfarin-INR 3.57, pharmacy to dose * Hypertension-Blood pressure well controlled * Stage III chronic renal insufficiency-GFR 33, creatinine 1.5 * Hypoalbuminemia-Albumin 2.4 * Steroid-induced hyperglycemia-blood sugars increasing secondary to dexamethasone. No significant change. She has a history of Pneumocystis carinii and therefore needs to be placed on atovaquone. We called her local pharmacy who said they will order it and get it to us hopefully tomorrow. We are unable to get it from our pharmacy. Oxygenation is significantly worsening. She will finish her 5 days of remdesivir and 5 out of 10 days of dexamethasone today. Impression: S/P PICC line 2D echo, LVEF 60-65%; grade I diastolic dysfunction; RV mildly enlarged/mild RA dilatation/RV with WMA/Moderately reduced RV systolic function (changed cf RV function, 04/2019) Covid-19 PNA Hypoxemia-improved HCAP-empiric coverage (Vancomycin, Zosyn) Right side PEs (upper/lower lobe); UFH gtt S/P Chest CTA Elevated D Dimer d/t PEs; UFH gtt-appropriate PTT; Lovenox not used d/t renal function INR < 2.0; Coumadin held. Chronic Query Factor V Leiden; history of failed NOAC--thus VKA S/P [place] filter PHTN PCP PNA CKD, stage III Plan * Atovaquone 750 mg twice daily, first dose 04/19/2020 * Fingerstick blood sugars before every meal and before bedtime * Low-dose sliding scale insulin * Lasix 30 mg p.o. daily * Follow CBC, CMP, mag, phosphorus, * FiO2 to keep SPO2 between 88 and 94%. Baseline: 4 L during the day and 2 L at night * Completed remdesivir, convalescent plasma, azithromycin * Dexamethasone day 03/25; confirm completion of therapy date * Vanco/Zosyn adjust frequency per pharmacy. * Digoxin 250 mcg every 8 hours, 3 doses; check Mg level * Lopressor 12.5 mg every 8 hours, hold for HR<70 * Lopressor 5 mg every 6 hours prn HR> 120 * CXR, 2 view * pBNP * CODE STATUS: Full code * UFH gtt started, recheck PTT at 1800.. Patient lives at [facility] and primary care provider is Dr. Ludin Partida.
--- NOTE | 2020-04-24 10:20 | CR ---
PROCEDURE INFORMATION: Exam: XR Chest, 1 View Exam date and time: 04/22/2020 1:26 PM Age: 84 years old Clinical indication: Device placement; Picc; Additional info: 1st chest xray, 2nd chest xray they pulled back the line TECHNIQUE: Imaging protocol: XR of the chest Views: 1 view. COMPARISON: CR Chest 1V Frontal 04/21/2020 8:28 AM FINDINGS: Tubes, catheters and devices: Right PICC line ends in the right atrium. Lungs: Bilateral pulmonary infiltrates suggestive of edema or infection. Pleural space: Unremarkable. No pleural effusion. No pneumothorax. Heart/Mediastinum: Unremarkable. No cardiomegaly. Vasculature: Atherosclerosis. Bones/joints: Unremarkable. IMPRESSION: Bilateral pulmonary infiltrates suggestive of edema or infection. Right PICC line ends in the right atrium. Thank you for allowing us to participate in the care of your patient. Dictated and Authenticated by: Enoch Pascal MD 04/22/2020 3:16 PM Central Time ([place] & [place]) PERRY
--- NOTE | 2020-04-24 10:21 | CR ---
PROCEDURE INFORMATION: Exam: XR Chest, 1 View Exam date and time: 04/22/2020 1:26 PM Age: 84 years old Clinical indication: Device placement; Picc; Additional info: 1st chest xray, 2nd chest xray they pulled back the line TECHNIQUE: Imaging protocol: XR of the chest Views: 1 view. COMPARISON: CR Chest 1V Frontal 04/21/2020 8:28 AM FINDINGS: Tubes, catheters and devices: Right PICC line ends in the cavoatrial junction. Lungs: Bilateral pulmonary infiltrates suggestive of edema or infection. Pleural space: Unremarkable. No pleural effusion. No pneumothorax. Heart/Mediastinum: Unremarkable. No cardiomegaly. Bones/joints: Unremarkable. IMPRESSION: Right PICC line ends in the cavoatrial junction. Bilateral pulmonary infiltrates suggestive of edema or infection. Thank you for allowing us to participate in the care of your patient. Dictated and Authenticated by: Enoch Pascal MD 04/22/2020 3:17 PM Central Time ([place] & [place]) [place]
[2020-04-24] MEDS: Metoprolol Tartrate 25 MG Tab PO SCH ×2 (11:19→18:42)
[2020-04-24] MEDS: Heparin Sodium/D5W 25,000 UNITS/500 ML BAG IV SCH (20:18)
[2020-04-24] MEDS: Digoxin 250 MCG Tab PO SCH (20:19)
[2020-04-25] MEDS: Metoprolol Tartrate 25 MG Tab PO SCH ×3 (01:54→17:39)
[2020-04-25] MEDS: Piperacillin/Tazobactam 4.5 GM in Sodium Chloride 0.9% 100 ML IV SCH ×3 (01:57→17:41)
[2020-04-25] MEDS: Albuterol 0.083% 2.5 MG/3 ML Neb Soln NEB SCH ×3 (05:52→21:17)
[2020-04-25] MEDS: Digoxin 250 MCG Tab PO SCH ×2 (06:14→13:27)
[2020-04-25] MEDS: Pantoprazole 40 MG Tab.CR PO SCH (06:14)
[2020-04-25] MEDS: Insulin Lispro 100 Units/ML 3 ML Vial SUBCUT SCH ×4 (08:00→21:02)
[2020-04-25] MEDS ORDERED: Furosemide 40 MG/4 ML VIAL IVPUSH ONE (08:36)
[2020-04-25] MEDS: Magnesium Oxide 400 MG Tab PO SCH ×2 (10:00→21:00)
[2020-04-25] MEDS: Cholecalciferol (Vitamin D3) 25 MCG Tab PO SCH (10:00)
[2020-04-25] MEDS: Potassium Chloride 20 MEQ Tab.ER PO SCH (10:00)
[2020-04-25] MEDS: hydrALAZINE 10 MG Tab PO SCH ×3 (10:02→21:00)
[2020-04-25] MEDS: Furosemide 20 MG Tab PO SCH (10:02)
[2020-04-25] MEDS: ATOVAQUONE 750 MG/5 ML PO SCH ×2 (10:02→21:00)
--- NOTE | 2020-04-25 10:58 | CR ---
PROCEDURE INFORMATION: Exam: XR Chest, 2 Views Exam date and time: 04/25/2020 8:21 AM Age: 84 years old Clinical indication: Shortness of breath and other: Covid-19 positive TECHNIQUE: Imaging protocol: XR of the chest Views: 2 views. COMPARISON: CR OR PCXR-No Charge-PICC/Central 04/22/2020 1:26 PM FINDINGS: Lungs: Diffuse consolidation of the left mid and lower is progressed since 04/22/2020. There has also been progression interstitial infiltrate and peripheral consolidation the right mid and lower lung. Calcified granuloma left apex. Pleural space: Unremarkable. No pleural effusion. No pneumothorax. Heart/Mediastinum: Unremarkable. No cardiomegaly. Vasculature: Aortic calcifications. Bones/joints: Anterior wedging of a midthoracic vertebral body. Intraperitoneal space: Surgical clips right upper quadrant. Other findings: Shallow inspiration. PICC Line tip at junction of SVC and right atrium. IMPRESSION: Progression of bilateral interstitial and consolidated infiltrate, worse on the left. Thank you for allowing us to participate in the care of your patient. Dictated and Authenticated by: Yoanna Brito MD 04/25/2020 10:28 AM Central Time ([place] & [place]) PERRY
--- NOTE | 2020-04-25 11:37 | PCM.PN ---
- General Info Date of Service: 04/25/20 Functional Status: Reports: Tolerating Diet, Ambulating (SOB minimal activity) - Review of Systems General: Reports: Weakness, Fatigue HEENT: Reports: No Symptoms Pulmonary: Reports: Shortness of Breath Cardiovascular: Reports: No Symptoms Gastrointestinal: Reports: No Symptoms Genitourinary: Reports: No Symptoms Musculoskeletal: Reports: No Symptoms Skin: Reports: No Symptoms Neurological: Reports: No Symptoms Psychiatric: Reports: No Symptoms - Patient Data Vitals - Most Recent: Last Vital Signs Temp 36.6 C 04/25/20 01:53 Pulse 93 04/25/20 10:00 Resp 22 H 04/25/20 01:53 BP 116/55 L 04/25/20 10:05 Pulse Ox 91 L 04/25/20 06:14 Weight - Most Recent: 71.94 kg I&O - Last 24 Hours: Intake & Output 04/24/20 04/25/20 04/25/20 22:59 06:59 14:59 Intake Total 2100 894 Output Total 550 575 600 Balance 1550 319 -600 Lab Results Last 24 Hours: Laboratory Results - last 24 hr 04/24/20 04/24/20 04/24/20 Range/Units 14:10 17:30 18:07 APTT (21.7-31.4) SECONDS POC Glucose 169 H (83-110) mg/dL Magnesium 2.3 (1.8-2.4) mg/dl NT-Pro-B Natriuret Pep (0-450) pg/mL Vancomycin Trough 11.2 (10.0-20.0) 04/24/20 04/25/20 04/25/20 Range/Units 21:57 05:21 05:21 APTT 49.8 H (21.7-31.4) SECONDS POC Glucose 310 H (83-110) mg/dL Magnesium (1.8-2.4) mg/dl NT-Pro-B Natriuret Pep 2108 H (0-450) pg/mL Vancomycin Trough (10.0-20.0) 04/25/20 04/25/20 Range/Units 06:11 11:21 APTT (21.7-31.4) SECONDS POC Glucose 100 153 H (83-110) mg/dL Magnesium (1.8-2.4) mg/dl NT-Pro-B Natriuret Pep (0-450) pg/mL Vancomycin Trough (10.0-20.0) Med Orders - Current: Current Medications Acetaminophen (Tylenol) 650 mg PO Q4H PRN PRN Reason: Pain Last Admin: 04/14/20 16:02 Dose: 650 mg Documented by: Albuterol (Proventil Neb Soln) 2.5 mg NEB TIDRT [facility] Last Admin: 04/25/20 05:52 Dose: 2.5 mg Documented by: Cholecalciferol (Vitamin D3) 125 mcg PO DAILY [facility] Last Admin: 04/25/20 10:00 Dose: 125 mcg Documented by: Dextrose/Water (Dextrose 50% In Water) 50 ml IV ASDIRECTED PRN PRN Reason: Hypoglycemia Digoxin (Lanoxin) 250 mcg PO Q8H [facility] Stop: 04/25/20 13:01 Last Admin: 04/25/20 06:14 Dose: 250 mcg Documented by: Furosemide (Lasix) 30 mg PO DAILY [facility] Last Admin: 04/25/20 10:02 Dose: Not Given Documented by: Hydralazine HCl (Apresoline) 10 mg PO Q12HR [facility] Last Admin: 04/25/20 10:05 Dose: Not Given Documented by: Heparin Sodium/Dextrose (Heparin 25,000 Units In D5w 500 Ml) 25,000 units in 500 mls @ 12 mls/hr IV TITRATE [facility]; Protocol Last Admin: 04/24/20 20:18 Dose: 600 units/hr, 12 mls/hr Documented by: Vancomycin HCl 1 gm/ Sodium (Chloride) 250 mls @ 250 mls/hr IV Q18H [facility] Last Admin: 04/25/20 09:53 Dose: 250 mls/hr Documented by: Piperacillin Sod/Tazobactam (Sod 4.5 gm/ Sodium Chloride) 100 mls @ 25 mls/hr IV Q8H [facility] Last Admin: 04/25/20 11:16 Dose: 25 mls/hr Documented by: Insulin Human Lispro (Humalog) 0 unit SUBCUT QIDACANDBED [facility]; Protocol Last Admin: 04/25/20 11:21 Dose: 2 units Documented by: Losartan Potassium (Cozaar) 12.5 mg PO DAILY [facility] Last Admin: 04/24/20 09:09 Dose: 12.5 mg Documented by: Magnesium Oxide (Magnesium Oxide) 400 mg PO BID [facility] Last Admin: 04/25/20 10:00 Dose: 400 mg Documented by: Metoprolol Tartrate (Lopressor) 5 mg IVPUSH Q4H PRN PRN Reason: HR>120 Last Admin: 04/24/20 08:43 Dose: 5 mg Documented by: Metoprolol Tartrate (Lopressor) 12.5 mg PO Q8H [facility] Last Admin: 04/25/20 10:00 Dose: 12.5 mg Documented by: Atovaquone 750 Mg/5 (Ml Ptom) 0 each PO BID [facility] Last Admin: 04/25/20 10:02 Dose: 1 each Documented by: Ondansetron HCl (Zofran) 4 mg IV Q4H PRN PRN Reason: Nausea/Vomiting Ondansetron HCl (Zofran Odt) 4 mg PO Q4H PRN PRN Reason: nausea, able to take PO Pantoprazole Sodium (Protonix) 40 mg PO DAILY@0700 [facility] Last Admin: 04/25/20 06:14 Dose: 40 mg Documented by: Potassium Chloride (Klor-Con M20) 20 meq PO DAILY [facility] Last Admin: 04/25/20 10:00 Dose: 20 meq Documented by: Vancomycin HCl (Pharmacy To Dose - Vancomycin) 1 dose .XX ASDIRECTED PRN PRN Reason: RX TO DOSE VANCO Zolpidem Tartrate (Ambien) 2.5 mg PO BEDTIME PRN PRN Reason: Insomnia Discontinued Medications Albuterol (Proventil Neb Soln) 2.5 mg NEB TID [facility] Albuterol (Proventil Neb Soln) 2.5 mg NEB TIDRT [facility] Albuterol (Proventil Neb Soln) Confirm Administered Dose 2.5 mg .ROUTE .STK-MED ONE Stop: 04/16/20 01:20 MST Last Admin: 04/16/20 05:39 Dose: Not Given Documented by: Dexamethasone (Dexamethasone) 6 mg PO Q24H [facility] Stop: 04/23/20 18:01 Last Admin: 04/23/20 17:20 Dose: 6 mg Documented by: Furosemide (Lasix) 20 mg IVPUSH ONETIME ONE Stop: 04/16/20 12:46 Last Admin: 04/16/20 12:59 Dose: 20 mg Documented by: Furosemide (Lasix) 20 mg IVPUSH NOW ONE Stop: 04/25/20 08:37 Last Admin: 04/25/20 10:01 Dose: 20 mg Documented by: Heparin Sodium (Porcine) (Heparin Sodium) 2,500 units IVPUSH ONETIME ONE Stop: 04/21/20 17:01 Last Admin: 04/21/20 16:59 Dose: 2,500 units Documented by: Heparin Sodium (Porcine) (Heparin Sodium) 2,500 units IVPUSH ONETIME ONE Stop: 04/22/20 08:04 Last Admin: 04/22/20 08:11 Dose: 2,500 units Documented by: Dextrose/Sodium Chloride (Dextrose 5%-Normal Saline) 1,000 mls @ 100 mls/hr IV ASDIRECTED [facility] Last Admin: 04/15/20 05:45 Dose: 100 mls/hr Documented by: Remdesivir 200 mg/ Sodium (Chloride) 250 mls @ 250 mls/hr IV ONETIME ONE Stop: 04/14/20 17:34 Last Admin: 04/14/20 18:32 Dose: 250 mls/hr Documented by: Remdesivir 100 mg/ Sodium (Chloride) 100 mls @ 100 mls/hr IV Q24H [facility] Stop: 04/18/20 19:59 Last Admin: 04/18/20 18:33 Dose: 100 mls/hr Documented by: Sodium Chloride (Normal Saline) 250 mls @ 50 mls/hr IV ASDIRECTED [facility] Ceftriaxone Sodium 2 gm/ (Sodium Chloride) 100 mls @ 200 mls/hr IV Q24H [facility] Stop: 04/20/20 09:59 Last Admin: 04/20/20 08:30 Dose: 200 mls/hr Documented by: Azithromycin 500 mg/ Sodium (Chloride) 250 mls @ 250 mls/hr IV Q24H [facility] Stop: 04/18/20 10:59 Last Admin: 04/18/20 09:31 Dose: 250 mls/hr Documented by: Sodium Chloride (Normal Saline) 100 mls @ 75 mls/hr IV ASDIRECTED [facility] Stop: 04/21/20 13:00 Last Admin: 04/21/20 11:05 Dose: 75 mls/hr Documented by: Heparin Sodium/Dextrose (Heparin 25,000 Units In D5w 500 Ml) 25,000 units in 500 mls @ 16 mls/hr IV TITRATE [facility]; Protocol Last Titration: 04/22/20 08:12 Dose: 1,220 units/hr, 24.4 mls/hr Documented by: Vancomycin HCl 1 gm/ Sodium (Chloride) 250 mls @ 250 mls/hr IV Q24H [facility] Piperacillin Sod/Tazobactam (Sod 4.5 gm/ Sodium Chloride) 100 mls @ 25 mls/hr IV Q8H [facility] Piperacillin Sod/Tazobactam (Sod 4.5 gm/ Sodium Chloride) 100 mls @ 200 mls/hr IV ONETIME ONE Stop: 04/22/20 12:44 Last Admin: 04/22/20 15:42 Dose: 200 mls/hr Documented by: Vancomycin HCl 1.5 gm/ Sodium (Chloride) 500 mls @ 333.333 mls/hr IV ONETIME ONE Stop: 04/22/20 14:29 Last Admin: 04/22/20 15:40 Dose: 333.333 mls/hr Documented by: Vancomycin HCl 1 gm/ Sodium (Chloride) 250 mls @ 250 mls/hr IV Q24H [facility] Last Admin: 04/23/20 14:30 Dose: 250 mls/hr Documented by: Vancomycin HCl 1.5 gm/ Sodium (Chloride) 500 mls @ 333.333 mls/hr IV ONETIME ONE Stop: 04/22/20 16:44 Last Admin: 04/22/20 19:02 Dose: Not Given Documented by: Piperacillin Sod/Tazobactam (Sod 4.5 gm/ Sodium Chloride) 100 mls @ 25 mls/hr IV Q8H [facility] Piperacillin Sod/Tazobactam (Sod 4.5 gm/ Sodium Chloride) 100 mls @ 25 mls/hr IV Q8H [facility] Last Admin: 04/23/20 07:36 Dose: Not Given Documented by: Piperacillin Sod/Tazobactam (Sod 4.5 gm/ Sodium Chloride) 100 mls @ 25 mls/hr IV Q8H [facility] Last Admin: 04/24/20 18:26 Dose: Not Given Documented by: Insulin Human Lispro (Humalog) 0 unit SUBCUT QIDACANDBED [facility]; Protocol Last Admin: 04/22/20 08:09 Dose: 1 units Documented by: Iopamidol (Isovue-370 (76%)) 100 ml IVPUSH ONETIME ONE Stop: 04/21/20 10:22 Last Admin: 04/21/20 11:05 Dose: 100 ml Documented by: Losartan Potassium (Cozaar) 12.5 mg PO ASDIRECTED [facility] Metoprolol Tartrate (Lopressor) 12.5 mg PO Q12H [facility] Last Admin: 04/24/20 10:17 Dose: 12.5 mg Documented by: Non-Formulary Medication (Magnesium [Magnesium]) 400 mg PO ASDIRECTED [facility] Sodium Chloride (Saline Flush) 10 ml FLUSH ONETIME PRN PRN Reason: IV FLUSH Stop: 04/21/20 13:00 Last Admin: 04/21/20 11:05 Dose: 10 ml Documented by: Vancomycin HCl (Vancomycin) Confirm Administered Dose 2 gm .ROUTE .STK-MED ONE Stop: 04/22/20 14:48 Last Admin: 04/22/20 19:19 Dose: Not Given Documented by: Warfarin Sodium (Pharmacy To Dose - Warfarin) 0 dose .XX ASDIRECTED PRN PRN Reason: RX TO DOSE WARFARIN Warfarin Sodium (Coumadin) 5 mg PO ONETIME ONE Stop: 04/14/20 20:31 Last Admin: 04/14/20 20:51 Dose: 5 mg Documented by: Warfarin Sodium (Coumadin) 7.5 mg PO QPM [facility] Stop: 04/15/20 21:00 Last Admin: 04/15/20 18:10 Dose: 7.5 mg Documented by: Warfarin Sodium (Coumadin) 5 mg PO ONETIME ONE Stop: 04/16/20 20:16 Last Admin: 04/16/20 20:46 Dose: 5 mg Documented by: Warfarin Sodium (Pharmacy To Dose - Warfarin) 0 dose .XX ASDIRECTED PRN PRN Reason: RX TO DOSE WARFARIN Warfarin Sodium (Coumadin) 5 mg PO QPM [facility] Stop: 04/17/20 18:01 Last Admin: 04/17/20 18:57 Dose: 5 mg Documented by: Warfarin Sodium (Coumadin Sliding Scale) 0 each PO QPM [facility] Stop: 04/18/20 18:01 Last Admin: 04/18/20 18:33 Dose: Not Given Documented by: Warfarin Sodium (Coumadin Sliding Scale) 0 each PO QPM [facility] Stop: 04/19/20 18:01 Last Admin: 04/19/20 18:04 Dose: Not Given Documented by: Warfarin Sodium (Coumadin) 1 mg PO QPM [facility] Stop: 04/20/20 18:01 Last Admin: 04/20/20 17:01 Dose: 1 mg Documented by: - Exam Quality Assessment: Supplemental Oxygen, DVT Prophylaxis General: Alert, Oriented, Cooperative HEENT: Pupils Equal, Pupils Reactive, EOMI Neck: Trachea Midline Lungs: Normal Respiratory Effort, Decreased Breath Sounds, Rhonchi Cardiovascular: Regular Rate, Regular Rhythm GI/Abdominal Exam: Normal Bowel Sounds, Soft, Non-Tender (Female) Exam: Deferred Back Exam: Normal Inspection Extremities: Normal Inspection, Normal Capillary Refill Skin: Warm Neurological: No New Focal Deficit Psy/Mental Status: Alert, Depressed Sepsis Event Note - Evaluation Sepsis Screening Result: No Definite Risk - Focused Exam Vital Signs: Vital Signs Temp Pulse Resp BP Pulse Ox Pulse Ox 04/25/20 10:05 116/55 L 04/25/20 10:00 93 116/55 L 04/25/20 06:14 73 121/88 91 L 04/25/20 05:52 91 L 04/25/20 03:04 75 120/60 90 L 04/25/20 01:54 72 106/68 04/25/20 01:53 36.6 C 72 22 H 106/68 91 L 04/25/20 00:41 94 L - Problem List & Annotations (1) COVID-19 determined by clinical diagnostic criteria SNOMED Code(s): 718482365, 732244787 Code(s): U07.1 - COVID-19 Status: Acute Current Visit: Yes (2) Chronic renal insufficiency, stage III (moderate) SNOMED Code(s): 238173425 Code(s): N18.30 - CHRONIC KIDNEY DISEASE, STAGE 3 UNSPECIFIED Status: Chronic Current Visit: Yes Qualifiers: Chronic kidney disease stage 3 subtype: stage 3b (GFR 30-44) Qualified Code(s): N18.32 - Chronic kidney disease, stage 3b (3) Pneumonia due to COVID-19 virus SNOMED Code(s): 003252024942175423 Code(s): U07.1 - COVID-19; J12.89 - OTHER VIRAL PNEUMONIA Status: Acute Current Visit: Yes (4) Pulmonary hypertension SNOMED Code(s): 23481071 Code(s): I27.20 - PULMONARY HYPERTENSION, UNSPECIFIED Status: Chronic Current Visit: Yes (5) Supplemental oxygen dependent SNOMED Code(s): 311739468178 Code(s): Z99.81 - DEPENDENCE ON SUPPLEMENTAL OXYGEN Status: Acute Current Visit: Yes (6) HTN, Essential hypertension SNOMED Code(s): 17125566 Code(s): I10 - ESSENTIAL (PRIMARY) HYPERTENSION Status: Chronic Current Visit: No (7) Pulmonary embolism associated with COVID-19 SNOMED Code(s): 538633024 Code(s): U07.1 - COVID-19; I26.99 - OTHER PULMONARY EMBOLISM WITHOUT ACUTE COR PULMONALE Status: Acute Current Visit: Yes (8) Healthcare associated bacterial pneumonia SNOMED Code(s): 808464901 Code(s): J15.9 - UNSPECIFIED BACTERIAL PNEUMONIA Status: Acute Current Visit: Yes (9) Atrial fibrillation with RVR SNOMED Code(s): 454693229809616 Code(s): I48.91 - UNSPECIFIED ATRIAL FIBRILLATION Status: Acute Current Visit: Yes - Problem List Review Problem List Initiated/Reviewed/Updated: Yes - My Orders Last 24 Hours: My Active Orders 04/24/20 15:00 Vancomycin [Vancocin] 1 gm Sodium Chloride 0.9% [Normal Saline (AdvBag)] 250 ml IV Q18H 04/24/20 17:00 Piperacillin/Tazobactam [Piperacil-Tazobact] 4.5 gm Sodium Chloride 0.9% [Normal Saline] 100 ml IV Q8H 04/24/20 21:00 Digoxin [Lanoxin] 250 mcg PO Q8H 04/25/20 09:00 hydrALAZINE [Apresoline] 10 mg PO Q12HR 04/25/20 Lunch [employer] Diet [DIET] 04/26/20 05:11 aPTT [PTT,PARTIAL THROMBOPLSTIN TIME] [COAG] AM 04/27/20 05:11 aPTT [PTT,PARTIAL THROMBOPLSTIN TIME] [COAG] AM 04/27/20 07:00 CBC W/O DIFF,HEMOGRAM [HEME] MOTH@69905/01/20 07:00 CBC W/O DIFF,HEMOGRAM [HEME] MOTH@69905/04/20 07:00 CBC W/O DIFF,HEMOGRAM [HEME] MOTH@69905/08/20 07:00 CBC W/O DIFF,HEMOGRAM [HEME] MOTH@0700 05/11/20 07:00 CBC W/O DIFF,HEMOGRAM [HEME] MOTH@0700 - Plan Plan:: Assessment 04/14/2020 84-year-old female with 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 * X-ray is consistent with a groundglass opacity in the left lung also elevated right hemidiaphragm. This will make treatment more difficult because of the reduced pulmonary capacity. Patient also has underlying lung disease requiring supplemental O2 from pulmonary emboli, history of congestive heart failure, LVH via EKG criteria, and hypertension. This places the patient at high risk for poor outcome regarding pneumonia caused by COVID-19. Fortunately patient is early on in the course of the infection with symptoms only starting 2 days ago. She is also on warfarin hopefully reducing the risk for micro emboli. Fortunately it appears her heart failure is well controlled with a normal proBNP. * WBC is 4.95, INR 2.21, CRP 8.8, AST 43, ALT 40, LDH 351, proBNP 829, lactic acid 0.8, troponin less than 0.017 * I anticipate patient will have a high risk for worsening. She is very early on in the disease and generally the inflammatory response starts 5 to 10 days after initial symptoms. With aggressive treatment early on we could possibly prevent progression to the severe inflammatory component. Stage III chronic renal insufficiency Hypertension * Estimated GFR 36 which appears stable over the last year. Creatinine 1.4, BUN 26, 1+ protein on UA * Currently on losartan and Lasix History of pulmonary embolism on warfarin for anticoagulation Factor V deficiency positive * INR 2.21 * Coumadin alternating 7.5 and 5 mg daily 04/15/2020 * Pneumonia secondary to COVID-19 * Pulmonary hypertension secondary to previous pulmonary emboli * Interstitial lung disease * Anticoagulation on warfarin * Hypertension * Stage III chronic renal insufficiency Patient without any significant change in symptoms or oxygenation overnight. Currently on 2 to 3 L nasal cannula, but is usually on 4 L during the day and 2 L at night. Her INR was slightly low today at 1.7. D-dimer 0.23 and CRP of 8.8. Renal function slightly improved with an estimated GFR of 39 and a creatinine of 1.3. Blood sugars are starting to increase with a glucose of 206. This is likely secondary to dexamethasone. 04/16/2020 * Pneumonia secondary to COVID-19 * Pulmonary hypertension secondary to previous pulmonary emboli * Interstitial lung disease * Anticoagulation on warfarin * Hypertension * Stage III chronic renal insufficiency * Hypoalbuminemia Patient is generally worse overnight. This is not surprising considering the stage of the illness. She is requiring 4 L all the time now even at rest. Lab work continues to be reassuring with C-reactive protein of 5.4, D-dimer of 0.33, normal white count and neutrophil count. INR 2.16. Renal function is stable with GFR 39, creatinine 1.3, BUN 32. Albumin does continue to drop and is down to 2.4. She did have a slight weight increase and may benefit from extra Lasix today. 04/17/2020 * Pneumonia secondary to COVID-19 * Pulmonary hypertension secondary to previous pulmonary emboli * Interstitial lung disease * Anticoagulation on warfarin * Hypertension * Stage III chronic renal insufficiency * Hypoalbuminemia Symptomatically she has improved. Oxygenation is about the same as it was yesterday. Chest x-ray shows some vascular congestion and she did receive her Lasix 30 mg p.o. this morning. Lab work is consistent with some mild intravascular volume depletion. INR 2.6, GFR 33 which is down, creatinine 1.5, BUN 40, C-reactive protein 3.6 04/19/2020 * Pneumonia secondary to COVID-19 * History of pneumocystis pneumonia. * Pulmonary hypertension secondary to previous pulmonary emboli * Interstitial lung disease * Anticoagulation on warfarin-INR 3.57, pharmacy to dose * Hypertension-Blood pressure well controlled * Stage III chronic renal insufficiency-GFR 33, creatinine 1.5 * Hypoalbuminemia-Albumin 2.4 * Steroid-induced hyperglycemia-blood sugars increasing secondary to dexamethasone. No significant change. She has a history of Pneumocystis carinii and therefore needs to be placed on atovaquone. We called her local pharmacy who said they wi ll order it and get it to us hopefully tomorrow. We are unable to get it from our pharmacy. Oxygenation is significantly worsening. She will finish her 5 days of remdesivir and 5 out of 10 days of dexamethasone today. Impression: PAF, recent A Fib with RVR S/P PICC line 2D echo, LVEF 60-65%; grade I diastolic dysfunction; RV mildly enlarged/mild RA dilatation/RV with WMA/Moderately reduced RV systolic function (changed cf RV function, 04/2019) Covid-19 PNA Hypoxemia-improved HCAP-empiric coverage (Vancomycin, Zosyn) Right side PEs (upper/lower lobe); UFH gtt S/P Chest CTA Elevated D Dimer d/t PEs; UFH gtt-appropriate PTT; Lovenox not used d/t renal function INR < 2.0; Coumadin held. Chronic Query Factor V Leiden; history of failed NOAC--thus VKA S/P Frances filter PHTN PCP PNA CKD, stage III Plan * Atovaquone 750 mg twice daily, first dose 04/19/2020 * Fingerstick blood sugars before every meal and before bedtime * Low-dose sliding scale insulin * Lasix 30 mg p.o. daily; held today. One dose of Lasix 20 mg IVP * Follow CBC, CMP, mag, phosphorus, * FiO2 to keep SPO2 between 88 and 94%. Baseline: 4 L during the day and 2 L at night * Completed remdesivir, convalescent plasma, azithromycin * Dexamethasone day 03/25; confirm completion of therapy date * Vanco/Zosyn adjust frequency per pharmacy. * Digoxin 250 mcg every 8 hours, 3 doses; check Mg level; maintenance Dig dose starting 04/26/2020; check level on 04/28/2020 * Lopressor 12.5 mg every 8 hours, hold for HR<70 * Lopressor 5 mg every 6 hours prn HR> 120 * Resume Coumadin prior to DC with 48-72 hour overlap d/t hypoxemia * CODE STATUS: Full code * UFH gtt started, recheck PTT at 1800.. Patient lives at [facility] and primary care provider is Dr. Ludin Partida. She is refusing SNF.
[2020-04-25] MEDS: Heparin Sodium/D5W 25,000 UNITS/500 ML BAG IV SCH (21:04)
[2020-04-26] MEDS: Piperacillin/Tazobactam 4.5 GM in Sodium Chloride 0.9% 100 ML IV SCH ×3 (02:02→17:47)
[2020-04-26] MEDS: Metoprolol Tartrate 25 MG Tab PO SCH ×3 (02:02→17:46)
[2020-04-26] MEDS: Albuterol 0.083% 2.5 MG/3 ML Neb Soln NEB SCH ×3 (05:51→20:52)
[2020-04-26] MEDS: Pantoprazole 40 MG Tab.CR PO SCH (06:03)
[2020-04-26] MEDS: Insulin Lispro 100 Units/ML 3 ML Vial SUBCUT SCH ×4 (07:56→21:36)
[2020-04-26] MEDS ORDERED: Heparin Sodium 5,000 Units/ML Vial IVPUSH ONE (08:00)
[2020-04-26] MEDS: hydrALAZINE 10 MG Tab PO SCH ×2 (08:25→21:39)
[2020-04-26] MEDS: Furosemide 20 MG Tab PO SCH (08:25)
[2020-04-26] MEDS: Potassium Chloride 20 MEQ Tab.ER PO SCH (08:26)
[2020-04-26] MEDS: Magnesium Oxide 400 MG Tab PO SCH ×2 (08:27→21:38)
[2020-04-26] MEDS: Cholecalciferol (Vitamin D3) 25 MCG Tab PO SCH (08:27)
[2020-04-26] MEDS: ATOVAQUONE 750 MG/5 ML PO SCH ×2 (08:29→21:45)
--- NOTE | 2020-04-26 16:42 | PCM.PN ---
- General Info Date of Service: 04/26/20 Admission Dx/Problem (Free Text): Admission Diagnosis/Problem Admission Diagnosis/Problem Dyspnea Subjective Update: Patient feels slightly better today. She continues on high flow nasal cannula and appetite is mediocre. Functional Status: Reports: Pain Controlled - Review of Systems General: Reports: Fatigue HEENT: Reports: No Symptoms Pulmonary: Reports: Shortness of Breath Cardiovascular: Reports: No Symptoms Gastrointestinal: Reports: No Symptoms Musculoskeletal: Reports: No Symptoms Neurological: Reports: No Symptoms Psychiatric: Reports: No Symptoms - Patient Data Vitals - Most Recent: Last Vital Signs Temp 98.2 F 04/26/20 15:55 Pulse 81 04/26/20 15:55 Resp 32 H 04/26/20 15:55 BP 124/61 04/26/20 15:55 Pulse Ox 95 04/26/20 15:55 Weight - Most Recent: 158 lb 1.6 oz I&O - Last 24 Hours: Intake & Output 04/26/20 04/26/20 04/26/20 06:59 14:59 22:59 Intake Total 544 600 130 Output Total 400 300 Balance 144 300 130 Lab Results Last 24 Hours: Laboratory Results - last 24 hr 04/25/20 04/25/20 04/26/20 Range/Units 17:37 20:55 05:31 APTT 40.5 H (21.7-31.4) SECONDS D-Dimer, Quantitative (0.19-0.50) mg/L Sodium (136-145) mEq/L Potassium (3.5-5.1) mEq/L Chloride (98-107) mEq/L Carbon Dioxide (21-32) mEq/L Anion Gap (5-15) BUN (7-18) mg/dL Creatinine (0.55-1.02) mg/dL Est Cr Clr Drug Dosing mL/min Estimated GFR (MDRD) (>60) mL/min BUN/Creatinine Ratio (14-18) Glucose (83-115) mg/dL POC Glucose 121 H 247 H (83-110) mg/dL Lactic Acid (0.4-2.0) mmol/L Calcium (8.5-10.1) mg/dL Magnesium (1.8-2.4) mg/dl C-Reactive Protein (<1.0) mg/dL 04/26/20 04/26/20 04/26/20 Range/Units 05:31 05:31 05:31 APTT (21.7-31.4) SECONDS D-Dimer, Quantitative 2.64 H (0.19-0.50) mg/L Sodium 137 (136-145) mEq/L Potassium 4.1 (3.5-5.1) mEq/L Chloride 102 (98-107) mEq/L Carbon Dioxide 27 (21-32) mEq/L Anion Gap 12.1 (5-15) BUN 37 H (7-18) mg/dL Creatinine 1.4 H (0.55-1.02) mg/dL Est Cr Clr Drug Dosing 26.75 mL/min Estimated GFR (MDRD) 36 (>60) mL/min BUN/Creatinine Ratio 26.4 H (14-18) Glucose 103 (83-115) mg/dL POC Glucose (83-110) mg/dL Lactic Acid 1.1 (0.4-2.0) mmol/L Calcium 7.8 L (8.5-10.1) mg/dL Magnesium 2.3 (1.8-2.4) mg/dl C-Reactive Protein 5.7 H* (<1.0) mg/dL 04/26/20 04/26/20 04/26/20 Range/Units 06:03 11:56 14:09 APTT 49.7 H (21.7-31.4) SECONDS D-Dimer, Quantitative (0.19-0.50) mg/L Sodium (136-145) mEq/L Potassium (3.5-5.1) mEq/L Chloride (98-107) mEq/L Carbon Dioxide (21-32) mEq/L Anion Gap (5-15) BUN (7-18) mg/dL Creatinine (0.55-1.02) mg/dL Est Cr Clr Drug Dosing mL/min Estimated GFR (MDRD) (>60) mL/min BUN/Creatinine Ratio (14-18) Glucose (83-115) mg/dL POC Glucose 118 H 190 H (83-110) mg/dL Lactic Acid (0.4-2.0) mmol/L Calcium (8.5-10.1) mg/dL Magnesium (1.8-2.4) mg/dl C-Reactive Protein (<1.0) mg/dL 04/26/20 Range/Units 16:33 APTT (21.7-31.4) SECONDS D-Dimer, Quantitative (0.19-0.50) mg/L Sodium (136-145) mEq/L Potassium (3.5-5.1) mEq/L Chloride (98-107) mEq/L Carbon Dioxide (21-32) mEq/L Anion Gap (5-15) BUN (7-18) mg/dL Creatinine (0.55-1.02) mg/dL Est Cr Clr Drug Dosing mL/min Estimated GFR (MDRD) (>60) mL/min BUN/Creatinine Ratio (14-18) Glucose (83-115) mg/dL POC Glucose 126 H (83-110) mg/dL Lactic Acid (0.4-2.0) mmol/L Calcium (8.5-10.1) mg/dL Magnesium (1.8-2.4) mg/dl C-Reactive Protein (<1.0) mg/dL Med Orders - Current: Current Medications Acetaminophen (Tylenol) 650 mg PO Q4H PRN PRN Reason: Pain Last Admin: 04/14/20 16:02 Dose: 650 mg Documented by: Albuterol (Proventil Neb Soln) 2.5 mg NEB TIDRT [facility] Last Admin: 04/26/20 13:35 Dose: 2.5 mg Documented by: Cholecalciferol (Vitamin D3) 125 mcg PO DAILY [facility] Last Admin: 04/26/20 08:27 Dose: 125 mcg Documented by: Dextrose/Water (Dextrose 50% In Water) 50 ml IV ASDIRECTED PRN PRN Reason: Hypoglycemia Furosemide (Lasix) 30 mg PO DAILY [facility] Last Admin: 04/26/20 08:25 Dose: 30 mg Documented by: Hydralazine HCl (Apresoline) 10 mg PO Q12HR [facility] Last Admin: 04/26/20 08:25 Dose: Not Given Documented by: Heparin Sodium/Dextrose (Heparin 25,000 Units In D5w 500 Ml) 25,000 units in 500 mls @ 12 mls/hr IV TITRATE [facility]; Protocol Last Titration: 04/26/20 08:24 Dose: 750 units/hr, 15 mls/hr Documented by: Vancomycin HCl 1 gm/ Sodium (Chloride) 250 mls @ 250 mls/hr IV Q18H [facility] Last Admin: 04/26/20 02:02 Dose: 250 mls/hr Documented by: Piperacillin Sod/Tazobactam (Sod 4.5 gm/ Sodium Chloride) 100 mls @ 25 mls/hr IV Q8H [facility] Last Admin: 04/26/20 09:30 Dose: 25 mls/hr Documented by: Insulin Human Lispro (Humalog) 0 unit SUBCUT QIDACANDBED [facility]; Protocol Last Admin: 04/26/20 12:01 Dose: 2 units Documented by: Losartan Potassium (Cozaar) 12.5 mg PO DAILY [facility] Last Admin: 04/24/20 09:09 Dose: 12.5 mg Documented by: Magnesium Oxide (Magnesium Oxide) 400 mg PO BID [facility] Last Admin: 04/26/20 08:27 Dose: 400 mg Documented by: Metoprolol Tartrate (Lopressor) 5 mg IVPUSH Q4H PRN PRN Reason: HR>120 Last Admin: 04/24/20 08:43 Dose: 5 mg Documented by: Metoprolol Tartrate (Lopressor) 12.5 mg PO Q8H [facility] Last Admin: 04/26/20 09:30 Dose: 12.5 mg Documented by: Atovaquone 750 Mg/5 (Ml Ptom) 0 each PO BID [facility] Last Admin: 04/26/20 08:29 Dose: 1 each Documented by: Ondansetron HCl (Zofran) 4 mg IV Q4H PRN PRN Reason: Nausea/Vomiting Ondansetron HCl (Zofran Odt) 4 mg PO Q4H PRN PRN Reason: nausea, able to take PO Pantoprazole Sodium (Protonix) 40 mg PO DAILY@0700 [facility] Last Admin: 04/26/20 06:03 Dose: 40 mg Documented by: Potassium Chloride (Klor-Con M20) 20 meq PO DAILY [facility] Last Admin: 04/26/20 08:26 Dose: 20 meq Documented by: Saccharomyces Boulardii (Florastor) 500 mg PO BID [facility] Vancomycin HCl (Pharmacy To Dose - Vancomycin) 1 dose .XX ASDIRECTED PRN PRN Reason: RX TO DOSE VANCO Zolpidem Tartrate (Ambien) 2.5 mg PO BEDTIME PRN PRN Reason: Insomnia Discontinued Medications Albuterol (Proventil Neb Soln) 2.5 mg NEB TID [facility] Albuterol (Proventil Neb Soln) 2.5 mg NEB TIDRT [facility] Albuterol (Proventil Neb Soln) Confirm Administered Dose 2.5 mg .ROUTE .STK-MED ONE Stop: 04/16/20 01:20 [facility] Last Admin: 04/16/20 05:39 Dose: Not Given Documented by: Dexamethasone (Dexamethasone) 6 mg PO Q24H EM[facility] Stop: 04/23/20 18:01 Last Admin: 04/23/20 17:20 Dose: 6 mg Documented by: Digoxin (Lanoxin) 250 mcg PO Q8H [facility] Stop: 04/25/20 13:01 Last Admin: 04/25/20 13:27 Dose: 250 mcg Documented by: Furosemide (Lasix) 20 mg IVPUSH ONETIME ONE Stop: 04/16/20 12:46 Last Admin: 04/16/20 12:59 Dose: 20 mg Documented by: Furosemide (Lasix) 20 mg IVPUSH NOW ONE Stop: 04/25/20 08:37 Last Admin: 04/25/20 10:01 Dose: 20 mg Documented by: Heparin Sodium (Porcine) (Heparin Sodium) 2,500 units IVPUSH ONETIME ONE Stop: 04/21/20 17:01 Last Admin: 04/21/20 16:59 Dose: 2,500 units Documented by: Heparin Sodium (Porcine) (Heparin Sodium) 2,500 units IVPUSH ONETIME ONE Stop: 04/22/20 08:04 Last Admin: 04/22/20 08:11 Dose: 2,500 units Documented by: Heparin Sodium (Porcine) (Heparin Sodium) 1,400 units IVPUSH .BOLUS ONE Stop: 04/26/20 08:01 Last Admin: 04/26/20 08:17 Dose: 1,400 units Documented by: Dextrose/Sodium Chloride (Dextrose 5%-Normal Saline) 1,000 mls @ 100 mls/hr IV ASDIRECTED [facility] Last Admin: 04/15/20 05:45 Dose: 100 mls/hr Documented by: Remdesivir 200 mg/ Sodium (Chloride) 250 mls @ 250 mls/hr IV ONETIME ONE Stop: 04/14/20 17:34 Last Admin: 04/14/20 18:32 Dose: 250 mls/hr Documented by: Remdesivir 100 mg/ Sodium (Chloride) 100 mls @ 100 mls/hr IV Q24H [facility] Stop: 04/18/20 19:59 Last Admin: 04/18/20 18:33 Dose: 100 mls/hr Documented by: Sodium Chloride (Normal Saline) 250 mls @ 50 mls/hr IV ASDIRECTED [facility] Ceftriaxone Sodium 2 gm/ (Sodium Chloride) 100 mls @ 200 mls/hr IV Q24H [facility] Stop: 04/20/20 09:59 Last Admin: 04/20/20 08:30 Dose: 200 mls/hr Documented by: Azithromycin 500 mg/ Sodium (Chloride) 250 mls @ 250 mls/hr IV Q24H [facility] Stop: 04/18/20 10:59 Last Admin: 04/18/20 09:31 Dose: 250 mls/hr Documented by: Sodium Chloride (Normal Saline) 100 mls @ 75 mls/hr IV ASDIRECTED [facility] Stop: 04/21/20 13:00 Last Admin: 04/21/20 11:05 Dose: 75 mls/hr Documented by: Heparin Sodium/Dextrose (Heparin 25,000 Units In D5w 500 Ml) 25,000 units in 500 mls @ 16 mls/hr IV TITRATE [facility]; Protocol Last Titration: 04/22/20 08:12 Dose: 1,220 units/hr, 24.4 mls/hr Documented by: Vancomycin HCl 1 gm/ Sodium (Chloride) 250 mls @ 250 mls/hr IV Q24H [facility] Piperacillin Sod/Tazobactam (Sod 4.5 gm/ Sodium Chloride) 100 mls @ 25 mls/hr IV Q8H [facility] Piperacillin Sod/Tazobactam (Sod 4.5 gm/ Sodium Chloride) 100 mls @ 200 mls/hr IV ONETIME ONE Stop: 04/22/20 12:44 Last Admin: 04/22/20 15:42 Dose: 200 mls/hr Documented by: Vancomycin HCl 1.5 gm/ Sodium (Chloride) 500 mls @ 333.333 mls/hr IV ONETIME ONE Stop: 04/22/20 14:29 Last Admin: 04/22/20 15:40 Dose: 333.333 mls/hr Documented by: Vancomycin HCl 1 gm/ Sodium (Chloride) 250 mls @ 250 mls/hr IV Q24H [facility] Last Admin: 04/23/20 14:30 Dose: 250 mls/hr Documented by: Vancomycin HCl 1.5 gm/ Sodium (Chloride) 500 mls @ 333.333 mls/hr IV ONETIME ONE Stop: 04/22/20 16:44 Last Admin: 04/22/20 19:02 Dose: Not Given Documented by: Piperacillin Sod/Tazobactam (Sod 4.5 gm/ Sodium Chloride) 100 mls @ 25 mls/hr IV Q8H [facility] Piperacillin Sod/Tazobactam (Sod 4.5 gm/ Sodium Chloride) 100 mls @ 25 mls/hr IV Q8H [facility] Last Admin: 04/23/20 07:36 Dose: Not Given Documented by: Piperacillin Sod/Tazobactam (Sod 4.5 gm/ Sodium Chloride) 100 mls @ 25 mls/hr IV Q8H [facility] Last Admin: 04/24/20 18:26 Dose: Not Given Documented by: Insulin Human Lispro (Humalog) 0 unit SUBCUT QIDACANDBED [facility]; Protocol Last Admin: 04/22/20 08:09 Dose: 1 units Documented by: Iopamidol (Isovue-370 (76%)) 100 ml IVPUSH ONETIME ONE Stop: 04/21/20 10:22 Last Admin: 04/21/20 11:05 Dose: 100 ml Documented by: Losartan Potassium (Cozaar) 12.5 mg PO ASDIRECTED [facility] Metoprolol Tartrate (Lopressor) 12.5 mg PO Q12H [facility] Last Admin: 04/24/20 10:17 Dose: 12.5 mg Documented by: Non-Formulary Medication (Magnesium [Magnesium]) 400 mg PO ASDIRECTED [facility] Sodium Chloride (Saline Flush) 10 ml FLUSH ONETIME PRN PRN Reason: IV FLUSH Stop: 04/21/20 13:00 Last Admin: 04/21/20 11:05 Dose: 10 ml Documented by: Vancomycin HCl (Vancomycin) Confirm Administered Dose 2 gm .ROUTE .STK-MED ONE Stop: 04/22/20 14:48 Last Admin: 04/22/20 19:19 Dose: Not Given Documented by: Warfarin Sodium (Pharmacy To Dose - Warfarin) 0 dose .XX ASDIRECTED PRN PRN Reason: RX TO DOSE WARFARIN Warfarin Sodium (Coumadin) 5 mg PO ONETIME ONE Stop: 04/14/20 20:31 Last Admin: 04/14/20 20:51 Dose: 5 mg Documented by: Warfarin Sodium (Coumadin) 7.5 mg PO QPM EMIGDIO Stop: 04/15/20 21:00 Last Admin: 04/15/20 18:10 Dose: 7.5 mg Documented by: Warfarin Sodium (Coumadin) 5 mg PO ONETIME ONE Stop: 04/16/20 20:16 Last Admin: 04/16/20 20:46 Dose: 5 mg Documented by: Warfarin Sodium (Pharmacy To Dose - Warfarin) 0 dose .XX ASDIRECTED PRN PRN Reason: RX TO DOSE WARFARIN Warfarin Sodium (Coumadin) 5 mg PO QPM EMIGDIO Stop: 04/17/20 18:01 Last Admin: 04/17/20 18:57 Dose: 5 mg Documented by: Warfarin Sodium (Coumadin Sliding Scale) 0 each PO QPM EMIGDIO Stop: 04/18/20 18:01 Last Admin: 04/18/20 18:33 Dose: Not Given Documented by: Warfarin Sodium (Coumadin Sliding Scale) 0 each PO QPM EMIGDIO Stop: 04/19/20 18:01 Last Admin: 04/19/20 18:04 Dose: Not Given Documented by: Warfarin Sodium (Coumadin) 1 mg PO QPM EMIGDIO Stop: 04/20/20 18:01 Last Admin: 04/20/20 17:01 Dose: 1 mg Documented by: - Exam Quality Assessment: Supplemental Oxygen (High flow nasal cannula), Urine Catheter General: Alert, Oriented HEENT: Pupils Equal, Mucous Membr. Moist/[place] Neck: Supple Lungs: Rales (Throughout both lung swanson). No: Normal Respiratory Effort (Increased respiratory rate and effort) Cardiovascular: Regular Rate, Regular Rhythm GI/Abdominal Exam: Normal Bowel Sounds, Soft, Non-Tender, No Distention Extremities: Normal Inspection, Normal Capillary Refill Skin: Warm, Dry, Intact Psy/Mental Status: Alert, Normal Affect, Normal Mood Sepsis Event Note - Evaluation Sepsis Screening Result: No Definite Risk - Focused Exam Vital Signs: Vital Signs Temp Pulse Resp BP Pulse Ox Pulse Ox 04/26/20 15:55 98.2 F 81 32 H 124/61 95 04/26/20 13:35 90 L 04/26/20 11:59 98.4 F 78 30 H 103/56 L 96 04/26/20 10:26 91 L 04/26/20 09:30 103 H 129/60 04/26/20 08:12 97.9 F 77 28 H 117/64 93 L 04/26/20 05:52 90 L - Problem List & Annotations (1) Pneumonia due to COVID-19 virus SNOMED Code(s): 513434220740229097 Code(s): U07.1 - COVID-19; J12.89 - OTHER VIRAL PNEUMONIA Status: Acute Current Visit: Yes (2) Chronic renal insufficiency, stage III (moderate) SNOMED Code(s): 571678756 Code(s): N18.30 - CHRONIC KIDNEY DISEASE, STAGE 3 UNSPECIFIED Status: Chronic Current Visit: Yes Qualifiers: Chronic kidney disease stage 3 subtype: stage 3b (GFR 30-44) Qualified Code(s): N18.32 - Chronic kidney disease, stage 3b (3) Pulmonary hypertension SNOMED Code(s): 53878573 Code(s): I27.20 - PULMONARY HYPERTENSION, UNSPECIFIED Status: Chronic Current Visit: Yes (4) HTN, Essential hypertension SNOMED Code(s): 67732565 Code(s): I10 - ESSENTIAL (PRIMARY) HYPERTENSION Status: Chronic Current Visit: No - Problem List Review Problem List Initiated/Reviewed/Updated: Yes - My Orders Last 24 Hours: My Active Orders 04/26/20 21:00 Saccharomyces Boulardii [Florastor] 500 mg PO BID 04/26/20 23:00 aPTT [PTT,PARTIAL THROMBOPLSTIN TIME] [COAG] Routine - Plan Plan:: Impression: PAF, recent A Fib with RVR S/P PICC line 2D echo, LVEF 60-65%; grade I diastolic dysfunction; RV mildly enlarged/mild RA dilatation/RV with WMA/Moderately reduced RV systolic function (changed cf RV function, 04/2019) Covid-19 PNA Hypoxemia-improved HCAP-empiric coverage (Vancomycin, Zosyn) Right side PEs (upper/lower lobe); UFH gtt S/P Chest CTA Elevated D Dimer d/t PEs; UFH gtt-appropriate PTT; Lovenox not used d/t renal function INR < 2.0; Coumadin held. Chronic Query Factor V Leiden; history of failed NOAC--thus VKA S/P Frances filter PHTN PCP PNA CKD, stage III Plan * Atovaquone 750 mg twice daily, first dose 04/19/2020 * Fingerstick blood sugars before every meal and before bedtime * Low-dose sliding scale insulin * Lasix 30 mg p.o. daily; * Follow CBC, CMP, mag, phosphorus, * FiO2 to keep SPO2 between 88 and 94%. Baseline: 4 L during the day and 2 L at night * Completed remdesivir, convalescent plasma, azithromycin * Dexamethasone day 03/25; confirm completion of therapy date * Vanco/Zosyn adjust frequency per pharmacy. * Digoxin maintenance dose 125 mcg daily * Lopressor 12.5 mg every 8 hours, hold for HR<70 * Lopressor 5 mg every 6 hours prn HR> 120 * Resume Coumadin prior to DC with 48-72 hour overlap d/t hypoxemia * CODE STATUS: Full code * Heparin drip for new PE. * Consider transfer to long-term acute care facility because of continued high flow nasal cannula need for oxygenation. Patient lives at [facility] and primary care provider is Dr. Ludin Partida. She is refusing SNF.
[2020-04-26] MEDS: Heparin Sodium/D5W 25,000 UNITS/500 ML BAG IV SCH (21:37)
[2020-04-26] MEDS: Saccharomyces Boulardii (Probiotic) 250 MG Cap PO SCH (21:38)
[2020-04-26] MEDS: Digoxin 125 MCG Tab PO SCH (21:39)
[2020-04-27] MEDS: Metoprolol Tartrate 25 MG Tab PO SCH ×3 (01:48→17:45)
[2020-04-27] MEDS: Piperacillin/Tazobactam 4.5 GM in Sodium Chloride 0.9% 100 ML IV SCH ×3 (01:48→17:35)
[2020-04-27] MEDS: Albuterol 0.083% 2.5 MG/3 ML Neb Soln NEB SCH ×4 (05:13→22:02)
[2020-04-27] MEDS: Insulin Lispro 100 Units/ML 3 ML Vial SUBCUT SCH ×4 (06:13→21:12)
[2020-04-27] MEDS ORDERED: Heparin Sodium 5,000 Units/ML Vial IVPUSH ONE (06:40)
[2020-04-27] MEDS: Pantoprazole 40 MG Tab.CR PO SCH (06:50)
[2020-04-27] MEDS: Saccharomyces Boulardii (Probiotic) 250 MG Cap PO SCH ×2 (08:30→21:11)
[2020-04-27] MEDS: Cholecalciferol (Vitamin D3) 25 MCG Tab PO SCH (08:30)
[2020-04-27] MEDS: Furosemide 20 MG Tab PO SCH (08:31)
[2020-04-27] MEDS: Digoxin 125 MCG Tab PO SCH (08:31)
[2020-04-27] MEDS: Potassium Chloride 20 MEQ Tab.ER PO SCH (08:31)
[2020-04-27] MEDS: hydrALAZINE 10 MG Tab PO SCH ×2 (08:33→21:10)
[2020-04-27] MEDS: ATOVAQUONE 750 MG/5 ML PO SCH ×2 (08:33→21:11)
[2020-04-27] MEDS: Magnesium Oxide 400 MG Tab PO SCH ×2 (08:33→21:11)
--- NOTE | 2020-04-27 14:11 | PCM.PN ---
- General Info Date of Service: 04/27/20 Admission Dx/Problem (Free Text): Admission Diagnosis/Problem Admission Diagnosis/Problem Dyspnea Subjective Update: Control is with no new complaints and no real change overall. Appetite is good and she is moving her bowels 4 times a day. Functional Status: Reports: Pain Controlled - Review of Systems General: Reports: No Symptoms HEENT: Reports: No Symptoms Pulmonary: Reports: Shortness of Breath Cardiovascular: Reports: No Symptoms Gastrointestinal: Reports: No Symptoms Musculoskeletal: Reports: No Symptoms Psychiatric: Reports: No Symptoms - Patient Data Vitals - Most Recent: Last Vital Signs Temp 98.4 F 04/27/20 11:22 Pulse 85 04/27/20 11:22 Resp 32 H 04/27/20 11:22 BP 112/72 04/27/20 11:22 Pulse Ox 90 L 04/27/20 12:49 Weight - Most Recent: 159 lb 12.8 oz I&O - Last 24 Hours: Intake & Output 04/26/20 04/27/20 04/27/20 22:59 06:59 14:59 Intake Total 1220 905 300 Output Total 766 516 700 Balance 454 389 -400 Lab Results Last 24 Hours: Laboratory Results - last 24 hr 04/26/20 04/26/20 04/26/20 Range/Units 14:09 16:33 21:27 WBC (3.98-10.04) K/mm3 RBC (3.98-5.22) M/mm3 Hgb (11.2-15.7) gm/dl Hct (34.1-44.9) % MCV (79.4-94.8) fl MCH (25.6-32.2) pg MCHC (32.2-35.5) g/dl RDW Std Deviation (36.4-46.3) fL Plt Count (182-369) K/mm3 MPV (9.4-12.3) fl Neut % (Auto) (34.0-71.1) % Lymph % (Auto) (19.3-51.7) % [place] % (Auto) (4.7-12.5) % Eos % (Auto) (0.7-5.8) Baso % (Auto) (0.1-1.2) % Neut # (Auto) (1.56-6.13) K/mm3 Lymph # (Auto) (1.18-3.74) K/mm3 [place] # (Auto) (0.24-0.36) K/mm3 Eos # (Auto) (0.04-0.36) K/mm3 Baso # (Auto) (0.01-0.08) K/mm3 Manual Slide Review APTT 49.7 H (21.7-31.4) SECONDS D-Dimer, Quantitative (0.19-0.50) mg/L Sodium (136-145) mEq/L Potassium (3.5-5.1) mEq/L Chloride (98-107) mEq/L Carbon Dioxide (21-32) mEq/L Anion Gap (5-15) BUN (7-18) mg/dL Creatinine (0.55-1.02) mg/dL Est Cr Clr Drug Dosing mL/min Estimated GFR (MDRD) (>60) mL/min BUN/Creatinine Ratio (14-18) Glucose (83-115) mg/dL POC Glucose 126 H 243 H (83-110) mg/dL Calcium (8.5-10.1) mg/dL Phosphorus (2.6-4.7) mg/dL Magnesium (1.8-2.4) mg/dl Total Bilirubin (0.2-1.0) mg/dL AST (15-37) U/L ALT (14-59) U/L Alkaline Phosphatase (46-116) U/L Total Protein (6.4-8.2) g/dl Albumin (3.4-5.0) g/dl Globulin gm/dL Albumin/Globulin Ratio (1-2) 04/26/20 04/27/20 04/27/20 Range/Units 23:12 04:58 04:58 WBC 8.79 (3.98-10.04) K/mm3 RBC 3.38 L (3.98-5.22) M/mm3 Hgb 9.5 L (11.2-15.7) gm/dl Hct 30.7 L (34.1-44.9) % MCV 90.8 (79.4-94.8) fl MCH 28.1 (25.6-32.2) pg MCHC 30.9 L (32.2-35.5) g/dl RDW Std Deviation 43.8 (36.4-46.3) fL Plt Count 174 L (182-369) K/mm3 MPV 10.6 (9.4-12.3) fl Neut % (Auto) 92.2 H (34.0-71.1) % Lymph % (Auto) 3.8 L (19.3-51.7) % [place] % (Auto) 3.2 L (4.7-12.5) % Eos % (Auto) 0 L (0.7-5.8) Baso % (Auto) 0.0 L (0.1-1.2) % Neut # (Auto) 8.11 H (1.56-6.13) K/mm3 Lymph # (Auto) 0.33 L (1.18-3.74) K/mm3 [place] # (Auto) 0.28 (0.24-0.36) K/mm3 Eos # (Auto) 0.00 L (0.04-0.36) K/mm3 Baso # (Auto) 0.00 L (0.01-0.08) K/mm3 Manual Slide Review Abnormal smear APTT 50.6 H 44.1 H (21.7-31.4) SECONDS D-Dimer, Quantitative 1.81 H (0.19-0.50) mg/L Sodium (136-145) mEq/L Potassium (3.5-5.1) mEq/L Chloride (98-107) mEq/L Carbon Dioxide (21-32) mEq/L Anion Gap (5-15) BUN (7-18) mg/dL Creatinine (0.55-1.02) mg/dL Est Cr Clr Drug Dosing mL/min Estimated GFR (MDRD) (>60) mL/min BUN/Creatinine Ratio (14-18) Glucose (83-115) mg/dL POC Glucose (83-110) mg/dL Calcium (8.5-10.1) mg/dL Phosphorus (2.6-4.7) mg/dL Magnesium (1.8-2.4) mg/dl Total Bilirubin (0.2-1.0) mg/dL AST (15-37) U/L ALT (14-59) U/L Alkaline Phosphatase (46-116) U/L Total Protein (6.4-8.2) g/dl Albumin (3.4-5.0) g/dl Globulin gm/dL Albumin/Globulin Ratio (1-2) 04/27/20 04/27/20 04/27/20 Range/Units 04:58 05:55 11:29 WBC (3.98-10.04) K/mm3 RBC (3.98-5.22) M/mm3 Hgb (11.2-15.7) gm/dl Hct (34.1-44.9) % MCV (79.4-94.8) fl MCH (25.6-32.2) pg MCHC (32.2-35.5) g/dl RDW Std Deviation (36.4-46.3) fL Plt Count (182-369) K/mm3 MPV (9.4-12.3) fl Neut % (Auto) (34.0-71.1) % Lymph % (Auto) (19.3-51.7) % [place] % (Auto) (4.7-12.5) % Eos % (Auto) (0.7-5.8) Baso % (Auto) (0.1-1.2) % Neut # (Auto) (1.56-6.13) K/mm3 Lymph # (Auto) (1.18-3.74) K/mm3 [place] # (Auto) (0.24-0.36) K/mm3 Eos # (Auto) (0.04-0.36) K/mm3 Baso # (Auto) (0.01-0.08) K/mm3 Manual Slide Review APTT (21.7-31.4) SECONDS D-Dimer, Quantitative (0.19-0.50) mg/L Sodium 137 (136-145) mEq/L Potassium 4.1 (3.5-5.1) mEq/L Chloride 101 (98-107) mEq/L Carbon Dioxide 29 (21-32) mEq/L Anion Gap 11.1 (5-15) BUN 32 H (7-18) mg/dL Creatinine 1.4 H (0.55-1.02) mg/dL Est Cr Clr Drug Dosing 26.75 mL/min Estimated GFR (MDRD) 36 (>60) mL/min BUN/Creatinine Ratio 22.9 H (14-18) Glucose 106 (83-115) mg/dL POC Glucose 113 H 119 H (83-110) mg/dL Calcium 7.9 L (8.5-10.1) mg/dL Phosphorus 3.3 (2.6-4.7) mg/dL Magnesium 2.2 (1.8-2.4) mg/dl Total Bilirubin 0.9 (0.2-1.0) mg/dL AST 20 (15-37) U/L ALT 34 (14-59) U/L Alkaline Phosphatase 60 (46-116) U/L Total Protein 5.3 L (6.4-8.2) g/dl Albumin 1.8 L (3.4-5.0) g/dl Globulin 3.5 gm/dL Albumin/Globulin Ratio 0.5 L (1-2) 04/27/20 Range/Units 11:32 WBC (3.98-10.04) K/mm3 RBC (3.98-5.22) M/mm3 Hgb (11.2-15.7) gm/dl Hct (34.1-44.9) % MCV (79.4-94.8) fl MCH (25.6-32.2) pg MCHC (32.2-35.5) g/dl RDW Std Deviation (36.4-46.3) fL Plt Count (182-369) K/mm3 MPV (9.4-12.3) fl Neut % (Auto) (34.0-71.1) % Lymph % (Auto) (19.3-51.7) % [place] % (Auto) (4.7-12.5) % Eos % (Auto) (0.7-5.8) Baso % (Auto) (0.1-1.2) % Neut # (Auto) (1.56-6.13) K/mm3 Lymph # (Auto) (1.18-3.74) K/mm3 [place] # (Auto) (0.24-0.36) K/mm3 Eos # (Auto) (0.04-0.36) K/mm3 Baso # (Auto) (0.01-0.08) K/mm3 Manual Slide Review APTT 61.5 H (21.7-31.4) SECONDS D-Dimer, Quantitative (0.19-0.50) mg/L Sodium (136-145) mEq/L Potassium (3.5-5.1) mEq/L Chloride (98-107) mEq/L Carbon Dioxide (21-32) mEq/L Anion Gap (5-15) BUN (7-18) mg/dL Creatinine (0.55-1.02) mg/dL Est Cr Clr Drug Dosing mL/min Estimated GFR (MDRD) (>60) mL/min BUN/Creatinine Ratio (14-18) Glucose (83-115) mg/dL POC Glucose (83-110) mg/dL Calcium (8.5-10.1) mg/dL Phosphorus (2.6-4.7) mg/dL Magnesium (1.8-2.4) mg/dl Total Bilirubin (0.2-1.0) mg/dL AST (15-37) U/L ALT (14-59) U/L Alkaline Phosphatase (46-116) U/L Total Protein (6.4-8.2) g/dl Albumin (3.4-5.0) g/dl Globulin gm/dL Albumin/Globulin Ratio (1-2) Med Orders - Current: Current Medications Acetaminophen (Tylenol) 650 mg PO Q4H PRN PRN Reason: Pain Last Admin: 04/14/20 16:02 Dose: 650 mg Documented by: Albuterol (Proventil Neb Soln) 2.5 mg NEB TIDRT [facility] Last Admin: 04/27/20 13:09 Dose: Not Given Documented by: Cholecalciferol (Vitamin D3) 125 mcg PO DAILY [facility] Last Admin: 04/27/20 08:30 Dose: 125 mcg Documented by: Dextrose/Water (Dextrose 50% In Water) 50 ml IV ASDIRECTED PRN PRN Reason: Hypoglycemia Digoxin (Lanoxin) 125 mcg PO DAILY [facility] Last Admin: 04/27/20 08:31 Dose: 125 mcg Documented by: Furosemide (Lasix) 30 mg PO DAILY [facility] Last Admin: 04/27/20 08:31 Dose: 30 mg Documented by: Hydralazine HCl (Apresoline) 10 mg PO Q12HR [facility] Last Admin: 04/27/20 08:33 Dose: Not Given Documented by: Heparin Sodium/Dextrose (Heparin 25,000 Units In D5w 500 Ml) 25,000 units in 500 mls @ 12 mls/hr IV TITRATE [facility]; Protocol Last Titration: 04/27/20 06:50 Dose: 895 units/hr, 17.9 mls/hr Documented by: Vancomycin HCl 1 gm/ Sodium (Chloride) 250 mls @ 250 mls/hr IV Q18H [facility] Last Admin: 04/26/20 21:38 Dose: 250 mls/hr Documented by: Piperacillin Sod/Tazobactam (Sod 4.5 gm/ Sodium Chloride) 100 mls @ 25 mls/hr IV Q8H [facility] Last Admin: 04/27/20 08:33 Dose: 25 mls/hr Documented by: Insulin Human Lispro (Humalog) 0 unit SUBCUT QIDACANDBED [facility]; Protocol Last Admin: 04/27/20 12:09 Dose: Not Given Documented by: Losartan Potassium (Cozaar) 12.5 mg PO DAILY [facility] Last Admin: 04/24/20 09:09 Dose: 12.5 mg Documented by: Magnesium Oxide (Magnesium Oxide) 400 mg PO BID [facility] Last Admin: 04/27/20 08:33 Dose: 400 mg Documented by: Metoprolol Tartrate (Lopressor) 5 mg IVPUSH Q4H PRN PRN Reason: HR>120 Last Admin: 04/24/20 08:43 Dose: 5 mg Documented by: Metoprolol Tartrate (Lopressor) 12.5 mg PO Q8H [facility] Last Admin: 04/27/20 10:29 Dose: 12.5 mg Documented by: Atovaquone 750 Mg/5 (Ml Ptom) 0 each PO BID [facility] Last Admin: 04/27/20 08:33 Dose: 1 each Documented by: Ondansetron HCl (Zofran) 4 mg IV Q4H PRN PRN Reason: Nausea/Vomiting Ondansetron HCl (Zofran Odt) 4 mg PO Q4H PRN PRN Reason: nausea, able to take PO Pantoprazole Sodium (Protonix) 40 mg PO DAILY@0700 [facility] Last Admin: 04/27/20 06:50 Dose: 40 mg Documented by: Potassium Chloride (Klor-Con M20) 20 meq PO DAILY [facility] Last Admin: 04/27/20 08:31 Dose: 20 meq Documented by: Saccharomyces Boulardii (Florastor) 500 mg PO BID [facility] Last Admin: 04/27/20 08:30 Dose: 500 mg Documented by: Vancomycin HCl (Pharmacy To Dose - Vancomycin) 1 dose .XX ASDIRECTED PRN PRN Reason: RX TO DOSE VANCO Zolpidem Tartrate (Ambien) 2.5 mg PO BEDTIME PRN PRN Reason: Insomnia Discontinued Medications Albuterol (Proventil Neb Soln) 2.5 mg NEB TID [facility] Albuterol (Proventil Neb Soln) 2.5 mg NEB TIDRT [facility] Albuterol (Proventil Neb Soln) Confirm Administered Dose 2.5 mg .ROUTE .STK-MED ONE Stop: 04/16/20 01:20 [facility] Last Admin: 04/16/20 05:39 Dose: Not Given Documented by: Dexamethasone (Dexamethasone) 6 mg PO Q24H [facility] Stop: 04/23/20 18:01 Last Admin: 04/23/20 17:20 Dose: 6 mg Documented by: Digoxin (Lanoxin) 250 mcg PO Q8H [facility] Stop: 04/25/20 13:01 Last Admin: 04/25/20 13:27 Dose: 250 mcg Documented by: Furosemide (Lasix) 20 mg IVPUSH ONETIME ONE Stop: 04/16/20 12:46 Last Admin: 04/16/20 12:59 Dose: 20 mg Documented by: Furosemide (Lasix) 20 mg IVPUSH NOW ONE Stop: 04/25/20 08:37 Last Admin: 04/25/20 10:01 Dose: 20 mg Documented by: Heparin Sodium (Porcine) (Heparin Sodium) 2,500 units IVPUSH ONETIME ONE Stop: 04/21/20 17:01 Last Admin: 04/21/20 16:59 Dose: 2,500 units Documented by: Heparin Sodium (Porcine) (Heparin Sodium) 2,500 units IVPUSH ONETIME ONE Stop: 04/22/20 08:04 Last Admin: 04/22/20 08:11 Dose: 2,500 units Documented by: Heparin Sodium (Porcine) (Heparin Sodium) 1,400 units IVPUSH .BOLUS ONE Stop: 04/26/20 08:01 Last Admin: 04/26/20 08:17 Dose: 1,400 units Documented by: Heparin Sodium (Porcine) (Heparin Sodium) 1,450 units IVPUSH .BOLUS ONE Stop: 04/27/20 06:41 Last Admin: 04/27/20 06:48 Dose: 1,450 units Documented by: Dextrose/Sodium Chloride (Dextrose 5%-Normal Saline) 1,000 mls @ 100 mls/hr IV ASDIRECTED [facility] Last Admin: 04/15/20 05:45 Dose: 100 mls/hr Documented by: Remdesivir 200 mg/ Sodium (Chloride) 250 mls @ 250 mls/hr IV ONETIME ONE Stop: 04/14/20 17:34 Last Admin: 04/14/20 18:32 Dose: 250 mls/hr Documented by: Remdesivir 100 mg/ Sodium (Chloride) 100 mls @ 100 mls/hr IV Q24H [facility] Stop: 04/18/20 19:59 Last Admin: 04/18/20 18:33 Dose: 100 mls/hr Documented by: Sodium Chloride (Normal Saline) 250 mls @ 50 mls/hr IV ASDIRECTED [facility] Ceftriaxone Sodium 2 gm/ (Sodium Chloride) 100 mls @ 200 mls/hr IV Q24H [facility] Stop: 04/20/20 09:59 Last Admin: 04/20/20 08:30 Dose: 200 mls/hr Documented by: Azithromycin 500 mg/ Sodium (Chloride) 250 mls @ 250 mls/hr IV Q24H [facility] Stop: 04/18/20 10:59 Last Admin: 04/18/20 09:31 Dose: 250 mls/hr Documented by: Sodium Chloride (Normal Saline) 100 mls @ 75 mls/hr IV ASDIRECTED [facility] Stop: 04/21/20 13:00 Last Admin: 04/21/20 11:05 Dose: 75 mls/hr Documented by: Heparin Sodium/Dextrose (Heparin 25,000 Units In D5w 500 Ml) 25,000 units in 500 mls @ 16 mls/hr IV TITRATE [facility]; Protocol Last Titration: 04/22/20 08:12 Dose: 1,220 units/hr, 24.4 mls/hr Documented by: Vancomycin HCl 1 gm/ Sodium (Chloride) 250 mls @ 250 mls/hr IV Q24H [facility] Piperacillin Sod/Tazobactam (Sod 4.5 gm/ Sodium Chloride) 100 mls @ 25 mls/hr IV Q8H [facility] Piperacillin Sod/Tazobactam (Sod 4.5 gm/ Sodium Chloride) 100 mls @ 200 mls/hr IV ONETIME ONE Stop: 04/22/20 12:44 Last Admin: 04/22/20 15:42 Dose: 200 mls/hr Documented by: Vancomycin HCl 1.5 gm/ Sodium (Chloride) 500 mls @ 333.333 mls/hr IV ONETIME ONE Stop: 04/22/20 14:29 Last Admin: 04/22/20 15:40 Dose: 333.333 mls/hr Documented by: Vancomycin HCl 1 gm/ Sodium (Chloride) 250 mls @ 250 mls/hr IV Q24H [facility] Last Admin: 04/23/20 14:30 Dose: 250 mls/hr Documented by: Vancomycin HCl 1.5 gm/ Sodium (Chloride) 500 mls @ 333.333 mls/hr IV ONETIME ONE Stop: 04/22/20 16:44 Last Admin: 04/22/20 19:02 Dose: Not Given Documented by: Piperacillin Sod/Tazobactam (Sod 4.5 gm/ Sodium Chloride) 100 mls @ 25 mls/hr IV Q8H [facility] Piperacillin Sod/Tazobactam (Sod 4.5 gm/ Sodium Chloride) 100 mls @ 25 mls/hr IV Q8H [facility] Last Admin: 04/23/20 07:36 Dose: Not Given Documented by: Piperacillin Sod/Tazobactam (Sod 4.5 gm/ Sodium Chloride) 100 mls @ 25 mls/hr IV Q8H [facility] Last Admin: 04/24/20 18:26 Dose: Not Given Documented by: Insulin Human Lispro (Humalog) 0 unit SUBCUT QIDACANDBED [facility]; Protocol Last Admin: 04/22/20 08:09 Dose: 1 units Documented by: Iopamidol (Isovue-370 (76%)) 100 ml IVPUSH ONETIME ONE Stop: 04/21/20 10:22 Last Admin: 04/21/20 11:05 Dose: 100 ml Documented by: Losartan Potassium (Cozaar) 12.5 mg PO ASDIRECTED [facility] Metoprolol Tartrate (Lopressor) 12.5 mg PO Q12H [facility] Last Admin: 04/24/20 10:17 Dose: 12.5 mg Documented by: Non-Formulary Medication (Magnesium [Magnesium]) 400 mg PO ASDIRECTED [facility] Sodium Chloride (Saline Flush) 10 ml FLUSH ONETIME PRN PRN Reason: IV FLUSH Stop: 04/21/20 13:00 Last Admin: 04/21/20 11:05 Dose: 10 ml Documented by: Vancomycin HCl (Vancomycin) Confirm Administered Dose 2 gm .ROUTE .STK-MED ONE Stop: 04/22/20 14:48 Last Admin: 04/22/20 19:19 Dose: Not Given Documented by: Warfarin Sodium (Pharmacy To Dose - Warfarin) 0 dose .XX ASDIRECTED PRN PRN Reason: RX TO DOSE WARFARIN Warfarin Sodium (Coumadin) 5 mg PO ONETIME ONE Stop: 04/14/20 20:31 Last Admin: 04/14/20 20:51 Dose: 5 mg Documented by: Warfarin Sodium (Coumadin) 7.5 mg PO QPM [facility] Stop: 04/15/20 21:00 Last Admin: 04/15/20 18:10 Dose: 7.5 mg Documented by: Warfarin Sodium (Coumadin) 5 mg PO ONETIME ONE Stop: 04/16/20 20:16 Last Admin: 04/16/20 20:46 Dose: 5 mg Documented by: Warfarin Sodium (Pharmacy To Dose - Warfarin) 0 dose .XX ASDIRECTED PRN PRN Reason: RX TO DOSE WARFARIN Warfarin Sodium (Coumadin) 5 mg PO QPM [facility] Stop: 04/17/20 18:01 Last Admin: 04/17/20 18:57 Dose: 5 mg Documented by: Warfarin Sodium (Coumadin Sliding Scale) 0 each PO QPM [facility] Stop: 04/18/20 18:01 Last Admin: 04/18/20 18:33 Dose: Not Given Documented by: Warfarin Sodium (Coumadin Sliding Scale) 0 each PO QPM [facility] Stop: 04/19/20 18:01 Last Admin: 04/19/20 18:04 Dose: Not Given Documented by: Warfarin Sodium (Coumadin) 1 mg PO QPM [facility] Stop: 04/20/20 18:01 Last Admin: 04/20/20 17:01 Dose: 1 mg Documented by: - Exam Quality Assessment: Supplemental Oxygen (High flow nasal cannula) General: Alert, Oriented HEENT: Pupils Equal, Mucous Membr. Moist/[place] Neck: Supple Lungs: Rales (Scattered worse in the lower lobes). No: Normal Respiratory Effort (Increased respiratory rate) Cardiovascular: Regular Rate, Regular Rhythm GI/Abdominal Exam: Normal Bowel Sounds, Soft, Non-Tender, No Distention Back Exam: Normal Inspection Extremities: Normal Inspection, Normal Range of Motion, Non-Tender, No Pedal Edema, Normal Capillary Refill Skin: Warm, Dry, Intact Neurological: No New Focal Deficit Psy/Mental Status: Alert, Normal Affect, Normal Mood Sepsis Event Note - Evaluation Sepsis Screening Result: Sepsis Risk - Focused Exam Vital Signs: Vital Signs Temp Pulse Resp BP Pulse Ox Pulse Ox 04/27/20 12:49 90 L 04/27/20 11:22 98.4 F 85 32 H 112/72 93 L 04/27/20 10:29 94 132/54 L 04/27/20 08:33 118/55 L 04/27/20 08:31 94 04/27/20 08:24 98.6 F 94 32 H 118/55 L 95 04/27/20 07:30 92 L 04/27/20 05:40 98.6 F 72 20 125/82 93 L 04/27/20 05:13 94 L - Problem List & Annotations (1) Pneumonia due to COVID-19 virus SNOMED Code(s): 269667640401868628 Code(s): U07.1 - COVID-19; J12.89 - OTHER VIRAL PNEUMONIA Status: Acute Current Visit: Yes (2) Chronic renal insufficiency, stage III (moderate) SNOMED Code(s): 918784772 Code(s): N18.30 - CHRONIC KIDNEY DISEASE, STAGE 3 UNSPECIFIED Status: Chronic Current Visit: Yes Qualifiers: Chronic kidney disease stage 3 subtype: stage 3b (GFR 30-44) Qualified Code(s): N18.32 - Chronic kidney disease, stage 3b (3) Pulmonary hypertension SNOMED Code(s): 06063487 Code(s): I27.20 - PULMONARY HYPERTENSION, UNSPECIFIED Status: Chronic Current Visit: Yes (4) HTN, Essential hypertension SNOMED Code(s): 00147230 Code(s): I10 - ESSENTIAL (PRIMARY) HYPERTENSION Status: Chronic Current Visit: No - Problem List Review Problem List Initiated/Reviewed/Updated: Yes - My Orders Last 24 Hours: My Active Orders 04/26/20 20:30 Digoxin [Lanoxin] 125 mcg PO DAILY 04/26/20 21:00 Saccharomyces Boulardii [Florastor] 500 mg PO BID 04/27/20 14:00 VANCOMYCIN TROUGH [CHEM] Timed 05/01/20 07:00 CBC W/O DIFF,HEMOGRAM [HEME] MOTH@0700 05/04/20 07:00 CBC W/O DIFF,HEMOGRAM [HEME] MOTH@0700 05/08/20 07:00 CBC W/O DIFF,HEMOGRAM [HEME] MOTH@0700 05/11/20 07:00 CBC W/O DIFF,HEMOGRAM [HEME] MOTH@0700 05/15/20 07:00 CBC W/O DIFF,HEMOGRAM [HEME] MOTH@0700 05/18/20 07:00 CBC W/O DIFF,HEMOGRAM [HEME] MOTH@0700 - Plan Plan:: Impression: PAF, recent A Fib with RVR S/P PICC line 2D echo, LVEF 60-65%; grade I diastolic dysfunction; RV mildly enlarged/mild RA dilatation/RV with WMA/Moderately reduced RV systolic function (changed cf RV function, 04/2019) Covid-19 PNA -no change; on high flow nasal cannula HCAP-empiric coverage (Vancomycin, Zosyn) Right side PEs (upper/lower lobe); UFH gtt; developed pulmonary emboli while supratherapeutic on warfarin. 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 S/P Chest CTA Elevated D Dimer d/t PEs; UFH gtt-appropriate PTT; Lovenox not used d/t renal function: Estimated GFR 36 Chronic Query Factor V Leiden; history of failed NOAC--thus VKA S/P [place] filter PHTN PCP PNA CKD, stage III Plan * Atovaquone 750 mg twice daily, first dose 04/19/2020 * Fingerstick blood sugars before every meal and before bedtime * Low-dose sliding scale insulin * Lasix 30 mg p.o. daily; * Follow CBC, CMP, mag, phosphorus, * FiO2 to keep SPO2 between 88 and 94%. Baseline: 4 L during the day and 2 L at night * Completed remdesivir, convalescent plasma, azithromycin, dexamethasone * Vanco/Zosyn adjust frequency per pharmacy. * Digoxin maintenance dose 125 mcg daily * Lopressor 12.5 mg every 8 hours, hold for HR<70 * Lopressor 5 mg every 6 hours prn HR> 120 * Resume Coumadin prior to DC with 48-72 hour overlap d/t hypoxemia * CODE STATUS: Full code * Heparin drip for new PE. * Consider transfer to long-term acute care facility because of continued high flow nasal cannula need for oxygenation. Patient lives at [facility] and primary care provider is Dr. Ludin Partida. She is refusing SNF.
[2020-04-27] MEDS: Heparin Sodium/D5W 25,000 UNITS/500 ML BAG IV SCH (21:44)
[2020-04-28] MEDS: Piperacillin/Tazobactam 4.5 GM in Sodium Chloride 0.9% 100 ML IV SCH ×3 (02:27→17:40)
[2020-04-28] MEDS: Metoprolol Tartrate 25 MG Tab PO SCH ×2 (02:29→09:44)
[2020-04-28] MEDS: Albuterol 0.083% 2.5 MG/3 ML Neb Soln NEB SCH (05:44)
[2020-04-28] MEDS: Insulin Lispro 100 Units/ML 3 ML Vial SUBCUT SCH ×3 (06:06→17:33)
[2020-04-28] MEDS: Pantoprazole 40 MG Tab.CR PO SCH (06:06)
[2020-04-28] MEDS: Saccharomyces Boulardii (Probiotic) 250 MG Cap PO SCH (08:54)
[2020-04-28] MEDS: Cholecalciferol (Vitamin D3) 25 MCG Tab PO SCH (08:54)
[2020-04-28] MEDS: hydrALAZINE 10 MG Tab PO SCH (08:56)
[2020-04-28] MEDS: Digoxin 125 MCG Tab PO SCH (08:56)
[2020-04-28] MEDS: Furosemide 20 MG Tab PO SCH (08:56)
[2020-04-28] MEDS: Magnesium Oxide 400 MG Tab PO SCH (08:56)
[2020-04-28] MEDS: Potassium Chloride 20 MEQ Tab.ER PO SCH (08:57)
[2020-04-28] MEDS: ATOVAQUONE 750 MG/5 ML PO SCH (09:43)
[2020-04-28] MEDS: Losartan 25 MG Tab PO SCH (09:43)
[2020-04-28 16:03] VITALS: BP 111/60; PULSE 87
--- NOTE | 2020-04-28 17:30 | PCM.DCSUM1 ---
Discharge Summary - Hospital Course HPI Initial Comments: 84-year-old female who is oxygen dependent secondary to 2 previous episodes of pulmonary embolism within 2 weeks, failing Eliquis the first time and being put on warfarin, presented to the outpatient clinic with worsening shortness of breath, fatigue, cough, and dyspnea on exertion. Patient was diagnosed yesterday with Covid and first developed symptoms, fatigue, 2 days ago. She states today she became more short of breath with activity but at rest she feels like she is at baseline. During the days she is often on 4 L via nasal cannula because she generally desaturates with activity. At night she is only on 2 L/min via nasal cannula. She does have a history of mild congestive heart failure and states that she takes furosemide 40 mg alternating with 20 mg daily. She states she was on higher doses and spironolactone in the past. In the emergency department her oxygen saturation was 100% on 3 L via nasal cannula. She denies any fevers or chills at home. She has a mildly productive cough. Patient does state that she has a poor appetite and has not eaten much. She had fish for lunch and was only able to eat half of it. Assessment 84-year-old female with 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 * X-ray is consistent with a groundglass opacity in the left lung also elevated right hemidiaphragm. This will make treatment more difficult because of the reduced pulmonary capacity. Patient also has underlying lung disease requiring supplemental O2 from pulmonary emboli, history of congestive heart failure, LVH via EKG criteria, and hypertension. This places the patient at high risk for poor outcome regarding pneumonia caused by COVID-19. Karina bunn patient is early on in the course of the infection with symptoms only starting 2 days ago. She is also on warfarin hopefully reducing the risk for micro emboli. Fortunately it appears her heart failure is well controlled with a normal proBNP. * WBC is 4.95, INR 2.21, CRP 8.8, AST 43, ALT 40, LDH 351, proBNP 829, lactic acid 0.8, troponin less than 0.017 * I anticipate patient will have a high risk for worsening. She is very early on in the disease and generally the inflammatory response starts 5 to 10 days after initial symptoms. With aggressive treatment early on we could possibly prevent progression to the severe inflammatory component. Stage III chronic renal insufficiency Hypertension * Estimated GFR 36 which appears stable over the last year. Creatinine 1.4, BUN 26, 1+ protein on UA * Currently on losartan and Lasix History of pulmonary embolism on warfarin for anticoagulation Factor V deficiency positive * INR 2.21 * Coumadin alternating 7.5 and 5 mg daily Plan * Admit to medical floor on telemetry and continuous pulse ox * Start Covid specific treatment with remdesivir, convalescent plasma, and dexa methasone. * 1 unit convalescent plasma on admission and then the second unit 12 hours later to decrease risk for volume overload * Continue home meds * Follow CBC, CMP, mag, phosphorus, D-dimer, CRP * Antibiotics not necessary at this time. * CODE STATUS: Full code * VTE prophylaxis with warfarin Patient lives at [facility] and primary care provider is Dr. Ludin Partida. - Mortality Measure Prognosis:: Poor Diagnosis: Stroke: No - Discharge Data Discharge Date: 04/28/20 Discharge Disposition: DC/Tfer to Acute Hospital 02 Condition: Fair - Referral to Home Health Primary Care Physician: Ludin Burk MD - Discharge Diagnosis/Problem(s) (1) Pneumonia due to COVID-19 virus SNOMED Code(s): 158971017711824492 ICD Code: U07.1 - COVID-19; J12.89 - OTHER VIRAL PNEUMONIA Status: Acute (2) Chronic renal insufficiency, stage III (moderate) SNOMED Code(s): 102919385 ICD Code: N18.30 - CHRONIC KIDNEY DISEASE, STAGE 3 UNSPECIFIED Status: Chronic Qualifiers: Chronic kidney disease stage 3 subtype: stage 3b (GFR 30-44) Qualified Code(s): N18.32 - Chronic kidney disease, stage 3b (3) Pulmonary hypertension SNOMED Code(s): 77234060 ICD Code: I27.20 - PULMONARY HYPERTENSION, UNSPECIFIED Status: Chronic (4) HTN, Essential hypertension SNOMED Code(s): 06685759 ICD Code: I10 - ESSENTIAL (PRIMARY) HYPERTENSION Status: Chronic - Patient Summary/Data Consults: Consultations 04/14/20 17:33 PT Evaluation and Treatment [CONS] Routine 04/21/20 09:00 Consult to Spiritual Care [CONS] Routine Hospital Course: Patient admitted with COVID-19 pneumonia. She was given remdesivir, convalescent plasma, and dexamethasone. She received full courses of each. Patient had worsening of oxygenation and required going on high flow nasal cannula. Patient then developed multiple pulmonary emboli in the right lung while she was on warfarin with a supratherapeutic INR between 3 and 4. Patient was switched to heparin drip on April 21, 2020. On April 24, 2020 she was started on Zosyn and vancomycin secondary to concerns about healthcare associated pneumonia. She will complete 7 days on May 01, 2020. Patient also went into paroxysmal atrial fibrillation. She had a low dose load of digoxin and is currently on digoxin 0.125 mg in the morning. She is due for a digoxin level tomorrow morning, April 29. Echocardiogram was performed:2D echo, LVEF 60-65%; grade I diastolic dysfunction; RV mildly enlarged/mild RA dilatation/RV with WMA/Moderately reduced RV systolic function. Over the last few days she continues on high flow nasal cannula but we have been able to wean that slowly to its current levels of 55 L at 35%. Patient will need long-term treatment and weaning of her high flow nasal cannula. Patient will be transferred to long-term acute care hospital. Impression: PAF, recent A Fib with RVR S/P PICC line 2D echo, LVEF 60-65%; grade I diastolic dysfunction; RV mildly enlarged/mild RA dilatation/RV with WMA/Moderately reduced RV systolic function (changed cf RV function, 04/2019) Covid-19 PNA -no change; on high flow nasal cannula HCAP-empiric coverage (Vancomycin, Zosyn) Right side PEs (upper/lower lobe); UFH gtt; developed pulmonary emboli while supratherapeutic on warfarin. 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 S/P Chest CTA Elevated D Dimer d/t PEs; UFH gtt-appropriate PTT; Lovenox not used d/t renal function: Estimated GFR 36 Chronic Query Factor V Leiden; history of failed NOAC--thus VKA S/P Frances filter PHTN PCP PNA CKD, stage III Plan * Atovaquone 750 mg twice daily, first dose 04/19/2020 * Fingerstick blood sugars before every meal and before bedtime * Low-dose sliding scale insulin * Lasix 30 mg p.o. daily; * Follow CBC, CMP, mag, phosphorus, * FiO2 to keep SPO2 between 88 and 94%. Baseline: 4 L during the day and 2 L at night * Completed remdesivir, convalescent plasma, azithromycin, dexamethasone * Vanco/Zosyn adjust frequency per pharmacy. * Digoxin maintenance dose 125 mcg daily * Lopressor 12.5 mg every 8 hours, hold for HR<70 * Lopressor 5 mg every 6 hours prn HR> 120 * Resume Coumadin prior to DC with 48-72 hour overlap d/t hypoxemia * CODE STATUS: Full code * Heparin drip for new PE. * Consider transfer to long-term acute care facility because of continued high flow nasal cannula need for oxygenation. Patient lives at [facility] and primary care provider is Dr. Ludin Partida. - Discharge Plan *PRESCRIPTION DRUG MONITORING PROGRAM REVIEWED*: Not Applicable *COPY OF PRESCRIPTION DRUG MONITORING REPORT IN PATIENT ANTONETTE: Not Applicable Home Medications: Home Meds Cholecalciferol (Vitamin D3) [Vitamin D3] 5,000 unit PO DAILY 05/10/14 [History] Glucosamine/Chondro Herrera A [Cosamin DS] 1 each PO BID 05/10/14 [History] Omeprazole [Prilosec] 40 mg PO DAILY 05/10/14 [History] Furosemide [Lasix] 20 mg PO DAILY 03/14/16 [History] Potassium Chloride 20 meq PO DAILY 07/01/19 [History] Albuterol Sulfate 2.5 mg IH ASDIRECTED 04/14/20 [History] Ferrous Gluconate 324 mg PO ASDIRECTED 04/14/20 [History] Losartan Potassium 12.5 mg PO ASDIRECTED 04/14/20 [History] Magnesium 400 mg PO ASDIRECTED 04/14/20 [History] Warfarin [Coumadin] 7.5 mg PO ASDIRECTED 04/14/20 [History] Zolpidem Tartrate [Ambien] 2.5 mg PO BEDTIME PRN 04/14/20 [History] Oxygen Therapy Mode: High Humidity, High Flow Therapy Oxygen Flow Rate (L/min): 55 FiO2: 35 Maintain SPO2% less than: 95 Maintain SpO2% greater than: 87 Patient Handouts: Type 2 Diabetes Mellitus, Diagnosis, Adult, COVID-19, Heart Failure Action Plan, Sepsis, Diagnosis, Adult, Heart Failure, Diagnosis Referrals: Ludin Burk MD [Primary Care Provider] - - Discharge Summary/Plan Comment DC Time >30 min.: Yes Discharge Summary/Plan Comment: Transfer to [facility] in stable condition. - General Info Date of Service: 04/28/20 Admission Dx/Problem (Free Text: Admission Diagnosis/Problem Admission Diagnosis/Problem Dyspnea Subjective Update: Patient states that she is feeling better. She is able to walk but does desat into the 70s. Functional Status: Reports: Pain Controlled - Review of Systems General: Reports: Fatigue Pulmonary: Reports: Shortness of Breath, Cough Cardiovascular: Reports: No Symptoms Gastrointestinal: Reports: No Symptoms Musculoskeletal: Reports: No Symptoms Skin: Reports: No Symptoms Neurological: Reports: No Symptoms Psychiatric: Reports: No Symptoms - Patient Data Vitals - Most Recent: Last Vital Signs Temp 98.4 F 04/28/20 16:00 Pulse 87 04/28/20 16:00 Resp 20 04/28/20 16:00 BP 111/60 04/28/20 16:00 Pulse Ox 94 L 04/28/20 16:00 Weight - Most Recent: 151 lb 14.4 oz I&O - Last 24 hours: Intake & Output 04/28/20 04/28/20 04/28/20 06:59 14:59 22:59 Intake Total 1056 900 568 Output Total 1100 675 Balance -44 900 -107 Lab Results - Last 24 hrs: Laboratory Results - last 24 hr 04/27/20 04/27/20 04/28/20 Range/Units 18:03 21:09 06:06 APTT 55.8 H (21.7-31.4) SECONDS POC Glucose 177 H 125 H (83-110) mg/dL 04/28/20 Range/Units 10:51 APTT (21.7-31.4) SECONDS POC Glucose 196 H (83-110) mg/dL Med Orders - Current: Current Medications Acetaminophen (Tylenol) 650 mg PO Q4H PRN PRN Reason: Pain Last Admin: 04/14/20 16:02 Dose: 650 mg Documented by: Albuterol (Proventil Neb Soln) 2.5 mg NEB TIDRT [facility] Last Admin: 04/28/20 05:44 Dose: 2.5 mg Documented by: Cholecalciferol (Vitamin D3) 125 mcg PO DAILY [facility] Last Admin: 04/28/20 08:54 Dose: 125 mcg Documented by: Dextrose/Water (Dextrose 50% In Water) 50 ml IV ASDIRECTED PRN PRN Reason: Hypoglycemia Digoxin (Lanoxin) 125 mcg PO DAILY [facility] Last Admin: 04/28/20 08:56 Dose: 125 mcg Documented by: Furosemide (Lasix) 30 mg PO DAILY [facility] Last Admin: 04/28/20 08:56 Dose: 30 mg Documented by: Hydralazine HCl (Apresoline) 10 mg PO Q12HR [facility] Last Admin: 04/28/20 08:56 Dose: 10 mg Documented by: Heparin Sodium/Dextrose (Heparin 25,000 Units In D5w 500 Ml) 25,000 units in 500 mls @ 12 mls/hr IV TITRATE [facility]; Protocol Last Admin: 04/27/20 21:44 Dose: 895 units/hr, 17.9 mls/hr Documented by: Piperacillin Sod/Tazobactam (Sod 4.5 gm/ Sodium Chloride) 100 mls @ 25 mls/hr IV Q8H [facility] Last Admin: 04/28/20 08:49 Dose: 25 mls/hr Documented by: Vancomycin HCl 1 gm/ Sodium (Chloride) 250 mls @ 250 mls/hr IV Q18H [facility] Last Admin: 04/28/20 15:51 Dose: 250 mls/hr Documented by: Insulin Human Lispro (Humalog) 0 unit SUBCUT QIDACANDBED [facility]; Protocol Last Admin: 04/28/20 15:19 Dose: Not Given Documented by: Losartan Potassium (Cozaar) 12.5 mg PO DAILY [facility] Last Admin: 04/28/20 09:43 Dose: 12.5 mg Documented by: Magnesium Oxide (Magnesium Oxide) 400 mg PO BID [facility] Last Admin: 04/28/20 08:56 Dose: 400 mg Documented by: Metoprolol Tartrate (Lopressor) 5 mg IVPUSH Q4H PRN PRN Reason: HR>120 Last Admin: 04/24/20 08:43 Dose: 5 mg Documented by: Metoprolol Tartrate (Lopressor) 12.5 mg PO Q8H [facility] Last Admin: 04/28/20 09:44 Dose: 12.5 mg Documented by: Atovaquone 750 Mg/5 (Ml Ptom) 0 each PO BID [facility] Last Admin: 04/28/20 09:43 Dose: 5 each Documented by: Ondansetron HCl (Zofran) 4 mg IV Q4H PRN PRN Reason: Nausea/Vomiting Ondansetron HCl (Zofran Odt) 4 mg PO Q4H PRN PRN Reason: nausea, able to take PO Pantoprazole Sodium (Protonix) 40 mg PO DAILY@0700 [facility] Last Admin: 04/28/20 06:06 Dose: 40 mg Documented by: Potassium Chloride (Klor-Con M20) 20 meq PO DAILY [facility] Last Admin: 04/28/20 08:57 Dose: 20 meq Documented by: Saccharomyces Boulardii (Florastor) 500 mg PO BID [facility] Last Admin: 04/28/20 08:54 Dose: 500 mg Documented by: Vancomycin HCl (Pharmacy To Dose - Vancomycin) 1 dose .XX ASDIRECTED PRN PRN Reason: RX TO DOSE VANCO Zolpidem Tartrate (Ambien) 2.5 mg PO BEDTIME PRN PRN Reason: Insomnia Discontinued Medications Albuterol (Proventil Neb Soln) 2.5 mg NEB TID [facility] Albuterol (Proventil Neb Soln) 2.5 mg NEB TIDRT [facility] Albuterol (Proventil Neb Soln) Confirm Administered Dose 2.5 mg .ROUTE .STK-MED ONE Stop: 04/16/20 01:20 [facility] Last Admin: 04/16/20 05:39 Dose: Not Given Documented by: Dexamethasone (Dexamethasone) 6 mg PO Q24H [facility] Stop: 04/23/20 18:01 Last Admin: 04/23/20 17:20 Dose: 6 mg Documented by: Digoxin (Lanoxin) 250 mcg PO Q8H [facility] Stop: 04/25/20 13:01 Last Admin: 04/25/20 13:27 Dose: 250 mcg Documented by: Furosemide (Lasix) 20 mg IVPUSH ONETIME ONE Stop: 04/16/20 12:46 Last Admin: 04/16/20 12:59 Dose: 20 mg Documented by: Furosemide (Lasix) 20 mg IVPUSH NOW ONE Stop: 04/25/20 08:37 Last Admin: 04/25/20 10:01 Dose: 20 mg Documented by: Heparin Sodium (Porcine) (Heparin Sodium) 2,500 units IVPUSH ONETIME ONE Stop: 04/21/20 17:01 Last Admin: 04/21/20 16:59 Dose: 2,500 units Documented by: Heparin Sodium (Porcine) (Heparin Sodium) 2,500 units IVPUSH ONETIME ONE Stop: 04/22/20 08:04 Last Admin: 04/22/20 08:11 Dose: 2,500 units Documented by: Heparin Sodium (Porcine) (Heparin Sodium) 1,400 units IVPUSH .BOLUS ONE Stop: 04/26/20 08:01 Last Admin: 04/26/20 08:17 Dose: 1,400 units Documented by: Heparin Sodium (Porcine) (Heparin Sodium) 1,450 units IVPUSH .BOLUS ONE Stop: 04/27/20 06:41 Last Admin: 04/27/20 06:48 Dose: 1,450 units Documented by: Dextrose/Sodium Chloride (Dextrose 5%-Normal Saline) 1,000 mls @ 100 mls/hr IV ASDIRECTED [facility] Last Admin: 04/15/20 05:45 Dose: 100 mls/hr Documented by: Remdesivir 200 mg/ Sodium (Chloride) 250 mls @ 250 mls/hr IV ONETIME ONE Stop: 04/14/20 17:34 Last Admin: 04/14/20 18:32 Dose: 250 mls/hr Documented by: Remdesivir 100 mg/ Sodium (Chloride) 100 mls @ 100 mls/hr IV Q24H [facility] Stop: 04/18/20 19:59 Last Admin: 04/18/20 18:33 Dose: 100 mls/hr Documented by: Sodium Chloride (Normal Saline) 250 mls @ 50 mls/hr IV ASDIRECTED [facility] Ceftriaxone Sodium 2 gm/ (Sodium Chloride) 100 mls @ 200 mls/hr IV Q24H [facility] Stop: 04/20/20 09:59 Last Admin: 04/20/20 08:30 Dose: 200 mls/hr Documented by: Azithromycin 500 mg/ Sodium (Chloride) 250 mls @ 250 mls/hr IV Q24H [facility] Stop: 04/18/20 10:59 Last Admin: 04/18/20 09:31 Dose: 250 mls/hr Documented by: Sodium Chloride (Normal Saline) 100 mls @ 75 mls/hr IV ASDIRECTED [facility] Stop: 04/21/20 13:00 Last Admin: 04/21/20 11:05 Dose: 75 mls/hr Documented by: Heparin Sodium/Dextrose (Heparin 25,000 Units In D5w 500 Ml) 25,000 units in 500 mls @ 16 mls/hr IV TITRATE [facility]; Protocol Last Titration: 04/22/20 08:12 Dose: 1,220 units/hr, 24.4 mls/hr Documented by: Vancomycin HCl 1 gm/ Sodium (Chloride) 250 mls @ 250 mls/hr IV Q24H [facility] Piperacillin Sod/Tazobactam (Sod 4.5 gm/ Sodium Chloride) 100 mls @ 25 mls/hr IV Q8H [facility] Piperacillin Sod/Tazobactam (Sod 4.5 gm/ Sodium Chloride) 100 mls @ 200 mls/hr IV ONETIME ONE Stop: 04/22/20 12:44 Last Admin: 04/22/20 15:42 Dose: 200 mls/hr Documented by: Vancomycin HCl 1.5 gm/ Sodium (Chloride) 500 mls @ 333.333 mls/hr IV ONETIME ONE Stop: 04/22/20 14:29 Last Admin: 04/22/20 15:40 Dose: 333.333 mls/hr Documented by: Vancomycin HCl 1 gm/ Sodium (Chloride) 250 mls @ 250 mls/hr IV Q24H [facility] Last Admin: 04/23/20 14:30 Dose: 250 mls/hr Documented by: Vancomycin HCl 1.5 gm/ Sodium (Chloride) 500 mls @ 333.333 mls/hr IV ONETIME ONE Stop: 04/22/20 16:44 Last Admin: 04/22/20 19:02 Dose: Not Given Documented by: Piperacillin Sod/Tazobactam (Sod 4.5 gm/ Sodium Chloride) 100 mls @ 25 mls/hr IV Q8H [facility] Piperacillin Sod/Tazobactam (Sod 4.5 gm/ Sodium Chloride) 100 mls @ 25 mls/hr IV Q8H [facility] Last Admin: 04/23/20 07:36 Dose: Not Given Documented by: Piperacillin Sod/Tazobactam (Sod 4.5 gm/ Sodium Chloride) 100 mls @ 25 mls/hr IV Q8H [facility] Last Admin: 04/24/20 18:26 Dose: Not Given Documented by: Vancomycin HCl 1 gm/ Sodium (Chloride) 250 mls @ 250 mls/hr IV Q18H [facility] Last Admin: 04/27/20 15:26 Dose: Not Given Documented by: Insulin Human Lispro (Humalog) 0 unit SUBCUT QIDACANDBED [facility]; Protocol Last Admin: 04/22/20 08:09 Dose: 1 units Documented by: Iopamidol (Isovue-370 (76%)) 100 ml IVPUSH ONETIME ONE Stop: 04/21/20 10:22 Last Admin: 04/21/20 11:05 Dose: 100 ml Documented by: Losartan Potassium (Cozaar) 12.5 mg PO ASDIRECTED [facility] Metoprolol Tartrate (Lopressor) 12.5 mg PO Q12H [facility] Last Admin: 04/24/20 10:17 Dose: 12.5 mg Documented by: Non-Formulary Medication (Magnesium [Magnesium]) 400 mg PO ASDIRECTED [facility] Sodium Chloride (Saline Flush) 10 ml FLUSH ONETIME PRN PRN Reason: IV FLUSH Stop: 04/21/20 13:00 Last Admin: 04/21/20 11:05 Dose: 10 ml Documented by: Vancomycin HCl (Vancomycin) Confirm Administered Dose 2 gm .ROUTE .STK-MED ONE Stop: 04/22/20 14:48 Last Admin: 04/22/20 19:19 Dose: Not Given Documented by: Warfarin Sodium (Pharmacy To Dose - Warfarin) 0 dose .XX ASDIRECTED PRN PRN Reason: RX TO DOSE WARFARIN Warfarin Sodium (Coumadin) 5 mg PO ONETIME ONE Stop: 04/14/20 20:31 Last Admin: 04/14/20 20:51 Dose: 5 mg Documented by: Warfarin Sodium (Coumadin) 7.5 mg PO QPM [facility] Stop: 04/15/20 21:00 Last Admin: 04/15/20 18:10 Dose: 7.5 mg Documented by: Warfarin Sodium (Coumadin) 5 mg PO ONETIME ONE Stop: 04/16/20 20:16 Last Admin: 04/16/20 20:46 Dose: 5 mg Documented by: Warfarin Sodium (Pharmacy To Dose - Warfarin) 0 dose .XX ASDIRECTED PRN PRN Reason: RX TO DOSE WARFARIN Warfarin Sodium (Coumadin) 5 mg PO QPM [facility] Stop: 04/17/20 18:01 Last Admin: 04/17/20 18:57 Dose: 5 mg Documented by: Warfarin Sodium (Coumadin Sliding Scale) 0 each PO QPM [facility] Stop: 04/18/20 18:01 Last Admin: 04/18/20 18:33 Dose: Not Given Documented by: Warfarin Sodium (Coumadin Sliding Scale) 0 each PO QPM [facility] Stop: 04/19/20 18:01 Last Admin: 04/19/20 18:04 Dose: Not Given Documented by: Warfarin Sodium (Coumadin) 1 mg PO QPM [facility] Stop: 04/20/20 18:01 Last Admin: 04/20/20 17:01 Dose: 1 mg Documented by: - Exam Quality Assessment: Reports: Supplemental Oxygen (High flow nasal cannula) General: Reports: Alert, Oriented HEENT: Reports: Pupils Equal, Mucous Membr. Moist/[place] Neck: Reports: Supple Lungs: Reports: Decreased Breath Sounds, Rales (Bibasilar and throughout). Denies: Normal Respiratory Effort (Increased respiratory rate and effort) Cardiovascular: Reports: Regular Rate, Regular Rhythm GI/Abdominal Exam: Normal Bowel Sounds, Soft, Non-Tender, No Organomegaly, No Distention, No Abnormal Bruit Extremities: Normal Inspection, Normal Range of Motion, Non-Tender, Normal Capillary Refill, Pedal Edema (1+) Skin: Reports: Warm, Dry, Intact Psy/Mental Status: Reports: Alert, Normal Affect, Normal Mood
== END 2020-04-28 17:45 | DRG 177 ==
LOC: JD.ED 14:29 → JD.MS 16:54
PROVIDERS: ADMIT Family Medicine; ATTEND Family Medicine
PROC: 8E0ZXY6 Isolation (ICD-10-PCS; principal; 2020-04-14)
PROC: XW13325 Transfusion of Convalescent Plasma (Nonautologous) into Peripheral Vein, Percutaneous Approach, New Technology Group 5 (ICD-10-PCS; 2020-04-14)
PROC: XW033E5 Introduction of Remdesivir Anti-infective into Peripheral Vein, Percutaneous Approach, New Technology Group 5 (ICD-10-PCS; 2020-04-14)
PROC: 02H633Z Insertion of Infusion Device into Right Atrium, Percutaneous Approach (ICD-10-PCS; 2020-04-22)
PROC: B548ZZA Ultrasonography of Superior Vena Cava, Guidance (ICD-10-PCS; 2020-04-22)
PROC: 5A0955A Assistance with Respiratory Ventilation, Greater than 96 Consecutive Hours, High Flow/Velocity Cannula (ICD-10-PCS; 2020-04-26)
DX: U07.1 COVID-19 (principal); J12.89 Other viral pneumonia; I26.99 Other pulmonary embolism without acute cor pulmonale; I13.0 Hypertensive heart and chronic kidney disease with heart failure and stage 1 through stage 4 chronic kidney disease, or unspecified chronic kidney disease; D68.51 Activated protein C resistance; Z86.711 Personal history of pulmonary embolism; J84.9 Interstitial pulmonary disease, unspecified; I50.9 Heart failure, unspecified; N18.32 Chronic kidney disease, stage 3b; I27.20 Pulmonary hypertension, unspecified; Z99.81 Dependence on supplemental oxygen; I48.0 Paroxysmal atrial fibrillation; E78.00 Pure hypercholesterolemia, unspecified; K21.9 Gastro-esophageal reflux disease without esophagitis; R73.9 Hyperglycemia, unspecified; T38.0X5A Adverse effect of glucocorticoids and synthetic analogues, initial encounter; E88.09 Other disorders of plasma-protein metabolism, not elsewhere classified; Z79.01 Long term (current) use of anticoagulants; Z88.8 Allergy status to other drugs, medicaments and biological substances; Z79.899 Other long term (current) drug therapy; Z90.49 Acquired absence of other specified parts of digestive tract; Z90.710 Acquired absence of both cervix and uterus; Z98.49 Cataract extraction status, unspecified eye; Z86.718 Personal history of other venous thrombosis and embolism
CPT/HCPCS: 36415; 71045; 80053; 82728; 83605; 83615; 83735; 83880; 84145; 84484; 85025; 85610; 85652; 85730; 86140; 86900; 86901; 87040 ×2; 93005; 94762 ×2; 99285; A9270; J7042; 36410; 36430; 36569; 36573; 36600; 51702; 71046; 71046-26; 71275; 71275-26; 80048; 80202; 81001; 82803; 82947; 82962; 84100; 85379; 86738; 87070; 87086; 87088; 87186; 87205; 87641; 87899; 93306; 94640; 94667; 94668; 94761; 97110-GP; 97162-GP; 97530-GP; 99222; 99232; 99239; C1751; J0456; J0696; J1644; J1815-GY; J1940; J2543; J3370; J3490; J7040; J7050; J8540; P9017; Q9967

== ENCOUNTER 2020-06-22 16:41 | Inpatient (IN) | payer MEDICARE, OTHER ==
[2020-06-22] MEDS ORDERED: Sodium Chloride 0.9% 10 ML Syringe FLUSH PRN (17:26)
[2020-06-22] MEDS ORDERED: cefTRIAXone 2 GM in Sodium Chloride 0.9% 100 ML IV ONE (17:26)
[2020-06-22] MEDS ORDERED: Lidocaine 1% 2 ML ONE (18:19)
--- NOTE | 2020-06-22 18:42 | PCM.SN.2 ---
- Free Text/Narrative Note: 06/22/20 [id number] IV started times 1 attempt right thumb wrist area with 22 guage. Flushes well and secured with tape and op site
[2020-06-22] MEDS ORDERED: Piperacillin/Tazobactam 4.5 GM in Sodium Chloride 0.9% 100 ML IV ONE (18:45)
[2020-06-22] MEDS ORDERED: oxyCODONE 5 MG Tab PO PRN (18:46)
[2020-06-22] MEDS ORDERED: Ondansetron 4 MG/2 ML SDV IV PRN (18:46)
[2020-06-22] MEDS ORDERED: Acetaminophen 325 MG Tab PO PRN (18:46)
--- NOTE | 2020-06-22 18:53 | PCM.HP.2 ---
H&P History of Present Illness - General Date of Service: 06/22/20 Admit Problem/Dx: Admission Diagnosis/Problem Admission Diagnosis/Problem Weakness - History of Present Illness Initial Comments - Free Text/Narative: 84-year-old female who presented to her primary care provider with worsening fatigue and weakness over the last 2 weeks. Patient was admitted to our institution in April for 2 weeks secondary to COVID-19. She was then transferred to [facility] for long-term acute care on high flow nasal cannula. Patient spent the next 6 weeks at [facility] and was discharged on June 07. Patient was discharged early secondary to the holidays and wanting to see family. Over the last several days she has had episodes of syncope, decreased appetite, and fatigue. Review of her clinic chart shows she was seen on Zyvox and Levaquin until 06/21/2020. She was seen by JANE Marx on June 15, 2020 for follow-up of her stay at [facility]. At that time chest x-ray impression was bilateral densities pneumonia versus Covid. Patient was started on sildenafil 20 mg p.o. 3 times daily for chronic pulmonary hypertension. She continues on prednisone 20 mg twice daily. There was concern about worsening CHF and CKD. At that time they did discuss hospice and comfort interventions, but they were not ready for that discussion at that time. INR was low at 1.28 but they had just increased the dose earlier that week. On the way from the clinic to the hospital patient did stop for a lab work and her initial hemoglobin was 7.6 with a repeat of 7.5. Platelets were 127 with repeat of 107, and INR was 5.75. Blood gas was essentially normal on 4 L nasal cannula except for a PO2 of 61. Lactic acid in route was 5.7 and repeat on the floor was 6.6. Patient was started on fluid boluses at that time. Patient also states that she did have several loose stools over the last few days. No abdominal pain or vomiting. - Related Data Allergies/Adverse Reactions: Allergies Allergy/AdvReac Type Severity Reaction Status Date / Time naproxen Allergy Intermediate Rash Verified 04/15/20 08:02 Home Medications: Home Meds Cholecalciferol (Vitamin D3) [Vitamin D3] 5,000 unit PO DAILY 05/10/14 [History] Furosemide [Lasix] 20 mg PO DAILY 03/14/16 [History] Potassium Chloride 20 meq PO DAILY 07/01/19 [History] Ferrous Gluconate 325 mg PO DAILY 04/14/20 [History] Warfarin [Coumadin] 3.5 mg PO ASDIRECTED 04/14/20 [History] Ascorbic Acid 500 mg PO DAILY 06/22/20 [History] Atovaquone 750 mg PO BID 06/22/20 [History] Digoxin 125 mcg PO DAILY 06/22/20 [History] L.acidoph,Paracasei, B.lactis [Probiotic] 1 each PO DAILY 06/22/20 [History] Magnesium Oxide [Mag-Oxide] 200 mg PO ASDIRECTED 06/22/20 [History] Montelukast [Singulair] 10 mg PO DAILY 06/22/20 [History] Nystatin 100,000 unit PO QID 06/22/20 [History] Pantoprazole Sodium [Protonix] 40 mg PO BID 06/22/20 [History] Rosuvastatin Calcium 10 mg PO DAILY 06/22/20 [History] predniSONE 10 mg PO BEDTIME 06/22/20 [History] predniSONE [Prednisone] 20 mg PO ACBREAKFAST 06/22/20 [History] Past Medical History HEENT History: Reports: Cataract, Other (See Below) Other HEENT History: wears glasses Cardiovascular History: Reports: Blood Clots/VTE/DVT, High Cholesterol Other Cardiovascular History: bilateral PEs Respiratory History: Reports: PE, SOB Other Respiratory History: wears 4L O2 during day and 4L O2 at night Gastrointestinal History: Reports: GERD [employer]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 positive covid 04/12 - Past Surgical History HEENT Surgical History: Reports: Cataract Surgery Cardiovascular Surgical History: Reports: Other (See Below) Other Cardiovascular Surgeries/Procedures: IVC filter GI Surgical History: Reports: Appendectomy, Cholecystectomy Female Surgical History: Reports: Hysterectomy Musculoskeletal Surgical History: Reports: None Social & Family History - Family History Family Medical History: No Pertinent Family History - Tobacco Use Tobacco Use Status *Q: Never Tobacco User - Caffeine Use Caffeine Use: Reports: None - Recreational Drug Use Recreational Drug Use: No - Living Situation & Occupation Living situation: Reports: Occupation: Retired (Both her and her are currently living at [facility] --assisted living [place] H&P Review of Systems - Review of Systems: Review Of Systems: See Below General: Reports: Malaise, Weakness, Fatigue, Decreased Appetite. Denies: Fever, Chills HEENT: Reports: No Symptoms Pulmonary: Reports: Shortness of Breath, Wheezing, Cough. Denies: Hemoptysis Cardiovascular: Reports: Dyspnea on Exertion, Edema, Syncope. Denies: Chest Pain, Palpitations, Orthopnea Gastrointestinal: Reports: Anorexia, Diarrhea. Denies: Abdominal Pain, Black Stool, Bloody Stool Musculoskeletal: Reports: Back Pain Psychiatric: Reports: Depression. Denies: Anxiety Neurological: Reports: Syncope. Denies: Confusion, Seizure, Trouble Speaking Hematologic/Lymphatic: Reports: No Symptoms Immunologic: Reports: No Symptoms Exam - Exam Exam: See Below - Vital Signs Vital Signs: Last Vital Signs Temp 97.7 F 06/22/20 17:08 Pulse 108 H 06/22/20 17:10 Resp 24 H 06/22/20 17:10 BP 120/60 06/22/20 17:08 Pulse Ox 92 L 06/22/20 17:10 Weight: 141 lb 1.6 oz - Exam Quality Assessment: Supplemental Oxygen General: Alert, Oriented HEENT: Conjunctiva Clear, EOMI, Hearing Intact, Normal Nasal Septum. No: Mucosa Moist & [place] (Moist but pale), Scleral Icterus Neck: Supple, Trachea Midline Lungs: Decreased Breath Sounds, Crackles, Wheezing. No: Normal Respiratory Effort (Increased rate and effort) Cardiovascular: Irregular Rhythm (Irregular) GI/Abdominal Exam: Normal Bowel Sounds, Soft, Non-Tender, No Organomegaly, No Distention, No Abnormal Bruit, No Mass Back Exam: Normal Inspection Extremities: Normal Inspection, Non-Tender, Normal Capillary Refill (Less than 2 seconds), Pedal Edema (1-2+) Skin: Warm, Dry, Intact Psychiatric: Alert, Depressed - Patient Data Lab Results Last 24 hrs: Laboratory Results - last 24 hr 06/22/20 06/22/20 06/22/20 Range/Units 18:00 18:00 18:00 WBC 7.84 (3.98-10.04) K/mm3 RBC 2.56 L (3.98-5.22) M/mm3 Hgb 7.5 L (11.2-15.7) gm/dl Hct 23.2 L (34.1-44.9) % MCV 90.6 (79.4-94.8) fl MCH 29.3 (25.6-32.2) pg MCHC 32.3 (32.2-35.5) g/dl RDW Std Deviation 46.0 (36.4-46.3) fL Plt Count 107 L (182-369) K/mm3 MPV 10.8 (9.4-12.3) fl Neutrophils % (Manual) 68 H (40-60) % Band Neutrophils % 0 (0-10) % Lymphocytes % (Manual) 28 (20-40) % Atypical Lymphs % 0 % Monocytes % (Manual) 1 L (2-10) % Eosinophils % (Manual) 3 (0.7-5.8) % Basophils % (Manual) 0 L (0.1-1.2) Toxic Granulation Few Platelet Estimate Decreased Plt Morphology Comment See note Hypochromasia 1+ slight PT 59.5 H* D (9.7-12.0) SECONDS INR 5.75 H* Puncture Site ABG pH (7.35-7.45) ABG pCO2 (35.0-45.0) mmHg ABG pO2 (80.0-100.0) mmHg ABG HCO3 (22.0-26.0) meq/L ABG O2 Saturation (96.0-97.0) % ABG Base Excess (-2-2.0) Andre Test A-a Gradient mmHg O2 Delivery Device Oxygen Flow Rate FiO2 (21.00-100.00) % Sodium 135 L (136-145) mEq/L Potassium 4.5 (3.5-5.1) mEq/L Chloride 96 L (98-107) mEq/L Carbon Dioxide 26 (21-32) mEq/L Anion Gap 17.5 H (5-15) BUN 34 H (7-18) mg/dL Creatinine 1.4 H (0.55-1.02) mg/dL Est Cr Clr Drug Dosing 22.25 mL/min Estimated GFR (MDRD) 36 (>60) mL/min BUN/Creatinine Ratio 24.3 H (14-18) Glucose 162 H (83-115) mg/dL Lactic Acid (0.4-2.0) mmol/L Calcium 8.5 (8.5-10.1) mg/dL Total Bilirubin 0.6 (0.2-1.0) mg/dL AST 31 (15-37) U/L ALT 38 (14-59) U/L Alkaline Phosphatase 59 (46-116) U/L Troponin I 0.051 (0.00-0.056) ng/mL C-Reactive Protein 2.9 H* (<1.0) mg/dL Total Protein 6.0 L (6.4-8.2) g/dl Albumin 2.6 L (3.4-5.0) g/dl Globulin 3.4 gm/dL Albumin/Globulin Ratio 0.8 L (1-2) 06/22/20 06/22/20 Range/Units 18:00 18:27 WBC (3.98-10.04) K/mm3 RBC (3.98-5.22) M/mm3 Hgb (11.2-15.7) gm/dl Hct (34.1-44.9) % MCV (79.4-94.8) fl MCH (25.6-32.2) pg MCHC (32.2-35.5) g/dl RDW Std Deviation (36.4-46.3) fL Plt Count (182-369) K/mm3 MPV (9.4-12.3) fl Neutrophils % (Manual) (40-60) % Band Neutrophils % (0-10) % Lymphocytes % (Manual) (20-40) % Atypical Lymphs % % Monocytes % (Manual) (2-10) % Eosinophils % (Manual) (0.7-5.8) % Basophils % (Manual) (0.1-1.2) Toxic Granulation Platelet Estimate Plt Morphology Comment Hypochromasia PT (9.7-12.0) SECONDS INR Puncture Site Lt radial ABG pH 7.41 (7.35-7.45) ABG pCO2 40.0 (35.0-45.0) mmHg ABG pO2 61.0 L (80.0-100.0) mmHg ABG HCO3 24.6 (22.0-26.0) meq/L ABG O2 Saturation 90.9 L (96.0-97.0) % ABG Base Excess 0.4 (-2-2.0) Andre Test Positive A-a Gradient 146 mmHg O2 Delivery Device Nasal cannula Oxygen Flow Rate 4.0 FiO2 36.00 (21.00-100.00) % Sodium (136-145) mEq/L Potassium (3.5-5.1) mEq/L Chloride (98-107) mEq/L Carbon Dioxide (21-32) mEq/L Anion Gap (5-15) BUN (7-18) mg/dL Creatinine (0.55-1.02) mg/dL Est Cr Clr Drug Dosing mL/min Estimated GFR (MDRD) (>60) mL/min BUN/Creatinine Ratio (14-18) Glucose (83-115) mg/dL Lactic Acid 6.6 H* (0.4-2.0) mmol/L Calcium (8.5-10.1) mg/dL Total Bilirubin (0.2-1.0) mg/dL AST (15-37) U/L ALT (14-59) U/L Alkaline Phosphatase (46-116) U/L Troponin I (0.00-0.056) ng/mL C-Reactive Protein (<1.0) mg/dL Total Protein (6.4-8.2) g/dl Albumin (3.4-5.0) g/dl Globulin gm/dL Albumin/Globulin Ratio (1-2) Result Diagrams: 06/23/20 16:05 06/23/20 16:05 Imaging Impressions Last 24 hrs: Chest x-ray shows diffuse patchy airspace opacities within the right upper, left upper, and lower lobes consistent with pneumonia. Compared to x-ray on 15 June may be some worsening of the left upper lobe, but otherwise stable. Sepsis Event Note - Focused Exam Vital Signs: Vital Signs Temp Pulse Resp BP Pulse Ox 06/22/20 17:10 108 H 24 H 92 L 06/22/20 17:08 97.7 F 120/60 - Problem List (1) Hypovolemia SNOMED Code(s): 521045488 ICD Code: E86.1 - HYPOVOLEMIA Status: Acute Current Visit: Yes (2) Post-COVID syndrome SNOMED Code(s): 783912183, 850628720091695118 ICD Code: B94.8 - SEQUELAE OF OTH INFECTIOUS AND PARASITIC DISEASES Status: Acute Current Visit: Yes (3) Healthcare associated bacterial pneumonia SNOMED Code(s): 876877374 ICD Code: J15.9 - UNSPECIFIED BACTERIAL PNEUMONIA Status: Acute Current Visit: No (4) Renal insufficiency SNOMED Code(s): 980365667, 243641187 ICD Code: N28.9 - DISORDER OF KIDNEY AND URETER, UNSPECIFIED Status: Acute Current Visit: No (5) Elevated lactic acid level SNOMED Code(s): 5157080 ICD Code: R79.89 - OTHER SPECIFIED ABNORMAL FINDINGS OF BLOOD CHEMISTRY Status: Acute Current Visit: Yes (6) Syncope SNOMED Code(s): 915645275 ICD Code: R55 - SYNCOPE AND COLLAPSE Status: Acute Current Visit: Yes Problem List Initiated/Reviewed/Updated: Yes Orders Last 24hrs: Active Orders 24 hr Category Date Time Status Patient Status [ADT] Routine ADT 06/22/20 18:51 Ordered Blood Pressure Mgt: Sepsis [RC] [id number] Care 06/22/20 17:29 Active Cardiac Monitoring [RC] . DIRECTED Care 06/22/20 18:51 Ordered Oxygen Therapy [RC] PRN Care 06/22/20 18:46 Ordered Up With Assistance [RC] ASDIRECTED Care 06/22/20 18:46 Ordered VTE/DVT Education [RC] PER UNIT ROUTINE Care 06/22/20 18:46 Ordered Vital Signs [RC] Q4H Care 06/22/20 18:46 Ordered Consult to Manager Building [CONS] Routine Cons 06/22/20 18:46 Ordered Regular Diet [DIET] Diet 06/23/20 Breakfast Active CBC WITH AUTO DIFF [HEME] AM Lab 06/23/20 05:11 Ordered CBC WITH MANUAL DIFF [HEME] Stat Lab 06/22/20 18:00 Results CMP [COMPREHENSIVE METABOLIC PN,CMP] [CHEM] AM Lab 06/23/20 05:11 Ordered CULTURE BLOOD [BC] Stat Lab 06/22/20 17:27 Ordered CULTURE BLOOD [BC] Stat Lab 06/22/20 18:00 Received CULTURE URINE [RM] Stat Lab 06/22/20 17:26 Ordered INR,PT,PROTHROMBIN TIME [COAG] AM Lab 06/23/20 05:11 Ordered INR,PT,PROTHROMBIN TIME [COAG] AM Lab 06/24/20 05:11 Ordered INR,PT,PROTHROMBIN TIME [COAG] AM Lab 06/25/20 05:11 Ordered INR,PT,PROTHROMBIN TIME [COAG] AM Lab 06/26/20 05:11 Ordered INR,PT,PROTHROMBIN TIME [COAG] AM Lab 06/27/20 05:11 Ordered MAGNESIUM [CHEM] AM Lab 06/23/20 05:11 Ordered PHOSPHORUS [CHEM] AM Lab 06/23/20 05:11 Ordered PROCALCITONIN [REF] Routine Lab 06/22/20 16:30 Received REFLEX LACTIC ACID YES OR NO [CHEM] Routine Lab 06/22/20 18:50 Received UA W/MIKE RFLX IF INDICATED [URIN] Stat Lab 06/22/20 17:26 Ordered Acetaminophen [TylenoL] Med 06/22/20 18:46 Ordered 650 mg PO Q4H PRN Lactated Ringers [Ringers, Lactated] 1,000 ml Med 06/22/20 17:30 Active IV ASDIRECTED Ondansetron [Zofran] Med 06/22/20 18:46 Ordered 4 mg IV Q4H PRN Piperacillin/Tazobactam 4.5 GM - First Dose Med 06/22/20 18:45 Ordered Piperacillin/Tazobactam [Piperacil-Tazobact] 4.5 gm Sodium Chloride 0.9% [Normal Saline] 100 ml IV ONETIME Piperacillin/Tazobactam [Piperacil-Tazobact] 4.5 gm Med 06/22/20 18:45 Ordered Sodium Chloride 0.9% [Normal Saline] 100 ml IV Q8H Sodium Chloride 0.9% [Saline Flush] Med 06/22/20 17:26 Active 10 ml FLUSH ASDIRECTED PRN oxyCODONE Med 06/22/20 18:46 Ordered 5 mg PO Q4H PRN Blood Culture x2 Reflex Set [OM.PC] Stat Oth 06/22/20 17:26 Ordered Saline Lock Insert [OM.PC] Stat Oth 06/22/20 17:26 Ordered Code Status [Resuscitation Status] Routine Resus Stat 06/22/20 17:51 Ordered Medication Orders Acetaminophen (Tylenol) 650 mg PO Q4H PRN PRN Reason: Pain (Mild 1-3)/fever Lactated Ringer's (Ringers, Lactated) 1,000 mls @ 500 mls/hr IV ASDIRECTED EMIGDIO Stop: 06/23/20 19:29 Piperacillin Sod/Tazobactam (Sod 4.5 gm/ Sodium Chloride) 100 mls @ 200 mls/hr IV ONETIME ONE Stop: 06/22/20 19:14 Piperacillin Sod/Tazobactam (Sod 4.5 gm/ Sodium Chloride) 100 mls @ 25 mls/hr IV Q8H [facility] Ondansetron HCl (Zofran) 4 mg IV Q4H PRN PRN Reason: Nausea/Vomiting Oxycodone HCl (Oxycodone) 5 mg PO Q4H PRN PRN Reason: Pain (moderate 4-6) Sodium Chloride (Saline Flush) 10 ml FLUSH ASDIRECTED PRN PRN Reason: Keep Vein Open Assessment/Plan Comment:: Assessment 84-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 Lactic acid elevated at 6.6 with minimally elevated C-reactive protein of 2.9. * Patient's elevated lactic acid is likely secondary to hypovolemia with possible underlying worsening of her left upper lobe pneumonia. With a normal white count, essentially normal C-reactive protein, and no significant change on chest x-ray I do not believe that this elevated lactic acid is secondary to sepsis, but it appears to be secondary to hypovolemia and poor tissue perfusion due to the hypovolemia. Patient also has a slight drop in her her hemoglobin also likely exacerbating the hypovolemia. It is unknown at this time if this is secondary to acute blood loss, but her INR is significantly elevated at greater than 5. Patient also had an elevated lactic acid on 12 June making this more likely to be a chronic problem and not an acute sepsis. * UA was ordered on admission, but nursing was unable to collect it initially secondary to patient's diarrhea. If they are unable to obtain a UA we will have to consider catheterization. * She just finished broad-spectrum antibiotics, yesterday, linezolid and levofloxacin. Supratherapeutic INR History of multiple pulmonary emboli * Patient has significantly elevated INR. She is on warfarin because she failed NOAC. * INR greater than 5 with no active bleeding, but significant anemia. Oxygen dependent chronic bronchitis * Home oxygen 4 L via nasal cannula no significant worsening * Currently on prednisone 20 units in the morning and 10 units in the evening. Recently decreased from 20 twice daily. Primary care provider states that she has been on and off steroids for several weeks now. NYHA class III CHF History of atrial fibrillation * Outpatient treatment with furosemide, losartan, warfarin, digoxin, rosuvastatin Type 2 diabetes * Hemoglobin A1c of 7.3, TSH 1.25 * Sliding scale insulin Plan * Admit to medical floor on telemetry * Start Zosyn * Blood cultures, UA, urine culture as appropriate * Follow lab work including lactic acid. Unfortunately, it appears that she has chronically elevated lactic acid from unknown source. This may not be a good indicator of risk of sepsis. * Procalcitonin will be ordered. Unfortunately, this is a send out so it will only be helpful in determining sepsis in retrospect. * Give 30 mL/kg LR bolus followed by fluids at 150 mL/h. * Follow CBC. * Sliding scale insulin * CODE STATUS: DNR/DNI * Initially we would not reverse her INR. * VTE prophylaxis secondary to supratherapeutic INR * Patient has very poor outcome. She has been hospitalized since April 15 except for just over 2 weeks. She has recurrent infections as post Covid syndrome. - Mortality Measure Prognosis:: Poor
[2020-06-22] MEDS: Lactated Ringers 1,000 ML IV SCH ×2 (18:54→22:16)
[2020-06-22] MEDS ORDERED: FERROUS GLUCONATE 325 MG PO SCH (21:15)
[2020-06-22] MEDS: predniSONE 20 MG Tab PO SCH (22:16)
[2020-06-22] MEDS ORDERED: Sodium Chloride 0.9% 1,000 ML IV SCH (23:00)
[2020-06-23] MEDS ORDERED: Sodium Chloride 0.9% 1,000 ML IV SCH (01:15)
[2020-06-23] MEDS: Piperacillin/Tazobactam 4.5 GM in Sodium Chloride 0.9% 100 ML IV SCH ×3 (01:49→18:24)
[2020-06-23] MEDS: Pantoprazole 40 MG Tab.CR PO SCH ×2 (06:05→15:47)
[2020-06-23] MEDS ORDERED: Phytonadione ORAL 2.5mg/2.5ml Soln Simple Syrup U/D PO ONE (06:34)
[2020-06-23] MEDS ORDERED: Sodium Chloride 0.9% 250 ML IV SCH (08:00)
[2020-06-23] MEDS ORDERED: Nystatin Susp 100,000 Unit/ML 5 ML UD Cup PO SCH (09:00)
[2020-06-23] MEDS ORDERED: Lidocaine 1% 10 ML MDV INJECT ONE ×2 (09:15→09:30)
--- NOTE | 2020-06-23 09:46 | CR ---
Chest: Portable view of the chest was obtained. Comparison: Prior chest x-ray of 06/22/20. Increased density within the left chest is seen as well as mild increased density within the right chest. Findings are fairly stable from most recent exam and increased from study of 06/15/20. Heart size and mediastinum are normal. Left-sided jugular line is seen with tip lying within the superior vena cava. No gross bony abnormality is appreciated. Impression: 1. Left jugular line with tip lying within the superior vena cava. 2. Increased parenchymal change within the left lung and lesser within the right lung which is similar to most recent study. Diagnostic code #3
[2020-06-23] MEDS: Digoxin 125 MCG Tab PO SCH (10:50)
[2020-06-23] MEDS: predniSONE 20 MG Tab PO SCH ×2 (10:51→20:00)
[2020-06-23] MEDS: Montelukast 10 MG Tab PO SCH (10:51)
[2020-06-23] MEDS: Cholecalciferol (Vitamin D3) 5,000 UNIT Cap PO SCH (10:51)
[2020-06-23] MEDS: Rosuvastatin 10 MG Tab PO SCH (10:51)
[2020-06-23] MEDS: Ferrous Sulfate 324 MG Tab.EC PO SCH (10:51)
[2020-06-23] MEDS: Ascorbic Acid 500 MG Tab PO SCH (10:51)
[2020-06-23] MEDS: ATOVAQUONE 750 MG/5 ML PO SCH ×2 (10:55→18:23)
[2020-06-23] MEDS: Nystatin Susp 100,000 Unit/ML 5 ML Oral Syringe PO SCH ×4 (10:57→20:01)
[2020-06-23] MEDS ORDERED: Factor IX Complex Human 500 UNIT VIAL IV STA (11:27)
[2020-06-23] MEDS ORDERED: Phytonadione 5 MG in Sodium Chloride 0.9% 50 ML IV ONE (13:30)
--- NOTE | 2020-06-23 14:34 | PCM.PN ---
- General Info Date of Service: 06/23/20 Admission Dx/Problem (Free Text): Admission Diagnosis/Problem Admission Diagnosis/Problem Weakness Subjective Update: Patient has no significant change in status. She did have a significant drop in her hemoglobin requiring 2 units of packed red blood cells. Her lactic acid has been inconsistent going down to as low as 2.4 and back up to 4.3 now back down to 3.5. There is no consistency with clinical exam. Patient denies any nausea, vomiting, abdominal pain. She had significant hematemesis today requiring reversal of her warfarin using Kcentra and vitamin K. Troponin did go up slightly and stabilized and even came down just a little bit suggesting that slight increase in troponin was due to cardiac strain. EKG showed multifocal atrial tachycardia, otherwise difficult to interpret secondary to artifact. Functional Status: Reports: Pain Controlled - Review of Systems General: Reports: Fatigue HEENT: Reports: No Symptoms Pulmonary: Reports: Shortness of Breath, Cough, Hemoptysis Cardiovascular: Reports: No Symptoms Gastrointestinal: Reports: No Symptoms Musculoskeletal: Reports: No Symptoms Psychiatric: Reports: Depression - Patient Data Vitals - Most Recent: Last Vital Signs Temp 97.9 F 06/23/20 13:39 Pulse 109 H 06/23/20 13:39 Resp 20 06/23/20 13:39 BP 125/58 L 06/23/20 13:39 Pulse Ox 95 06/23/20 13:39 Weight - Most Recent: 144 lb 7.996 oz I&O - Last 24 Hours: Intake & Output 06/22/20 06/23/20 06/23/20 22:59 06:59 14:59 Intake Total 0 3450 775 Output Total 600 350 Balance 0 2850 425 Lab Results Last 24 Hours: Laboratory Results - last 24 hr 06/22/20 06/22/20 06/22/20 Range/Units 18:00 18:00 18:00 WBC 7.84 (3.98-10.04) K/mm3 RBC 2.56 L (3.98-5.22) M/mm3 Hgb 7.5 L (11.2-15.7) gm/dl Hct 23.2 L (34.1-44.9) % MCV 90.6 (79.4-94.8) fl MCH 29.3 (25.6-32.2) pg MCHC 32.3 (32.2-35.5) g/dl RDW Std Deviation 46.0 (36.4-46.3) fL Plt Count 107 L (182-369) K/mm3 MPV 10.8 (9.4-12.3) fl Neut % (Auto) (34.0-71.1) % Lymph % (Auto) (19.3-51.7) % [place] % (Auto) (4.7-12.5) % Eos % (Auto) (0.7-5.8) Baso % (Auto) (0.1-1.2) % Neut # (Auto) (1.56-6.13) K/mm3 Lymph # (Auto) (1.18-3.74) K/mm3 [place] # (Auto) (0.24-0.36) K/mm3 Eos # (Auto) (0.04-0.36) K/mm3 Baso # (Auto) (0.01-0.08) K/mm3 Neutrophils % (Manual) 68 H (40-60) % Band Neutrophils % 0 (0-10) % Lymphocytes % (Manual) 28 (20-40) % Atypical Lymphs % 0 % Monocytes % (Manual) 1 L (2-10) % Eosinophils % (Manual) 3 (0.7-5.8) % Basophils % (Manual) 0 L (0.1-1.2) Manual Slide Review Toxic Granulation Few Platelet Estimate Decreased Plt Morphology Comment See note Hypochromasia 1+ slight RBC Morph Comment Not Reportable PT 59.5 H* D (9.7-12.0) SECONDS INR 5.75 H* Puncture Site ABG pH (7.35-7.45) ABG pCO2 (35.0-45.0) mmHg ABG pO2 (80.0-100.0) mmHg ABG HCO3 (22.0-26.0) meq/L ABG O2 Saturation (96.0-97.0) % ABG Base Excess (-2-2.0) Andre Test A-a Gradient mmHg O2 Delivery Device Oxygen Flow Rate FiO2 (21.00-100.00) % Sodium 135 L (136-145) mEq/L Potassium 4.5 (3.5-5.1) mEq/L Chloride 96 L (98-107) mEq/L Carbon Dioxide 26 (21-32) mEq/L Anion Gap 17.5 H (5-15) BUN 34 H (7-18) mg/dL Creatinine 1.4 H (0.55-1.02) mg/dL Est Cr Clr Drug Dosing 22.25 mL/min Estimated GFR (MDRD) 36 (>60) mL/min BUN/Creatinine Ratio 24.3 H (14-18) Glucose 162 H (83-115) mg/dL POC Glucose (83-110) mg/dL Lactic Acid (0.4-2.0) mmol/L Calcium 8.5 (8.5-10.1) mg/dL Phosphorus (2.6-4.7) mg/dL Magnesium (1.8-2.4) mg/dl Total Bilirubin 0.6 (0.2-1.0) mg/dL AST 31 (15-37) U/L ALT 38 (14-59) U/L Alkaline Phosphatase 59 (46-116) U/L Troponin I 0.051 (0.00-0.056) ng/mL C-Reactive Protein 2.9 H* (<1.0) mg/dL Total Protein 6.0 L (6.4-8.2) g/dl Albumin 2.6 L (3.4-5.0) g/dl Globulin 3.4 gm/dL Albumin/Globulin Ratio 0.8 L (1-2) Urine Color (Yellow) Urine Appearance (Clear) Urine pH (5.0-8.0) Ur Specific [place] (1.005-1.030) Urine Protein (Negative) Urine Glucose (UA) (Negative) Urine Ketones (Negative) Urine Occult Blood (Negative) Urine Nitrite (Negative) Urine Bilirubin (Negative) Urine Urobilinogen (0.2-1.0) Ur Leukocyte Esterase (Negative) Urine RBC (0-5) /hpf Urine WBC (0-5) /hpf Ur Squamous Epith Cells (0-5) /hpf Urine Bacteria (FEW) /hpf Urine Mucus (FEW) /hpf MRSA (PCR) Blood Type Gel Antibody Screen Crossmatch 06/22/20 06/22/20 06/22/20 Range/Units 18:00 18:27 20:20 WBC (3.98-10.04) K/mm3 RBC (3.98-5.22) M/mm3 Hgb (11.2-15.7) gm/dl Hct (34.1-44.9) % MCV (79.4-94.8) fl MCH (25.6-32.2) pg MCHC (32.2-35.5) g/dl RDW Std Deviation (36.4-46.3) fL Plt Count (182-369) K/mm3 MPV (9.4-12.3) fl Neut % (Auto) (34.0-71.1) % Lymph % (Auto) (19.3-51.7) % [place] % (Auto) (4.7-12.5) % Eos % (Auto) (0.7-5.8) Baso % (Auto) (0.1-1.2) % Neut # (Auto) (1.56-6.13) K/mm3 Lymph # (Auto) (1.18-3.74) K/mm3 [place] # (Auto) (0.24-0.36) K/mm3 Eos # (Auto) (0.04-0.36) K/mm3 Baso # (Auto) (0.01-0.08) K/mm3 Neutrophils % (Manual) (40-60) % Band Neutrophils % (0-10) % Lymphocytes % (Manual) (20-40) % Atypical Lymphs % % Monocytes % (Manual) (2-10) % Eosinophils % (Manual) (0.7-5.8) % Basophils % (Manual) (0.1-1.2) Manual Slide Review Toxic Granulation Platelet Estimate Plt Morphology Comment Hypochromasia RBC Morph Comment PT (9.7-12.0) SECONDS INR Puncture Site Lt radial ABG pH 7.41 (7.35-7.45) ABG pCO2 40.0 (35.0-45.0) mmHg ABG pO2 61.0 L (80.0-100.0) mmHg ABG HCO3 24.6 (22.0-26.0) meq/L ABG O2 Saturation 90.9 L (96.0-97.0) % ABG Base Excess 0.4 (-2-2.0) Andre Test Positive A-a Gradient 146 mmHg O2 Delivery Device Nasal cannula Oxygen Flow Rate 4.0 FiO2 36.00 (21.00-100.00) % Sodium (136-145) mEq/L Potassium (3.5-5.1) mEq/L Chloride (98-107) mEq/L Carbon Dioxide (21-32) mEq/L Anion Gap (5-15) BUN (7-18) mg/dL Creatinine (0.55-1.02) mg/dL Est Cr Clr Drug Dosing mL/min Estimated GFR (MDRD) (>60) mL/min BUN/Creatinine Ratio (14-18) Glucose (83-115) mg/dL POC Glucose (83-110) mg/dL Lactic Acid 6.6 H* (0.4-2.0) mmol/L Calcium (8.5-10.1) mg/dL Phosphorus (2.6-4.7) mg/dL Magnesium (1.8-2.4) mg/dl Total Bilirubin (0.2-1.0) mg/dL AST (15-37) U/L ALT (14-59) U/L Alkaline Phosphatase (46-116) U/L Troponin I (0.00-0.056) ng/mL C-Reactive Protein (<1.0) mg/dL Total Protein (6.4-8.2) g/dl Albumin (3.4-5.0) g/dl Globulin gm/dL Albumin/Globulin Ratio (1-2) Urine Color (Yellow) Urine Appearance (Clear) Urine pH (5.0-8.0) Ur Specific [place] (1.005-1.030) Urine Protein (Negative) Urine Glucose (UA) (Negative) Urine Ketones (Negative) Urine Occult Blood (Negative) Urine Nitrite (Negative) Urine Bilirubin (Negative) Urine Urobilinogen (0.2-1.0) Ur Leukocyte Esterase (Negative) Urine RBC (0-5) /hpf Urine WBC (0-5) /hpf Ur Squamous Epith Cells (0-5) /hpf Urine Bacteria (FEW) /hpf Urine Mucus (FEW) /hpf MRSA (PCR) Negative Blood Type Gel Antibody Screen Crossmatch 06/22/20 06/23/20 06/23/20 Range/Units 21:30 00:26 03:25 WBC 5.15 (3.98-10.04) K/mm3 RBC 2.10 L (3.98-5.22) M/mm3 Hgb 6.2 L* (11.2-15.7) gm/dl Hct 19.0 L (34.1-44.9) % MCV 90.5 (79.4-94.8) fl MCH 29.5 (25.6-32.2) pg MCHC 32.6 (32.2-35.5) g/dl RDW Std Deviation 46.7 H (36.4-46.3) fL Plt Count 77 L (182-369) K/mm3 MPV 11.1 (9.4-12.3) fl Neut % (Auto) 75.0 H (34.0-71.1) % Lymph % (Auto) 21.7 (19.3-51.7) % [place] % (Auto) 2.5 L (4.7-12.5) % Eos % (Auto) 0 L (0.7-5.8) Baso % (Auto) 0.0 L (0.1-1.2) % Neut # (Auto) 3.86 (1.56-6.13) K/mm3 Lymph # (Auto) 1.12 L (1.18-3.74) K/mm3 [place] # (Auto) 0.13 L (0.24-0.36) K/mm3 Eos # (Auto) 0.00 L (0.04-0.36) K/mm3 Baso # (Auto) 0.00 L (0.01-0.08) K/mm3 Neutrophils % (Manual) (40-60) % Band Neutrophils % (0-10) % Lymphocytes % (Manual) (20-40) % Atypical Lymphs % % Monocytes % (Manual) (2-10) % Eosinophils % (Manual) (0.7-5.8) % Basophils % (Manual) (0.1-1.2) Manual Slide Review Abnormal smear Toxic Granulation Platelet Estimate Plt Morphology Comment Hypochromasia RBC Morph Comment PT (9.7-12.0) SECONDS INR Puncture Site ABG pH (7.35-7.45) ABG pCO2 (35.0-45.0) mmHg ABG pO2 (80.0-100.0) mmHg ABG HCO3 (22.0-26.0) meq/L ABG O2 Saturation (96.0-97.0) % ABG Base Excess (-2-2.0) Andre Test A-a Gradient mmHg O2 Delivery Device Oxygen Flow Rate FiO2 (21.00-100.00) % Sodium (136-145) mEq/L Potassium (3.5-5.1) mEq/L Chloride (98-107) mEq/L Carbon Dioxide (21-32) mEq/L Anion Gap (5-15) BUN (7-18) mg/dL Creatinine (0.55-1.02) mg/dL Est Cr Clr Drug Dosing mL/min Estimated GFR (MDRD) (>60) mL/min BUN/Creatinine Ratio (14-18) Glucose (83-115) mg/dL POC Glucose (83-110) mg/dL Lactic Acid 4.4 H* 4.5 H* (0.4-2.0) mmol/L Calcium (8.5-10.1) mg/dL Phosphorus (2.6-4.7) mg/dL Magnesium (1.8-2.4) mg/dl Total Bilirubin (0.2-1.0) mg/dL AST (15-37) U/L ALT (14-59) U/L Alkaline Phosphatase (46-116) U/L Troponin I (0.00-0.056) ng/mL C-Reactive Protein (<1.0) mg/dL Total Protein (6.4-8.2) g/dl Albumin (3.4-5.0) g/dl Globulin gm/dL Albumin/Globulin Ratio (1-2) Urine Color (Yellow) Urine Appearance (Clear) Urine pH (5.0-8.0) Ur Specific [place] (1.005-1.030) Urine Protein (Negative) Urine Glucose (UA) (Negative) Urine Ketones (Negative) Urine Occult Blood (Negative) Urine Nitrite (Negative) Urine Bilirubin (Negative) Urine Urobilinogen (0.2-1.0) Ur Leukocyte Esterase (Negative) Urine RBC (0-5) /hpf Urine WBC (0-5) /hpf Ur Squamous Epith Cells (0-5) /hpf Urine Bacteria (FEW) /hpf Urine Mucus (FEW) /hpf MRSA (PCR) Blood Type Gel Antibody Screen Crossmatch 06/23/20 06/23/20 06/23/20 Range/Units 03:25 03:25 03:25 WBC (3.98-10.04) K/mm3 RBC (3.98-5.22) M/mm3 Hgb (11.2-15.7) gm/dl Hct (34.1-44.9) % MCV (79.4-94.8) fl MCH (25.6-32.2) pg MCHC (32.2-35.5) g/dl RDW Std Deviation (36.4-46.3) fL Plt Count (182-369) K/mm3 MPV (9.4-12.3) fl Neut % (Auto) (34.0-71.1) % Lymph % (Auto) (19.3-51.7) % [place] % (Auto) (4.7-12.5) % Eos % (Auto) (0.7-5.8) Baso % (Auto) (0.1-1.2) % Neut # (Auto) (1.56-6.13) K/mm3 Lymph # (Auto) (1.18-3.74) K/mm3 [place] # (Auto) (0.24-0.36) K/mm3 Eos # (Auto) (0.04-0.36) K/mm3 Baso # (Auto) (0.01-0.08) K/mm3 Neutrophils % (Manual) (40-60) % Band Neutrophils % (0-10) % Lymphocytes % (Manual) (20-40) % Atypical Lymphs % % Monocytes % (Manual) (2-10) % Eosinophils % (Manual) (0.7-5.8) % Basophils % (Manual) (0.1-1.2) Manual Slide Review Toxic Granulation Platelet Estimate Plt Morphology Comment Hypochromasia RBC Morph Comment PT 56.0 H* (9.7-12.0) SECONDS INR 5.41 H* Puncture Site ABG pH (7.35-7.45) ABG pCO2 (35.0-45.0) mmHg ABG pO2 (80.0-100.0) mmHg ABG HCO3 (22.0-26.0) meq/L ABG O2 Saturation (96.0-97.0) % ABG Base Excess (-2-2.0) Andre Test A-a Gradient mmHg O2 Delivery Device Oxygen Flow Rate FiO2 (21.00-100.00) % Sodium 138 (136-145) mEq/L Potassium 3.8 (3.5-5.1) mEq/L Chloride 101 (98-107) mEq/L Carbon Dioxide 28 (21-32) mEq/L Anion Gap 12.8 (5-15) BUN 28 H (7-18) mg/dL Creatinine 1.1 H (0.55-1.02) mg/dL Est Cr Clr Drug Dosing 28.32 mL/min Estimated GFR (MDRD) 48 (>60) mL/min BUN/Creatinine Ratio 25.5 H (14-18) Glucose 135 H (83-115) mg/dL POC Glucose (83-110) mg/dL Lactic Acid 2.4 H* (0.4-2.0) mmol/L Calcium 7.8 L (8.5-10.1) mg/dL Phosphorus 3.1 (2.6-4.7) mg/dL Magnesium 1.8 (1.8-2.4) mg/dl Total Bilirubin 0.7 (0.2-1.0) mg/dL AST 24 (15-37) U/L ALT 30 (14-59) U/L Alkaline Phosphatase 46 (46-116) U/L Troponin I (0.00-0.056) ng/mL C-Reactive Protein (<1.0) mg/dL Total Protein 4.8 L (6.4-8.2) g/dl Albumin 2.1 L (3.4-5.0) g/dl Globulin 2.7 gm/dL Albumin/Globulin Ratio 0.8 L (1-2) Urine Color (Yellow) Urine Appearance (Clear) Urine pH (5.0-8.0) Ur Specific [place] (1.005-1.030) Urine Protein (Negative) Urine Glucose (UA) (Negative) Urine Ketones (Negative) Urine Occult Blood (Negative) Urine Nitrite (Negative) Urine Bilirubin (Negative) Urine Urobilinogen (0.2-1.0) Ur Leukocyte Esterase (Negative) Urine RBC (0-5) /hpf Urine WBC (0-5) /hpf Ur Squamous Epith Cells (0-5) /hpf Urine Bacteria (FEW) /hpf Urine Mucus (FEW) /hpf MRSA (PCR) Blood Type Gel Antibody Screen Crossmatch 06/23/20 06/23/20 06/23/20 Range/Units 03:25 06:30 10:05 WBC (3.98-10.04) K/mm3 RBC (3.98-5.22) M/mm3 Hgb (11.2-15.7) gm/dl Hct (34.1-44.9) % MCV (79.4-94.8) fl MCH (25.6-32.2) pg MCHC (32.2-35.5) g/dl RDW Std Deviation (36.4-46.3) fL Plt Count (182-369) K/mm3 MPV (9.4-12.3) fl Neut % (Auto) (34.0-71.1) % Lymph % (Auto) (19.3-51.7) % [place] % (Auto) (4.7-12.5) % Eos % (Auto) (0.7-5.8) Baso % (Auto) (0.1-1.2) % Neut # (Auto) (1.56-6.13) K/mm3 Lymph # (Auto) (1.18-3.74) K/mm3 [place] # (Auto) (0.24-0.36) K/mm3 Eos # (Auto) (0.04-0.36) K/mm3 Baso # (Auto) (0.01-0.08) K/mm3 Neutrophils % (Manual) (40-60) % Band Neutrophils % (0-10) % Lymphocytes % (Manual) (20-40) % Atypical Lymphs % % Monocytes % (Manual) (2-10) % Eosinophils % (Manual) (0.7-5.8) % Basophils % (Manual) (0.1-1.2) Manual Slide Review Toxic Granulation Platelet Estimate Plt Morphology Comment Hypochromasia RBC Morph Comment PT (9.7-12.0) SECONDS INR Puncture Site ABG pH (7.35-7.45) ABG pCO2 (35.0-45.0) mmHg ABG pO2 (80.0-100.0) mmHg ABG HCO3 (22.0-26.0) meq/L ABG O2 Saturation (96.0-97.0) % ABG Base Excess (-2-2.0) Andre Test A-a Gradient mmHg O2 Delivery Device Oxygen Flow Rate FiO2 (21.00-100.00) % Sodium (136-145) mEq/L Potassium (3.5-5.1) mEq/L Chloride (98-107) mEq/L Carbon Dioxide (21-32) mEq/L Anion Gap (5-15) BUN (7-18) mg/dL Creatinine (0.55-1.02) mg/dL Est Cr Clr Drug Dosing mL/min Estimated GFR (MDRD) (>60) mL/min BUN/Creatinine Ratio (14-18) Glucose (83-115) mg/dL POC Glucose (83-110) mg/dL Lactic Acid 2.4 H* 2.4 H* (0.4-2.0) mmol/L Calcium (8.5-10.1) mg/dL Phosphorus (2.6-4.7) mg/dL Magnesium (1.8-2.4) mg/dl Total Bilirubin (0.2-1.0) mg/dL AST (15-37) U/L ALT (14-59) U/L Alkaline Phosphatase (46-116) U/L Troponin I (0.00-0.056) ng/mL C-Reactive Protein (<1.0) mg/dL Total Protein (6.4-8.2) g/dl Albumin (3.4-5.0) g/dl Globulin gm/dL Albumin/Globulin Ratio (1-2) Urine Color (Yellow) Urine Appearance (Clear) Urine pH (5.0-8.0) Ur Specific [place] (1.005-1.030) Urine Protein (Negative) Urine Glucose (UA) (Negative) Urine Ketones (Negative) Urine Occult Blood (Negative) Urine Nitrite (Negative) Urine Bilirubin (Negative) Urine Urobilinogen (0.2-1.0) Ur Leukocyte Esterase (Negative) Urine RBC (0-5) /hpf Urine WBC (0-5) /hpf Ur Squamous Epith Cells (0-5) /hpf Urine Bacteria (FEW) /hpf Urine Mucus (FEW) /hpf MRSA (PCR) Blood Type A POSITIVE Gel Antibody Screen Negative Crossmatch See Detail 06/23/20 06/23/20 Range/Units 10:08 11:03 WBC (3.98-10.04) K/mm3 RBC (3.98-5.22) M/mm3 Hgb (11.2-15.7) gm/dl Hct (34.1-44.9) % MCV (79.4-94.8) fl MCH (25.6-32.2) pg MCHC (32.2-35.5) g/dl RDW Std Deviation (36.4-46.3) fL Plt Count (182-369) K/mm3 MPV (9.4-12.3) fl Neut % (Auto) (34.0-71.1) % Lymph % (Auto) (19.3-51.7) % [place] % (Auto) (4.7-12.5) % Eos % (Auto) (0.7-5.8) Baso % (Auto) (0.1-1.2) % Neut # (Auto) (1.56-6.13) K/mm3 Lymph # (Auto) (1.18-3.74) K/mm3 [place] # (Auto) (0.24-0.36) K/mm3 Eos # (Auto) (0.04-0.36) K/mm3 Baso # (Auto) (0.01-0.08) K/mm3 Neutrophils % (Manual) (40-60) % Band Neutrophils % (0-10) % Lymphocytes % (Manual) (20-40) % Atypical Lymphs % % Monocytes % (Manual) (2-10) % Eosinophils % (Manual) (0.7-5.8) % Basophils % (Manual) (0.1-1.2) Manual Slide Review Toxic Granulation Platelet Estimate Plt Morphology Comment Hypochromasia RBC Morph Comment PT (9.7-12.0) SECONDS INR Puncture Site ABG pH (7.35-7.45) ABG pCO2 (35.0-45.0) mmHg ABG pO2 (80.0-100.0) mmHg ABG HCO3 (22.0-26.0) meq/L ABG O2 Saturation (96.0-97.0) % ABG Base Excess (-2-2.0) Andre Test A-a Gradient mmHg O2 Delivery Device Oxygen Flow Rate FiO2 (21.00-100.00) % Sodium (136-145) mEq/L Potassium (3.5-5.1) mEq/L Chloride (98-107) mEq/L Carbon Dioxide (21-32) mEq/L Anion Gap (5-15) BUN (7-18) mg/dL Creatinine (0.55-1.02) mg/dL Est Cr Clr Drug Dosing mL/min Estimated GFR (MDRD) (>60) mL/min BUN/Creatinine Ratio (14-18) Glucose (83-115) mg/dL POC Glucose 291 H (83-110) mg/dL Lactic Acid (0.4-2.0) mmol/L Calcium (8.5-10.1) mg/dL Phosphorus (2.6-4.7) mg/dL Magnesium (1.8-2.4) mg/dl Total Bilirubin (0.2-1.0) mg/dL AST (15-37) U/L ALT (14-59) U/L Alkaline Phosphatase (46-116) U/L Troponin I (0.00-0.056) ng/mL C-Reactive Protein (<1.0) mg/dL Total Protein (6.4-8.2) g/dl Albumin (3.4-5.0) g/dl Globulin gm/dL Albumin/Globulin Ratio (1-2) Urine Color Light yellow (Yellow) Urine Appearance Cloudy H (Clear) Urine pH 6.0 (5.0-8.0) Ur Specific [place] 1.020 (1.005-1.030) Urine Protein Negative (Negative) Urine Glucose (UA) Negative (Negative) Urine Ketones Trace H (Negative) Urine Occult Blood Negative (Negative) Urine Nitrite Positive H (Negative) Urine Bilirubin Negative (Negative) Urine Urobilinogen 0.2 (0.2-1.0) Ur Leukocyte Esterase 2+ H (Negative) Urine RBC Not seen (0-5) /hpf Urine WBC 10-20 H (0-5) /hpf Ur Squamous Epith Cells 0-5 (0-5) /hpf Urine Bacteria Moderate H (FEW) /hpf Urine Mucus Few (FEW) /hpf MRSA (PCR) Blood Type Gel Antibody Screen Crossmatch Kevyn Results Last 24 Hours: Microbiology 06/23/20 03:25 Anaerobic Blood Culture - Final Blood - Venous - Lab Draw Med Orders - Current: Current Medications Acetaminophen (Tylenol) 650 mg PO Q4H PRN PRN Reason: Pain (Mild 1-3)/fever Ascorbic Acid (Vitamin C) 500 mg PO DAILY [facility] Last Admin: 06/23/20 10:51 Dose: 500 mg Documented by: Cholecalciferol (Vitamin D3) 5,000 unit PO DAILY [facility] Last Admin: 06/23/20 10:51 Dose: 5,000 unit Documented by: Digoxin (Lanoxin) 125 mcg PO DAILY [facility] Last Admin: 06/23/20 10:50 Dose: 125 mcg Documented by: Ferrous Sulfate (Ferrous Sulfate) 324 mg PO DAILY [facility] Last Admin: 06/23/20 10:51 Dose: 324 mg Documented by: Piperacillin Sod/Tazobactam (Sod 4.5 gm/ Sodium Chloride) 100 mls @ 25 mls/hr IV Q8H [facility] Last Admin: 06/23/20 12:15 Dose: 25 mls/hr Documented by: Sodium Chloride (Normal Saline) 1,000 mls @ 150 mls/hr IV ASDIRECTED [facility] Sodium Chloride (Normal Saline) 250 mls @ 100 mls/hr IV ASDIRECTED [facility] Insulin Human Lispro (Humalog) 0 unit SUBCUT QIDACANDBED [facility]; Protocol Last Admin: 06/23/20 11:11 Dose: 3 units Documented by: Montelukast Sodium (Singulair) 10 mg PO DAILY [facility] Last Admin: 06/23/20 10:51 Dose: 10 mg Documented by: Atovaquone 750 Mg/ (5ml Susp Ptom) 0 mg PO BIDMEALS [facility] Last Admin: 06/23/20 10:55 Dose: 750 mg Documented by: Nystatin (Nystatin Oral Syringe) 500,000 unit PO QID [facility] Last Admin: 06/23/20 10:57 Dose: 500,000 unit Documented by: Ondansetron HCl (Zofran) 4 mg IV Q4H PRN PRN Reason: Nausea/Vomiting Oxycodone HCl (Oxycodone) 5 mg PO Q4H PRN PRN Reason: Pain (moderate 4-6) Pantoprazole Sodium (Protonix) 40 mg PO BIDAC [facility] Last Admin: 06/23/20 06:05 Dose: 40 mg Documented by: Prednisone (Prednisone) 20 mg PO BID [facility] Last Admin: 06/23/20 10:51 Dose: 20 mg Documented by: Rosuvastatin Calcium (Crestor) 10 mg PO DAILY [facility] Last Admin: 06/23/20 10:51 Dose: 10 mg Documented by: Sodium Chloride (Saline Flush) 10 ml FLUSH ASDIRECTED PRN PRN Reason: Keep Vein Open Discontinued Medications Factor IX (Pha) (Kcentra) 2,275 unit IV NOW STA Stop: 06/23/20 11:28 Last Admin: 06/23/20 12:25 Dose: 2,275 unit Documented by: Lactated Ringer's (Ringers, Lactated) 1,000 mls @ 500 mls/hr IV ASDIRECTED [facility] Stop: 06/23/20 19:29 Last Admin: 06/22/20 22:16 Dose: 500 mls/hr Documented by: Ceftriaxone Sodium 2 gm/ (Sodium Chloride) 100 mls @ 200 mls/hr IV STAT ONE Stop: 06/22/20 17:55 Last Admin: 06/22/20 20:33 Dose: Not Given Documented by: Lidocaine HCl (Xylocaine-Mpf 1%) Confirm Administered Dose 2 mls @ as directed .ROUTE .STK-MED ONE Stop: 06/22/20 18:20 Piperacillin Sod/Tazobactam (Sod 4.5 gm/ Sodium Chloride) 100 mls @ 200 mls/hr IV ONETIME ONE Stop: 06/22/20 19:14 Last Admin: 06/22/20 19:42 Dose: 200 mls/hr Documented by: Sodium Chloride (Normal Saline) 1,000 mls @ 130 mls/hr IV ASDIRECTED [facility] Last Admin: 06/23/20 00:35 Dose: 130 mls/hr Documented by: Phytonadione 5 mg/ Sodium (Chloride) 50.5 mls @ 101 mls/hr IV NOW ONE Stop: 06/23/20 13:59 Lidocaine HCl (Xylocaine 1%) 10 ml INJECT ONETIME ONE Stop: 06/23/20 09:31 Last Admin: 06/23/20 10:58 Dose: 10 ml Documented by: Lidocaine HCl (Xylocaine 1%) 10 ml INJECT ONETIME ONE Stop: 06/23/20 09:16 Last Admin: 06/23/20 10:58 Dose: 10 ml Documented by: Non-Formulary Medication (Ferrous Gluconate [Ferrous Gluconate]) 325 mg PO ASDIRECTED [facility] Nystatin (Mycostatin) 5 ml PO QID [facility] Last Admin: 06/23/20 11:00 Dose: Not Given Documented by: Phytonadione (Aquamephyton) 5 mg PO STAT ONE Stop: 06/23/20 06:35 Last Admin: 06/23/20 06:48 Dose: 5 mg Documented by: - Exam Quality Assessment: Supplemental Oxygen, Urine Catheter General: Alert, Oriented, No Acute Distress HEENT: Pupils Equal, Mucous Membr. Moist/[place] Neck: Supple Lungs: Normal Respiratory Effort (Increased respiratory rate and effort.), Decreased Breath Sounds, Crackles (Scattered), Wheezing (Occasional expiratory) Cardiovascular: Regular Rhythm, Tachycardia GI/Abdominal Exam: Normal Bowel Sounds, Soft, Non-Tender, No Organomegaly, No Distention, No Abnormal Bruit Extremities: Normal Inspection, Normal Capillary Refill, Pedal Edema Peripheral Pulses: 1+: Posterior Tibial (L), Posterior Tibial (R), Dorsalis Pedis (L), Dorsalis Pedis (R) Skin: Warm, Dry, Intact Psy/Mental Status: Alert, Normal Affect, Normal Mood Sepsis Event Note - Evaluation Sepsis Screening Result: No Definite Risk - Focused Exam Vital Signs: Vital Signs Temp Pulse Pulse Resp BP BP Pulse Ox 06/23/20 13:39 97.9 F 109 H 20 125/58 L 95 06/23/20 13:37 97.8 F 109 H 20 125/58 L 06/23/20 13:15 97.9 F 114 H 24 H 127/57 L 99 06/23/20 13:03 97.8 F 114 H 24 H 127/57 L 06/23/20 13:01 97.5 F 112 H 24 H 124/61 93 L 06/23/20 11:24 97.5 F 107 H 20 90 L 06/23/20 11:00 97.5 F 112 H 24 H 124/61 06/23/20 10:50 101 H 06/23/20 10:46 97.9 F 101 H 22 H 146/66 H 93 L 06/23/20 10:45 97.8 F 101 H 22 H 146/66 H 06/23/20 10:36 108 H 100 06/23/20 10:19 97.9 F 106 H 18 121/52 L 94 L 06/23/20 10:18 97.9 F 106 H 18 121/52 L 06/23/20 07:26 97.7 F 107 H 24 H 121/57 L 92 L 06/23/20 03:53 97.3 F 108 H 12 109/55 L 91 L - Problem List & Annotations (1) Elevated lactic acid level SNOMED Code(s): 6663808 Code(s): R79.89 - OTHER SPECIFIED ABNORMAL FINDINGS OF BLOOD CHEMISTRY Status: Acute Current Visit: Yes (2) Hypovolemia SNOMED Code(s): 373838261 Code(s): E86.1 - HYPOVOLEMIA Status: Acute Current Visit: Yes (3) Post-COVID syndrome SNOMED Code(s): 913154427, [id number] Code(s): B94.8 - SEQUELAE OF OTH INFECTIOUS AND PARASITIC DISEASES Status: Acute Current Visit: Yes (4) Syncope SNOMED Code(s): 255079663 Code(s): R55 - SYNCOPE AND COLLAPSE Status: Acute Current Visit: Yes (5) Atrial fibrillation with RVR SNOMED Code(s): 913404688281010 Code(s): I48.91 - UNSPECIFIED ATRIAL FIBRILLATION Status: Acute Current Visit: No (6) Pulmonary embolism associated with COVID-19 SNOMED Code(s): 227826462 Code(s): U07.1 - COVID-19; I26.99 - OTHER PULMONARY EMBOLISM WITHOUT ACUTE COR PULMONALE Status: Acute Current Visit: No (7) Chronic renal insufficiency, stage III (moderate) SNOMED Code(s): 817496608 Code(s): N18.30 - CHRONIC KIDNEY DISEASE, STAGE 3 UNSPECIFIED Status: Chronic Current Visit: No Qualifiers: Chronic kidney disease stage 3 subtype: stage 3b (GFR 30-44) Qualified Code(s): N18.32 - Chronic kidney disease, stage 3b (8) HTN, Essential hypertension SNOMED Code(s): 34967735 Code(s): I10 - ESSENTIAL (PRIMARY) HYPERTENSION Status: Chronic Current Visit: No (9) Pulmonary hypertension SNOMED Code(s): 46655600 Code(s): I27.20 - PULMONARY HYPERTENSION, UNSPECIFIED Status: Chronic Current Visit: No - Problem List Review Problem List Initiated/Reviewed/Updated: Yes - My Orders Last 24 Hours: My Active Orders 06/22/20 16:30 PROCALCITONIN [REF] Routine 06/22/20 17:26 Sodium Chloride 0.9% [Saline Flush] 10 ml FLUSH ASDIRECTED PRN Blood Culture x2 Reflex Set [OM.PC] Stat Saline Lock Insert [OM.PC] Stat 06/22/20 17:27 CULTURE BLOOD [BC] Stat 06/22/20 17:51 Code Status [Resuscitation Status] Routine 06/22/20 18:00 CULTURE BLOOD [BC] Stat 06/22/20 18:46 Oxygen Therapy [RC] PRN Up With Assistance [RC] BID VTE/DVT Education [RC] DAILY Vital Signs [RC] Q4HR Consult to Nurse Tech [CONS] Routine Acetaminophen [TylenoL] 650 mg PO Q4H PRN Ondansetron [Zofran] 4 mg IV Q4H PRN oxyCODONE 5 mg PO Q4H PRN 06/22/20 18:51 Patient Status [ADT] Routine Cardiac Monitoring [RC] . DIRECTED 06/22/20 21:15 predniSONE 20 mg PO BID 06/23/20 01:15 Sodium Chloride 0.9% [Normal Saline] 1,000 ml IV ASDIRECTED 06/23/20 02:00 Piperacillin/Tazobactam [Piperacil-Tazobact] 4.5 gm Sodium Chloride 0.9% [Normal Saline] 100 ml IV Q8H 06/23/20 03:05 LACTIC ACID [CHEM] Routine 06/23/20 06:00 Pantoprazole [ProTONIX] 40 mg PO BIDAC 06/23/20 06:04 Transfuse PRBC [Transfuse Red Blood Cells] [COMM] Routine 06/23/20 Breakfast Regular Diet [DIET] 06/23/20 07:58 Urinary Catheter Assessment [RC] ASDIRECTED 06/23/20 08:00 Insert Riley Catheter [Insert Urinary Catheter] [OM.PC] Q24H Sodium Chloride 0.9% [Normal Saline] 250 ml IV ASDIRECTED 06/23/20 09:00 Ascorbic Acid [Vitamin C] 500 mg PO DAILY Atovaquone [Atovaquone] 0 mg PO BIDMEALS Cholecalciferol (Vitamin D3) [Vitamin D3] 5,000 unit PO DAILY Digoxin [Lanoxin] 125 mcg PO DAILY Ferrous Sulfate 324 mg PO DAILY Montelukast [Singulair] 10 mg PO DAILY Rosuvastatin [Crestor] 10 mg PO DAILY 06/23/20 09:14 Central Venous Line Insertion [OM.PC] Routine 06/23/20 09:18 Urinary Catheter Assessment [RC] ASDIRECTED 06/23/20 09:30 Insert Riley Catheter [Insert Urinary Catheter] [OM.PC] Q24H 06/23/20 10:08 CULTURE URINE [RM] Stat 06/23/20 10:45 Nystatin [Nystatin Oral Syringe] 500,000 unit PO QID 06/23/20 11:00 Insulin Lispro [HumaLOG] See Protocol SUBCUT QIDACANDBED 06/24/20 05:11 INR,PT,PROTHROMBIN TIME [COAG] AM 06/25/20 05:11 INR,PT,PROTHROMBIN TIME [COAG] AM 06/26/20 05:11 INR,PT,PROTHROMBIN TIME [COAG] AM 06/27/20 05:11 INR,PT,PROTHROMBIN TIME [COAG] AM - Plan Plan:: Assessment 06/22/2020 84-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 Hypovolemia secondary to diarrhea, poor oral intake Post Covid syndrome Post Covid pneumonia versus hospital-acquired pneumonia recently treated with was in a safety spec and levofloxacin * White count is normal * Few toxic granulations on initial CBC. Lactic acid elevated at 6.6 with minimally elevated C-reactive protein of 2.9. * Patient's elevated lactic acid is likely secondary to hypovolemia with possible underlying worsening of her left upper lobe pneumonia. With a normal white count, essentially normal C-reactive protein, and no significant change on chest x-ray I do not believe that this elevated lactic acid is secondary to sepsis, but it appears to be secondary to hypovolemia and poor tissue perfusion due to the hypovolemia. Patient also has a slight drop in her her hemoglobin also likely exacerbating the hypovolemia. It is unknown at this time if this is secondary to acute blood loss, but her INR is significantly elevated at greater than 5. Patient also had an elevated lactic acid on 12 June making this more likely to be a chronic problem and not an acute sepsis. * UA was ordered on admission, but nursing was unable to collect it initially secondary to patient's diarrhea. If they are unable to obtain a UA we will have to consider catheterization. * She just finished broad-spectrum antibiotics, yesterday, linezolid and levofloxacin. Supratherapeutic INR History of multiple pulmonary emboli * Patient has significantly elevated INR. She is on warfarin because she failed NOAC. * INR greater than 5 with no active bleeding, but significant anemia. Oxygen dependent chronic bronchitis * Home oxygen 4 L via nasal cannula no significant worsening * Currently on prednisone 20 units in the morning and 10 units in the evening. Recently decreased from 20 twice daily. Primary care provider states that she has been on and off steroids for several weeks now. NYHA class III CHF History of atrial fibrillation * Outpatient treatment with furosemide, losartan, warfarin, digoxin, rosuvastatin Type 2 diabetes * Hemoglobin A1c of 7.3, TSH 1.25 * Sliding scale insulin Plan * Admit to medical floor on telemetry * Start Zosyn * Blood cultures, UA, urine culture as appropriate * Follow lab work including lactic acid. Unfortunately, it appears that she has chronically elevated lactic acid from unknown source. This may not be a good indicator of risk of sepsis. * Procalcitonin will be ordered. Unfortunately, this is a send out so it will only be helpful in determining sepsis in retrospect. * Give 30 mL/kg LR bolus followed by fluids at 150 mL/h. * Follow CBC. * Sliding scale insulin * CODE STATUS: DNR/DNI * Initially we would not reverse her INR. * VTE prophylaxis secondary to supratherapeutic INR * Patient has very poor outcome. She has been hospitalized since April 15 except for just over 2 weeks. She has recurrent infections as post Covid syndrome. 06/23/2020 * 84-year-old female with post Covid syndrome and recent treatment with lenalidomide and Levaquin presents with significant drop in hemoglobin, elevated INR, likely secondary to interaction of broad-spectrum antibiotics with warfarin. * Lactic acidosis likely secondary to hypovolemia and possible underlying infection including pneumonia and UTI, but less likely. * Mild fluid overload after several boluses, 2 units packed red blood cells, and holding her Lasix this morning. Patient will get Lasix 20 mg IV x1 and may repeat. * When bleeding has stopped we will have to restart warfarin secondary to her history of clotting disorder. * Patient had significant diarrhea today likely also secondary to antibiotics. Patient is currently on Zosyn. Will give Imodium since C. difficile has been ruled out. * Central line placed today because of poor venous access. * Normal white count with a procalcitonin of 0.08 essentially ruling out severe sepsis * I discussed with her daughter and the patient that she has a very poor outlook and prognosis. They voiced understanding. - Mortality Measure Prognosis:: Poor
--- NOTE | 2020-06-23 15:04 | PCM.CONS ---
H&P History of Present Illness - General Date of Service: 06/23/20 Admit Problem/Dx: Admission Diagnosis/Problem Admission Diagnosis/Problem Weakness Source of Information: Patient, Provider History Limitations: Reports: No Limitations - History of Present Illness Initial Comments - Free Text/Narative: The patient is an 84 y/o female who was admitted to the hospital. She had no obtainable IV access after initiation of the sepsis protocol. PICC line access was declined by anesthesia. The patient was found to have elevated INR and anemia requiring reversal and transfusion. She denies noting any significant blood loss including hematochezia or hematuria. She denies any recent trauma or injury with blood loss. The patient reports previously having a PICC line and central line on the right side. - Related Data Allergies/Adverse Reactions: Allergies Allergy/AdvReac Type Severity Reaction Status Date / Time naproxen Allergy Intermediate Rash Verified 04/15/20 08:02 Home Medications: Home Meds Cholecalciferol (Vitamin D3) [Vitamin D3] 5,000 unit PO DAILY 05/10/14 [History] Furosemide [Lasix] 20 mg PO DAILY 03/14/16 [History] Potassium Chloride 20 meq PO DAILY 07/01/19 [History] Ferrous Gluconate 325 mg PO DAILY 04/14/20 [History] Warfarin [Coumadin] 3.5 mg PO ASDIRECTED 04/14/20 [History] Ascorbic Acid 500 mg PO DAILY 06/22/20 [History] Atovaquone 750 mg PO BID 06/22/20 [History] Digoxin 125 mcg PO DAILY 06/22/20 [History] L.acidoph,Paracasei, B.lactis [Probiotic] 1 each PO DAILY 06/22/20 [History] Magnesium Oxide [Mag-Oxide] 200 mg PO ASDIRECTED 06/22/20 [History] Montelukast [Singulair] 10 mg PO DAILY 06/22/20 [History] Nystatin 100,000 unit PO QID 06/22/20 [History] Pantoprazole Sodium [Protonix] 40 mg PO BID 06/22/20 [History] Rosuvastatin Calcium 10 mg PO DAILY 06/22/20 [History] predniSONE 10 mg PO BEDTIME 06/22/20 [History] predniSONE [Prednisone] 20 mg PO ACBREAKFAST 06/22/20 [History] Past Medical History HEENT History: Reports: Cataract, Other (See Below) Other HEENT History: wears glasses Cardiovascular History: Reports: Blood Clots/VTE/DVT, High Cholesterol Other Cardiovascular History: bilateral PEs Respiratory History: Reports: PE, SOB Other Respiratory History: wears 4L O2 during day and 4L O2 at night Gastrointestinal History: Reports: GERD 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 positive covid 04/12 - Past Surgical History HEENT Surgical History: Reports: Cataract Surgery Cardiovascular Surgical History: Reports: Other (See Below) Other Cardiovascular Surgeries/Procedures: IVC filter GI Surgical History: Reports: Appendectomy, Cholecystectomy Female Surgical History: Reports: Hysterectomy Musculoskeletal Surgical History: Reports: None Social & Family History - Family History Family Medical History: No Pertinent Family History Cardiac: Reports: Other (See Below) (heart disease) Neurological: Reports: CVA Oncologic: Reports: Breast - Tobacco Use Tobacco Use Status *Q: Never Tobacco User - Caffeine Use Caffeine Use: Reports: None - Recreational Drug Use Recreational Drug Use: No - Living Situation & Occupation Living situation: Reports: Occupation: Retired (Both her and her are currently living at [facility] H&P Review of Systems - Review of Systems: Review Of Systems: See Below General: Reports: Malaise, Weakness HEENT: Reports: No Symptoms Pulmonary: Reports: Shortness of Breath, Wheezing, Cough Cardiovascular: Reports: Edema, Syncope Gastrointestinal: Reports: Decreased Appetite. Denies: Abdominal Pain Genitourinary: Reports: No Symptoms Musculoskeletal: Reports: Back Pain Skin: Reports: Other (skin tearing) Psychiatric: Reports: Depression Neurological: Reports: Syncope Hematologic/Lymphatic: Reports: No Symptoms Exam - Exam Exam: See Below - Vital Signs Vital Signs: Last Vital Signs Temp 36.6 C 06/23/20 13:39 Pulse 109 H 06/23/20 13:39 Resp 20 06/23/20 13:39 BP 125/58 L 06/23/20 13:39 Pulse Ox 95 06/23/20 13:39 Weight: 65.544 kg - Exam Quality Assessment: Supplemental Oxygen General: Alert, Oriented HEENT: Conjunctiva Clear, EOMI Neck: Supple Lungs: Normal Respiratory Effort GI/Abdominal Exam: Soft, Non-Tender, No Distention Extremities: Other (edema in hands and legs) Peripheral Pulses: 2+: Dorsalis Pedis (L), Dorsalis Pedis (R) Skin: Warm, Dry, Other (scattered ecchymoses) Neurological: Cranial Nerves Intact Neuro Extensive - Mental Status: Oriented x3 Psychiatric: Other (flattened affect) - Patient Data Lab Results Last 24 hrs: Laboratory Results - last 24 hr 06/22/20 06/22/20 06/22/20 Range/Units 18:00 18:00 18:00 WBC 7.84 (3.98-10.04) K/mm3 RBC 2.56 L (3.98-5.22) M/mm3 Hgb 7.5 L (11.2-15.7) gm/dl Hct 23.2 L (34.1-44.9) % MCV 90.6 (79.4-94.8) fl MCH 29.3 (25.6-32.2) pg MCHC 32.3 (32.2-35.5) g/dl RDW Std Deviation 46.0 (36.4-46.3) fL Plt Count 107 L (182-369) K/mm3 MPV 10.8 (9.4-12.3) fl Neut % (Auto) (34.0-71.1) % Lymph % (Auto) (19.3-51.7) % [place] % (Auto) (4.7-12.5) % Eos % (Auto) (0.7-5.8) Baso % (Auto) (0.1-1.2) % Neut # (Auto) (1.56-6.13) K/mm3 Lymph # (Auto) (1.18-3.74) K/mm3 [place] # (Auto) (0.24-0.36) K/mm3 Eos # (Auto) (0.04-0.36) K/mm3 Baso # (Auto) (0.01-0.08) K/mm3 Neutrophils % (Manual) 68 H (40-60) % Band Neutrophils % 0 (0-10) % Lymphocytes % (Manual) 28 (20-40) % Atypical Lymphs % 0 % Monocytes % (Manual) 1 L (2-10) % Eosinophils % (Manual) 3 (0.7-5.8) % Basophils % (Manual) 0 L (0.1-1.2) Manual Slide Review Toxic Granulation Few Platelet Estimate Decreased Plt Morphology Comment See note Hypochromasia 1+ slight RBC Morph Comment Not Reportable PT 59.5 H* D (9.7-12.0) SECONDS INR 5.75 H* Puncture Site ABG pH (7.35-7.45) ABG pCO2 (35.0-45.0) mmHg ABG pO2 (80.0-100.0) mmHg ABG HCO3 (22.0-26.0) meq/L ABG O2 Saturation (96.0-97.0) % ABG Base Excess (-2-2.0) Andre Test A-a Gradient mmHg O2 Delivery Device Oxygen Flow Rate FiO2 (21.00-100.00) % Sodium 135 L (136-145) mEq/L Potassium 4.5 (3.5-5.1) mEq/L Chloride 96 L (98-107) mEq/L Carbon Dioxide 26 (21-32) mEq/L Anion Gap 17.5 H (5-15) BUN 34 H (7-18) mg/dL Creatinine 1.4 H (0.55-1.02) mg/dL Est Cr Clr Drug Dosing 22.25 mL/min Estimated GFR (MDRD) 36 (>60) mL/min BUN/Creatinine Ratio 24.3 H (14-18) Glucose 162 H (83-115) mg/dL POC Glucose (83-110) mg/dL Lactic Acid (0.4-2.0) mmol/L Calcium 8.5 (8.5-10.1) mg/dL Phosphorus (2.6-4.7) mg/dL Magnesium (1.8-2.4) mg/dl Total Bilirubin 0.6 (0.2-1.0) mg/dL AST 31 (15-37) U/L ALT 38 (14-59) U/L Alkaline Phosphatase 59 (46-116) U/L Troponin I 0.051 (0.00-0.056) ng/mL C-Reactive Protein 2.9 H* (<1.0) mg/dL Total Protein 6.0 L (6.4-8.2) g/dl Albumin 2.6 L (3.4-5.0) g/dl Globulin 3.4 gm/dL Albumin/Globulin Ratio 0.8 L (1-2) Urine Color (Yellow) Urine Appearance (Clear) Urine pH (5.0-8.0) Ur Specific [place] (1.005-1.030) Urine Protein (Negative) Urine Glucose (UA) (Negative) Urine Ketones (Negative) Urine Occult Blood (Negative) Urine Nitrite (Negative) Urine Bilirubin (Negative) Urine Urobilinogen (0.2-1.0) Ur Leukocyte Esterase (Negative) Urine RBC (0-5) /hpf Urine WBC (0-5) /hpf Ur Squamous Epith Cells (0-5) /hpf Urine Bacteria (FEW) /hpf Urine Mucus (FEW) /hpf MRSA (PCR) Blood Type Gel Antibody Screen Crossmatch 06/22/20 06/22/20 06/22/20 Range/Units 18:00 18:27 20:20 WBC (3.98-10.04) K/mm3 RBC (3.98-5.22) M/mm3 Hgb (11.2-15.7) gm/dl Hct (34.1-44.9) % MCV (79.4-94.8) fl MCH (25.6-32.2) pg MCHC (32.2-35.5) g/dl RDW Std Deviation (36.4-46.3) fL Plt Count (182-369) K/mm3 MPV (9.4-12.3) fl Neut % (Auto) (34.0-71.1) % Lymph % (Auto) (19.3-51.7) % [place] % (Auto) (4.7-12.5) % Eos % (Auto) (0.7-5.8) Baso % (Auto) (0.1-1.2) % Neut # (Auto) (1.56-6.13) K/mm3 Lymph # (Auto) (1.18-3.74) K/mm3 [place] # (Auto) (0.24-0.36) K/mm3 Eos # (Auto) (0.04-0.36) K/mm3 Baso # (Auto) (0.01-0.08) K/mm3 Neutrophils % (Manual) (40-60) % Band Neutrophils % (0-10) % Lymphocytes % (Manual) (20-40) % Atypical Lymphs % % Monocytes % (Manual) (2-10) % Eosinophils % (Manual) (0.7-5.8) % Basophils % (Manual) (0.1-1.2) Manual Slide Review Toxic Granulation Platelet Estimate Plt Morphology Comment Hypochromasia RBC Morph Comment PT (9.7-12.0) SECONDS INR Puncture Site Lt radial ABG pH 7.41 (7.35-7.45) ABG pCO2 40.0 (35.0-45.0) mmHg ABG pO2 61.0 L (80.0-100.0) mmHg ABG HCO3 24.6 (22.0-26.0) meq/L ABG O2 Saturation 90.9 L (96.0-97.0) % ABG Base Excess 0.4 (-2-2.0) Andre Test Positive A-a Gradient 146 mmHg O2 Delivery Device Nasal cannula Oxygen Flow Rate 4.0 FiO2 36.00 (21.00-100.00) % Sodium (136-145) mEq/L Potassium (3.5-5.1) mEq/L Chloride (98-107) mEq/L Carbon Dioxide (21-32) mEq/L Anion Gap (5-15) BUN (7-18) mg/dL Creatinine (0.55-1.02) mg/dL Est Cr Clr Drug Dosing mL/min Estimated GFR (MDRD) (>60) mL/min BUN/Creatinine Ratio (14-18) Glucose (83-115) mg/dL POC Glucose (83-110) mg/dL Lactic Acid 6.6 H* (0.4-2.0) mmol/L Calcium (8.5-10.1) mg/dL Phosphorus (2.6-4.7) mg/dL Magnesium (1.8-2.4) mg/dl Total Bilirubin (0.2-1.0) mg/dL AST (15-37) U/L ALT (14-59) U/L Alkaline Phosphatase (46-116) U/L Troponin I (0.00-0.056) ng/mL C-Reactive Protein (<1.0) mg/dL Total Protein (6.4-8.2) g/dl Albumin (3.4-5.0) g/dl Globulin gm/dL Albumin/Globulin Ratio (1-2) Urine Color (Yellow) Urine Appearance (Clear) Urine pH (5.0-8.0) Ur Specific [place] (1.005-1.030) Urine Protein (Negative) Urine Glucose (UA) (Negative) Urine Ketones (Negative) Urine Occult Blood (Negative) Urine Nitrite (Negative) Urine Bilirubin (Negative) Urine Urobilinogen (0.2-1.0) Ur Leukocyte Esterase (Negative) Urine RBC (0-5) /hpf Urine WBC (0-5) /hpf Ur Squamous Epith Cells (0-5) /hpf Urine Bacteria (FEW) /hpf Urine Mucus (FEW) /hpf MRSA (PCR) Negative Blood Type Gel Antibody Screen Crossmatch 06/22/20 06/23/20 06/23/20 Range/Units 21:30 00:26 03:25 WBC 5.15 (3.98-10.04) K/mm3 RBC 2.10 L (3.98-5.22) M/mm3 Hgb 6.2 L* (11.2-15.7) gm/dl Hct 19.0 L (34.1-44.9) % MCV 90.5 (79.4-94.8) fl MCH 29.5 (25.6-32.2) pg MCHC 32.6 (32.2-35.5) g/dl RDW Std Deviation 46.7 H (36.4-46.3) fL Plt Count 77 L (182-369) K/mm3 MPV 11.1 (9.4-12.3) fl Neut % (Auto) 75.0 H (34.0-71.1) % Lymph % (Auto) 21.7 (19.3-51.7) % [place] % (Auto) 2.5 L (4.7-12.5) % Eos % (Auto) 0 L (0.7-5.8) Baso % (Auto) 0.0 L (0.1-1.2) % Neut # (Auto) 3.86 (1.56-6.13) K/mm3 Lymph # (Auto) 1.12 L (1.18-3.74) K/mm3 [place] # (Auto) 0.13 L (0.24-0.36) K/mm3 Eos # (Auto) 0.00 L (0.04-0.36) K/mm3 Baso # (Auto) 0.00 L (0.01-0.08) K/mm3 Neutrophils % (Manual) (40-60) % Band Neutrophils % (0-10) % Lymphocytes % (Manual) (20-40) % Atypical Lymphs % % Monocytes % (Manual) (2-10) % Eosinophils % (Manual) (0.7-5.8) % Basophils % (Manual) (0.1-1.2) Manual Slide Review Abnormal smear Toxic Granulation Platelet Estimate Plt Morphology Comment Hypochromasia RBC Morph Comment PT (9.7-12.0) SECONDS INR Puncture Site ABG pH (7.35-7.45) ABG pCO2 (35.0-45.0) mmHg ABG pO2 (80.0-100.0) mmHg ABG HCO3 (22.0-26.0) meq/L ABG O2 Saturation (96.0-97.0) % ABG Base Excess (-2-2.0) Andre Test A-a Gradient mmHg O2 Delivery Device Oxygen Flow Rate FiO2 (21.00-100.00) % Sodium (136-145) mEq/L Potassium (3.5-5.1) mEq/L Chloride (98-107) mEq/L Carbon Dioxide (21-32) mEq/L Anion Gap (5-15) BUN (7-18) mg/dL Creatinine (0.55-1.02) mg/dL Est Cr Clr Drug Dosing mL/min Estimated GFR (MDRD) (>60) mL/min BUN/Creatinine Ratio (14-18) Glucose (83-115) mg/dL POC Glucose (83-110) mg/dL Lactic Acid 4.4 H* 4.5 H* (0.4-2.0) mmol/L Calcium (8.5-10.1) mg/dL Phosphorus (2.6-4.7) mg/dL Magnesium (1.8-2.4) mg/dl Total Bilirubin (0.2-1.0) mg/dL AST (15-37) U/L ALT (14-59) U/L Alkaline Phosphatase (46-116) U/L Troponin I (0.00-0.056) ng/mL C-Reactive Protein (<1.0) mg/dL Total Protein (6.4-8.2) g/dl Albumin (3.4-5.0) g/dl Globulin gm/dL Albumin/Globulin Ratio (1-2) Urine Color (Yellow) Urine Appearance (Clear) Urine pH (5.0-8.0) Ur Specific [place] (1.005-1.030) Urine Protein (Negative) Urine Glucose (UA) (Negative) Urine Ketones (Negative) Urine Occult Blood (Negative) Urine Nitrite (Negative) Urine Bilirubin (Negative) Urine Urobilinogen (0.2-1.0) Ur Leukocyte Esterase (Negative) Urine RBC (0-5) /hpf Urine WBC (0-5) /hpf Ur Squamous Epith Cells (0-5) /hpf Urine Bacteria (FEW) /hpf Urine Mucus (FEW) /hpf MRSA (PCR) Blood Type Gel Antibody Screen Crossmatch 06/23/20 06/23/20 06/23/20 Range/Units 03:25 03:25 03:25 WBC (3.98-10.04) K/mm3 RBC (3.98-5.22) M/mm3 Hgb (11.2-15.7) gm/dl Hct (34.1-44.9) % MCV (79.4-94.8) fl MCH (25.6-32.2) pg MCHC (32.2-35.5) g/dl RDW Std Deviation (36.4-46.3) fL Plt Count (182-369) K/mm3 MPV (9.4-12.3) fl Neut % (Auto) (34.0-71.1) % Lymph % (Auto) (19.3-51.7) % [place] % (Auto) (4.7-12.5) % Eos % (Auto) (0.7-5.8) Baso % (Auto) (0.1-1.2) % Neut # (Auto) (1.56-6.13) K/mm3 Lymph # (Auto) (1.18-3.74) K/mm3 [place] # (Auto) (0.24-0.36) K/mm3 Eos # (Auto) (0.04-0.36) K/mm3 Baso # (Auto) (0.01-0.08) K/mm3 Neutrophils % (Manual) (40-60) % Band Neutrophils % (0-10) % Lymphocytes % (Manual) (20-40) % Atypical Lymphs % % Monocytes % (Manual) (2-10) % Eosinophils % (Manual) (0.7-5.8) % Basophils % (Manual) (0.1-1.2) Manual Slide Review Toxic Granulation Platelet Estimate Plt Morphology Comment Hypochromasia RBC Morph Comment PT 56.0 H* (9.7-12.0) SECONDS INR 5.41 H* Puncture Site ABG pH (7.35-7.45) ABG pCO2 (35.0-45.0) mmHg ABG pO2 (80.0-100.0) mmHg ABG HCO3 (22.0-26.0) meq/L ABG O2 Saturation (96.0-97.0) % ABG Base Excess (-2-2.0) Andre Test A-a Gradient mmHg O2 Delivery Device Oxygen Flow Rate FiO2 (21.00-100.00) % Sodium 138 (136-145) mEq/L Potassium 3.8 (3.5-5.1) mEq/L Chloride 101 (98-107) mEq/L Carbon Dioxide 28 (21-32) mEq/L Anion Gap 12.8 (5-15) BUN 28 H (7-18) mg/dL Creatinine 1.1 H (0.55-1.02) mg/dL Est Cr Clr Drug Dosing 28.32 mL/min Estimated GFR (MDRD) 48 (>60) mL/min BUN/Creatinine Ratio 25.5 H (14-18) Glucose 135 H (83-115) mg/dL POC Glucose (83-110) mg/dL Lactic Acid 2.4 H* (0.4-2.0) mmol/L Calcium 7.8 L (8.5-10.1) mg/dL Phosphorus 3.1 (2.6-4.7) mg/dL Magnesium 1.8 (1.8-2.4) mg/dl Total Bilirubin 0.7 (0.2-1.0) mg/dL AST 24 (15-37) U/L ALT 30 (14-59) U/L Alkaline Phosphatase 46 (46-116) U/L Troponin I (0.00-0.056) ng/mL C-Reactive Protein (<1.0) mg/dL Total Protein 4.8 L (6.4-8.2) g/dl Albumin 2.1 L (3.4-5.0) g/dl Globulin 2.7 gm/dL Albumin/Globulin Ratio 0.8 L (1-2) Urine Color (Yellow) Urine Appearance (Clear) Urine pH (5.0-8.0) Ur Specific [place] (1.005-1.030) Urine Protein (Negative) Urine Glucose (UA) (Negative) Urine Ketones (Negative) Urine Occult Blood (Negative) Urine Nitrite (Negative) Urine Bilirubin (Negative) Urine Urobilinogen (0.2-1.0) Ur Leukocyte Esterase (Negative) Urine RBC (0-5) /hpf Urine WBC (0-5) /hpf Ur Squamous Epith Cells (0-5) /hpf Urine Bacteria (FEW) /hpf Urine Mucus (FEW) /hpf MRSA (PCR) Blood Type Gel Antibody Screen Crossmatch 06/23/20 06/23/20 06/23/20 Range/Units 03:25 06:30 10:05 WBC (3.98-10.04) K/mm3 RBC (3.98-5.22) M/mm3 Hgb (11.2-15.7) gm/dl Hct (34.1-44.9) % MCV (79.4-94.8) fl MCH (25.6-32.2) pg MCHC (32.2-35.5) g/dl RDW Std Deviation (36.4-46.3) fL Plt Count (182-369) K/mm3 MPV (9.4-12.3) fl Neut % (Auto) (34.0-71.1) % Lymph % (Auto) (19.3-51.7) % [place] % (Auto) (4.7-12.5) % Eos % (Auto) (0.7-5.8) Baso % (Auto) (0.1-1.2) % Neut # (Auto) (1.56-6.13) K/mm3 Lymph # (Auto) (1.18-3.74) K/mm3 [place] # (Auto) (0.24-0.36) K/mm3 Eos # (Auto) (0.04-0.36) K/mm3 Baso # (Auto) (0.01-0.08) K/mm3 Neutrophils % (Manual) (40-60) % Band Neutrophils % (0-10) % Lymphocytes % (Manual) (20-40) % Atypical Lymphs % % Monocytes % (Manual) (2-10) % Eosinophils % (Manual) (0.7-5.8) % Basophils % (Manual) (0.1-1.2) Manual Slide Review Toxic Granulation Platelet Estimate Plt Morphology Comment Hypochromasia RBC Morph Comment PT (9.7-12.0) SECONDS INR Puncture Site ABG pH (7.35-7.45) ABG pCO2 (35.0-45.0) mmHg ABG pO2 (80.0-100.0) mmHg ABG HCO3 (22.0-26.0) meq/L ABG O2 Saturation (96.0-97.0) % ABG Base Excess (-2-2.0) Andre Test A-a Gradient mmHg O2 Delivery Device Oxygen Flow Rate FiO2 (21.00-100.00) % Sodium (136-145) mEq/L Potassium (3.5-5.1) mEq/L Chloride (98-107) mEq/L Carbon Dioxide (21-32) mEq/L Anion Gap (5-15) BUN (7-18) mg/dL Creatinine (0.55-1.02) mg/dL Est Cr Clr Drug Dosing mL/min Estimated GFR (MDRD) (>60) mL/min BUN/Creatinine Ratio (14-18) Glucose (83-115) mg/dL POC Glucose (83-110) mg/dL Lactic Acid 2.4 H* 2.4 H* (0.4-2.0) mmol/L Calcium (8.5-10.1) mg/dL Phosphorus (2.6-4.7) mg/dL Magnesium (1.8-2.4) mg/dl Total Bilirubin (0.2-1.0) mg/dL AST (15-37) U/L ALT (14-59) U/L Alkaline Phosphatase (46-116) U/L Troponin I (0.00-0.056) ng/mL C-Reactive Protein (<1.0) mg/dL Total Protein (6.4-8.2) g/dl Albumin (3.4-5.0) g/dl Globulin gm/dL Albumin/Globulin Ratio (1-2) Urine Color (Yellow) Urine Appearance (Clear) Urine pH (5.0-8.0) Ur Specific [place] (1.005-1.030) Urine Protein (Negative) Urine Glucose (UA) (Negative) Urine Ketones (Negative) Urine Occult Blood (Negative) Urine Nitrite (Negative) Urine Bilirubin (Negative) Urine Urobilinogen (0.2-1.0) Ur Leukocyte Esterase (Negative) Urine RBC (0-5) /hpf Urine WBC (0-5) /hpf Ur Squamous Epith Cells (0-5) /hpf Urine Bacteria (FEW) /hpf Urine Mucus (FEW) /hpf MRSA (PCR) Blood Type A POSITIVE Gel Antibody Screen Negative Crossmatch See Detail 06/23/20 06/23/20 Range/Units 10:08 11:03 WBC (3.98-10.04) K/mm3 RBC (3.98-5.22) M/mm3 Hgb (11.2-15.7) gm/dl Hct (34.1-44.9) % MCV (79.4-94.8) fl MCH (25.6-32.2) pg MCHC (32.2-35.5) g/dl RDW Std Deviation (36.4-46.3) fL Plt Count (182-369) K/mm3 MPV (9.4-12.3) fl Neut % (Auto) (34.0-71.1) % Lymph % (Auto) (19.3-51.7) % [place] % (Auto) (4.7-12.5) % Eos % (Auto) (0.7-5.8) Baso % (Auto) (0.1-1.2) % Neut # (Auto) (1.56-6.13) K/mm3 Lymph # (Auto) (1.18-3.74) K/mm3 [place] # (Auto) (0.24-0.36) K/mm3 Eos # (Auto) (0.04-0.36) K/mm3 Baso # (Auto) (0.01-0.08) K/mm3 Neutrophils % (Manual) (40-60) % Band Neutrophils % (0-10) % Lymphocytes % (Manual) (20-40) % Atypical Lymphs % % Monocytes % (Manual) (2-10) % Eosinophils % (Manual) (0.7-5.8) % Basophils % (Manual) (0.1-1.2) Manual Slide Review Toxic Granulation Platelet Estimate Plt Morphology Comment Hypochromasia RBC Morph Comment PT (9.7-12.0) SECONDS INR Puncture Site ABG pH (7.35-7.45) ABG pCO2 (35.0-45.0) mmHg ABG pO2 (80.0-100.0) mmHg ABG HCO3 (22.0-26.0) meq/L ABG O2 Saturation (96.0-97.0) % ABG Base Excess (-2-2.0) Andre Test A-a Gradient mmHg O2 Delivery Device Oxygen Flow Rate FiO2 (21.00-100.00) % Sodium (136-145) mEq/L Potassium (3.5-5.1) mEq/L Chloride (98-107) mEq/L Carbon Dioxide (21-32) mEq/L Anion Gap (5-15) BUN (7-18) mg/dL Creatinine (0.55-1.02) mg/dL Est Cr Clr Drug Dosing mL/min Estimated GFR (MDRD) (>60) mL/min BUN/Creatinine Ratio (14-18) Glucose (83-115) mg/dL POC Glucose 291 H (83-110) mg/dL Lactic Acid (0.4-2.0) mmol/L Calcium (8.5-10.1) mg/dL Phosphorus (2.6-4.7) mg/dL Magnesium (1.8-2.4) mg/dl Total Bilirubin (0.2-1.0) mg/dL AST (15-37) U/L ALT (14-59) U/L Alkaline Phosphatase (46-116) U/L Troponin I (0.00-0.056) ng/mL C-Reactive Protein (<1.0) mg/dL Total Protein (6.4-8.2) g/dl Albumin (3.4-5.0) g/dl Globulin gm/dL Albumin/Globulin Ratio (1-2) Urine Color Light yellow (Yellow) Urine Appearance Cloudy H (Clear) Urine pH 6.0 (5.0-8.0) Ur Specific [place] 1.020 (1.005-1.030) Urine Protein Negative (Negative) Urine Glucose (UA) Negative (Negative) Urine Ketones Trace H (Negative) Urine Occult Blood Negative (Negative) Urine Nitrite Positive H (Negative) Urine Bilirubin Negative (Negative) Urine Urobilinogen 0.2 (0.2-1.0) Ur Leukocyte Esterase 2+ H (Negative) Urine RBC Not seen (0-5) /hpf Urine WBC 10-20 H (0-5) /hpf Ur Squamous Epith Cells 0-5 (0-5) /hpf Urine Bacteria Moderate H (FEW) /hpf Urine Mucus Few (FEW) /hpf MRSA (PCR) Blood Type Gel Antibody Screen Crossmatch Result Diagrams: 06/23/20 16:05 06/23/20 16:05 Kevyn Results Last 24 hrs: Microbiology 06/23/20 03:25 Anaerobic Blood Culture - Final Blood - Venous - Lab Draw Sepsis Event Note - Evaluation Sepsis Screening Result: No Definite Risk - Focused Exam Vital Signs: Vital Signs Temp Pulse Pulse Resp BP BP Pulse Ox 06/23/20 13:39 36.6 C 109 H 20 125/58 L 95 06/23/20 13:37 36.6 C 109 H 20 125/58 L 06/23/20 13:15 36.6 C 114 H 24 H 127/57 L 99 06/23/20 13:03 36.6 C 114 H 24 H 127/57 L 06/23/20 13:01 36.4 C 112 H 24 H 124/61 93 L 06/23/20 11:24 36.4 C 107 H 20 90 L 06/23/20 11:00 36.4 C 112 H 24 H 124/61 06/23/20 10:50 101 H 06/23/20 10:46 36.6 C 101 H 22 H 146/66 H 93 L 06/23/20 10:45 36.6 C 101 H 22 H 146/66 H 06/23/20 10:36 108 H 100 06/23/20 10:19 36.6 C 106 H 18 121/52 L 94 L 06/23/20 10:18 36.6 C 106 H 18 121/52 L 06/23/20 07:26 36.5 C 107 H 24 H 121/57 L 92 L 06/23/20 03:53 36.3 C 108 H 12 109/55 L 91 L *Q Meaningful Use (ADM) - VTE Risk Assess *Q Each Risk Factor Represents 2 Points: Patient confined to bed greater than 72 hours Total Score 2 Point Risk Factors: 2 Each Risk Factor Represents 3 Points: Age 75 Years or Greater Total Score 3 Point Risk Factors: 3 Consult PN Assessment/Plan Procedures: Procedures AGENT NOS ASSAY W/OPTIC (04/14/20) AIRWAY INHALATION TREATMENT (04/14/20) ASSAY GLUCOSE BLOOD QUANT (04/14/20) ASSAY OF BETA-2 PROTEIN (12/24/18) ASSAY OF BLOOD/URIC ACID (06/12/20) ASSAY OF CREATININE (03/14/14) ASSAY OF FERRITIN (04/14/20) ASSAY OF FOLIC ACID RBC (11/13/18) ASSAY OF FOLIC ACID SERUM (03/29/20) ASSAY OF IRON (03/29/20) ASSAY OF LACTIC ACID (06/15/20) ASSAY OF MAGNESIUM (06/12/20) ASSAY OF NATRIURETIC PEPTIDE (06/15/20) ASSAY OF PHOSPHORUS (04/14/20) ASSAY OF PROTEIN URINE (04/09/19) ASSAY OF TRANSFERRIN (07/07/19) ASSAY OF TROPONIN QUANT (04/14/20) ASSAY OF VANCOMYCIN (04/14/20) ASSAY THYROID STIM HORMONE (03/29/20) BL SMEAR W/DIFF WBC COUNT (09/10/19) BLOOD CULTURE FOR BACTERIA (04/14/20) BLOOD GASES ANY COMBINATION (04/14/20) BLOOD TRANSFUSION SERVICE (04/14/20) BLOOD TYPING SEROLOGIC ABO (04/14/20) BLOOD TYPING SEROLOGIC RH(D) (04/14/20) BREAST TOMOSYNTHESIS BI (04/07/19) C-REACTIVE PROTEIN (06/15/20) CARDIOVASCULAR STRESS TEST (12/22/17) CHEST WALL MANIPULATION (04/14/20) CHEST WALL MANIPULATION (04/14/20) CHEST X-RAY 1 VIEW FRONTAL (06/06/14) CHEST X-RAY 2VW FRONTAL&LATL (03/14/16) COMPLETE CBC AUTOMATED (09/10/19) COMPLETE CBC W/AUTO DIFF WBC (06/15/20) COMPREHEN METABOLIC PANEL (06/12/20) CREATINE MB FRACTION (06/06/14) CT ABD & PELV 1/> REGNS (06/15/14) CT ANGIOGRAPHY CHEST (04/14/20) CT THORAX DX C- (10/11/19) CULTURE OTHR SPECIMN AEROBIC (04/14/20) ECG MONIT/REPRT UP TO 48 HRS (05/19/14) ECG MONIT/REPRT UP TO 48 HRS (05/19/14) ELECTROCARDIOGRAM TRACING (04/14/20) EMERGENCY DEPT VISIT (04/14/20) EMERGENCY DEPT VISIT (03/14/16) EMERGENCY DEPT VISIT (06/06/14) FIBRIN DEGRADATION PRODUCTS (07/15/19) FIBRIN DEGRADATION QUANT (04/14/20) GLUCOSE BLOOD TEST (04/14/20) GLYCOSYLATED HEMOGLOBIN TEST (03/29/20) HEMATOCRIT (11/13/18) HT MUSCLE IMAGE SPECT MULT (12/22/17) INFLUENZA ASSAY W/OPTIC (09/18/19) INSERT TEMP BLADDER CATH (04/14/20) LACTATE (LD) (LDH) ENZYME (04/14/20) LIPID PANEL (06/12/20) MEASURE BLOOD OXYGEN LEVEL (04/14/20) MEASURE BLOOD OXYGEN LEVEL (04/14/20) MEASURE BLOOD OXYGEN LEVEL (05/10/14) METABOLIC PANEL TOTAL CA (06/15/20) MICROBE SUSCEPTIBLE KEVYN (04/14/20) MR-STAPH DNA AMP PROBE (04/14/20) MRI LUMBAR SPINE W/O DYE (03/14/14) MYCOPLASMA ANTIBODY (04/14/20) OCCULT BLOOD FECES (11/15/18) OFFICE O/P EST HI 40-54 MIN (11/13/18) OFFICE O/P EST LOW 20-29 MIN (04/14/20) OFFICE O/P EST MOD 30-39 MIN (07/28/19) PROCALCITONIN (PCT) (04/14/20) PROTHROMBIN TIME (06/12/20) PT EVAL MOD COMPLEX 30 MIN (04/14/20) RBC SED RATE AUTOMATED (04/14/20) ROUTINE VENIPUNCTURE (06/15/20) RSV ASSAY W/OPTIC (09/18/19) STEPHEN VIPER VENOM DILUTED (07/15/19) SARS-COV-2 COVID-19 AMP PRB (09/18/19) SCR MAMMO BI INCL CAD (04/07/19) SMEAR GRAM STAIN (04/14/20) THER/PROPH/DIAG INJ IV PUSH (07/01/19) THER/PROPH/DIAG INJ SC/IM (06/06/14) THERAPEUTIC ACTIVITIES (04/14/20) THERAPEUTIC EXERCISES (04/14/20) THROMBOPLASTIN TIME PARTIAL (04/14/20) TISSUE EXAM FOR FUNGI (12/07/19) TTE W/DOPPLER COMPLETE (04/14/20) TX/PRO/DX INJ NEW DRUG ADDON (07/01/19) URINALYSIS AUTO W/O SCOPE (07/07/19) URINALYSIS AUTO W/SCOPE (04/14/20) URINE BACTERIA CULTURE (04/14/20) URINE CULTURE/COLONY COUNT (04/14/20) VITAMIN B-12 (03/29/20) VITAMIN D 25 HYDROXY (06/12/20) WITHDRAWAL OF ARTERIAL BLOOD (04/14/20) X-RAY EXAM CHEST 1 VIEW (04/14/20) X-RAY EXAM CHEST 2 VIEWS (06/15/20) (1) Elevated lactic acid level SNOMED Code(s): 0732747 Code(s): R79.89 - OTHER SPECIFIED ABNORMAL FINDINGS OF BLOOD CHEMISTRY Current Visit: Yes (2) Hypovolemia SNOMED Code(s): 057878252 Code(s): E86.1 - HYPOVOLEMIA Current Visit: Yes (3) Post-COVID syndrome SNOMED Code(s): 696677369, [id number] Code(s): B94.8 - SEQUELAE OF OTH INFECTIOUS AND PARASITIC DISEASES Current Visit: Yes Problem List Initiated/Reviewed/Updated: Yes Plan: 84 y/o lady with need for IV access, and unable to obtain peripheral access - we discussed central line placement at any site. We discussed that IJ access is preferable since she has elevated INR and this will allow for visualization of the vein. We discussed that the attempt would be made on the right, but we may need to attempt on the contralateral side due to potential scarring from previous lines. We discussed risks of bleeding, infection, and possible pneumothorax. Her written consent was obtained. - will check post-procedure x-ray - medical management per primary Alisa Falcon MD General surgery
--- NOTE | 2020-06-23 15:04 | PCM.PRNOTE ---
- Free Text/Narrative Note: Procedure note Date of the procedure: June 23, 2019 Procedure: placement of left internal jugular vein central line Surgeon: Alisa Falcon MD Anesthesia: 1% lidocaine local EBL: 10mL INDICATION for the procedure: need for IV acess PROCEDURE SUMMARY: The patient's right neck was evaluated with the ultrasound and the right internal jugular vein was identified and appeared patent. The right neck was then prepped and draped in standard surgical fashion. The ultrasound was then used to identify the vein again and the skin was infiltrated with local. The patient was positioned in Trendelenberg positioning. The vein was visible and targeted, however, only a brief venous flash of blood was achieved. This was attempted again and the artery was cannulated. The needle was removed and local pressure was held on the area. There was no significant hematoma noted. The patient was returned to a head elevated position for comfort at this point. We then turned our attention to the left side. The ultrasound was used to identify the left internal jugular vein, which was identified and appeared pat ent. She was again prepped and draped in sterile fashion. The Internal Jugular vein was identified using the ultrasound. Anesthesia was achieved over the vein using 1% lidocaine. Using real-time out of plane guidance, the introducer needle was inserted into the Internal Jugular vein under direct ultrasound visualization. Venous blood was withdrawn. The syringe was removed and a guidewire was advanced into the introducer needle. A small incision was made at the skin surface with a scalpel and the introducer needle was exchanged for a dilator over the guidewire. After appropriate dilation was obtained, the dilator was exchanged over the wire for a 7F triple lumen central venous catheter. The wire was removed and the catheter was sutured in place at 18 cm. A sterile dressing shield was placed over the catheter at the insertion site. The patient tolerated the procedure without any hemodynamic compromise. At time of procedure completion, all ports aspirated and flushed properly. Complications: none apparent Alisa Falcon MD General Surgery
[2020-06-23] MEDS ORDERED: Albuterol/Ipratropium 3.0-0.5 MG/3 ML Neb Soln NEB PRN (15:15)
[2020-06-23] MEDS ORDERED: Furosemide 20 MG/2 ML VIAL IVPUSH ONE (15:30)
[2020-06-23] MEDS: Saccharomyces Boulardii (Probiotic) 250 MG Cap PO SCH (20:00)
[2020-06-23] MEDS ORDERED: Loperamide 2 MG Cap PO ONE (20:00)
[2020-06-24] MEDS: Piperacillin/Tazobactam 4.5 GM in Sodium Chloride 0.9% 100 ML IV SCH ×3 (02:07→17:22)
[2020-06-24] MEDS ORDERED: Furosemide 20 MG/2 ML VIAL IVPUSH ONE (03:00)
[2020-06-24] MEDS: Pantoprazole 40 MG Tab.CR PO SCH ×2 (06:25→15:37)
[2020-06-24] MEDS: Potassium Chloride 10 MEQ in Premix Bag 1 BAG IV SCH ×4 (06:26→10:12)
[2020-06-24] MEDS: Magnesium Sulfate/Water 2 GM/50 ML BAG IV SCH ×2 (06:27→07:49)
[2020-06-24] MEDS: ATOVAQUONE 750 MG/5 ML PO SCH ×2 (06:29→17:30)
[2020-06-24] MEDS: Ferrous Sulfate 324 MG Tab.EC PO SCH (08:18)
[2020-06-24] MEDS: Ascorbic Acid 500 MG Tab PO SCH (08:18)
[2020-06-24] MEDS: Rosuvastatin 10 MG Tab PO SCH (08:18)
[2020-06-24] MEDS: Digoxin 125 MCG Tab PO SCH (08:18)
[2020-06-24] MEDS: Montelukast 10 MG Tab PO SCH (08:19)
[2020-06-24] MEDS: Saccharomyces Boulardii (Probiotic) 250 MG Cap PO SCH ×2 (08:19→21:17)
[2020-06-24] MEDS: Nystatin Susp 100,000 Unit/ML 5 ML Oral Syringe PO SCH ×4 (08:19→21:17)
[2020-06-24] MEDS: Cholecalciferol (Vitamin D3) 5,000 UNIT Cap PO SCH (08:19)
[2020-06-24] MEDS: predniSONE 20 MG Tab PO SCH ×2 (08:19→21:17)
--- NOTE | 2020-06-24 09:59 | PCM.PN ---
- General Info Date of Service: 06/24/20 Admission Dx/Problem (Free Text): Admission Diagnosis/Problem Admission Diagnosis/Problem Weakness Subjective Update: Delores is doing much better. She still is fatigued and appetite is poor. She has had very little oral intake. She did get 20 mg IV Lasix at 1500 yesterday and 0300 hrs. this morning. Patient has had a significant decrease in her hematemesis. Nursing states this afternoon she has not seen any blood or blood- tinged sputum. Functional Status: Reports: Pain Controlled - Review of Systems General: Reports: No Symptoms HEENT: Reports: No Symptoms Pulmonary: Reports: No Symptoms Cardiovascular: Reports: No Symptoms Gastrointestinal: Reports: No Symptoms Musculoskeletal: Reports: No Symptoms Psychiatric: Reports: No Symptoms - Patient Data Vitals - Most Recent: Last Vital Signs Temp 97.3 F 06/24/20 07:30 Pulse 105 H 06/24/20 08:18 Resp 16 06/24/20 07:30 BP 128/69 06/24/20 07:30 Pulse Ox 97 06/24/20 08:15 Weight - Most Recent: 143 lb 1.6 oz I&O - Last 24 Hours: Intake & Output 06/23/20 06/24/20 06/24/20 22:59 06:59 14:59 Intake Total 961 200 Output Total 815 1250 260 Balance 146 -1050 -260 Lab Results Last 24 Hours: Laboratory Results - last 24 hr 06/22/20 06/23/20 06/23/20 Range/Units 16:30 03:25 10:05 WBC (3.98-10.04) K/mm3 RBC (3.98-5.22) M/mm3 Hgb (11.2-15.7) gm/dl Hct (34.1-44.9) % MCV (79.4-94.8) fl MCH (25.6-32.2) pg MCHC (32.2-35.5) g/dl RDW Std Deviation (36.4-46.3) fL Plt Count (182-369) K/mm3 MPV (9.4-12.3) fl Neut % (Auto) (34.0-71.1) % Lymph % (Auto) (19.3-51.7) % [place] % (Auto) (4.7-12.5) % Eos % (Auto) (0.7-5.8) Baso % (Auto) (0.1-1.2) % Neut # (Auto) (1.56-6.13) K/mm3 Lymph # (Auto) (1.18-3.74) K/mm3 [place] # (Auto) (0.24-0.36) K/mm3 Eos # (Auto) (0.04-0.36) K/mm3 Baso # (Auto) (0.01-0.08) K/mm3 Manual Slide Review PT (9.7-12.0) SECONDS INR APTT (21.7-31.4) SECONDS Fibrinogen (187-446) mg/dL D-Dimer, Quantitative (0.19-0.50) mg/L Sodium (136-145) mEq/L Potassium (3.5-5.1) mEq/L Chloride (98-107) mEq/L Carbon Dioxide (21-32) mEq/L Anion Gap (5-15) BUN (7-18) mg/dL Creatinine (0.55-1.02) mg/dL Est Cr Clr Drug Dosing mL/min Estimated GFR (MDRD) (>60) mL/min BUN/Creatinine Ratio (14-18) Glucose (83-115) mg/dL POC Glucose (83-110) mg/dL Lactic Acid 2.4 H* (0.4-2.0) mmol/L Calcium (8.5-10.1) mg/dL Phosphorus (2.6-4.7) mg/dL Magnesium (1.8-2.4) mg/dl Total Bilirubin (0.2-1.0) mg/dL AST (15-37) U/L ALT (14-59) U/L Alkaline Phosphatase (46-116) U/L Troponin I (0.00-0.056) ng/mL C-Reactive Protein (<1.0) mg/dL NT-Pro-B Natriuret Pep (0-450) pg/mL Total Protein (6.4-8.2) g/dl Albumin (3.4-5.0) g/dl Globulin gm/dL Albumin/Globulin Ratio (1-2) Procalcitonin 0.08 ng/mL Urine Color (Yellow) Urine Appearance (Clear) Urine pH (5.0-8.0) Ur Specific [place] (1.005-1.030) Urine Protein (Negative) Urine Glucose (UA) (Negative) Urine Ketones (Negative) Urine Occult Blood (Negative) Urine Nitrite (Negative) Urine Bilirubin (Negative) Urine Urobilinogen (0.2-1.0) Ur Leukocyte Esterase (Negative) Urine RBC (0-5) /hpf Urine WBC (0-5) /hpf Ur Squamous Epith Cells (0-5) /hpf Urine Bacteria (FEW) /hpf Urine Mucus (FEW) /hpf C.difficile 027-NAP1-B1 C. difficile Tox (PCR) Blood Type A POSITIVE Gel Antibody Screen Negative Crossmatch See Detail 06/23/20 06/23/20 06/23/20 Range/Units 10:08 11:03 14:40 WBC (3.98-10.04) K/mm3 RBC (3.98-5.22) M/mm3 Hgb (11.2-15.7) gm/dl Hct (34.1-44.9) % MCV (79.4-94.8) fl MCH (25.6-32.2) pg MCHC (32.2-35.5) g/dl RDW Std Deviation (36.4-46.3) fL Plt Count (182-369) K/mm3 MPV (9.4-12.3) fl Neut % (Auto) (34.0-71.1) % Lymph % (Auto) (19.3-51.7) % [place] % (Auto) (4.7-12.5) % Eos % (Auto) (0.7-5.8) Baso % (Auto) (0.1-1.2) % Neut # (Auto) (1.56-6.13) K/mm3 Lymph # (Auto) (1.18-3.74) K/mm3 [place] # (Auto) (0.24-0.36) K/mm3 Eos # (Auto) (0.04-0.36) K/mm3 Baso # (Auto) (0.01-0.08) K/mm3 Manual Slide Review PT (9.7-12.0) SECONDS INR APTT (21.7-31.4) SECONDS Fibrinogen (187-446) mg/dL D-Dimer, Quantitative (0.19-0.50) mg/L Sodium (136-145) mEq/L Potassium (3.5-5.1) mEq/L Chloride (98-107) mEq/L Carbon Dioxide (21-32) mEq/L Anion Gap (5-15) BUN (7-18) mg/dL Creatinine (0.55-1.02) mg/dL Est Cr Clr Drug Dosing mL/min Estimated GFR (MDRD) (>60) mL/min BUN/Creatinine Ratio (14-18) Glucose (83-115) mg/dL POC Glucose 291 H (83-110) mg/dL Lactic Acid 4.3 H* (0.4-2.0) mmol/L Calcium (8.5-10.1) mg/dL Phosphorus (2.6-4.7) mg/dL Magnesium (1.8-2.4) mg/dl Total Bilirubin (0.2-1.0) mg/dL AST (15-37) U/L ALT (14-59) U/L Alkaline Phosphatase (46-116) U/L Troponin I (0.00-0.056) ng/mL C-Reactive Protein (<1.0) mg/dL NT-Pro-B Natriuret Pep (0-450) pg/mL Total Protein (6.4-8.2) g/dl Albumin (3.4-5.0) g/dl Globulin gm/dL Albumin/Globulin Ratio (1-2) Procalcitonin ng/mL Urine Color Light yellow (Yellow) Urine Appearance Cloudy H (Clear) Urine pH 6.0 (5.0-8.0) Ur Specific [place] 1.020 (1.005-1.030) Urine Protein Negative (Negative) Urine Glucose (UA) Negative (Negative) Urine Ketones Trace H (Negative) Urine Occult Blood Negative (Negative) Urine Nitrite Positive H (Negative) Urine Bilirubin Negative (Negative) Urine Urobilinogen 0.2 (0.2-1.0) Ur Leukocyte Esterase 2+ H (Negative) Urine RBC Not seen (0-5) /hpf Urine WBC 10-20 H (0-5) /hpf Ur Squamous Epith Cells 0-5 (0-5) /hpf Urine Bacteria Moderate H (FEW) /hpf Urine Mucus Few (FEW) /hpf C.difficile 027-NAP1-B1 C. difficile Tox (PCR) Blood Type Gel Antibody Screen Crossmatch 06/23/20 06/23/20 06/23/20 Range/Units 16:05 16:05 16:05 WBC 8.20 (3.98-10.04) K/mm3 RBC 3.82 L (3.98-5.22) M/mm3 Hgb 10.9 L D (11.2-15.7) gm/dl Hct 33.2 L (34.1-44.9) % MCV 86.9 D (79.4-94.8) fl MCH 28.5 (25.6-32.2) pg MCHC 32.8 (32.2-35.5) g/dl RDW Std Deviation 46.6 H (36.4-46.3) fL Plt Count 68 L (182-369) K/mm3 MPV 10.8 (9.4-12.3) fl Neut % (Auto) (34.0-71.1) % Lymph % (Auto) (19.3-51.7) % [place] % (Auto) (4.7-12.5) % Eos % (Auto) (0.7-5.8) Baso % (Auto) (0.1-1.2) % Neut # (Auto) (1.56-6.13) K/mm3 Lymph # (Auto) (1.18-3.74) K/mm3 [place] # (Auto) (0.24-0.36) K/mm3 Eos # (Auto) (0.04-0.36) K/mm3 Baso # (Auto) (0.01-0.08) K/mm3 Manual Slide Review PT (9.7-12.0) SECONDS INR APTT (21.7-31.4) SECONDS Fibrinogen (187-446) mg/dL D-Dimer, Quantitative (0.19-0.50) mg/L Sodium 139 (136-145) mEq/L Potassium 3.8 (3.5-5.1) mEq/L Chloride 102 (98-107) mEq/L Carbon Dioxide 25 (21-32) mEq/L Anion Gap 15.8 H (5-15) BUN 26 H (7-18) mg/dL Creatinine 1.2 H (0.55-1.02) mg/dL Est Cr Clr Drug Dosing 25.96 mL/min Estimated GFR (MDRD) 43 (>60) mL/min BUN/Creatinine Ratio 21.7 H (14-18) Glucose 148 H (83-115) mg/dL POC Glucose (83-110) mg/dL Lactic Acid (0.4-2.0) mmol/L Calcium 8.4 L (8.5-10.1) mg/dL Phosphorus (2.6-4.7) mg/dL Magnesium (1.8-2.4) mg/dl Total Bilirubin (0.2-1.0) mg/dL AST (15-37) U/L ALT (14-59) U/L Alkaline Phosphatase (46-116) U/L Troponin I 0.090 H* (0.00-0.056) ng/mL C-Reactive Protein (<1.0) mg/dL NT-Pro-B Natriuret Pep 5652 H (0-450) pg/mL Total Protein (6.4-8.2) g/dl Albumin (3.4-5.0) g/dl Globulin gm/dL Albumin/Globulin Ratio (1-2) Procalcitonin ng/mL Urine Color (Yellow) Urine Appearance (Clear) Urine pH (5.0-8.0) Ur Specific [place] (1.005-1.030) Urine Protein (Negative) Urine Glucose (UA) (Negative) Urine Ketones (Negative) Urine Occult Blood (Negative) Urine Nitrite (Negative) Urine Bilirubin (Negative) Urine Urobilinogen (0.2-1.0) Ur Leukocyte Esterase (Negative) Urine RBC (0-5) /hpf Urine WBC (0-5) /hpf Ur Squamous Epith Cells (0-5) /hpf Urine Bacteria (FEW) /hpf Urine Mucus (FEW) /hpf C.difficile 027-NAP1-B1 C. difficile Tox (PCR) Blood Type Gel Antibody Screen Crossmatch 06/23/20 06/23/20 06/23/20 Range/Units 16:40 18:05 18:05 WBC (3.98-10.04) K/mm3 RBC (3.98-5.22) M/mm3 Hgb (11.2-15.7) gm/dl Hct (34.1-44.9) % MCV (79.4-94.8) fl MCH (25.6-32.2) pg MCHC (32.2-35.5) g/dl RDW Std Deviation (36.4-46.3) fL Plt Count (182-369) K/mm3 MPV (9.4-12.3) fl Neut % (Auto) (34.0-71.1) % Lymph % (Auto) (19.3-51.7) % [place] % (Auto) (4.7-12.5) % Eos % (Auto) (0.7-5.8) Baso % (Auto) (0.1-1.2) % Neut # (Auto) (1.56-6.13) K/mm3 Lymph # (Auto) (1.18-3.74) K/mm3 [place] # (Auto) (0.24-0.36) K/mm3 Eos # (Auto) (0.04-0.36) K/mm3 Baso # (Auto) (0.01-0.08) K/mm3 Manual Slide Review PT (9.7-12.0) SECONDS INR APTT (21.7-31.4) SECONDS Fibrinogen 375 (187-446) mg/dL D-Dimer, Quantitative 1.12 H (0.19-0.50) mg/L Sodium (136-145) mEq/L Potassium (3.5-5.1) mEq/L Chloride (98-107) mEq/L Carbon Dioxide (21-32) mEq/L Anion Gap (5-15) BUN (7-18) mg/dL Creatinine (0.55-1.02) mg/dL Est Cr Clr Drug Dosing mL/min Estimated GFR (MDRD) (>60) mL/min BUN/Creatinine Ratio (14-18) Glucose (83-115) mg/dL POC Glucose (83-110) mg/dL Lactic Acid 3.5 H* (0.4-2.0) mmol/L Calcium (8.5-10.1) mg/dL Phosphorus (2.6-4.7) mg/dL Magnesium (1.8-2.4) mg/dl Total Bilirubin (0.2-1.0) mg/dL AST (15-37) U/L ALT (14-59) U/L Alkaline Phosphatase (46-116) U/L Troponin I (0.00-0.056) ng/mL C-Reactive Protein (<1.0) mg/dL NT-Pro-B Natriuret Pep (0-450) pg/mL Total Protein (6.4-8.2) g/dl Albumin (3.4-5.0) g/dl Globulin gm/dL Albumin/Globulin Ratio (1-2) Procalcitonin ng/mL Urine Color (Yellow) Urine Appearance (Clear) Urine pH (5.0-8.0) Ur Specific [place] (1.005-1.030) Urine Protein (Negative) Urine Glucose (UA) (Negative) Urine Ketones (Negative) Urine Occult Blood (Negative) Urine Nitrite (Negative) Urine Bilirubin (Negative) Urine Urobilinogen (0.2-1.0) Ur Leukocyte Esterase (Negative) Urine RBC (0-5) /hpf Urine WBC (0-5) /hpf Ur Squamous Epith Cells (0-5) /hpf Urine Bacteria (FEW) /hpf Urine Mucus (FEW) /hpf C.difficile 027-NAP1-B1 Presumptive negative C. difficile Tox (PCR) Negative Blood Type Gel Antibody Screen Crossmatch 06/23/20 06/23/20 06/23/20 Range/Units 18:10 19:02 20:19 WBC (3.98-10.04) K/mm3 RBC (3.98-5.22) M/mm3 Hgb (11.2-15.7) gm/dl Hct (34.1-44.9) % MCV (79.4-94.8) fl MCH (25.6-32.2) pg MCHC (32.2-35.5) g/dl RDW Std Deviation (36.4-46.3) fL Plt Count (182-369) K/mm3 MPV (9.4-12.3) fl Neut % (Auto) (34.0-71.1) % Lymph % (Auto) (19.3-51.7) % [place] % (Auto) (4.7-12.5) % Eos % (Auto) (0.7-5.8) Baso % (Auto) (0.1-1.2) % Neut # (Auto) (1.56-6.13) K/mm3 Lymph # (Auto) (1.18-3.74) K/mm3 [place] # (Auto) (0.24-0.36) K/mm3 Eos # (Auto) (0.04-0.36) K/mm3 Baso # (Auto) (0.01-0.08) K/mm3 Manual Slide Review PT (9.7-12.0) SECONDS INR APTT (21.7-31.4) SECONDS Fibrinogen (187-446) mg/dL D-Dimer, Quantitative (0.19-0.50) mg/L Sodium (136-145) mEq/L Potassium (3.5-5.1) mEq/L Chloride (98-107) mEq/L Carbon Dioxide (21-32) mEq/L Anion Gap (5-15) BUN (7-18) mg/dL Creatinine (0.55-1.02) mg/dL Est Cr Clr Drug Dosing mL/min Estimated GFR (MDRD) (>60) mL/min BUN/Creatinine Ratio (14-18) Glucose (83-115) mg/dL POC Glucose 194 H 164 H (83-110) mg/dL Lactic Acid (0.4-2.0) mmol/L Calcium (8.5-10.1) mg/dL Phosphorus (2.6-4.7) mg/dL Magnesium 1.7 L (1.8-2.4) mg/dl Total Bilirubin (0.2-1.0) mg/dL AST (15-37) U/L ALT (14-59) U/L Alkaline Phosphatase (46-116) U/L Troponin I 0.082 H* (0.00-0.056) ng/mL C-Reactive Protein (<1.0) mg/dL NT-Pro-B Natriuret Pep (0-450) pg/mL Total Protein (6.4-8.2) g/dl Albumin (3.4-5.0) g/dl Globulin gm/dL Albumin/Globulin Ratio (1-2) Procalcitonin ng/mL Urine Color (Yellow) Urine Appearance (Clear) Urine pH (5.0-8.0) Ur Specific [place] (1.005-1.030) Urine Protein (Negative) Urine Glucose (UA) (Negative) Urine Ketones (Negative) Urine Occult Blood (Negative) Urine Nitrite (Negative) Urine Bilirubin (Negative) Urine Urobilinogen (0.2-1.0) Ur Leukocyte Esterase (Negative) Urine RBC (0-5) /hpf Urine WBC (0-5) /hpf Ur Squamous Epith Cells (0-5) /hpf Urine Bacteria (FEW) /hpf Urine Mucus (FEW) /hpf C.difficile 027-NAP1-B1 C. difficile Tox (PCR) Blood Type Gel Antibody Screen Crossmatch 06/23/20 06/24/20 06/24/20 Range/Units 21:03 04:35 04:35 WBC 5.71 (3.98-10.04) K/mm3 RBC 3.31 L (3.98-5.22) M/mm3 Hgb 9.4 L D (11.2-15.7) gm/dl Hct 28.4 L (34.1-44.9) % MCV 85.8 (79.4-94.8) fl MCH 28.4 (25.6-32.2) pg MCHC 33.1 (32.2-35.5) g/dl RDW Std Deviation 46.1 (36.4-46.3) fL Plt Count 53 L (182-369) K/mm3 MPV 11.2 (9.4-12.3) fl Neut % (Auto) 71.6 H (34.0-71.1) % Lymph % (Auto) 23.1 (19.3-51.7) % [place] % (Auto) 4.2 L (4.7-12.5) % Eos % (Auto) 0 L (0.7-5.8) Baso % (Auto) 0.0 L (0.1-1.2) % Neut # (Auto) 4.09 (1.56-6.13) K/mm3 Lymph # (Auto) 1.32 (1.18-3.74) K/mm3 [place] # (Auto) 0.24 (0.24-0.36) K/mm3 Eos # (Auto) 0.00 L (0.04-0.36) K/mm3 Baso # (Auto) 0.00 L (0.01-0.08) K/mm3 Manual Slide Review Abnormal smear PT 11.0 D (9.7-12.0) SECONDS INR 1.03 APTT (21.7-31.4) SECONDS Fibrinogen (187-446) mg/dL D-Dimer, Quantitative 2.61 H (0.19-0.50) mg/L Sodium (136-145) mEq/L Potassium (3.5-5.1) mEq/L Chloride (98-107) mEq/L Carbon Dioxide (21-32) mEq/L Anion Gap (5-15) BUN (7-18) mg/dL Creatinine (0.55-1.02) mg/dL Est Cr Clr Drug Dosing mL/min Estimated GFR (MDRD) (>60) mL/min BUN/Creatinine Ratio (14-18) Glucose (83-115) mg/dL POC Glucose (83-110) mg/dL Lactic Acid 3.5 H* (0.4-2.0) mmol/L Calcium (8.5-10.1) mg/dL Phosphorus (2.6-4.7) mg/dL Magnesium (1.8-2.4) mg/dl Total Bilirubin (0.2-1.0) mg/dL AST (15-37) U/L ALT (14-59) U/L Alkaline Phosphatase (46-116) U/L Troponin I (0.00-0.056) ng/mL C-Reactive Protein (<1.0) mg/dL NT-Pro-B Natriuret Pep (0-450) pg/mL Total Protein (6.4-8.2) g/dl Albumin (3.4-5.0) g/dl Globulin gm/dL Albumin/Globulin Ratio (1-2) Procalcitonin ng/mL Urine Color (Yellow) Urine Appearance (Clear) Urine pH (5.0-8.0) Ur Specific [place] (1.005-1.030) Urine Protein (Negative) Urine Glucose (UA) (Negative) Urine Ketones (Negative) Urine Occult Blood (Negative) Urine Nitrite (Negative) Urine Bilirubin (Negative) Urine Urobilinogen (0.2-1.0) Ur Leukocyte Esterase (Negative) Urine RBC (0-5) /hpf Urine WBC (0-5) /hpf Ur Squamous Epith Cells (0-5) /hpf Urine Bacteria (FEW) /hpf Urine Mucus (FEW) /hpf C.difficile 027-NAP1-B1 C. difficile Tox (PCR) Blood Type Gel Antibody Screen Crossmatch 06/24/20 06/24/20 06/24/20 Range/Units 04:35 04:35 04:35 WBC (3.98-10.04) K/mm3 RBC (3.98-5.22) M/mm3 Hgb (11.2-15.7) gm/dl Hct (34.1-44.9) % MCV (79.4-94.8) fl MCH (25.6-32.2) pg MCHC (32.2-35.5) g/dl RDW Std Deviation (36.4-46.3) fL Plt Count (182-369) K/mm3 MPV (9.4-12.3) fl Neut % (Auto) (34.0-71.1) % Lymph % (Auto) (19.3-51.7) % [place] % (Auto) (4.7-12.5) % Eos % (Auto) (0.7-5.8) Baso % (Auto) (0.1-1.2) % Neut # (Auto) (1.56-6.13) K/mm3 Lymph # (Auto) (1.18-3.74) K/mm3 [place] # (Auto) (0.24-0.36) K/mm3 Eos # (Auto) (0.04-0.36) K/mm3 Baso # (Auto) (0.01-0.08) K/mm3 Manual Slide Review PT (9.7-12.0) SECONDS INR APTT 21.8 D (21.7-31.4) SECONDS Fibrinogen (187-446) mg/dL D-Dimer, Quantitative (0.19-0.50) mg/L Sodium 141 (136-145) mEq/L Potassium 2.9 L (3.5-5.1) mEq/L Chloride 101 (98-107) mEq/L Carbon Dioxide 31 (21-32) mEq/L Anion Gap 11.9 (5-15) BUN 20 H (7-18) mg/dL Creatinine 1.2 H (0.55-1.02) mg/dL Est Cr Clr Drug Dosing 25.96 mL/min Estimated GFR (MDRD) 43 (>60) mL/min BUN/Creatinine Ratio 16.7 (14-18) Glucose 115 (83-115) mg/dL POC Glucose (83-110) mg/dL Lactic Acid 2.1 H* (0.4-2.0) mmol/L Calcium 7.9 L (8.5-10.1) mg/dL Phosphorus 2.6 (2.6-4.7) mg/dL Magnesium 1.6 L (1.8-2.4) mg/dl Total Bilirubin 1.5 H (0.2-1.0) mg/dL AST 26 (15-37) U/L ALT 31 (14-59) U/L Alkaline Phosphatase 48 (46-116) U/L Troponin I (0.00-0.056) ng/mL C-Reactive Protein 6.0 H* (<1.0) mg/dL NT-Pro-B Natriuret Pep (0-450) pg/mL Total Protein 5.0 L (6.4-8.2) g/dl Albumin 2.1 L (3.4-5.0) g/dl Globulin 2.9 gm/dL Albumin/Globulin Ratio 0.7 L (1-2) Procalcitonin ng/mL Urine Color (Yellow) Urine Appearance (Clear) Urine pH (5.0-8.0) Ur Specific [place] (1.005-1.030) Urine Protein (Negative) Urine Glucose (UA) (Negative) Urine Ketones (Negative) Urine Occult Blood (Negative) Urine Nitrite (Negative) Urine Bilirubin (Negative) Urine Urobilinogen (0.2-1.0) Ur Leukocyte Esterase (Negative) Urine RBC (0-5) /hpf Urine WBC (0-5) /hpf Ur Squamous Epith Cells (0-5) /hpf Urine Bacteria (FEW) /hpf Urine Mucus (FEW) /hpf C.difficile 027-NAP1-B1 C. difficile Tox (PCR) Blood Type Gel Antibody Screen Crossmatch Kevyn Results Last 24 Hours: Microbiology 06/23/20 03:25 Aerobic Blood Culture - Preliminary Blood - Venous - Lab Draw NO GROWTH AFTER 1 DAY Anaerobic Blood Culture - Final 06/22/20 18:00 Aerobic Blood Culture - Preliminary Blood - Venous NO GROWTH AFTER 1 DAY Anaerobic Blood Culture - Preliminary NO GROWTH AFTER 1 DAY Med Orders - Current: Current Medications Acetaminophen (Tylenol) 650 mg PO Q4H PRN PRN Reason: Pain (Mild 1-3)/fever Albuterol/Ipratropium (Duoneb 3.0-0.5 Mg/3 Ml) 3 ml NEB Q6HRRT PRN PRN Reason: Shortness of Breath Last Admin: 06/23/20 15:30 Dose: 3 ml Documented by: Ascorbic Acid (Vitamin C) 500 mg PO DAILY [facility] Last Admin: 06/24/20 08:18 Dose: 500 mg Documented by: Cholecalciferol (Vitamin D3) 5,000 unit PO DAILY [facility] Last Admin: 06/24/20 08:19 Dose: 5,000 unit Documented by: Digoxin (Lanoxin) 125 mcg PO DAILY [facility] Last Admin: 06/24/20 08:18 Dose: 125 mcg Documented by: Ferrous Sulfate (Ferrous Sulfate) 324 mg PO DAILY [facility] Last Admin: 06/24/20 08:18 Dose: 324 mg Documented by: Piperacillin Sod/Tazobactam (Sod 4.5 gm/ Sodium Chloride) 100 mls @ 25 mls/hr IV Q8H [facility] Last Admin: 06/24/20 02:07 Dose: 25 mls/hr Documented by: Potassium Chloride 10 meq/ (Premix) 100 mls @ 100 mls/hr IV Q1H [facility] Stop: 06/24/20 10:29 Last Admin: 06/24/20 08:53 Dose: 100 mls/hr Documented by: Insulin Human Lispro (Humalog) 0 unit SUBCUT QIDACANDBED [facility]; Protocol Last Admin: 06/24/20 06:08 Dose: Not Given Documented by: Montelukast Sodium (Singulair) 10 mg PO DAILY [facility] Last Admin: 06/24/20 08:19 Dose: 10 mg Documented by: Atovaquone 750 Mg/ (5ml Susp Ptom) 0 mg PO BIDMEALS [facility] Last Admin: 06/24/20 06:29 Dose: 750 mg Documented by: Nystatin (Nystatin Oral Syringe) 500,000 unit PO QID [facility] Last Admin: 06/24/20 08:19 Dose: 500,000 unit Documented by: Ondansetron HCl (Zofran) 4 mg IV Q4H PRN PRN Reason: Nausea/Vomiting Oxycodone HCl (Oxycodone) 5 mg PO Q4H PRN PRN Reason: Pain (moderate 4-6) Pantoprazole Sodium (Protonix) 40 mg PO BIDAC [facility] Last Admin: 06/24/20 06:25 Dose: 40 mg Documented by: Prednisone (Prednisone) 20 mg PO BID [facility] Last Admin: 06/24/20 08:19 Dose: 20 mg Documented by: Rosuvastatin Calcium (Crestor) 10 mg PO DAILY [facility] Last Admin: 06/24/20 08:18 Dose: 10 mg Documented by: Saccharomyces Boulardii (Florastor) 250 mg PO BID [facility] Last Admin: 06/24/20 08:19 Dose: 250 mg Documented by: Sodium Chloride (Saline Flush) 10 ml FLUSH ASDIRECTED PRN PRN Reason: Keep Vein Open Discontinued Medications Factor IX (Pha) (Kcentra) 2,275 unit IV NOW STA Stop: 06/23/20 11:28 Last Admin: 06/23/20 12:25 Dose: 2,275 unit Documented by: Furosemide (Lasix) 20 mg IVPUSH ONETIME ONE Stop: 06/23/20 15:31 Last Admin: 06/23/20 15:48 Dose: 20 mg Documented by: Furosemide (Lasix) 20 mg IVPUSH ONETIME ONE Stop: 06/24/20 03:01 Last Admin: 06/24/20 02:07 Dose: 20 mg Documented by: Lactated Ringer's (Ringers, Lactated) 1,000 mls @ 500 mls/hr IV ASDIRECTED [facility] Stop: 06/23/20 19:29 Last Admin: 06/22/20 22:16 Dose: 500 mls/hr Documented by: Ceftriaxone Sodium 2 gm/ (Sodium Chloride) 100 mls @ 200 mls/hr IV STAT ONE Stop: 06/22/20 17:55 Last Admin: 06/22/20 20:33 Dose: Not Given Documented by: Lidocaine HCl (Xylocaine-Mpf 1%) Confirm Administered Dose 2 mls @ as directed .ROUTE .STK-MED ONE Stop: 06/22/20 18:20 Piperacillin Sod/Tazobactam (Sod 4.5 gm/ Sodium Chloride) 100 mls @ 200 mls/hr IV ONETIME ONE Stop: 06/22/20 19:14 Last Admin: 06/22/20 19:42 Dose: 200 mls/hr Documented by: Sodium Chloride (Normal Saline) 1,000 mls @ 130 mls/hr IV ASDIRECTED [facility] Last Admin: 06/23/20 00:35 Dose: 130 mls/hr Documented by: Sodium Chloride (Normal Saline) 1,000 mls @ 150 mls/hr IV ASDIRECTED [facility] Sodium Chloride (Normal Saline) 250 mls @ 100 mls/hr IV ASDIRECTED [facility] Phytonadione 5 mg/ Sodium (Chloride) 50.5 mls @ 101 mls/hr IV NOW ONE Stop: 06/23/20 13:59 Last Admin: 06/23/20 16:10 Dose: 101 mls/hr Documented by: Magnesium Sulfate (Magnesium Sulfate In Water Premix) 2 gm in 50 mls @ 25 mls/hr IV Q1H [facility]IG[facility] Stop: 06/24/20 08:14 Last Admin: 06/24/20 07:49 Dose: 25 mls/hr Documented by: Lidocaine HCl (Xylocaine 1%) 10 ml INJECT ONETIME ONE Stop: 06/23/20 09:31 Last Admin: 06/23/20 10:58 Dose: 10 ml Documented by: Lidocaine HCl (Xylocaine 1%) 10 ml INJECT ONETIME ONE Stop: 06/23/20 09:16 Last Admin: 06/23/20 10:58 Dose: 10 ml Documented by: Loperamide HCl (Imodium) 4 mg PO ONETIME ONE Stop: 06/23/20 20:01 Last Admin: 06/23/20 20:01 Dose: 4 mg Documented by: Non-Formulary Medication (Ferrous Gluconate [Ferrous Gluconate]) 325 mg PO ASDIRECTED [facility] Nystatin (Mycostatin) 5 ml PO QID [facility] Last Admin: 06/23/20 11:00 Dose: Not Given Documented by: Phytonadione (Aquamephyton) 5 mg PO STAT ONE Stop: 06/23/20 06:35 Last Admin: 06/23/20 06:48 Dose: 5 mg Documented by: - Exam Quality Assessment: Supplemental Oxygen General: Alert, Oriented HEENT: Pupils Equal, Pupils Reactive, EOMI, Mucous Membr. Moist/[place] Neck: Supple Lungs: Clear to Auscultation, Normal Respiratory Effort Cardiovascular: Regular Rate, Regular Rhythm GI/Abdominal Exam: Normal Bowel Sounds, Soft, Non-Tender, No Organomegaly, No Distention, No Abnormal Bruit Extremities: Normal Inspection, Normal Range of Motion, Non-Tender, No Pedal Edema, Normal Capillary Refill Skin: Warm, Dry, Intact Psy/Mental Status: Alert, Normal Affect, Normal Mood Sepsis Event Note - Evaluation Sepsis Screening Result: No Definite Risk - Focused Exam Vital Signs: Vital Signs Temp Pulse Resp BP Pulse Ox Pulse Ox 06/24/20 08:18 105 H 06/24/20 08:15 97 06/24/20 07:30 97.3 F 96 16 128/69 98 06/24/20 03:33 98.1 F 102 H 16 138/64 100 06/23/20 23:26 97.5 F 104 H 141/68 H 100 - Problem List & Annotations (1) Elevated lactic acid level SNOMED Code(s): 9526856 Code(s): R79.89 - OTHER SPECIFIED ABNORMAL FINDINGS OF BLOOD CHEMISTRY Status: Acute Current Visit: Yes (2) Hypovolemia SNOMED Code(s): 637930446 Code(s): E86.1 - HYPOVOLEMIA Status: Acute Current Visit: Yes (3) Post-COVID syndrome SNOMED Code(s): 948258832, 809799965658544219 Code(s): B94.8 - SEQUELAE OF OTH INFECTIOUS AND PARASITIC DISEASES Status: Acute Current Visit: Yes (4) Syncope SNOMED Code(s): 012603317 Code(s): R55 - SYNCOPE AND COLLAPSE Status: Acute Current Visit: Yes (5) Atrial fibrillation with RVR SNOMED Code(s): 347817177206730 Code(s): I48.91 - UNSPECIFIED ATRIAL FIBRILLATION Status: Acute Current Visit: No (6) Pulmonary embolism associated with COVID-19 SNOMED Code(s): 642732681 Code(s): U07.1 - COVID-19; I26.99 - OTHER PULMONARY EMBOLISM WITHOUT ACUTE COR PULMONALE Status: Acute Current Visit: No (7) Chronic renal insufficiency, stage III (moderate) SNOMED Code(s): 020805958 Code(s): N18.30 - CHRONIC KIDNEY DISEASE, STAGE 3 UNSPECIFIED Status: Chronic Current Visit: No Qualifiers: Chronic kidney disease stage 3 subtype: stage 3b (GFR 30-44) Qualified Code(s): N18.32 - Chronic kidney disease, stage 3b (8) HTN, Essential hypertension SNOMED Code(s): 39427812 Code(s): I10 - ESSENTIAL (PRIMARY) HYPERTENSION Status: Chronic Current Visit: No (9) Pulmonary hypertension SNOMED Code(s): 65293780 Code(s): I27.20 - PULMONARY HYPERTENSION, UNSPECIFIED Status: Chronic Current Visit: No (10) Thrombocytopenia SNOMED Code(s): 814379200 Code(s): D69.6 - THROMBOCYTOPENIA, UNSPECIFIED Status: Acute Current Visit: Yes (11) Candidal cystitis and urethritis SNOMED Code(s): 019826333 Code(s): B37.41 - CANDIDAL CYSTITIS AND URETHRITIS Status: Acute Current Visit: Yes - Problem List Review Problem List Initiated/Reviewed/Updated: Yes - My Orders Last 24 Hours: My Active Orders 06/23/20 09:00 Ascorbic Acid [Vitamin C] 500 mg PO DAILY Atovaquone [Atovaquone] 0 mg PO BIDMEALS Cholecalciferol (Vitamin D3) [Vitamin D3] 5,000 unit PO DAILY Digoxin [Lanoxin] 125 mcg PO DAILY Ferrous Sulfate 324 mg PO DAILY Montelukast [Singulair] 10 mg PO DAILY Rosuvastatin [Crestor] 10 mg PO DAILY 06/23/20 09:14 Central Venous Line Insertion [OM.PC] Routine 06/23/20 09:30 Insert Riley Catheter [Insert Urinary Catheter] [OM.PC] Q24H 06/23/20 10:08 CULTURE URINE [RM] Stat 06/23/20 10:45 Nystatin [Nystatin Oral Syringe] 500,000 unit PO QID 06/23/20 11:00 Insulin Lispro [HumaLOG] See Protocol SUBCUT QIDACANDBED 06/23/20 15:15 Albuterol/Ipratropium [DuoNeb 3.0-0.5 MG/3 ML] 3 ml NEB Q6HRRT PRN 06/23/20 15:17 RT Aerosol Therapy [RC] ASDIRECTED 06/23/20 16:40 FECAL LACTOFERRIN [MREF] Routine STOOL CULTURE/SHIGA TOXIN [MREF] Routine 06/23/20 21:00 Saccharomyces Boulardii [Florastor] 250 mg PO BID 06/24/20 06:30 Potassium Chloride [KCl 10 MEQ in Water 100 ML] 10 meq Premix Bag 1 bag IV Q1H 06/24/20 09:15 Antiembolic Devices [RC] PER UNIT ROUTINE SCD [Sequential Compression Device] [OM.PC] Routine 06/25/20 05:11 INR,PT,PROTHROMBIN TIME [COAG] AM 06/26/20 05:11 INR,PT,PROTHROMBIN TIME [COAG] AM 06/27/20 05:11 INR,PT,PROTHROMBIN TIME [COAG] AM - Plan Plan:: Assessment 06/22/2020 84-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 Hypovolemia secondary to diarrhea, poor oral intake Post Covid syndrome Post Covid pneumonia versus hospital-acquired pneumonia recently treated with was in a rug hooker hand and levofloxacin * White count is normal * Few toxic granulations on initial CBC. Lactic acid elevated at 6.6 with minimally elevated C-reactive protein of 2.9. * Patient's elevated lactic acid is likely secondary to hypovolemia with possible underlying worsening of her left upper lobe pneumonia. With a normal white count, essentially normal C-reactive protein, and no significant change on chest x-ray I do not believe that this elevated lactic acid is secondary to sepsis, but it appears to be secondary to hypovolemia and poor tissue perfusion due to the hypovolemia. Patient also has a slight drop in her her hemoglobin also likely exacerbating the hypovolemia. It is unknown at this time if this is secondary to acute blood loss, but her INR is significantly elevated at greater than 5. Patient also had an elevated lactic acid on 12 June making this more likely to be a chronic problem and not an acute sepsis. * UA was ordered on admission, but nursing was unable to collect it initially secondary to patient's diarrhea. If they are unable to obtain a UA we will have to consider catheterization. * She just finished broad-spectrum antibiotics, yesterday, linezolid and levofloxacin. Supratherapeutic INR History of multiple pulmonary emboli * Patient has significantly elevated INR. She is on warfarin because she failed NOAC. * INR greater than 5 with no active bleeding, but significant anemia. Oxygen dependent chronic bronchitis * Home oxygen 4 L via nasal cannula no significant worsening * Currently on prednisone 20 units in the morning and 10 units in the evening. Recently decreased from 20 twice daily. Primary care provider states that she has been on and off steroids for several weeks now. NYHA class III CHF History of atrial fibrillation * Outpatient treatment with furosemide, losartan, warfarin, digoxin, rosuvastatin Type 2 diabetes * Hemoglobin A1c of 7.3, TSH 1.25 * Sliding scale insulin Plan * Admit to medical floor on telemetry * Start Zosyn * Blood cultures, UA, urine culture as appropriate * Follow lab work including lactic acid. Unfortunately, it appears that she has chronically elevated lactic acid from unknown source. This may not be a good indicator of risk of sepsis. * Procalcitonin will be ordered. Unfortunately, this is a send out so it will only be helpful in determining sepsis in retrospect. * Give 30 mL/kg LR bolus followed by fluids at 150 mL/h. * Follow CBC. * Sliding scale insulin * CODE STATUS: DNR/DNI * Initially we would not reverse her INR. * VTE prophylaxis secondary to supratherapeutic INR * Patient has very poor outcome. She has been hospitalized since April 15 except for just over 2 weeks. She has recurrent infections as post Covid syndrome. 06/23/2020 * 84-year-old female with post Covid syndrome and recent treatment with lenalidomide and Levaquin presents with significant drop in hemoglobin, elevated INR, likely secondary to interaction of broad-spectrum antibiotics with warfarin. * Lactic acidosis likely secondary to hypovolemia and possible underlying infection including pneumonia and UTI, but less likely. * Mild fluid overload after several boluses, 2 units packed red blood cells, and holding her Lasix this morning. Patient will get Lasix 20 mg IV x1 and may repeat. * When bleeding has stopped we will have to restart warfarin secondary to her history of clotting disorder. * Patient had significant diarrhea today likely also secondary to antibiotics. Patient is currently on Zosyn. Will give Imodium since C. difficile has been ruled out. * Central line placed today because of poor venous access. * Normal white count with a procalcitonin of 0.08 essentially ruling out severe sepsis * I discussed with her daughter and the patient that she has a very poor outlook and prognosis. They voiced understanding. 06/24/2020 * 84-year-old female with post Covid syndrome, significant hematemesis, supratherapeutic INR secondary to broad-spectrum antibiotics, hypovolemia with lactic acidosis and anemia * Continues small amounts of bloody sputum * Received Kcentra and vitamin K yesterday. INR today is 1.0 * Thrombocytopenia with platelets at 53,000. This is down from 107,000 on admission. Unfortunately, this makes heparin a contraindication. * There is high concern for potential for clotting secondary to history of clotting disorder. * NYHA class III CHF stable. BNP did go up to approximately 5000. This is likely secondary to fluid and packed red blood cells. * Lactic acid this morning was 2.1. Essentially resolved. * Cystitis secondary to candidiasis. * Hypokalemia with potassium of 2.9. Hypomagnesemia 1.6 * D-dimer increased to 2.6 * Stage III chronic renal insufficiency, GFR 43 Fluconazole 200 mg daily for 14 days VTE prophylaxis with SCDs. Unfortunately, chemoprophylaxis is contraindicated secondary to recent bleeding and thrombocytopenia. Restart IV fluids secondary to poor oral intake and decreasing urine output. Correct potassium and magnesium. Follow CBC, CMP, mag, and phosphorus Recheck of hemoglobin this afternoon 10.3stable - Mortality Measure Prognosis:: Poor
[2020-06-24] MEDS: NS + KCl 20mEq/L 1,000 ML IV SCH (15:35)
[2020-06-24] MEDS: Fluconazole 100 MG Tab PO SCH (17:21)
[2020-06-25] MEDS: Piperacillin/Tazobactam 4.5 GM in Sodium Chloride 0.9% 100 ML IV SCH ×3 (02:08→18:24)
[2020-06-25] MEDS: NS + KCl 20mEq/L 1,000 ML IV SCH ×3 (02:09→23:16)
[2020-06-25 05:45] LABS: HEMOGLOBIN A1C 6.8 % (4.50-6.20)
[2020-06-25] MEDS: Pantoprazole 40 MG Tab.CR PO SCH ×2 (06:57→16:23)
--- NOTE | 2020-06-25 07:59 | PCM.PN ---
- General Info Date of Service: 06/25/20 Admission Dx/Problem (Free Text): Admission Diagnosis/Problem Admission Diagnosis/Problem Weakness Subjective Update: No significant overnight issues. Her appetite is not great. She had a brief respiratory distress earlier today while eating but no signs of aspiration. Her CX shows no acute abnormality. She was tachycardic and given her hx/o multiple PEs, CTA was ordered but PE negative. It did however show multilobar pneumonia. She is afebrile w/o leukocytosis. She is on 4L NC for supplemental O2. Functional Status: Reports: Pain Controlled, Ambulating - Review of Systems General: Reports: Weakness, Fatigue, Malaise. Denies: Fever, Chills, Appetite HEENT: Reports: No Symptoms Pulmonary: Denies: Shortness of Breath Cardiovascular: Denies: Chest Pain Gastrointestinal: Reports: Decreased Appetite. Denies: Abdominal Pain, Diarrhea, Vomiting Genitourinary: Reports: No Symptoms Musculoskeletal: Denies: Joint Pain Skin: Reports: Bruising. Denies: Cyanosis Neurological: Reports: Weakness. Denies: Confusion Psychiatric: Denies: Depression, Anxiety - Patient Data Vitals - Most Recent: Last Vital Signs Temp 36.6 C 06/25/20 07:26 Pulse 86 06/25/20 07:26 Resp 16 06/25/20 07:26 BP 134/65 06/25/20 07:26 Pulse Ox 99 06/25/20 07:26 Weight - Most Recent: 66.043 kg I&O - Last 24 Hours: Intake & Output 06/24/20 06/25/20 06/25/20 22:59 06:59 14:59 Intake Total 950 1643 Output Total 275 750 Balance 675 893 Lab Results Last 24 Hours: Laboratory Results - last 24 hr 06/24/20 06/24/20 06/24/20 Range/Units 04:35 06:05 11:02 WBC (3.98-10.04) K/mm3 RBC (3.98-5.22) M/mm3 Hgb (11.2-15.7) gm/dl Hct (34.1-44.9) % MCV (79.4-94.8) fl MCH (25.6-32.2) pg MCHC (32.2-35.5) g/dl RDW Std Deviation (36.4-46.3) fL Plt Count (182-369) K/mm3 MPV (9.4-12.3) fl Neut % (Auto) (34.0-71.1) % Lymph % (Auto) (19.3-51.7) % Sterling % (Auto) (4.7-12.5) % Eos % (Auto) (0.7-5.8) Baso % (Auto) (0.1-1.2) % Neut # (Auto) (1.56-6.13) K/mm3 Lymph # (Auto) (1.18-3.74) K/mm3 Sterling # (Auto) (0.24-0.36) K/mm3 Eos # (Auto) (0.04-0.36) K/mm3 Baso # (Auto) (0.01-0.08) K/mm3 Manual Slide Review PT (9.7-12.0) SECONDS INR APTT 21.8 D (21.7-31.4) SECONDS Sodium (136-145) mEq/L Potassium (3.5-5.1) mEq/L Chloride (98-107) mEq/L Carbon Dioxide (21-32) mEq/L Anion Gap (5-15) BUN (7-18) mg/dL Creatinine (0.55-1.02) mg/dL Est Cr Clr Drug Dosing mL/min Estimated GFR (MDRD) (>60) mL/min BUN/Creatinine Ratio (14-18) Glucose (83-115) mg/dL POC Glucose 103 167 H (83-110) mg/dL Hemoglobin A1c (4.50-6.20) % Calcium (8.5-10.1) mg/dL Phosphorus (2.6-4.7) mg/dL Magnesium (1.8-2.4) mg/dl NT-Pro-B Natriuret Pep (0-450) pg/mL 06/24/20 06/24/20 06/24/20 Range/Units 15:00 17:13 20:48 WBC (3.98-10.04) K/mm3 RBC (3.98-5.22) M/mm3 Hgb 10.3 L (11.2-15.7) gm/dl Hct 30.6 L (34.1-44.9) % MCV (79.4-94.8) fl MCH (25.6-32.2) pg MCHC (32.2-35.5) g/dl RDW Std Deviation (36.4-46.3) fL Plt Count (182-369) K/mm3 MPV (9.4-12.3) fl Neut % (Auto) (34.0-71.1) % Lymph % (Auto) (19.3-51.7) % Sterling % (Auto) (4.7-12.5) % Eos % (Auto) (0.7-5.8) Baso % (Auto) (0.1-1.2) % Neut # (Auto) (1.56-6.13) K/mm3 Lymph # (Auto) (1.18-3.74) K/mm3 Sterling # (Auto) (0.24-0.36) K/mm3 Eos # (Auto) (0.04-0.36) K/mm3 Baso # (Auto) (0.01-0.08) K/mm3 Manual Slide Review PT (9.7-12.0) SECONDS INR APTT (21.7-31.4) SECONDS Sodium (136-145) mEq/L Potassium (3.5-5.1) mEq/L Chloride (98-107) mEq/L Carbon Dioxide (21-32) mEq/L Anion Gap (5-15) BUN (7-18) mg/dL Creatinine (0.55-1.02) mg/dL Est Cr Clr Drug Dosing mL/min Estimated GFR (MDRD) (>60) mL/min BUN/Creatinine Ratio (14-18) Glucose (83-115) mg/dL POC Glucose 292 H 165 H (83-110) mg/dL Hemoglobin A1c (4.50-6.20) % Calcium (8.5-10.1) mg/dL Phosphorus (2.6-4.7) mg/dL Magnesium (1.8-2.4) mg/dl NT-Pro-B Natriuret Pep (0-450) pg/mL 06/24/20 06/25/20 06/25/20 Range/Units 21:19 05:13 05:13 WBC (3.98-10.04) K/mm3 RBC (3.98-5.22) M/mm3 Hgb (11.2-15.7) gm/dl Hct (34.1-44.9) % MCV (79.4-94.8) fl MCH (25.6-32.2) pg MCHC (32.2-35.5) g/dl RDW Std Deviation (36.4-46.3) fL Plt Count (182-369) K/mm3 MPV (9.4-12.3) fl Neut % (Auto) (34.0-71.1) % Lymph % (Auto) (19.3-51.7) % Sterling % (Auto) (4.7-12.5) % Eos % (Auto) (0.7-5.8) Baso % (Auto) (0.1-1.2) % Neut # (Auto) (1.56-6.13) K/mm3 Lymph # (Auto) (1.18-3.74) K/mm3 Sterling # (Auto) (0.24-0.36) K/mm3 Eos # (Auto) (0.04-0.36) K/mm3 Baso # (Auto) (0.01-0.08) K/mm3 Manual Slide Review PT 10.6 (9.7-12.0) SECONDS INR 0.99 APTT (21.7-31.4) SECONDS Sodium (136-145) mEq/L Potassium (3.5-5.1) mEq/L Chloride (98-107) mEq/L Carbon Dioxide (21-32) mEq/L Anion Gap (5-15) BUN (7-18) mg/dL Creatinine (0.55-1.02) mg/dL Est Cr Clr Drug Dosing mL/min Estimated GFR (MDRD) (>60) mL/min BUN/Creatinine Ratio (14-18) Glucose (83-115) mg/dL POC Glucose 150 H (83-110) mg/dL Hemoglobin A1c (4.50-6.20) % Calcium (8.5-10.1) mg/dL Phosphorus (2.6-4.7) mg/dL Magnesium (1.8-2.4) mg/dl NT-Pro-B Natriuret Pep 2613 H (0-450) pg/mL 06/25/20 06/25/20 06/25/20 Range/Units 05:13 05:13 05:13 WBC 4.59 (3.98-10.04) K/mm3 RBC 2.75 L (3.98-5.22) M/mm3 Hgb 7.9 L D (11.2-15.7) gm/dl Hct 24.2 L (34.1-44.9) % MCV 88.0 (79.4-94.8) fl MCH 28.7 (25.6-32.2) pg MCHC 32.6 (32.2-35.5) g/dl RDW Std Deviation 46.1 (36.4-46.3) fL Plt Count 35 L (182-369) K/mm3 MPV 10.6 (9.4-12.3) fl Neut % (Auto) 78.7 H (34.0-71.1) % Lymph % (Auto) 15.0 L (19.3-51.7) % Sterling % (Auto) 5.0 (4.7-12.5) % Eos % (Auto) 0.2 L (0.7-5.8) Baso % (Auto) 0.2 (0.1-1.2) % Neut # (Auto) 3.61 (1.56-6.13) K/mm3 Lymph # (Auto) 0.69 L (1.18-3.74) K/mm3 Sterling # (Auto) 0.23 L (0.24-0.36) K/mm3 Eos # (Auto) 0.01 L (0.04-0.36) K/mm3 Baso # (Auto) 0.01 (0.01-0.08) K/mm3 Manual Slide Review Abnormal smear PT (9.7-12.0) SECONDS INR APTT (21.7-31.4) SECONDS Sodium 142 (136-145) mEq/L Potassium 3.6 (3.5-5.1) mEq/L Chloride 105 (98-107) mEq/L Carbon Dioxide 31 (21-32) mEq/L Anion Gap 9.6 (5-15) BUN 15 (7-18) mg/dL Creatinine 1.0 (0.55-1.02) mg/dL Est Cr Clr Drug Dosing 31.15 mL/min Estimated GFR (MDRD) 53 (>60) mL/min BUN/Creatinine Ratio 15.0 (14-18) Glucose 134 H (83-115) mg/dL POC Glucose (83-110) mg/dL Hemoglobin A1c 6.80 H (4.50-6.20) % Calcium 7.5 L (8.5-10.1) mg/dL Phosphorus 1.6 L (2.6-4.7) mg/dL Magnesium 2.2 (1.8-2.4) mg/dl NT-Pro-B Natriuret Pep (0-450) pg/mL 06/25/20 Range/Units 06:59 WBC (3.98-10.04) K/mm3 RBC (3.98-5.22) M/mm3 Hgb (11.2-15.7) gm/dl Hct (34.1-44.9) % MCV (79.4-94.8) fl MCH (25.6-32.2) pg MCHC (32.2-35.5) g/dl RDW Std Deviation (36.4-46.3) fL Plt Count (182-369) K/mm3 MPV (9.4-12.3) fl Neut % (Auto) (34.0-71.1) % Lymph % (Auto) (19.3-51.7) % Sterling % (Auto) (4.7-12.5) % Eos % (Auto) (0.7-5.8) Baso % (Auto) (0.1-1.2) % Neut # (Auto) (1.56-6.13) K/mm3 Lymph # (Auto) (1.18-3.74) K/mm3 Sterling # (Auto) (0.24-0.36) K/mm3 Eos # (Auto) (0.04-0.36) K/mm3 Baso # (Auto) (0.01-0.08) K/mm3 Manual Slide Review PT (9.7-12.0) SECONDS INR APTT (21.7-31.4) SECONDS Sodium (136-145) mEq/L Potassium (3.5-5.1) mEq/L Chloride (98-107) mEq/L Carbon Dioxide (21-32) mEq/L Anion Gap (5-15) BUN (7-18) mg/dL Creatinine (0.55-1.02) mg/dL Est Cr Clr Drug Dosing mL/min Estimated GFR (MDRD) (>60) mL/min BUN/Creatinine Ratio (14-18) Glucose (83-115) mg/dL POC Glucose 146 H (83-110) mg/dL Hemoglobin A1c (4.50-6.20) % Calcium (8.5-10.1) mg/dL Phosphorus (2.6-4.7) mg/dL Magnesium (1.8-2.4) mg/dl NT-Pro-B Natriuret Pep (0-450) pg/mL Kevyn Results Last 24 Hours: Microbiology 06/23/20 03:25 Aerobic Blood Culture - Preliminary Blood - Venous - Lab Draw NO GROWTH AFTER 2 DAYS Anaerobic Blood Culture - Final 06/22/20 18:00 Aerobic Blood Culture - Preliminary Blood - Venous NO GROWTH AFTER 2 DAYS Anaerobic Blood Culture - Preliminary NO GROWTH AFTER 2 DAYS 06/23/20 10:08 Urine Culture - Preliminary Urine, Bladder YEAST 06/23/20 16:40 Stool Lactoferrin - Final Stool / Feces 06/23/20 16:40 Shiga Toxin I & II - Final Stool / Feces Med Orders - Current: Current Medications Acetaminophen (Tylenol) 650 mg PO Q4H PRN PRN Reason: Pain (Mild 1-3)/fever Albuterol/Ipratropium (Duoneb 3.0-0.5 Mg/3 Ml) 3 ml NEB Q6HRRT PRN PRN Reason: Shortness of Breath Last Admin: 06/23/20 15:30 Dose: 3 ml Documented by: Ascorbic Acid (Vitamin C) 500 mg PO DAILY [facility] Last Admin: 06/24/20 08:18 Dose: 500 mg Documented by: Cholecalciferol (Vitamin D3) 5,000 unit PO DAILY [facility] Last Admin: 06/24/20 08:19 Dose: 5,000 unit Documented by: Digoxin (Lanoxin) 125 mcg PO DAILY [facility] Last Admin: 06/24/20 08:18 Dose: 125 mcg Documented by: Ferrous Sulfate (Ferrous Sulfate) 324 mg PO DAILY [facility] Last Admin: 06/24/20 08:18 Dose: 324 mg Documented by: Fluconazole (Diflucan) 200 mg PO Q24H [facility] Stop: 07/07/20 16:31 Last Admin: 06/24/20 17:21 Dose: 200 mg Documented by: Piperacillin Sod/Tazobactam (Sod 4.5 gm/ Sodium Chloride) 100 mls @ 25 mls/hr IV Q8H [facility] Last Admin: 06/25/20 02:08 Dose: 25 mls/hr Documented by: Potassium Chloride/Sodium Chloride (Normal Saline With 20 Meq Kcl) 1,000 mls @ 100 mls/hr IV ASDIRECTED [facility] Last Admin: 06/25/20 02:09 Dose: 100 mls/hr Documented by: Insulin Human Lispro (Humalog) 0 unit SUBCUT QIDACANDBED [facility]; Protocol Last Admin: 06/24/20 21:22 Dose: 1 units Documented by: Montelukast Sodium (Singulair) 10 mg PO DAILY [facility] Last Admin: 06/24/20 08:19 Dose: 10 mg Documented by: Atovaquone 750 Mg/ (5ml Susp Ptom) 0 mg PO BID [facility] Nystatin (Nystatin Oral Syringe) 500,000 unit PO QID [facility] Last Admin: 06/24/20 21:17 Dose: 500,000 unit Documented by: Ondansetron HCl (Zofran) 4 mg IV Q4H PRN PRN Reason: Nausea/Vomiting Oxycodone HCl (Oxycodone) 5 mg PO Q4H PRN PRN Reason: Pain (moderate 4-6) [facility]oprazole [facility] Last Admin: 06/25/20 06:57 Dose: 40 mg Documented by: Prednisone (Prednisone) 20 mg PO BID [facility] Last Admin: 06/24/20 21:17 Dose: 20 mg Documented by: Rosuvastatin Calcium (Crestor) 10 mg PO DAILY [facility] Last Admin: 06/24/20 08:18 Dose: 10 mg Documented by: Saccharomyces Boulardii (Florastor) 250 mg PO BID [facility] Last Admin: 06/24/20 21:17 Dose: 250 mg Documented by: Sodium Chloride (Saline Flush) 10 ml FLUSH ASDIRECTED PRN PRN Reason: Keep Vein Open Discontinued Medications Factor IX (Pha) (Kcentra) 2,275 unit IV NOW STA Stop: 06/23/20 11:28 Last Admin: 06/23/20 12:25 Dose: 2,275 unit Documented by: Furosemide (Lasix) 20 mg IVPUSH ONETIME ONE Stop: 06/23/20 15:31 Last Admin: 06/23/20 15:48 Dose: 20 mg Documented by: Furosemide (Lasix) 20 mg IVPUSH ONETIME ONE Stop: 06/24/20 03:01 Last Admin: 06/24/20 02:07 Dose: 20 mg Documented by: Lactated Ringer's (Ringers, Lactated) 1,000 mls @ 500 mls/hr IV ASDIRECTED [facility] Stop: 06/23/20 19:29 Last Admin: 06/22/20 22:16 Dose: 500 mls/hr Documented by: Ceftriaxone Sodium 2 gm/ (Sodium Chloride) 100 mls @ 200 mls/hr IV STAT ONE Stop: 06/22/20 17:55 Last Admin: 06/22/20 20:33 Dose: Not Given Documented by: Lidocaine HCl (Xylocaine-Mpf 1%) Confirm Administered Dose 2 mls @ as directed .ROUTE .STK-MED ONE Stop: 06/22/20 18:20 Piperacillin Sod/Tazobactam (Sod 4.5 gm/ Sodium Chloride) 100 mls @ 200 mls/hr IV ONETIME ONE Stop: 06/22/20 19:14 Last Admin: 06/22/20 19:42 Dose: 200 mls/hr Documented by: Sodium Chloride (Normal Saline) 1,000 mls @ 130 mls/hr IV ASDIRECTED [facility] Last Admin: 06/23/20 00:35 Dose: 130 mls/hr Documented by: Sodium Chloride (Normal Saline) 1,000 mls @ 150 mls/hr IV ASDIRECTED EMIG[facility]IO Sodium Chloride (Normal Saline) 250 mls @ 100 mls/hr IV ASDIRECTED [facility] Phytonadione 5 mg/ Sodium (Chloride) 50.5 mls @ 101 mls/hr IV NOW ONE Stop: 06/23/20 13:59 Last Admin: 06/23/20 16:10 Dose: 101 mls/hr Documented by: Magnesium Sulfate (Magnesium Sulfate In Water Premix) 2 gm in 50 mls @ 25 mls/hr IV Q1H [facility] Stop: 06/24/20 08:14 Last Admin: 06/24/20 07:49 Dose: 25 mls/hr Documented by: Potassium Chloride 10 meq/ (Premix) 100 mls @ 100 mls/hr IV Q1H [facility] Stop: 06/24/20 10:29 Last Admin: 06/24/20 10:12 Dose: 100 mls/hr Documented by: Lidocaine HCl (Xylocaine 1%) 10 ml INJECT ONETIME ONE Stop: 06/23/20 09:31 Last Admin: 06/23/20 10:58 Dose: 10 ml Documented by: Lidocaine HCl (Xylocaine 1%) 10 ml INJECT ONETIME ONE Stop: 06/23/20 09:16 Last Admin: 06/23/20 10:58 Dose: 10 ml Documented by: Loperamide HCl (Imodium) 4 mg PO ONETIME ONE Stop: 06/23/20 20:01 Last Admin: 06/23/20 20:01 Dose: 4 mg Documented by: Non-Formulary Medication (Ferrous Gluconate [Ferrous Gluconate]) 325 mg PO ASDIRECTED [facility] Atovaquone 750 Mg/ (5ml Susp Ptom) 0 mg PO BIDMEALS [facility] Last Admin: 06/24/20 17:30 Dose: 750 mg Documented by: Nystatin (Mycostatin) 5 ml PO QID [facility] Last Admin: 06/23/20 11:00 Dose: Not Given Documented by: Phytonadione (Aquamephyton) 5 mg PO STAT ONE Stop: 06/23/20 06:35 Last Admin: 06/23/20 06:48 Dose: 5 mg Documented by: - Exam Quality Assessment: Supplemental Oxygen, Central Line/PICC General: Alert, Oriented, Cooperative, No Acute Distress HEENT: Pupils Equal, Pupils Reactive, EOMI, Mucous Membr. Moist/[place] Neck: Supple Lungs: Normal Respiratory Effort, Decreased Breath Sounds Cardiovascular: Regular Rate, Regular Rhythm GI/Abdominal Exam: Normal Bowel Sounds, Soft, Non-Tender, No Organomegaly (Female) Exam: Deferred Back Exam: Normal Inspection, Decreased Range of Motion Extremities: Normal Inspection, Normal Range of Motion, Non-Tender, Other (bilateral lower extremity edema) Peripheral Pulses: 1+: Dorsalis Pedis (L), Dorsalis Pedis (R) Skin: Warm, Dry, Intact, Ecchymosis (all over ), Other (edema also on both upper extremities) Neurological: No New Focal Deficit, Normal Gait Psy/Mental Status: Alert, Normal Affect, Normal Mood Sepsis Event Note - Evaluation Sepsis Screening Result: No Definite Risk - Focused Exam Vital Signs: Vital Signs Temp Pulse Resp BP Pulse Ox 06/25/20 07:26 36.6 C 86 16 134/65 99 06/25/20 00:27 36.3 C 89 20 140/74 98 - Problem List Review Problem List Initiated/Reviewed/Updated: Yes - Plan Plan:: Assessment Acute: 84-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 Hypovolemia secondary to diarrhea, poor oral intake Post Covid syndrome Post Covid pneumonia versus hospital-acquired pneumonia recently treated with was in a menu planner and levofloxacin * White count is normal * Few toxic granulations on initial CBC. Lactic acid elevated at 6.6 with minimally elevated C-reactive protein of 2.9. * Patient's elevated lactic acid is likely secondary to hypovolemia with possible underlying worsening of her left upper lobe pneumonia. With a normal white count, essentially normal C-reactive protein, and no significant change on chest x-ray I do not believe that this elevated lactic acid is secondary to sepsis, but it appears to be secondary to hypovolemia and poor tissue perfusion due to the hypovolemia. Patient also has a slight drop in her her hemoglobin also likely exacerbating the hypovolemia. It is unknown at this time if this is secondary to acute blood loss, but her INR is significantly elevated at greater than 5. Patient also had an elevated lactic acid on 12 June making this more likely to be a chronic problem and not an acute sep sis. * UA was ordered on admission, but nursing was unable to collect it initially secondary to patient's diarrhea. If they are unable to obtain a UA we will have to consider catheterization. * She just finished broad-spectrum antibiotics, yesterday, linezolid and levofloxacin. 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 She is on warfarin because she failed NOAC. * INR greater than 5 with no active bleeding, but significant anemia. * INR today is 0.99 * Platelet is 35 * Had hemoptysis yesterday * Continue to hold off Warfarin History of multiple pulmonary emboli * Patient has significantly elevated INR. She is on warfarin because she failed NOAC. * INR greater than 5 with no active bleeding, but significant anemia. * INR today is 0.99 Oxygen dependent chronic bronchitis * Home oxygen 4 L via nasal cannula no significant worsening; remains on 4L NC * Currently on prednisone 20 units in the morning and 10 units in the evening. Recently decreased from 20 twice daily. Primary care provider states that she has been on and off steroids for several weeks now. NYHA class III CHF History of atrial fibrillation, HR controlled * Outpatient treatment with furosemide, losartan, warfarin, digoxin, rosuvastatin * ProBNP of 2613 * Continue home dose lasix and potassium supplement * 2D echo last report 04/21/2020: EF of 60-65%. Grade 1 Diastolic Dysfunction. No RWMA. Moderately reduced RV systolic function. Type 2 diabetes * Hemoglobin A1c of 7.5, TSH 1.25 * BS improving * Sliding scale insulin Hypocalcemia and Hypophosphatemia * Non corrected Ca level of 7.5 and PO4 of 1.6 * Will replete and monitor Candidauria * On oral fluconazole 07/30 doses Chronic: HTN, HLD, DM2, Hx/o Multiple PEs/DVT, S/p IV Filter Placement, Hx/o SBO, CHF, Pulmonary Edema, Chronic Respiratory Failure on Supplemental O2, COPD, CKD Stage 3, Chronic Rhinitis, AR, Environmental Allergies, GERD, FV Leiden Deficiency and Lower Leg Edema. Plan: * Admit to medical floor on telemetry * Start Zosyn * Blood cultures, UA, urine culture as appropriate * Follow lab work including lactic acid. Unfortunately, it appears that she has chronically elevated lactic acid from unknown source. This may not be a good indicator of risk of sepsis. * Procalcitonin will be ordered. Unfortunately, this is a send out so it will only be helpful in determining sepsis in retrospect. * Give 30 mL/kg LR bolus followed by fluids at 150 mL/h. * Follow CBC. * Sliding scale insulin * CODE STATUS: DNR/DNI * Initially we would not reverse her INR. * VTE prophylaxis secondary to supratherapeutic INR * Patient has very poor outcome. She has been hospitalized since April 15 except for just over 2 weeks. She has recurrent infections as post Covid syndrome. 06/23/2020 * 84-year-old female with post Covid syndrome and recent treatment with lenalidomide and Levaquin presents with significant drop in hemoglobin, elevated INR, likely secondary to interaction of broad-spectrum antibiotics with warfarin. * Lactic acidosis likely secondary to hypovolemia and possible underlying infection including pneumonia and UTI, but less likely. * Mild fluid overload after several boluses, 2 units packed red blood cells, and holding her Lasix this morning. Patient will get Lasix 20 mg IV x1 and may repeat. * When bleeding has stopped we will have to restart warfarin secondary to her history of clotting disorder. * Patient had significant diarrhea today likely also secondary to antibiotics. Patient is currently on Zosyn. Will give Imodium since C. difficile has been ruled out. * Central line placed today because of poor venous access. * Normal white count with a procalcitonin of 0.08 essentially ruling out severe sepsis * I discussed with her daughter and the patient that she has a very poor outlook and prognosis. They voiced understanding. 06/24/2020 * 84-year-old female with post Covid syndrome, significant hematemesis, supratherapeutic INR secondary to broad-spectrum antibiotics, hypovolemia with lactic acidosis and anemia * Continues small amounts of bloody sputum * Received Kcentra and vitamin K yesterday. INR today is 1.0 * Thrombocytopenia with platelets at 53,000. This is down from 107,000 on admission. Unfortunately, this makes heparin a contraindication. * There is high concern for potential for clotting secondary to history of clotting disorder. * NYHA class III CHF stable. BNP did go up to approximately 5000. This is likely secondary to fluid and packed red blood cells. * Lactic acid this morning was 2.1. Essentially resolved. * Cystitis secondary to candidiasis. * Hypokalemia with potassium of 2.9. Hypomagnesemia 1.6 * D-dimer increased to 2.6 * Stage III chronic renal insufficiency, GFR 43 Fluconazole 200 mg daily for 14 days VTE prophylaxis with SCDs. Unfortunately, chemoprophylaxis is contraindicated secondary to recent bleeding and thrombocytopenia. Restart IV fluids secondary to poor oral intake and decreasing urine output. Correct potassium and magnesium. Follow CBC, CMP, mag, and phosphorus Recheck of hemoglobin this afternoon 10.3stable 06/25/2020 * Continue current treatment * Consider adding another BS abx for HCAP coverage * IS as directed * PRN decongestant/expectorant * Encourage to eat more * Consider Marinol for appetite stimulant; Megace CI due to hx/o multiple DVT/PE * PT/OT and RT * Routine AM labs * Ambulate as tolerated * DVT PPx: SCDs * Code status: DNR/DNI * Prognosis is guarded to poor * LOS > 96 hrs for treatment of HCAP and Generalized Weakness. She is actually failing clinically in my opinion.
[2020-06-25] MEDS: ATOVAQUONE 750 MG/5 ML PO SCH ×3 (08:19→21:30)
[2020-06-25] MEDS: Digoxin 125 MCG Tab PO SCH (09:22)
[2020-06-25] MEDS: Montelukast 10 MG Tab PO SCH (09:22)
[2020-06-25] MEDS: predniSONE 20 MG Tab PO SCH ×3 (09:22→21:31)
[2020-06-25] MEDS: Saccharomyces Boulardii (Probiotic) 250 MG Cap PO SCH ×3 (09:22→21:31)
[2020-06-25] MEDS: Ferrous Sulfate 324 MG Tab.EC PO SCH (09:22)
[2020-06-25] MEDS: Ascorbic Acid 500 MG Tab PO SCH (09:22)
[2020-06-25] MEDS: Rosuvastatin 10 MG Tab PO SCH (09:22)
[2020-06-25] MEDS: Cholecalciferol (Vitamin D3) 5,000 UNIT Cap PO SCH (09:22)
[2020-06-25] MEDS: Nystatin Susp 100,000 Unit/ML 5 ML Oral Syringe PO SCH ×5 (09:23→21:31)
--- NOTE | 2020-06-25 12:26 | CR ---
Chest: Portable view of the chest was obtained. Comparison: Prior chest x-ray of 06/22/20 and 06/23/20. Diffuse increased density within the left chest and right chest is seen. Findings are similar to prior study when allowing for differences in inspiration. Left-sided jugular line is seen. Tip lies at the right atrial and superior vena cava junction. Heart size and mediastinum are unchanged. Bony structures are unchanged. Impression: 1. Multiple findings as noted above. 2. No appreciable change from previous studies are seen. Diagnostic code #3
[2020-06-25] MEDS: Loperamide 2 MG Cap PO PRN (13:03)
[2020-06-25] MEDS ORDERED: Lidocaine 1% 2 ML ONE (13:50)
--- NOTE | 2020-06-25 14:35 | PCM.SN.2 ---
- Free Text/Narrative Note: Called for difficult IV start for patient requiring peripheral access for CT Angiogram. Delores has a central line in place as well. 20 gauge IV inserted into her left antecubital space with a single attempt, utilizing lidocaine for local to the skin, prepped per standard aseptic technique with ChloraPrep and secured using the IV start kit supplies, skin barrier applied and transparent dressing. IV has good blood return, and was flushed with 20 ml of 0.9 NS with insertion and prior to leaving the room. Delores has extensive bruising to both arms and edematous tissue. Education provided to leave her arm still as possible until the CT is complete. Delores tolerated the procedure well and has no further concerns at this time. Her daughter is present with her a the bedside throughout. Radha Castrejon CRNA
[2020-06-25] MEDS ORDERED: Iopamidol 755 Mg/ML 100 ML Bottle IVPUSH ONE (15:11)
[2020-06-25] MEDS ORDERED: Sodium Chloride 0.9% 10 ML Syringe FLUSH PRN (15:11)
[2020-06-25] MEDS ORDERED: Sodium Chloride 0.9% 100 ML IV SCH (15:15)
[2020-06-25] MEDS: Fluconazole 100 MG Tab PO SCH (16:23)
[2020-06-25] MEDS ORDERED: guaiFENesin/Dextromethorphan 100-10 MG/5 ML Soln 5 ML Cup PO PRN (16:52)
[2020-06-26] MEDS: Piperacillin/Tazobactam 4.5 GM in Sodium Chloride 0.9% 100 ML IV SCH ×3 (03:26→18:39)
[2020-06-26] MEDS: Pantoprazole 40 MG Tab.CR PO SCH ×2 (05:46→17:01)
--- NOTE | 2020-06-26 08:08 | PCM.PN ---
- General Info Date of Service: 06/26/20 Admission Dx/Problem (Free Text): Admission Diagnosis/Problem Admission Diagnosis/Problem Weakness Subjective Update: Has had numerous smears overnight and this AM she had a considerable amount of diarrhea. She mainly eats protein shakes. She feels about the same. Her Hgb is stable at 7.8 grams. Her INR is subtherapeutic at 1.02. She gets mild lightheaded when she gets up but no dizziness. Functional Status: Reports: Pain Controlled, Tolerating Diet, Urinating - Review of Systems General: Reports: Weakness. Denies: Fever, Chills HEENT: Denies: Contact Lenses Pulmonary: Reports: Shortness of Breath, Cough. Denies: Hemoptysis Cardiovascular: Reports: Dyspnea on Exertion, Edema. Denies: Chest Pain, Lightheadedness Gastrointestinal: Reports: Diarrhea. Denies: Abdominal Pain, Nausea, Vomiting Genitourinary: Reports: Frequency Musculoskeletal: Denies: Joint Pain Skin: Reports: Bruising Neurological: Reports: Difficulty Walking, Gait Disturbance. Denies: Confusion, Dizziness Psychiatric: Denies: Depression, Anxiety - Patient Data Vitals - Most Recent: Last Vital Signs Temp 36.6 C 06/26/20 03:55 Pulse 89 06/26/20 03:55 Resp 16 06/26/20 03:55 BP 149/76 H 06/26/20 03:55 Pulse Ox 96 06/26/20 03:55 Weight - Most Recent: 66.043 kg I&O - Last 24 Hours: Intake & Output 06/25/20 06/26/20 06/26/20 22:59 06:59 14:59 Intake Total 1490 1350 Output Total 550 550 Balance 940 800 Lab Results Last 24 Hours: Laboratory Results - last 24 hr 06/25/20 06/25/20 06/25/20 Range/Units 11:00 12:17 16:28 PT (9.7-12.0) SECONDS INR D-Dimer, Quantitative 2.89 H (0.19-0.50) mg/L POC Glucose 256 H 194 H (83-110) mg/dL 06/25/20 06/26/20 06/26/20 Range/Units 19:53 05:52 06:02 PT 10.9 (9.7-12.0) SECONDS INR 1.02 D-Dimer, Quantitative (0.19-0.50) mg/L POC Glucose 258 H 163 H (83-110) mg/dL Kevyn Results Last 24 Hours: Microbiology 06/23/20 03:25 Aerobic Blood Culture - Preliminary Blood - Venous - Lab Draw NO GROWTH AFTER 3 DAYS Anaerobic Blood Culture - Final 06/22/20 18:00 Aerobic Blood Culture - Preliminary Blood - Venous NO GROWTH AFTER 3 DAYS Anaerobic Blood Culture - Preliminary NO GROWTH AFTER 3 DAYS 06/23/20 16:40 Stool Culture - Preliminary Stool / Feces Shiga Toxin I & II - Final 06/23/20 10:08 Urine Culture - Preliminary Urine, Bladder Maricruz Species Not Albicans Med Orders - Current: Current Medications Acetaminophen (Tylenol) 650 mg PO Q4H PRN PRN Reason: Pain (Mild 1-3)/fever Albuterol/Ipratropium (Duoneb 3.0-0.5 Mg/3 Ml) 3 ml NEB Q6HRRT PRN PRN Reason: Shortness of Breath Last Admin: 06/23/20 15:30 Dose: 3 ml Documented by: Ascorbic Acid (Vitamin C) 500 mg PO DAILY [facility] Last Admin: 06/25/20 09:22 Dose: 500 mg Documented by: Cholecalciferol (Vitamin D3) 5,000 unit PO DAILY [facility] Last Admin: 06/25/20 09:22 Dose: 5,000 unit Documented by: Digoxin (Lanoxin) 125 mcg PO DAILY [facility] Last Admin: 06/25/20 09:22 Dose: 125 mcg Documented by: Ferrous Sulfate (Ferrous Sulfate) 324 mg PO DAILY [facility] Last Admin: 06/25/20 09:22 Dose: 324 mg Documented by: Fluconazole (Diflucan) 200 mg PO Q24H [facility] Stop: 07/07/20 16:31 Last Admin: 06/25/20 16:23 Dose: 200 mg Documented by: Furosemide (Lasix) 20 mg PO Q48H [facility] Furosemide (Lasix) 40 mg PO Q24H [facility] Guaifenesin/Phenylephrine HCl (Robitussin Dm) 5 ml PO Q4H PRN PRN Reason: Cough Piperacillin Sod/Tazobactam (Sod 4.5 gm/ Sodium Chloride) 100 mls @ 25 mls/hr IV Q8H [facility] Last Admin: 06/26/20 03:26 Dose: 25 mls/hr Documented by: Potassium Chloride/Sodium Chloride (Normal Saline With 20 Meq Kcl) 1,000 mls @ 100 mls/hr IV ASDIRECTED [facility] Last Admin: 06/25/20 23:16 Dose: 100 mls/hr Documented by: Sodium Chloride (Normal Saline) 100 mls @ 75 mls/hr IV ASDIRECTED [facility] Last Admin: 06/25/20 15:23 Dose: 75 mls/hr Documented by: Vancomycin HCl 1 gm/ Sodium (Chloride) 250 mls @ 250 mls/hr IV Q24H [facility] Last Admin: 06/25/20 18:25 Dose: 250 mls/hr Documented by: Insulin Human Lispro (Humalog) 0 unit SUBCUT QIDACANDBED [facility]; Protocol Last Admin: 06/25/20 21:32 Dose: 3 units Documented by: Loperamide HCl (Imodium) 2 mg PO Q4H PRN PRN Reason: Diarrhea Last Admin: 06/25/20 13:03 Dose: 2 mg Documented by: Montelukast Sodium (Singulair) 10 mg PO DAILY [facility] Last Admin: 06/25/20 09:22 Dose: 10 mg Documented by: Atovaquone 750 Mg/ (5ml Susp Ptom) 0 mg PO BID [facility] Last Admin: 06/25/20 21:30 Dose: 750 mg Documented by: Nystatin (Nystatin Oral Syringe) 500,000 unit PO QID [facility] Last Admin: 06/25/20 21:31 Dose: Not Given Documented by: Ondansetron HCl (Zofran) 4 mg IV Q4H PRN PRN Reason: Nausea/Vomiting Oxycodone HCl (Oxycodone) 5 mg PO Q4H PRN PRN Reason: Pain (moderate 4-6) [facility] Last Admin: 06/26/20 05:46 Dose: 40 mg Documented by: Potassium Chloride (Klor-Con M20) 20 meq PO DAILY [facility] Prednisone (Prednisone) 20 mg PO BID [facility] Last Admin: 06/25/20 21:31 Dose: Not Given Documented by: Rosuvastatin Calcium (Crestor) 10 mg PO DAILY [facility] Last Admin: 06/25/20 09:22 Dose: 10 mg Documented by: Saccharomyces Boulardii (Florastor) 250 mg PO BID [facility] Last Admin: 06/25/20 21:31 Dose: Not Given Documented by: Sodium Chloride (Saline Flush) 10 ml FLUSH ASDIRECTED PRN PRN Reason: Keep Vein Open Sodium Chloride (Saline Flush) 10 ml FLUSH ONETIME PRN PRN Reason: IV FLUSH Last Admin: 06/25/20 15:23 Dose: 10 ml Documented by: Vancomycin HCl (Pharmacy To Dose - Vancomycin) 1 dose .XX ASDIRECTED PRN PRN Reason: RX TO DOSE VANCO Discontinued Medications Factor IX (Pha) (Kcentra) 2,275 unit IV NOW STA Stop: 06/23/20 11:28 Last Admin: 06/23/20 12:25 Dose: 2,275 unit Documented by: Furosemide (Lasix) 20 mg IVPUSH ONETIME ONE Stop: 06/23/20 15:31 Last Admin: 06/23/20 15:48 Dose: 20 mg Documented by: Furosemide (Lasix) 20 mg IVPUSH ONETIME ONE Stop: 06/24/20 03:01 Last Admin: 06/24/20 02:07 Dose: 20 mg Documented by: Lactated Ringer's (Ringers, Lactated) 1,000 mls @ 500 mls/hr IV ASDIRECTED [facility] Stop: 06/23/20 19:29 Last Admin: 06/22/20 22:16 Dose: 500 mls/hr Documented by: Ceftriaxone Sodium 2 gm/ (Sodium Chloride) 100 mls @ 200 mls/hr IV STAT ONE Stop: 06/22/20 17:55 Last Admin: 06/22/20 20:33 Dose: Not Given Documented by: Lidocaine HCl (Xylocaine-Mpf 1%) Confirm Administered Dose 2 mls @ as directed .ROUTE .STK-MED ONE Stop: 06/22/20 18:20 Piperacillin Sod/Tazobactam (Sod 4.5 gm/ Sodium Chloride) 100 mls @ 200 mls/hr IV ONETIME ONE Stop: 06/22/20 19:14 Last Admin: 06/22/20 19:42 Dose: 200 mls/hr Documented by: Sodium Chloride (Normal Saline) 1,000 mls @ 130 mls/hr IV ASDIRECTED [facility] Last Admin: 06/23/20 00:35 Dose: 130 mls/hr Documented by: Sodium Chloride (Normal Saline) 1,000 mls @ 150 mls/hr IV ASDIRECTED [facility] Sodium Chloride (Normal Saline) 250 mls @ 100 mls/hr IV ASDIRECTED [facility] Phytonadione 5 mg/ Sodium (Chloride) 50.5 mls @ 101 mls/hr IV NOW ONE Stop: 06/23/20 13:59 Last Admin: 06/23/20 16:10 Dose: 101 mls/hr Documented by: Magnesium Sulfate (Magnesium Sulfate In Water Premix) 2 gm in 50 mls @ 25 mls/hr IV Q1H [facility] Stop: 06/24/20 08:14 Last Admin: 06/24/20 07:49 Dose: 25 mls/hr Documented by: Potassium Chloride 10 meq/ (Premix) 100 mls @ 100 mls/hr IV Q1H [facility] Stop: 06/24/20 10:29 Last Admin: 06/24/20 10:12 Dose: 100 mls/hr Documented by: Lidocaine HCl (Xylocaine-Mpf 1%) Confirm Administered Dose 2 mls @ as directed .ROUTE .STK-MED ONE Stop: 06/25/20 13:51 Iopamidol (Isovue-370 (76%)) 100 ml IVPUSH ONETIME ONE Stop: 06/25/20 15:12 Last Admin: 06/25/20 15:23 Dose: 100 ml Documented by: Lidocaine HCl (Xylocaine 1%) 10 ml INJECT ONETIME ONE Stop: 06/23/20 09:31 Last Admin: 06/23/20 10:58 Dose: 10 ml Documented by: Lidocaine HCl (Xylocaine 1%) 10 ml INJECT ONETIME ONE Stop: 06/23/20 09:16 Last Admin: 06/23/20 10:58 Dose: 10 ml Documented by: Loperamide HCl (Imodium) 4 mg PO ONETIME ONE Stop: 06/23/20 20:01 Last Admin: 06/23/20 20:01 Dose: 4 mg Documented by: Non-Formulary Medication (Ferrous Gluconate [Ferrous Gluconate]) 325 mg PO ASDIRECTED [facility] Atovaquone 750 Mg/ (5ml Susp Ptom) 0 mg PO BIDMEALS [facility] Last Admin: 06/25/20 08:19 Dose: Not Given Documented by: Nystatin (Mycostatin) 5 ml PO QID [facility] Last Admin: 06/23/20 11:00 Dose: Not Given Documented by: Phytonadione (Aquamephyton) 5 mg PO STAT ONE Stop: 06/23/20 06:35 Last Admin: 06/23/20 06:48 Dose: 5 mg Documented by: - Exam Quality Assessment: Supplemental Oxygen General: Alert, Oriented, Cooperative HEENT: Pupils Equal, Pupils Reactive, EOMI, Mucous Membr. Moist/[place] Neck: Supple Lungs: Normal Respiratory Effort, Decreased Breath Sounds Cardiovascular: Regular Rate, Regular Rhythm, Irregular Rhythm GI/Abdominal Exam: Normal Bowel Sounds, Soft, Non-Tender, No Organomegaly, No Distention (Female) Exam: Deferred Back Exam: Normal Inspection, Decreased Range of Motion Extremities: Normal Inspection, Normal Range of Motion, Non-Tender, Pedal Edema, Other (1+ peripheral edema ) Peripheral Pulses: 1+: Dorsalis Pedis (L), Dorsalis Pedis (R) Skin: Warm, Ecchymosis (diffuse bruises all over her body), Other (left knee: dressed wad wraped; bottom: skin breakdown due to diarrhea) Neurological: No New Focal Deficit. No: Normal Gait Psy/Mental Status: Alert, Normal Affect, Depressed Sepsis Event Note - Evaluation Sepsis Screening Result: No Definite Risk - Focused Exam Vital Signs: Vital Signs Temp Pulse Resp BP Pulse Ox 06/26/20 03:55 36.6 C 89 16 149/76 H 96 06/25/20 23:02 36.7 C 97 16 142/70 H 95 06/25/20 21:00 22 H - Problem List Review Problem List Initiated/Reviewed/Updated: Yes - My Orders Last 24 Hours: My Active Orders 06/25/20 12:52 Loperamide [Imodium] 2 mg PO Q4H PRN 06/25/20 14:40 CTA Chest W WO Contrast [Ang Chest] [CT] Routine 06/25/20 16:52 Dextromethorphan/guaiFENesin [Robitussin DM] 5 ml PO Q4H PRN 06/25/20 16:55 Incentive Spirometry [RT Incentive Spirometry] [RC] Q2HWA 06/25/20 18:00 Pharmacy to Dose - Vancomycin 1 dose .XX ASDIRECTED PRN Vancomycin 1 gm Sodium Chloride 0.9% [Normal Saline] 250 ml IV Q24H 06/26/20 07:45 Consult to Occupational Therapy [OT Evaluation and Treatment] [CONS] Routine Consult to Physical Therapy [PT Evaluation and Treatment] [CONS] Routine 06/26/20 09:00 Furosemide [Lasix] 20 mg PO Q48H Potassium Chloride [Klor-Con M20] 20 meq PO DAILY - Plan Plan:: Assessment Acute: 84-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 Lactic acid elevated at 6.6 with minimally elevated C-reactive protein of 2.9. * Patient's elevated lactic acid is likely secondary to hypovolemia with possible underlying worsening of her left upper lobe pneumonia. With a normal white count, essentially normal C-reactive protein, and no significant change on chest x-ray I do not believe that this elevated lactic acid is secondary to sepsis, but it appears to be secondary to hypovolemia and poor tissue perfusion due to the hypovolemia. Patient also has a slight drop in her her hemoglobin also likely exacerbating the hypovolemia. It is unknown at this time if this is secondary to acute blood loss, but her INR is significantly elevated at greater than 5. Patient also had an elevated lactic acid on 12 June making this more likely to be a chronic problem and not an acute sepsis. * UA was ordered on admission, but nursing was unable to collect it initially secondary to patient's diarrhea. If they are unable to obtain a UA we will have to consider catheterization. * She just finished broad-spectrum antibiotics, yesterday, linezolid and levofloxacin. * Now on IV Zosyn and Vancomycin Supratherapeutic INR Thrombocytopenia Normochromic Hypochromic Anemia Factor Five Leiden Deficiency History of multiple pulmonary emboli/DVTs S/p IVC Filter Placement * Patient has significantly elevated INR. She is on warfarin because she failed NOAC. * INR greater than 5 with no active bleeding, but significant anemia. * INR today is 1.02-->now 1.05 * Patient has significantly elevated INR. She is on warfarin because she failed NOAC. * INR greater than 5 with no active bleeding, but significant anemia. * INR today is 1.02 * Platelet is 29 * No hemoptysis * May consider resuming her Warfarin tomorrow given her hx/o multiple PEs/DVTs if Hgb is better * We may not be able to start her on lovenox to bridge her therapy due to low platelet level Oxygen dependent chronic bronchitis * Home oxygen 4 L via nasal cannula no significant worsening; remains on 4L NC at baseline * Currently on prednisone 20 units in the morning and 10 units in the evening. Recently decreased from 20 twice daily. Primary care provider states that she has been on and off steroids for several weeks now. NYHA class III CHF History of atrial fibrillation, HR controlled * Outpatient treatment with furosemide, losartan, warfarin, digoxin, rosuvastatin * ProBNP of 2613 * Continue home dose lasix and potassium supplement * 2D echo last report 04/21/2020: EF of 60-65%. Grade 1 Diastolic Dysfunction. No RWMA. Moderately reduced RV systolic function. Type 2 diabetes * Hemoglobin A1c of 7.5, TSH 1.25 * BS improved, * Sliding scale insulin Hypocalcemia and Hypophosphatemia * Non corrected Ca level of 7.5 and PO4 of 1.6 * Will replete and monitor Diarrhea * C. diff and stool culture were both negative * Has been mainly eating protein shakes * Clerk [employer] consult for a more appropriate diet to increased stool bulk * Continue PRN Imodium Skin Breakdown * Due to diarrhea * Routine nursing * Wound care consult * Clerk [employer] consult to improve diet Candidauria * On oral fluconazole / doses Chronic: HTN, HLD, DM2, Hx/o Multiple PEs/DVT, S/p IV Filter Placement, Hx/o SBO, CHF, Pulmonary Edema, Chronic Respiratory Failure on Supplemental O2, COPD, CKD Stage 3, Chronic Rhinitis, AR, Environmental Allergies, GERD, FV Leiden Deficiency and Lower Leg Edema. Plan: * Admit to medical floor on telemetry * Start Zosyn * Blood cultures, UA, urine culture as appropriate * Follow lab work including lactic acid. Unfortunately, it appears that she has chronically elevated lactic acid from unknown source. This may not be a good indicator of risk of sepsis. * Procalcitonin will be ordered. Unfortunately, this is a send out so it will only be helpful in determining sepsis in retrospect. * Give 30 mL/kg LR bolus followed by fluids at 150 mL/h. * Follow CBC. * Sliding scale insulin * CODE STATUS: DNR/DNI * Initially we would not reverse her INR. * VTE prophylaxis secondary to supratherapeutic INR * Patient has very poor outcome. She has been hospitalized since April 15 except for just over 2 weeks. She has recurrent infections as post Covid syndrome. 06/23/2020 * 84-year-old female with post Covid syndrome and recent treatment with lenalidomide and Levaquin presents with significant drop in hemoglobin, elevated INR, likely secondary to interaction of broad-spectrum antibiotics with warfarin. * Lactic acidosis likely secondary to hypovolemia and possible underlying infection including pneumonia and UTI, but less likely. * Mild fluid overload after several boluses, 2 units packed red blood cells, and holding her Lasix this morning. Patient will get Lasix 20 mg IV x1 and may repeat. * When bleeding has stopped we will have to restart warfarin secondary to her history of clotting disorder. * Patient had significant diarrhea today likely also secondary to antibiotics. Patient is currently on Zosyn. Will give Imodium since C. difficile has been ruled out. * Central line placed today because of poor venous access. * Normal white count with a procalcitonin of 0.08 essentially ruling out severe sepsis * I discussed with her daughter and the patient that she has a very poor outlook and prognosis. They voiced understanding. 06/24/2020 * 84-year-old female with post Covid syndrome, significant hematemesis, supratherapeutic INR secondary to broad-spectrum antibiotics, hypovolemia with lactic acidosis and anemia * Continues small amounts of bloody sputum * Received Kcentra and vitamin K yesterday. INR today is 1.0 * Thrombocytopenia with platelets at 53,000. This is down from 107,000 on admission. Unfortunately, this makes heparin a contraindication. * There is high concern for potential for clotting secondary to history of clotting disorder. * NYHA class III CHF stable. BNP did go up to approximately 5000. This is likely secondary to fluid and packed red blood cells. * Lactic acid this morning was 2.1. Essentially resolved. * Cystitis secondary to candidiasis. * Hypokalemia with potassium of 2.9. Hypomagnesemia 1.6 * D-dimer increased to 2.6 * Stage III chronic renal insufficiency, GFR 43 Fluconazole 200 mg daily for 14 days VTE prophylaxis with SCDs. Unfortunately, chemoprophylaxis is contraindicated secondary to recent bleeding and thrombocytopenia. Restart IV fluids secondary to poor oral intake and decreasing urine output. Correct potassium and magnesium. Follow CBC, CMP, mag, and phosphorus Recheck of hemoglobin this afternoon 10.3stable 06/25/2020 * Continue current treatment * Consider adding another BS abx for HCAP coverage * IS as directed * PRN decongestant/expectorant * Encourage to eat more * Marinol for appetite stimulant; Megace CI due to hx/o multiple DVT/PE * PT/OT and RT * Routine AM labs * Ambulate as tolerated * DVT PPx: SCDS for now * Code status: DNR/DNI * LOS > 96 hrs for treatment of HCAP and Generalized Weakness. She is actually failing clinically in my opinion. 06/26/2020 * Continue current treatment * IS as directed * PRN decongestant/expectorant * Encourage to eat more * We do not carry marinol, she is however on steroid * Will avoid remeron due to added side effects: weakness, dizziness, edema, confusion, myalgia, tremor, agranulocytosis and or neutropenia. * Dietary consult * PT/OT and RT * Routine AM labs * Ambulate as tolerated * DVT PPx: SCDS * Code status: DNR/DNI * Prognosis is guarded to poor * NH with PT/OT as possible discharge care plans * LOS > 96 hrs for treatment of HCAP and Generalized Weakness. She is actually failing clinically in my opinion.
[2020-06-26] MEDS: ATOVAQUONE 750 MG/5 ML PO SCH ×2 (08:25→20:15)
[2020-06-26] MEDS: Ferrous Sulfate 324 MG Tab.EC PO SCH (08:25)
[2020-06-26] MEDS: Potassium Chloride 20 MEQ Tab.ER PO SCH (08:25)
[2020-06-26] MEDS: Saccharomyces Boulardii (Probiotic) 250 MG Cap PO SCH ×2 (08:25→20:15)
[2020-06-26] MEDS: Rosuvastatin 10 MG Tab PO SCH (08:25)
[2020-06-26] MEDS: Digoxin 125 MCG Tab PO SCH (08:26)
[2020-06-26] MEDS: Cholecalciferol (Vitamin D3) 5,000 UNIT Cap PO SCH (08:28)
[2020-06-26] MEDS: predniSONE 20 MG Tab PO SCH ×2 (08:28→20:15)
[2020-06-26] MEDS: Montelukast 10 MG Tab PO SCH (08:28)
[2020-06-26] MEDS: Ascorbic Acid 500 MG Tab PO SCH (08:28)
[2020-06-26] MEDS: Nystatin Susp 100,000 Unit/ML 5 ML Oral Syringe PO SCH (08:28)
--- NOTE | 2020-06-26 08:36 | CT ---
CT chest Technique: Multiple axial sections were obtained from above the lung apices inferiorly through the lung bases. Intravenous contrast was utilized. Study has been performed as a pulmonary angiogram protocol. Comparison: Prior CT chest study performed as noncontrast exam on 10/11/19. Findings: Small bilateral pleural effusions are noted. Thoracic aorta shows atherosclerotic change without aneurysm. Pulmonary arteries show no discrete filling defects to indicate pulmonary embolism. Mediastinum shows nothing acute. No pericardial thickening is seen. Coronary artery calcification is noted. Previous cholecystectomy is present. Diffuse areas of increased density are seen within the right upper and right lower lung as well as more intense density within the left upper and left lower lung. Small cavitary lesion is identified within the right upper lung. Cavity measures proximately 8 mm. Small cavitary pneumonia is possible. Bone window settings were reviewed which show osteopenia. Scattered degenerative change is seen within the spine. No acute osseous finding is seen. Impression: 1. No findings of pulmonary embolism. 2. Diffuse increased parenchymal densities on both sides of the chest, worse on the left side. Please correlate if patient has any symptoms of multifocal pneumonia such as COVID etiology. Asymmetric areas of pulmonary vascular congestion are also possible. 3. Small bilateral pleural effusions and other findings believed to be incidental as noted above. 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
[2020-06-26] MEDS ORDERED: Furosemide 20 MG Tab PO SCH (09:00)
[2020-06-26] MEDS: NS + KCl 20mEq/L 1,000 ML IV SCH (14:21)
[2020-06-26] MEDS: Fluconazole 100 MG Tab PO SCH (17:01)
[2020-06-26] MEDS ORDERED: Vancomycin 1 GM SDV ONE (17:12)
[2020-06-26] MEDS: Loperamide 2 MG Cap PO PRN (17:59)
[2020-06-27] MEDS: NS + KCl 20mEq/L 1,000 ML IV SCH (00:17)
[2020-06-27] MEDS: Piperacillin/Tazobactam 4.5 GM in Sodium Chloride 0.9% 100 ML IV SCH ×3 (01:11→17:36)
[2020-06-27] MEDS: Pantoprazole 40 MG Tab.CR PO SCH ×2 (06:17→16:16)
[2020-06-27] MEDS: predniSONE 20 MG Tab PO SCH (08:04)
[2020-06-27] MEDS: Rosuvastatin 10 MG Tab PO SCH (08:04)
[2020-06-27] MEDS: Saccharomyces Boulardii (Probiotic) 250 MG Cap PO SCH (08:04)
[2020-06-27] MEDS: Potassium Chloride 20 MEQ Tab.ER PO SCH (08:05)
[2020-06-27] MEDS: ATOVAQUONE 750 MG/5 ML PO SCH (08:05)
[2020-06-27] MEDS: Digoxin 125 MCG Tab PO SCH (08:05)
[2020-06-27] MEDS: Ferrous Sulfate 324 MG Tab.EC PO SCH (08:05)
[2020-06-27] MEDS: Montelukast 10 MG Tab PO SCH (08:05)
[2020-06-27] MEDS: Ascorbic Acid 500 MG Tab PO SCH (08:05)
[2020-06-27] MEDS: Cholecalciferol (Vitamin D3) 5,000 UNIT Cap PO SCH (08:05)
[2020-06-27] MEDS ORDERED: Furosemide 40 MG Tab PO SCH (09:00)
[2020-06-27] MEDS ORDERED: Enoxaparin 60 MG/0.6 ML Syringe SUBCUT ONE (10:17)
[2020-06-27] MEDS ORDERED: Warfarin 5 MG Tab PO SCH (10:30)
[2020-06-27] MEDS ORDERED: Enoxaparin 80 MG/0.8 ML Syringe SUBCUT SCH ×2 (10:30)
--- NOTE | 2020-06-27 10:47 | PCM.PN ---
- General Info Date of Service: 06/27/20 Admission Dx/Problem (Free Text): Admission Diagnosis/Problem Admission Diagnosis/Problem Weakness Subjective Update: Her diarrhea is better according to her. Her stool is more of a loose bowel rather than watery diarrhea. She feels about the same. Her INR is subtherapeutic at 1.05. Stool culture and C. Diff negative. UA shows Mar[place]ruz Species. Her appetite is not great. Functional Status: Reports: Pain Controlled, Tolerating Diet, Urinating - Review of Systems General: Reports: Weakness, Fatigue, Malaise, Appetite (not great). Denies: Fever, Chills HEENT: Denies: Headaches Pulmonary: Reports: Shortness of Breath Cardiovascular: Denies: Edema, Lightheadedness Gastrointestinal: Denies: Abdominal Pain, Nausea, Vomiting Genitourinary: Denies: Frequency Musculoskeletal: Denies: Joint Pain Skin: Reports: Bruising Neurological: Denies: Seizure Psychiatric: Denies: Depression, Anxiety - Patient Data Vitals - Most Recent: Last Vital Signs Temp 36.6 C 06/27/20 07:15 Pulse 89 06/27/20 08:05 Resp 16 06/27/20 07:15 BP 159/88 H 06/27/20 07:15 Pulse Ox 98 06/27/20 07:15 Weight - Most Recent: 69.581 kg I&O - Last 24 Hours: Intake & Output 06/26/20 06/27/20 06/27/20 22:59 06:59 14:59 Intake Total 2502 900 Output Total 1400 1700 275 Balance 1102 -800 -275 Lab Results Last 24 Hours: Laboratory Results - last 24 hr 06/26/20 06/26/20 06/26/20 Range/Units 11:19 17:07 20:44 PT (9.7-12.0) SECONDS INR POC Glucose 152 H 153 H 168 H (83-110) mg/dL 06/27/20 06/27/20 Range/Units 06:18 06:18 PT 11.2 (9.7-12.0) SECONDS INR 1.05 POC Glucose 126 H (83-110) mg/dL Kevyn Results Last 24 Hours: Microbiology 06/23/20 16:40 Stool Culture - Final Stool / Feces Shiga Toxin I & II - Final 06/23/20 03:25 Aerobic Blood Culture - Preliminary Blood - Venous - Lab Draw NO GROWTH AFTER 4 DAYS Anaerobic Blood Culture - Final 06/22/20 18:00 Aerobic Blood Culture - Preliminary Blood - Venous NO GROWTH AFTER 4 DAYS Anaerobic Blood Culture - Preliminary NO GROWTH AFTER 4 DAYS Med Orders - Current: Current Medications Acetaminophen (Tylenol) 650 mg PO Q4H PRN PRN Reason: Pain (Mild 1-3)/fever Albuterol/Ipratropium (Duoneb 3.0-0.5 Mg/3 Ml) 3 ml NEB Q6HRRT PRN PRN Reason: Shortness of Breath Last Admin: 06/23/20 15:30 Dose: 3 ml Documented by: Ascorbic Acid (Vitamin C) 500 mg PO DAILY [facility] Last Admin: 06/27/20 08:05 Dose: 500 mg Documented by: Cholecalciferol (Vitamin D3) 5,000 unit PO DAILY [facility] Last Admin: 06/27/20 08:05 Dose: 5,000 unit Documented by: Digoxin (Lanoxin) 125 mcg PO DAILY [facility] Last Admin: 06/27/20 08:05 Dose: 125 mcg Documented by: Enoxaparin Sodium (Lovenox) 70 mg SUBCUT Q12H [facility] Ferrous Sulfate (Ferrous Sulfate) 324 mg PO DAILY [facility] Last Admin: 06/27/20 08:05 Dose: 324 mg Documented by: Fluconazole (Diflucan) 200 mg PO Q24H [facility] Stop: 07/07/20 16:31 Last Admin: 06/26/20 17:01 Dose: 200 mg Documented by: Furosemide (Lasix) 20 mg PO Q48H [facility] Last Admin: 06/26/20 08:27 Dose: 20 mg Documented by: Furosemide (Lasix) 40 mg PO Q24H [facility] Last Admin: 06/27/20 08:05 Dose: 40 mg Documented by: Guaifenesin/Phenylephrine HCl (Robitussin Dm) 5 ml PO Q4H PRN PRN Reason: Cough Piperacillin Sod/Tazobactam (Sod 4.5 gm/ Sodium Chloride) 100 mls @ 25 mls/hr IV Q8H [facility] Last Admin: 06/27/20 10:01 Dose: 25 mls/hr Documented by: Vancomycin HCl 1 gm/ Sodium (Chloride) 250 mls @ 250 mls/hr IV Q24H [facility] Last Admin: 06/26/20 17:19 Dose: 250 mls/hr Documented by: Loperamide HCl (Imodium) 2 mg PO Q4H PRN PRN Reason: Diarrhea Last Admin: 06/26/20 17:59 Dose: 2 mg Documented by: Montelukast Sodium (Singulair) 10 mg PO DAILY [facility] Last Admin: 06/27/20 08:05 Dose: 10 mg Documented by: Atovaquone 750 Mg/ (5ml Susp Ptom) 0 mg PO BID [facility] Last Admin: 06/27/20 08:05 Dose: 750 mg Documented by: Non-Formulary Medication (Magnesium Oxide [Mag-Oxide]) 200 mg PO ASDIRECTED [facility] Ondansetron HCl (Zofran) 4 mg IV Q4H PRN PRN Reason: Nausea/Vomiting Oxycodone HCl (Oxycodone) 5 mg PO Q4H PRN PRN Reason: Pain (moderate 4-6) [facility] Last Admin: 06/27/20 06:17 Dose: 40 mg Documented by: Potassium Chloride (Klor-Con M20) 20 meq PO DAILY [facility] Last Admin: 06/27/20 08:05 Dose: 20 meq Documented by: Prednisone (Prednisone) 20 mg PO BID [facility] Last Admin: 06/27/20 08:04 Dose: 20 mg Documented by: Rosuvastatin Calcium (Crestor) 10 mg PO DAILY [facility] Last Admin: 06/27/20 08:04 Dose: 10 mg Documented by: Saccharomyces Boulardii (Florastor) 250 mg PO BID [facility] Last Admin: 06/27/20 08:04 Dose: 250 mg Documented by: Sodium Chloride (Saline Flush) 10 ml FLUSH ASDIRECTED PRN PRN Reason: Keep Vein Open Sodium Chloride (Saline Flush) 10 ml FLUSH ONETIME PRN PRN Reason: IV FLUSH Last Admin: 06/25/20 15:23 Dose: 10 ml Documented by: Vancomycin HCl (Pharmacy To Dose - Vancomycin) 1 dose .XX ASDIRECTED PRN PRN Reason: RX TO DOSE VANCO Warfarin Sodium (Pharmacy To Dose - Warfarin) 1 dose PO ASDIRECTED PRN PRN Reason: RX TO DOSE WARFARIN Discontinued Medications Factor IX (Pha) (Kcentra) 2,275 unit IV NOW STA Stop: 06/23/20 11:28 Last Admin: 06/23/20 12:25 Dose: 2,275 unit Documented by: Furosemide (Lasix) 20 mg IVPUSH ONETIME ONE Stop: 06/23/20 15:31 Last Admin: 06/23/20 15:48 Dose: 20 mg Documented by: Furosemide (Lasix) 20 mg IVPUSH ONETIME ONE Stop: 06/24/20 03:01 Last Admin: 06/24/20 02:07 Dose: 20 mg Documented by: Lactated Ringer's (Ringers, Lactated) 1,000 mls @ 500 mls/hr IV ASDIRECTED [facility] Stop: 06/23/20 19:29 Last Admin: 06/22/20 22:16 Dose: 500 mls/hr Documented by: Ceftriaxone Sodium 2 gm/ (Sodium Chloride) 100 mls @ 200 mls/hr IV STAT ONE Stop: 06/22/20 17:55 Last Admin: 06/22/20 20:33 Dose: Not Given Documented by: Lidocaine HCl (Xylocaine-Mpf 1%) Confirm Administered Dose 2 mls @ as directed .ROUTE .STK-MED ONE Stop: 06/22/20 18:20 Piperacillin Sod/Tazobactam (Sod 4.5 gm/ Sodium Chloride) 100 mls @ 200 mls/hr IV ONETIME ONE Stop: 06/22/20 19:14 Last Admin: 06/22/20 19:42 Dose: 200 mls/hr Documented by: Sodium Chloride (Normal Saline) 1,000 mls @ 130 mls/hr IV ASDIRECTED [facility] Last Admin: 06/23/20 00:35 Dose: 130 mls/hr Documented by: Sodium Chloride (Normal Saline) 1,000 mls @ 150 mls/hr IV ASDIRECTED [facility] Sodium Chloride (Normal Saline) 250 mls @ 100 mls/hr IV ASDIRECTED [facility] Phytonadione 5 mg/ Sodium (Chloride) 50.5 mls @ 101 mls/hr IV NOW ONE Stop: 06/23/20 13:59 Last Admin: 06/23/20 16:10 Dose: 101 mls/hr Documented by: Magnesium Sulfate (Magnesium Sulfate In Water Premix) 2 gm in 50 mls @ 25 mls/hr IV Q1H [facility] Stop: 06/24/20 08:14 Last Admin: 06/24/20 07:49 Dose: 25 mls/hr Documented by: Potassium Chloride 10 meq/ (Premix) 100 mls @ 100 mls/hr IV Q1H [facility] Stop: 06/24/20 10:29 Last Admin: 06/24/20 10:12 Dose: 100 mls/hr Documented by: Potassium Chloride/Sodium Chloride (Normal Saline With 20 Meq Kcl) 1,000 mls @ 100 mls/hr IV ASDIRECTED [facility] Last Admin: 06/27/20 00:17 Dose: 100 mls/hr Documented by: Lidocaine HCl (Xylocaine-Mpf 1%) Confirm Administered Dose 2 mls @ as directed .ROUTE .STK-MED ONE Stop: 06/25/20 13:51 Sodium Chloride (Normal Saline) 100 mls @ 75 mls/hr IV ASDIRECTED [facility] Last Admin: 06/25/20 15:23 Dose: 75 mls/hr Documented by: Vancomycin HCl 1 gm/ Sodium (Chloride) 250 mls @ 250 mls/hr IV Q24H [facility] Last Admin: 06/25/20 18:25 Dose: 250 mls/hr Documented by: Insulin Human Lispro (Humalog) 0 unit SUBCUT QIDACANDBED [facility]; Protocol Last Admin: 06/27/20 06:33 Dose: Not Given Documented by: Iopamidol (Isovue-370 (76%)) 100 ml IVPUSH ONETIME ONE Stop: 06/25/20 15:12 Last Admin: 06/25/20 15:23 Dose: 100 ml Documented by: Lidocaine HCl (Xylocaine 1%) 10 ml INJECT ONETIME ONE Stop: 06/23/20 09:31 Last Admin: 06/23/20 10:58 Dose: 10 ml Documented by: Lidocaine HCl (Xylocaine 1%) 10 ml INJECT ONETIME ONE Stop: 06/23/20 09:16 Last Admin: 06/23/20 10:58 Dose: 10 ml Documented by: Loperamide HCl (Imodium) 4 mg PO ONETIME ONE Stop: 06/23/20 20:01 Last Admin: 06/23/20 20:01 Dose: 4 mg Documented by: Non-Formulary Medication (Ferrous Gluconate [Ferrous Gluconate]) 325 mg PO ASDIRECTED [facility] Atovaquone 750 Mg/ (5ml Susp Ptom) 0 mg PO BIDMEALS [facility] Last Admin: 06/25/20 08:19 Dose: Not Given Documented by: Non-Formulary Medication (L.Acidoph,Paracasei, B.Lactis [Probiotic]) 1 each PO DAILY [facility] Nystatin (Mycostatin) 5 ml PO QID [facility] Last Admin: 06/23/20 11:00 Dose: Not Given Documented by: Nystatin (Nystatin Oral Syringe) 500,000 unit PO QID [facility] Last Admin: 06/26/20 08:28 Dose: 500,000 unit Documented by: Phytonadione (Aquamephyton) 5 mg PO STAT ONE Stop: 06/23/20 06:35 Last Admin: 06/23/20 06:48 Dose: 5 mg Documented by: Vancomycin HCl (Vancomycin) Confirm Administered Dose 1 gm .ROUTE .STK-MED ONE Stop: 06/26/20 17:13 Last Admin: 06/26/20 17:28 Dose: Not Given Documented by: - Exam Quality Assessment: Supplemental Oxygen General: Alert, Oriented, Cooperative, No Acute Distress HEENT: Pupils Equal, Pupils Reactive, EOMI, Mucous Membr. Moist/[place] Neck: Supple Lungs: Normal Respiratory Effort, Decreased Breath Sounds Cardiovascular: Regular Rate, Regular Rhythm GI/Abdominal Exam: Normal Bowel Sounds, Soft, Non-Tender, No Organomegaly, No Distention (Female) Exam: Deferred Back Exam: Normal Inspection, Decreased Range of Motion Extremities: Non-Tender, No Pedal Edema, Normal Capillary Refill, Limited Range of Motion Skin: Warm, Dry, Ecchymosis Neurological: Normal Gait Psy/Mental Status: Alert, Normal Affect, Depressed Sepsis Event Note - Evaluation Sepsis Screening Result: No Definite Risk - Focused Exam Vital Signs: Vital Signs Temp Pulse Resp BP Pulse Ox 06/27/20 08:05 89 06/27/20 07:15 36.6 C 89 16 159/88 H 98 06/27/20 03:29 36.4 C 95 20 147/92 H 95 06/26/20 23:15 36.3 C 101 H 20 139/77 100 - Problem List Review Problem List Initiated/Reviewed/Updated: Yes - My Orders Last 24 Hours: My Active Orders 06/26/20 18:00 Vancomycin [Vancocin] 1 gm Sodium Chloride 0.9% [Normal Saline (AdvBag)] 250 ml IV Q24H 06/27/20 10:17 INR,PT,PROTHROMBIN TIME [COAG] Routine 06/27/20 10:24 Warfarin Pharmacy to Dose [Pharmacy to Dose - Warfarin] 1 dose PO ASDIRECTED PRN 06/27/20 10:30 Enoxaparin [Lovenox] 70 mg SUBCUT Q12H Magnesium Oxide [Mag-Oxide] 200 mg PO ASDIRECTED 06/27/20 17:00 VANCOMYCIN TROUGH [CHEM] Timed 06/28/20 05:11 BMP [BASIC METABOLIC PANEL,BMP] [CHEM] AM CBC WITH AUTO DIFF [HEME] AM MAGNESIUM [CHEM] AM 06/28/20 06:00 Chest 1V Frontal [CR] Routine 06/29/20 05:11 BMP [BASIC METABOLIC PANEL,BMP] [CHEM] AM CBC WITH AUTO DIFF [HEME] AM 06/30/20 05:11 BMP [BASIC METABOLIC PANEL,BMP] [CHEM] AM CBC WITH AUTO DIFF [HEME] AM 07/01/20 05:11 BMP [BASIC METABOLIC PANEL,BMP] [CHEM] AM CBC WITH AUTO DIFF [HEME] AM - Plan Plan:: Assessment Acute: 84-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 Lactic acid elevated at 6.6 with minimally elevated C-reactive protein of 2.9. * Patient's elevated lactic acid is likely secondary to hypovolemia with possible underlying worsening of her left upper lobe pneumonia. With a normal white count, essentially normal C-reactive protein, and no significant change on chest x-ray I do not believe that this elevated lactic acid is secondary to sepsis, but it appears to be secondary to hypovolemia and poor tissue perfusion due to the hypovolemia. Patient also has a slight drop in her her hemoglobin also likely exacerbating the hypovolemia. It is unknown at this time if this is secondary to acute blood loss, but her INR is significantly elevated at greater than 5. Patient also had an elevated lactic acid on 12 June making this more likely to be a chronic problem and not an acute sepsis. * UA was ordered on admission, but nursing was unable to collect it initially secondary to patient's diarrhea. If they are unable to obtain a UA we will have to consider catheterization. * She just finished broad-spectrum antibiotics, yesterday, linezolid and levofloxacin. 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 She is on warfarin because she failed NOAC. * INR greater than 5 with no active bleeding, but significant anemia. * INR today is 1.05 * Platelet is 34 this AM * Hgb of 7.7 gram * No hemoptysis * Need to resume Warfarin given her hx/o multiple PEs/DVTs * Will hold lovenox and consider re-starting her on warfarin--will make sure to discuss it with her daughter Oxygen dependent chronic bronchitis * Home oxygen 4 L via nasal cannula no significant worsening; remains on 4L NC at baseline * Currently on prednisone 20 units in the morning and 10 units in the evening. Recently decreased from 20 twice daily. Primary care provider states that she has been on and off steroids for several weeks now. NYHA class III CHF History of atrial fibrillation, HR controlled * Outpatient treatment with furosemide, losartan, warfarin, digoxin, rosuvastatin * ProBNP of 2613 * Continue home dose lasix and potassium supplement * 2D echo last report 04/21/2020: EF of 60-65%. Grade 1 Diastolic Dysfunction. No RWMA. Moderately reduced RV systolic function. Type 2 diabetes * Hemoglobin A1c of 7.5, TSH 1.25 * BS improved, * Sliding scale insulin Hypocalcemia and Hypophosphatemia * Non corrected Ca level of 7.5 and PO4 of 1.6 * Will replete and monitor Diarrhea * C. diff and stool cultures are both negative * Has been mainly eating protein shakes * Echocardiograph Tech consult for a more appropriate diet to increased stool bulk * Continue PRN Imodium Skin Breakdown * Due to diarrhea * Routine nursing * Wound care consult * Echocardiograph Tech consult to improve diet Poor Intake * Already on steroid * No megace due to hx/o multiple blood clots * May benefit with low dose Remeron but worried about side effects Candidauria * On oral fluconazole 09/27 doses Chronic: HTN, HLD, DM2, Hx/o Multiple PEs/DVT, S/p IV Filter Placement, Hx/o SBO, CHF, Pulmonary Edema, Chronic Respiratory Failure on Supplemental O2, COPD, CKD Stage 3, Chronic Rhinitis, AR, Environmental Allergies, GERD, FV Leiden Deficiency and Lower Leg Edema. Plan: * Admit to medical floor on telemetry * Start Zosyn * Blood cultures, UA, urine culture as appropriate * Follow lab work including lactic acid. Unfortunately, it appears that she has chronically elevated lactic acid from unknown source. This may not be a good indicator of risk of sepsis. * Procalcitonin will be ordered. Unfortunately, this is a send out so it will only be helpful in determining sepsis in retrospect. * Give 30 mL/kg LR bolus followed by fluids at 150 mL/h. * Follow CBC. * Sliding scale insulin * CODE STATUS: DNR/DNI * Initially we would not reverse her INR. * VTE prophylaxis secondary to supratherapeutic INR * Patient has very poor outcome. She has been hospitalized since April 15 except for just over 2 weeks. She has recurrent infections as post Covid syndrome. 06/23/2020 * 84-year-old female with post Covid syndrome and recent treatment with lenalidomide and Levaquin presents with significant drop in hemoglobin, elevated INR, likely secondary to interaction of broad-spectrum antibiotics with warfarin. * Lactic acidosis likely secondary to hypovolemia and possible underlying infection including pneumonia and UTI, but less likely. * Mild fluid overload after several boluses, 2 units packed red blood cells, and holding her Lasix this morning. Patient will get Lasix 20 mg IV x1 and may repeat. * When bleeding has stopped we will have to restart warfarin secondary to her history of clotting disorder. * Patient had significant diarrhea today likely also secondary to antibiotics. Patient is currently on Zosyn. Will give Imodium since C. difficile has been ruled out. * Central line placed today because of poor venous access. * Normal white count with a procalcitonin of 0.08 essentially ruling out severe sepsis * I discussed with her daughter and the patient that she has a very poor outlook and prognosis. They voiced understanding. 06/24/2020 * 84-year-old female with post Covid syndrome, significant hematemesis, supratherapeutic INR secondary to broad-spectrum antibiotics, hypovolemia with lactic acidosis and anemia * Continues small amounts of bloody sputum * Received Kcentra and vitamin K yesterday. INR today is 1.0 * Thrombocytopenia with platelets at 53,000. This is down from 107,000 on admission. Unfortunately, this makes heparin a contraindication. * There is high concern for potential for clotting secondary to history of clotting disorder. * NYHA class III CHF stable. BNP did go up to approximately 5000. This is likely secondary to fluid and packed red blood cells. * Lactic acid this morning was 2.1. Essentially resolved. * Cystitis secondary to candidiasis. * Hypokalemia with potassium of 2.9. Hypomagnesemia 1.6 * D-dimer increased to 2.6 * Stage III chronic renal insufficiency, GFR 43 Fluconazole 200 mg daily for 14 days VTE prophylaxis with SCDs. Unfortunately, chemoprophylaxis is contraindicated secondary to recent bleeding and thrombocytopenia. Restart IV fluids secondary to poor oral intake and decreasing urine output. Correct potassium and magnesium. Follow CBC, CMP, mag, and phosphorus Recheck of hemoglobin this afternoon 10.3stable 06/25/2020 * Continue current treatment * Consider adding another BS abx for HCAP coverage * IS as directed * PRN decongestant/expectorant * Encourage to eat more * Marinol for appetite stimulant; Megace CI due to hx/o multiple DVT/PE * PT/OT and RT * Routine AM labs * Ambulate as tolerated * DVT PPx: SCDS for now * Code status: DNR/DNI * LOS > 96 hrs for treatment of HCAP and Generalized Weakness. She is actually failing clinically in my opinion. 06/26/2020 * Continue current treatment * IS as directed * PRN decongestant/expectorant * Encourage to eat more * Dietary consult * PT/OT and RT * Routine AM labs * Ambulate as tolerated * DVT PPx: SCDS for now * Code status: DNR/DNI * NH with PT/OT as possible discharge care plans * LOS > 96 hrs for treatment of HCAP and Generalized Weakness. She is actually failing clinically in my opinion. 06/27/2020 * She feels about the same and not getting better. Will offer transfer to [facility]. She states she will think about it. * Continue current treatment with intravenous abx * IS as directed * PRN decongestant/expectorant * Encourage to eat more * Dietary consult * PT/OT and RT * Routine AM labs * Cannot resume warfarin and lovenox therapy: Hgb is 7.7 grams and Platelet is 34K * Ambulate as tolerated * DVT PPx: SCDS for now * Code status: DNR/DNI * Prognosis is overall poor with declining overall health * NH with PT/OT as possible discharge care plans * LOS > 96 hrs for treatment of HCAP and Generalized Weakness. She is actually failing clinically in my opinion 183: Went back to follow up on her, daughter present at bedside. She decided to go comfort and go home with hospice tomorrow. She would like to finish her intravenous abx that is currently running and stop everything. We will go ahead and activate comfort measures. Hospice consult ordered.
[2020-06-27] MEDS: Fluconazole 100 MG Tab PO SCH (16:16)
[2020-06-27] MEDS ORDERED: LORazepam 2 MG/ML SDV IVPUSH PRN (18:41)
[2020-06-27] MEDS ORDERED: Morphine 2 MG/ML SYRINGE IVPUSH PRN (18:42)
[2020-06-27] MEDS ORDERED: Magnesium Oxide 400 MG Tab PO SCH (21:00)
[2020-06-28] MEDS ORDERED: Non-Formulary Medication 1 Each (L.Acidoph,Paracasei, B.Lactis [Probiotic] 1 EACH) PO SCH (09:00)
--- NOTE | 2020-06-28 12:01 | PCM.PN ---
- General Info Date of Service: 06/28/20 Admission Dx/Problem (Free Text): Admission Diagnosis/Problem Admission Diagnosis/Problem Weakness Subjective Update: Diarrhea is better according to her. Her stool is more of a loose bowel rather than watery diarrhea. She feels about the same. Her INR is subtherapeutic at 1.05. Stool culture and C. Diff negative. UA shows Maricruz Species. Her appetite is not great. Functional Status: Reports: Pain Controlled, Tolerating Diet, Ambulating, Urinating - Review of Systems General: Denies: Fever, Chills HEENT: Denies: Contact Lenses Pulmonary: Denies: Shortness of Breath Cardiovascular: Denies: Chest Pain Gastrointestinal: Denies: Abdominal Pain, Vomiting Genitourinary: Denies: No Symptoms, Dysuria Musculoskeletal: Denies: Joint Pain Skin: Reports: Bruising Neurological: Denies: Confusion Psychiatric: Denies: Depression, Anxiety - Patient Data Vitals - Most Recent: Last Vital Signs Temp 36.8 C 06/28/20 08:52 Pulse 72 06/28/20 08:52 Resp 20 06/28/20 08:52 BP 119/57 L 06/28/20 08:52 Pulse Ox 95 06/28/20 08:52 Weight - Most Recent: 69.581 kg I&O - Last 24 Hours: Intake & Output 06/27/20 06/28/20 06/28/20 22:59 06:59 14:59 Intake Total 1595 1525 Output Total 2825 1000 Balance -1230 525 Lab Results Last 24 Hours: Laboratory Results - last 24 hr 06/27/20 06/28/20 Range/Units 17:05 05:55 POC Glucose 97 (83-110) mg/dL Vancomycin Trough 10.8 (10.0-20.0) Kevyn Results Last 24 Hours: Microbiology 06/22/20 18:00 Aerobic Blood Culture - Preliminary Blood - Venous NO GROWTH AFTER 5 DAYS Anaerobic Blood Culture - Preliminary NO GROWTH AFTER 5 DAYS 06/23/20 10:08 Urine Culture - Final Urine, Bladder Maricruz Kefyr 06/23/20 16:40 Stool Culture - Final Stool / Feces Shiga Toxin I & II - Final Med Orders - Current: Current Medications Acetaminophen (Tylenol) 650 mg PO Q4H PRN PRN Reason: Pain (Mild 1-3)/fever Albuterol/Ipratropium (Duoneb 3.0-0.5 Mg/3 Ml) 3 ml NEB Q6HRRT PRN PRN Reason: Shortness of Breath Last Admin: 06/23/20 15:30 Dose: 3 ml Documented by: Guaifenesin/Phenylephrine HCl (Robitussin Dm) 5 ml PO Q4H PRN PRN Reason: Cough Loperamide HCl (Imodium) 2 mg PO Q4H PRN PRN Reason: Diarrhea Last Admin: 06/26/20 17:59 Dose: 2 mg Documented by: Lorazepam (Ativan) 0.5 mg IVPUSH Q4H PRN; Protocol PRN Reason: comfort measures Morphine Sulfate (Morphine) 1 mg IVPUSH Q4H PRN PRN Reason: comfort measures Ondansetron HCl (Zofran) 4 mg IV Q4H PRN PRN Reason: Nausea/Vomiting Oxycodone HCl (Oxycodone) 5 mg PO Q4H PRN PRN Reason: Pain (moderate 4-6) Discontinued Medications Ascorbic Acid (Vitamin C) 500 mg PO DAILY [facility] Last Admin: 06/27/20 08:05 Dose: 500 mg Documented by: Cholecalciferol (Vitamin D3) 5,000 unit PO DAILY [facility] Last Admin: 06/27/20 08:05 Dose: 5,000 unit Documented by: Digoxin (Lanoxin) 125 mcg PO DAILY [facility] Last Admin: 06/27/20 08:05 Dose: 125 mcg Documented by: Enoxaparin Sodium (Lovenox) 70 mg SUBCUT Q12H [facility] Last Admin: 06/27/20 11:12 Dose: Not Given Documented by: Factor IX (Pha) (Kcentra) 2,275 unit IV NOW STA Stop: 06/23/20 11:28 Last Admin: 06/23/20 12:25 Dose: 2,275 unit Documented by: Ferrous Sulfate (Ferrous Sulfate) 324 mg PO DAILY [facility] Last Admin: 06/27/20 08:05 Dose: 324 mg Documented by: Fluconazole (Diflucan) 200 mg PO Q24H [facility] Stop: 07/07/20 16:31 Last Admin: 06/27/20 16:16 Dose: 200 mg Documented by: Furosemide (Lasix) 20 mg IVPUSH ONETIME ONE Stop: 06/23/20 15:31 Last Admin: 06/23/20 15:48 Dose: 20 mg Documented by: Furosemide (Lasix) 20 mg IVPUSH ONETIME ONE Stop: 06/24/20 03:01 Last Admin: 06/24/20 02:07 Dose: 20 mg Documented by: Furosemide (Lasix) 20 mg PO Q48H EMIGDIO Last Admin: 06/26/20 08:27 Dose: 20 mg Documented by: Furosemide (Lasix) 40 mg PO Q24H EMIGDIO Last Admin: 06/27/20 08:05 Dose: 40 mg Documented by: Lactated Ringer's (Ringers, Lactated) 1,000 mls @ 500 mls/hr IV ASDIRECTED EMIGDIO Stop: 06/23/20 19:29 Last Admin: 06/22/20 22:16 Dose: 500 mls/hr Documented by: Ceftriaxone Sodium 2 gm/ (Sodium Chloride) 100 mls @ 200 mls/hr IV STAT ONE Stop: 06/22/20 17:55 Last Admin: 06/22/20 20:33 Dose: Not Given Documented by: Lidocaine HCl (Xylocaine-Mpf 1%) Confirm Administered Dose 2 mls @ as directed .ROUTE .STK-MED ONE Stop: 06/22/20 18:20 Piperacillin Sod/Tazobactam (Sod 4.5 gm/ Sodium Chloride) 100 mls @ 200 mls/hr IV ONETIME ONE Stop: 06/22/20 19:14 Last Admin: 06/22/20 19:42 Dose: 200 mls/hr Documented by: Piperacillin Sod/Tazobactam (Sod 4.5 gm/ Sodium Chloride) 100 mls @ 25 mls/hr IV Q8H [facility] Last Admin: 06/27/20 17:36 Dose: 25 mls/hr Documented by: Sodium Chloride (Normal Saline) 1,000 mls @ 130 mls/hr IV ASDIRECTED EMIGDIO Last Admin: 06/23/20 00:35 Dose: 130 mls/hr Documented by: Sodium Chloride (Normal Saline) 1,000 mls @ 150 mls/hr IV ASDIRECTED EMIGDIO Sodium Chloride (Normal Saline) 250 mls @ 100 mls/hr IV ASDIRECTED EMIGDIO Phytonadione 5 mg/ Sodium (Chloride) 50.5 mls @ 101 mls/hr IV NOW ONE Stop: 06/23/20 13:59 Last Admin: 06/23/20 16:10 Dose: 101 mls/hr Documented by: Magnesium Sulfate (Magnesium Sulfate In Water Premix) 2 gm in 50 mls @ 25 mls/ hr IV Q1H [facility] Stop: 06/24/20 08:14 Last Admin: 06/24/20 07:49 Dose: 25 mls/hr Documented by: Potassium Chloride 10 meq/ (Premix) 100 mls @ 100 mls/hr IV Q1H [facility] Stop: 06/24/20 10:29 Last Admin: 06/24/20 10:12 Dose: 100 mls/hr Documented by: Potassium Chloride/Sodium Chloride (Normal Saline With 20 Meq Kcl) 1,000 mls @ 100 mls/hr IV ASDIRECTED [facility] Last Admin: 06/27/20 00:17 Dose: 100 mls/hr Documented by: Lidocaine HCl (Xylocaine-Mpf 1%) Confirm Administered Dose 2 mls @ as directed .ROUTE .STK-MED ONE Stop: 06/25/20 13:51 Sodium Chloride (Normal Saline) 100 mls @ 75 mls/hr IV ASDIRECTED [facility] Last Admin: 06/25/20 15:23 Dose: 75 mls/hr Documented by: Vancomycin HCl 1 gm/ Sodium (Chloride) 250 mls @ 250 mls/hr IV Q24H [facility] Last Admin: 06/25/20 18:25 Dose: 250 mls/hr Documented by: Vancomycin HCl 1 gm/ Sodium (Chloride) 250 mls @ 250 mls/hr IV Q24H [facility] Stop: 06/27/20 22:00 Last Admin: 06/27/20 18:06 Dose: 250 mls/hr Documented by: Vancomycin HCl 1 gm/ Sodium (Chloride) 250 mls @ 250 mls/hr IV Q12H [facility] Insulin Human Lispro (Humalog) 0 unit SUBCUT QIDACANDBED [facility]; Protocol Last Admin: 06/27/20 06:33 Dose: Not Given Documented by: Iopamidol (Isovue-370 (76%)) 100 ml IVPUSH ONETIME ONE Stop: 06/25/20 15:12 Last Admin: 06/25/20 15:23 Dose: 100 ml Documented by: Lidocaine HCl (Xylocaine 1%) 10 ml INJECT ONETIME ONE Stop: 06/23/20 09:31 Last Admin: 06/23/20 10:58 Dose: 10 ml Documented by: Lidocaine HCl (Xylocaine 1%) 10 ml INJECT ONETIME ONE Stop: 06/23/20 09:16 Last Admin: 06/23/20 10:58 Dose: 10 ml Documented by: Loperamide HCl (Imodium) 4 mg PO ONETIME ONE Stop: 06/23/20 20:01 Last Admin: 06/23/20 20:01 Dose: 4 mg Documented by: Magnesium Oxide (Magnesium Oxide) 400 mg PO BID [facility] Montelukast Sodium (Singulair) 10 mg PO DAILY [facility] Last Admin: 06/27/20 08:05 Dose: 10 mg Documented by: Non-Formulary Medication (Ferrous Gluconate [Ferrous Gluconate]) 325 mg PO ASDIRECTED [facility] Atovaquone 750 Mg/ (5ml Susp Ptom) 0 mg PO BIDMEALS [facility] Last Admin: 06/25/20 08:19 Dose: Not Given Documented by: Atovaquone 750 Mg/ (5ml Susp Ptom) 0 mg PO BID [facility] Last Admin: 06/27/20 08:05 Dose: 750 mg Documented by: Non-Formulary Medication (L.Acidoph,Paracasei, B.Lactis [Probiotic]) 1 each PO DAILY [facility] Nystatin (Mycostatin) 5 ml PO QID [facility] Last Admin: 06/23/20 11:00 Dose: Not Given Documented by: Nystatin (Nystatin Oral Syringe) 500,000 unit PO QID [facility] Last Admin: 06/26/20 08:28 Dose: 500,000 unit Documented by: Pantoprazole Sodium (Protonix) 40 mg PO BIDAC [facility] Last Admin: 06/27/20 16:16 Dose: 40 mg Documented by: Phytonadione (Aquamephyton) 5 mg PO STAT ONE Stop: 06/23/20 06:35 Last Admin: 06/23/20 06:48 Dose: 5 mg Documented by: Potassium Chloride (Klor-Con M20) 20 meq PO DAILY [facility] Last Admin: 06/27/20 08:05 Dose: 20 meq Documented by: Prednisone (Prednisone) 20 mg PO BID [facility] Last Admin: 06/27/20 08:04 Dose: 20 mg Documented by: Rosuvastatin Calcium (Crestor) 10 mg PO DAILY [facility] Last Admin: 06/27/20 08:04 Dose: 10 mg Documented by: Saccharomyces Boulardii (Florastor) 250 mg PO BID [facility] Last Admin: 06/27/20 08:04 Dose: 250 mg Documented by: Sodium Chloride (Saline Flush) 10 ml FLUSH ASDIRECTED PRN PRN Reason: Keep Vein Open Sodium Chloride (Saline Flush) 10 ml FLUSH ONETIME PRN PRN Reason: IV FLUSH Last Admin: 06/25/20 15:23 Dose: 10 ml Documented by: Vancomycin HCl (Pharmacy To Dose - Vancomycin) 1 dose .XX ASDIRECTED PRN PRN Reason: RX TO DOSE VANCO Vancomycin HCl (Vancomycin) Confirm Administered Dose 1 gm .ROUTE .STK-MED ONE Stop: 06/26/20 17:13 Last Admin: 06/26/20 17:28 Dose: Not Given Documented by: - Exam General: Alert, Oriented, Cooperative HEENT: Pupils Equal, Pupils Reactive, EOMI, Mucous Membr. Moist/[place] Neck: Supple Lungs: Normal Respiratory Effort, Decreased Breath Sounds Cardiovascular: Regular Rate, Regular Rhythm GI/Abdominal Exam: Normal Bowel Sounds, Soft, Non-Tender, No Organomegaly, No Distention, No Abnormal Bruit (Female) Exam: Deferred Back Exam: Normal Inspection, Decreased Range of Motion Extremities: Normal Inspection, Normal Range of Motion, Non-Tender, Normal Capillary Refill Peripheral Pulses: 1+: Dorsalis Pedis (L), Dorsalis Pedis (R) Skin: Warm, Intact, Ecchymosis Neurological: No New Focal Deficit Psy/Mental Status: Alert, Normal Affect, Normal Mood Sepsis Event Note - Evaluation Sepsis Screening Result: No Definite Risk - Focused Exam Vital Signs: Vital Signs Temp Pulse Resp BP Pulse Ox 06/28/20 08:52 36.8 C 72 20 119/57 L 95 06/28/20 03:26 36.8 C 104 H 16 152/92 H 95 - Problem List Review Problem List Initiated/Reviewed/Updated: Yes - My Orders Last 24 Hours: My Active Orders 06/27/20 14:23 Consult to Spiritual Care [CONS] Routine 06/27/20 18:40 Code Status [Resuscitation Status] Routine 06/27/20 18:41 LORazepam [Ativan] 0.5 mg IVPUSH Q4H PRN 06/27/20 18:42 Consult to Hospice [CONS] Routine Morphine 1 mg IVPUSH Q4H PRN 01/13/21 09:24 Patient Status [ADT] Routine - Plan Plan:: Assessment Acute: 84-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 Lactic acid elevated at 6.6 with minimally elevated C-reactive protein of 2.9. * Patient's elevated lactic acid is likely secondary to hypovolemia with possible underlying worsening of her left upper lobe pneumonia. With a normal white count, essentially normal C-reactive protein, and no significant change on chest x-ray I do not believe that this elevated lactic acid is secondary to sepsis, but it appears to be secondary to hypovolemia and poor tissue perfusion due to the hypovolemia. Patient also has a slight drop in her her hemoglobin also likely exacerbating the hypovolemia. It is unknown at this time if this is secondary to acute blood loss, but her INR is significantly elevated at greater than 5. Patient also had an elevated lactic acid on 12 June making this more likely to be a chronic problem and not an acute sepsis. * UA was ordered on admission, but nursing was unable to collect it initially secondary to patient's diarrhea. If they are unable to obtain a UA we will have to consider catheterization. * She just finished broad-spectrum antibiotics, yesterday, linezolid and levofloxacin. 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 She is on warfarin because she failed NOAC. * INR greater than 5 with no active bleeding, but significant anemia. * INR today is 1.05 * Platelet is 34 this AM * Hgb of 7.7 gram * No hemoptysis * Need to resume Warfarin given her hx/o multiple PEs/DVTs * Will hold lovenox and consider re-starting her on warfarin--will make sure to discuss it with her daughter Oxygen dependent chronic bronchitis * Home oxygen 4 L via nasal cannula no significant worsening; remains on 4L NC at baseline * Currently on prednisone 20 units in the morning and 10 units in the evening. Recently decreased from 20 twice daily. Primary care provider states that she has been on and off steroids for several weeks now. NYHA class III CHF History of atrial fibrillation, HR controlled * Outpatient treatment with furosemide, losartan, warfarin, digoxin, rosuvastatin * ProBNP of 2613 * Continue home dose lasix and potassium supplement * 2D echo last report 04/21/2020: EF of 60-65%. Grade 1 Diastolic Dysfunction. No RWMA. Moderately reduced RV systolic function. Type 2 diabetes * Hemoglobin A1c of 7.5, TSH 1.25 * BS improved, * Sliding scale insulin Hypocalcemia and Hypophosphatemia * Non corrected Ca level of 7.5 and PO4 of 1.6 * Will replete and monitor Diarrhea * C. diff and stool cultures are both negative * Has been mainly eating protein shakes * Quality Control Lab Technician consult for a more appropriate diet to increased stool bulk * Continue PRN Imodium Skin Breakdown * Due to diarrhea * Routine nursing * Wound care consult * Quality Control Lab Technician consult to improve diet Poor Intake * Already on steroid * No megace due to hx/o multiple blood clots * May benefit with low dose Remeron but worried about side effects Candidauria * On oral fluconazole 09/27 doses [facility] * She decided no transfer but Hospice * Possible discharge Friday Chronic: HTN, HLD, DM2, Hx/o Multiple PEs/DVT, S/p IV Filter Placement, Hx/o SBO, CHF, Pulmonary Edema, Chronic Respiratory Failure on Supplemental O2, COPD, CKD Stage 3, Chronic Rhinitis, AR, Environmental Allergies, GERD, FV Leiden Deficiency and Lower Leg Edema. Plan: * Admit to medical floor on telemetry * Start Zosyn * Blood cultures, UA, urine culture as appropriate * Follow lab work including lactic acid. Unfortunately, it appears that she has chronically elevated lactic acid from unknown source. This may not be a good indicator of risk of sepsis. * Procalcitonin will be ordered. Unfortunately, this is a send out so it will only be helpful in determining sepsis in retrospect. * Give 30 mL/kg LR bolus followed by fluids at 150 mL/h. * Follow CBC. * Sliding scale insulin * CODE STATUS: DNR/DNI * Initially we would not reverse her INR. * VTE prophylaxis secondary to supratherapeutic INR * Patient has very poor outcome. She has been hospitalized since April 15 except for just over 2 weeks. She has recurrent infections as post Covid syndrome. 06/23/2020 * 84-year-old female with post Covid syndrome and recent treatment with lenalidomide and Levaquin presents with significant drop in hemoglobin, elevated INR, likely secondary to interaction of broad-spectrum antibiotics with warfarin. * Lactic acidosis likely secondary to hypovolemia and possible underlying infection including pneumonia and UTI, but less likely. * Mild fluid overload after several boluses, 2 units packed red blood cells, and holding her Lasix this morning. Patient will get Lasix 20 mg IV x1 and october r epeat. * When bleeding has stopped we will have to restart warfarin secondary to her history of clotting disorder. * Patient had significant diarrhea today likely also secondary to antibiotics. Patient is currently on Zosyn. Will give Imodium since C. difficile has been ruled out. * Central line placed today because of poor venous access. * Normal white count with a procalcitonin of 0.08 essentially ruling out severe sepsis * I discussed with her daughter and the patient that she has a very poor outlook and prognosis. They voiced understanding. 06/24/2020 * 84-year-old female with post Covid syndrome, significant hematemesis, supratherapeutic INR secondary to broad-spectrum antibiotics, hypovolemia with lactic acidosis and anemia * Continues small amounts of bloody sputum * Received Kcentra and vitamin K yesterday. INR today is 1.0 * Thrombocytopenia with platelets at 53,000. This is down from 107,000 on admission. Unfortunately, this makes heparin a contraindication. * There is high concern for potential for clotting secondary to history of clotting disorder. * NYHA class III CHF stable. BNP did go up to approximately 5000. This is likely secondary to fluid and packed red blood cells. * Lactic acid this morning was 2.1. Essentially resolved. * Cystitis secondary to candidiasis. * Hypokalemia with potassium of 2.9. Hypomagnesemia 1.6 * D-dimer increased to 2.6 * Stage III chronic renal insufficiency, GFR 43 Fluconazole 200 mg daily for 14 days VTE prophylaxis with SCDs. Unfortunately, chemoprophylaxis is contraindicated secondary to recent bleeding and thrombocytopenia. Restart IV fluids secondary to poor oral intake and decreasing urine output. Correct potassium and magnesium. Follow CBC, CMP, mag, and phosphorus Recheck of hemoglobin this afternoon 10.3stable 06/25/2020 * Continue current treatment * Consider adding another BS abx for HCAP coverage * IS as directed * PRN decongestant/expectorant * Encourage to eat more * Marinol for appetite stimulant; Megace CI due to hx/o multiple DVT/PE * PT/OT and RT * Routine AM labs * Ambulate as tolerated * DVT PPx: SCDS for now * Code status: DNR/DNI * LOS > 96 hrs for treatment of HCAP and Generalized Weakness. She is actually failing clinically in my opinion. 06/26/2020 * Continue current treatment * IS as directed * PRN decongestant/expectorant * Encourage to eat more * Dietary consult * PT/OT and RT * Routine AM labs * Ambulate as tolerated * DVT PPx: SCDS for now * Code status: DNR/DNI * NH with PT/OT as possible discharge care plans * LOS > 96 hrs for treatment of HCAP and Generalized Weakness. She is actually failing clinically in my opinion. 06/27/2020 * She feels about the same and not getting better. Will offer transfer to [place]. She states she will think about it. * Continue current treatment with intravenous abx * IS as directed * PRN decongestant/expectorant * Encourage to eat more * Dietary consult * PT/OT and RT * Routine AM labs * Cannot resume warfarin and lovenox therapy: Hgb is 7.7 grams and Platelet is 34K * Ambulate as tolerated * DVT PPx: SCDS for now * Code status: DNR/DNI * Prognosis is overall poor with declining overall health * NH with PT/OT as possible discharge care plans * LOS > 96 hrs for treatment of HCAP and Generalized Weakness. She is actually failing clinically in my opinion [id number]: Went back to follow up on her, daughter present at bedside. She decided to go on comfort measures and discharge to home with hospice tomorrow. She would like to finish her intravenous abx that is currently running and stop everything. We will go ahead and activate comfort measures. Hospice consult ordered. 06/28/2020 * Comfort measures medications * Awaiting Hospice
--- NOTE | 2020-06-29 07:06 | PCM.PN ---
- General Info Date of Service: 06/29/20 Admission Dx/Problem (Free Text): Admission Diagnosis/Problem Admission Diagnosis/Problem Weakness Subjective Update: No overnight or acute issues. She is comfortable. Functional Status: Reports: Pain Controlled, Tolerating Diet, Ambulating, Urinating - Review of Systems General: Denies: Fever, Chills HEENT: Denies: Headaches Pulmonary: Denies: Shortness of Breath Cardiovascular: Denies: Chest Pain Gastrointestinal: Denies: Abdominal Pain, Nausea, Vomiting Genitourinary: Denies: Dysuria, Burning Musculoskeletal: Denies: Joint Pain Skin: Reports: Bruising Neurological: Reports: Weakness, Gait Disturbance. Denies: Dizziness, Syncope Psychiatric: Denies: Confusion, Depression, Anxiety - Patient Data Vitals - Most Recent: Last Vital Signs Temp 36.9 C 06/28/20 20:07 Pulse 93 06/28/20 20:07 Resp 16 06/28/20 20:07 BP 123/54 L 06/28/20 20:07 Pulse Ox 90 L 06/28/20 20:50 Weight - Most Recent: 69.581 kg I&O - Last 24 Hours: Intake & Output 06/28/20 06/29/20 06/29/20 22:59 06:59 14:59 Intake Total 120 200 Output Total 125 150 Balance -5 50 Lab Results Last 24 Hours: Laboratory Results - last 24 hr 06/28/20 Range/Units 05:55 POC Glucose 97 (83-110) mg/dL Kevyn Results Last 24 Hours: Microbiology 06/23/20 03:25 Aerobic Blood Culture - Preliminary Blood - Venous - Lab Draw NO GROWTH AFTER 6 DAYS Anaerobic Blood Culture - Final 06/22/20 18:00 Aerobic Blood Culture - Preliminary Blood - Venous NO GROWTH AFTER 6 DAYS Anaerobic Blood Culture - Preliminary NO GROWTH AFTER 6 DAYS Med Orders - Current: Current Medications Acetaminophen (Tylenol) 650 mg PO Q4H PRN PRN Reason: Pain (Mild 1-3)/fever Albuterol/Ipratropium (Duoneb 3.0-0.5 Mg/3 Ml) 3 ml NEB Q6HRRT PRN PRN Reason: Shortness of Breath Last Admin: 06/23/20 15:30 Dose: 3 ml Documented by: Guaifenesin/Phenylephrine HCl (Robitussin Dm) 5 ml PO Q4H PRN PRN Reason: Cough Loperamide HCl (Imodium) 2 mg PO Q4H PRN PRN Reason: Diarrhea Last Admin: 06/26/20 17:59 Dose: 2 mg Documented by: Lorazepam (Ativan) 0.5 mg IVPUSH Q4H PRN; Protocol PRN Reason: comfort measures Morphine Sulfate (Morphine) 1 mg IVPUSH Q4H PRN PRN Reason: comfort measures Ondansetron HCl (Zofran) 4 mg IV Q4H PRN PRN Reason: Nausea/Vomiting Oxycodone HCl (Oxycodone) 5 mg PO Q4H PRN PRN Reason: Pain (moderate 4-6) Discontinued Medications Ascorbic Acid (Vitamin C) 500 mg PO DAILY [facility] Last Admin: 06/27/20 08:05 Dose: 500 mg Documented by: Cholecalciferol (Vitamin D3) 5,000 unit PO DAILY [facility] Last Admin: 06/27/20 08:05 Dose: 5,000 unit Documented by: Digoxin (Lanoxin) 125 mcg PO DAILY [facility] Last Admin: 06/27/20 08:05 Dose: 125 mcg Documented by: Enoxaparin Sodium (Lovenox) 70 mg SUBCUT Q12H [facility] Last Admin: 06/27/20 11:12 Dose: Not Given Documented by: Factor IX (Pha) (Kcentra) 2,275 unit IV NOW [facility] Stop: 06/23/20 11:28 Last Admin: 06/23/20 12:25 Dose: 2,275 unit Documented by: Ferrous Sulfate (Ferrous Sulfate) 324 mg PO DAILY [facility] Last Admin: 06/27/20 08:05 Dose: 324 mg Documented by: Fluconazole (Diflucan) 200 mg PO Q24H [facility] Stop: 07/07/20 16:31 Last Admin: 06/27/20 16:16 Dose: 200 mg Documented by: Furosemide (Lasix) 20 mg IVPUSH ONETIME ONE Stop: 06/23/20 15:31 Last Admin: 06/23/20 15:48 Dose: 20 mg Documented by: Furosemide (Lasix) 20 mg IVPUSH ONETIME ONE Stop: 06/24/20 03:01 Last Admin: 06/24/20 02:07 Dose: 20 mg Documented by: Furosemide (Lasix) 20 mg PO Q48H [facility] Last Admin: 06/26/20 08:27 Dose: 20 mg Documented by: Furosemide (Lasix) 40 mg PO Q24H [facility] Last Admin: 06/27/20 08:05 Dose: 40 mg Documented by: Lactated Ringer's (Ringers, Lactated) 1,000 mls @ 500 mls/hr IV ASDIRECTED [facility] Stop: 06/23/20 19:29 Last Admin: 06/22/20 22:16 Dose: 500 mls/hr Documented by: Ceftriaxone Sodium 2 gm/ (Sodium Chloride) 100 mls @ 200 mls/hr IV STAT ONE Stop: 06/22/20 17:55 Last Admin: 06/22/20 20:33 Dose: Not Given Documented by: Lidocaine HCl (Xylocaine-Mpf 1%) Confirm Administered Dose 2 mls @ as directed .ROUTE .STK-MED ONE Stop: 06/22/20 18:20 Piperacillin Sod/Tazobactam (Sod 4.5 gm/ Sodium Chloride) 100 mls @ 200 mls/hr IV ONETIME ONE Stop: 06/22/20 19:14 Last Admin: 06/22/20 19:42 Dose: 200 mls/hr Documented by: Piperacillin Sod/Tazobactam (Sod 4.5 gm/ Sodium Chloride) 100 mls @ 25 mls/hr IV Q8H [facility] Last Admin: 06/27/20 17:36 Dose: 25 mls/hr Documented by: Sodium Chloride (Normal Saline) 1,000 mls @ 130 mls/hr IV ASDIRECTED [facility] Last Admin: 06/23/20 00:35 Dose: 130 mls/hr Documented by: Sodium Chloride (Normal Saline) 1,000 mls @ 150 mls/hr IV ASDIRECTED [facility] Sodium Chloride (Normal Saline) 250 mls @ 100 mls/hr IV ASDIRECTED [facility] Phytonadione 5 mg/ Sodium (Chloride) 50.5 mls @ 101 mls/hr IV NOW ONE Stop: 06/23/20 13:59 Last Admin: 06/23/20 16:10 Dose: 101 mls/hr Documented by: Magnesium Sulfate (Magnesium Sulfate In Water Premix) 2 gm in 50 mls @ 25 mls/hr IV Q1H [facility] Stop: 06/24/20 08:14 Last Admin: 06/24/20 07:49 Dose: 25 mls/hr Documented by: Potassium Chloride 10 meq/ (Premix) 100 mls @ 100 mls/hr IV Q1H [facility] Stop: 06/24/20 10:29 Last Admin: 06/24/20 10:12 Dose: 100 mls/hr Documented by: Potassium Chloride/Sodium Chloride (Normal Saline With 20 Meq Kcl) 1,000 mls @ 100 mls/hr IV ASDIRECTED [facility] Last Admin: 06/27/20 00:17 Dose: 100 mls/hr Documented by: Lidocaine HCl (Xylocaine-Mpf 1%) Confirm Administered Dose 2 mls @ as directed .ROUTE .STK-MED ONE Stop: 06/25/20 13:51 Sodium Chloride (Normal Saline) 100 mls @ 75 mls/hr IV ASDIRECTED [facility] Last Admin: 06/25/20 15:23 Dose: 75 mls/hr Documented by: Vancomycin HCl 1 gm/ Sodium (Chloride) 250 mls @ 250 mls/hr IV Q24H [facility] Last Admin: 06/25/20 18:25 Dose: 250 mls/hr Documented by: Vancomycin HCl 1 gm/ Sodium (Chloride) 250 mls @ 250 mls/hr IV Q24H [facility] Stop: 06/27/20 22:00 Last Admin: 06/27/20 18:06 Dose: 250 mls/hr Documented by: Vancomycin HCl 1 gm/ Sodium (Chloride) 250 mls @ 250 mls/hr IV Q12H [facility] Insulin Human Lispro (Humalog) 0 unit SUBCUT QIDACANDBED [facility]; Protocol Last Admin: 06/27/20 06:33 Dose: Not Given Documented by: Iopamidol (Isovue-370 (76%)) 100 ml IVPUSH ONETIME ONE Stop: 06/25/20 15:12 Last Admin: 06/25/20 15:23 Dose: 100 ml Documented by: Lidocaine HCl (Xylocaine 1%) 10 ml INJECT ONETIME ONE Stop: 06/23/20 09:31 Last Admin: 06/23/20 10:58 Dose: 10 ml Documented by: Lidocaine HCl (Xylocaine 1%) 10 ml INJECT ONETIME ONE Stop: 06/23/20 09:16 Last Admin: 06/23/20 10:58 Dose: 10 ml Documented by: Loperamide HCl (Imodium) 4 mg PO ONETIME ONE Stop: 06/23/20 20:01 Last Admin: 01/08/21 20:01 Dose: 4 mg Documented by: Magnesium Oxide (Magnesium Oxide) 400 mg PO BID [facility] Montelukast Sodium (Singulair) 10 mg PO DAILY [facility] Last Admin: 06/27/20 08:05 Dose: 10 mg Documented by: Non-Formulary Medication (Ferrous Gluconate [Ferrous Gluconate]) 325 mg PO ASDIRECTED [facility] Atovaquone 750 Mg/ (5ml Susp Ptom) 0 mg PO BIDMEALS [facility] Last Admin: 06/25/20 08:19 Dose: Not Given Documented by: Atovaquone 750 Mg/ (5ml Susp Ptom) 0 mg PO BID [facility] Last Admin: 06/27/20 08:05 Dose: 750 mg Documented by: Non-Formulary Medication (L.Acidoph,Paracasei, B.Lactis [Probiotic]) 1 each PO DAILY [facility] Nystatin (Mycostatin) 5 ml PO QID [facility] Last Admin: 06/23/20 11:00 Dose: Not Given Documented by: Nystatin (Nystatin Oral Syringe) 500,000 unit PO QID [facility] Last Admin: 06/26/20 08:28 Dose: 500,000 unit Documented by: Pantoprazole Sodium (Protonix) 40 mg PO BIDAC [facility] Last Admin: 06/27/20 16:16 Dose: 40 mg Documented by: Phytonadione (Aquamephyton) 5 mg PO STAT ONE Stop: 06/23/20 06:35 Last Admin: 06/23/20 06:48 Dose: 5 mg Documented by: Potassium Chloride (Klor-Con M20) 20 meq PO DAILY [facility] Last Admin: 06/27/20 08:05 Dose: 20 meq Documented by: Prednisone (Prednisone) 20 mg PO BID [facility] Last Admin: 06/27/20 08:04 Dose: 20 mg Documented by: Rosuvastatin Calcium (Crestor) 10 mg PO DAILY [facility] Last Admin: 06/27/20 08:04 Dose: 10 mg Documented by: Saccharomyces Boulardii (Florastor) 250 mg PO BID [facility] Last Admin: 06/27/20 08:04 Dose: 250 mg Documented by: Sodium Chloride (Saline Flush) 10 ml FLUSH ASDIRECTED PRN PRN Reason: Keep Vein Open Sodium Chloride (Saline Flush) 10 ml FLUSH ONETIME PRN PRN Reason: IV FLUSH Last Admin: 06/25/20 15:23 Dose: 10 ml Documented by: Vancomycin HCl (Pharmacy To Dose - Vancomycin) 1 dose .XX ASDIRECTED PRN PRN Reason: RX TO DOSE VANCO Vancomycin HCl (Vancomycin) Confirm Administered Dose 1 gm .ROUTE .STK-MED ONE Stop: 06/26/20 17:13 Last Admin: 06/26/20 17:28 Dose: Not Given Documented by: - Exam Quality Assessment: Supplemental Oxygen General: Alert, Oriented, Cooperative, No Acute Distress HEENT: Pupils Equal, Pupils Reactive, EOMI, Mucous Membr. Moist/[place] Neck: Supple, Trachea Midline Lungs: Normal Respiratory Effort, Decreased Breath Sounds Cardiovascular: Regular Rate, Regular Rhythm GI/Abdominal Exam: Normal Bowel Sounds, Soft, Non-Tender, No Organomegaly, No Distention (Female) Exam: Deferred Back Exam: Normal Inspection, Decreased Range of Motion Extremities: Normal Range of Motion, Non-Tender, Other (some leg edema) Peripheral Pulses: 1+: Dorsalis Pedis (L), Dorsalis Pedis (R) Skin: Warm, Intact, Ecchymosis Neurological: No New Focal Deficit Psy/Mental Status: Alert, Normal Affect, Normal Mood Sepsis Event Note - Evaluation Sepsis Screening Result: No Definite Risk - Focused Exam Vital Signs: Vital Signs Temp Pulse Resp BP Pulse Ox Pulse Ox 06/28/20 20:50 90 L 06/28/20 20:07 36.9 C 93 16 123/54 L 89 L - Problem List Review Problem List Initiated/Reviewed/Updated: Yes - My Orders Last 24 Hours: My Active Orders 06/28/20 09:24 Patient Status [ADT] Routine - Plan Plan:: Assessment Acute: 84-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 Lactic acid elevated at 6.6 with minimally elevated C-reactive protein of 2.9. * Patient's elevated lactic acid is likely secondary to hypovolemia with possible underlying worsening of her left upper lobe pneumonia. With a normal white count, essentially normal C-reactive protein, and no significant change on chest x-ray I do not believe that this elevated lactic acid is secondary to sepsis, but it appears to be secondary to hypovolemia and poor tissue perfusion due to the hypovolemia. Patient also has a slight drop in her her hemoglobin also likely exacerbating the hypovolemia. It is unknown at this time if this is secondary to acute blood loss, but her INR is significantly elevated at greater than 5. Patient also had an elevated lactic acid on 12 June making this more likely to be a chronic problem and not an acute sepsis. * UA was ordered on admission, but nursing was unable to collect it initially secondary to patient's diarrhea. If they are unable to obtain a UA we will have to consider catheterization. * She just finished broad-spectrum antibiotics, yesterday, linezolid and le vofloxacin. 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 She is on warfarin because she failed NOAC. * INR greater than 5 with no active bleeding, but significant anemia. * INR today is 1.05 * Platelet is 34 this AM * Hgb of 7.7 gram * No hemoptysis * Need to resume Warfarin given her hx/o multiple PEs/DVTs * Will hold lovenox and consider re-starting her on warfarin--will make sure to discuss it with her daughter Oxygen dependent chronic bronchitis * Home oxygen 4 L via nasal cannula no significant worsening; remains on 4L NC at baseline * Currently on prednisone 20 units in the morning and 10 units in the evening. Recently decreased from 20 twice daily. Primary care provider states that she has been on and off steroids for several weeks now. NYHA class III CHF History of atrial fibrillation, HR controlled * Outpatient treatment with furosemide, losartan, warfarin, digoxin, rosuvastatin * ProBNP of 2613 * Continue home dose lasix and potassium supplement * 2D echo last report 04/21/2020: EF of 60-65%. Grade 1 Diastolic Dysfunction. No RWMA. Moderately reduced RV systolic function. Type 2 diabetes * Hemoglobin A1c of 7.5, TSH 1.25 * BS improved, * Sliding scale insulin Hypocalcemia and Hypophosphatemia * Non corrected Ca level of 7.5 and PO4 of 1.6 * Will replete and monitor Diarrhea * C. diff and stool cultures are both negative * Has been mainly eating protein shakes * Revival Clerk consult for a more appropriate diet to increased stool bulk * Continue PRN Imodium Skin Breakdown * Due to diarrhea * Routine nursing * Wound care consult * Revival Clerk consult to improve diet Poor Intake * Already on steroid * No megace due to hx/o multiple blood clots * May benefit with low dose Remeron but worried about side effects Candidauria * On oral fluconazole 09/27 doses [facility] * She decided no transfer but Hospice * Possible discharge Friday Chronic: HTN, HLD, DM2, Hx/o Multiple PEs/DVT, S/p IV Filter Placement, Hx/o SBO, CHF, Pulmonary Edema, Chronic Respiratory Failure on Supplemental O2, COPD, CKD Stage 3, Chronic Rhinitis, AR, Environmental Allergies, GERD, FV Leiden Deficiency and Lower Leg Edema. Plan: * Admit to medical floor on telemetry * Start Zosyn * Blood cultures, UA, urine culture as appropriate * Follow lab work including lactic acid. Unfortunately, it appears that she has chronically elevated lactic acid from unknown source. This may not be a good indicator of risk of sepsis. * Procalcitonin will be ordered. Unfortunately, this is a send out so it will only be helpful in determining sepsis in retrospect. * Give 30 mL/kg LR bolus followed by fluids at 150 mL/h. * Follow CBC. * Sliding scale insulin * CODE STATUS: DNR/DNI * Initially we would not reverse her INR. * VTE prophylaxis secondary to supratherapeutic INR * Patient has very poor outcome. She has been hospitalized since April 15 except for just over 2 weeks. She has recurrent infections as post Covid syndrome. 06/23/2020 * 84-year-old female with post Covid syndrome and recent treatment with lenalidomide and Levaquin presents with significant drop in hemoglobin, elevated INR, likely secondary to interaction of broad-spectrum antibiotics with warfarin. * Lactic acidosis likely secondary to hypovolemia and possible underlying infection including pneumonia and UTI, but less likely. * Mild fluid overload after several boluses, 2 units packed red blood cells, and holding her Lasix this morning. Patient will get Lasix 20 mg IV x1 and may repeat. * When bleeding has stopped we will have to restart warfarin secondary to her history of clotting disorder. * Patient had significant diarrhea today likely also secondary to antibiotics. Patient is currently on Zosyn. Will give Imodium since C. difficile has been ruled out. * Central line placed today because of poor venous access. * Normal white count with a procalcitonin of 0.08 essentially ruling out severe sepsis * I discussed with her daughter and the patient that she has a very poor outlook and prognosis. They voiced understanding. 06/24/2020 * 84-year-old female with post Covid syndrome, significant hematemesis, supratherapeutic INR secondary to broad-spectrum antibiotics, hypovolemia with lactic acidosis and anemia * Continues small amounts of bloody sputum * Received Kcentra and vitamin K yesterday. INR today is 1.0 * Thrombocytopenia with platelets at 53,000. This is down from 107,000 on admission. Unfortunately, this makes heparin a contraindication. * There is high concern for potential for clotting secondary to history of clotting disorder. * NYHA class III CHF stable. BNP did go up to approximately 5000. This is likely secondary to fluid and packed red blood cells. * Lactic acid this morning was 2.1. Essentially resolved. * Cystitis secondary to candidiasis. * Hypokalemia with potassium of 2.9. Hypomagnesemia 1.6 * D-dimer increased to 2.6 * Stage III chronic renal insufficiency, GFR 43 Fluconazole 200 mg daily for 14 days VTE prophylaxis with SCDs. Unfortunately, chemoprophylaxis is contraindicated secondary to recent bleeding and thrombocytopenia. Restart IV fluids secondary to poor oral intake and decreasing urine output. Correct potassium and magnesium. Follow CBC, CMP, mag, and phosphorus Recheck of hemoglobin this afternoon 10.3stable 06/25/2020 * Continue current treatment * Consider adding another BS abx for HCAP coverage * IS as directed * PRN decongestant/expectorant * Encourage to eat more * Marinol for appetite stimulant; Megace CI due to hx/o multiple DVT/PE * PT/OT and RT * Routine AM labs * Ambulate as tolerated * DVT PPx: SCDS for now * Code status: DNR/DNI * LOS > 96 hrs for treatment of HCAP and Generalized Weakness. She is actually failing clinically in my opinion. 06/26/2020 * Continue current treatment * IS as directed * PRN decongestant/expectorant * Encourage to eat more * Dietary consult * PT/OT and RT * Routine AM labs * Ambulate as tolerated * DVT PPx: SCDS for now * Code status: DNR/DNI * NH with PT/OT as possible discharge care plans * LOS > 96 hrs for treatment of HCAP and Generalized Weakness. She is actually failing clinically in my opinion. 06/27/2020 * She feels about the same and not getting better. Will offer transfer to [place]. She states she will think about it. * Continue current treatment with intravenous abx * IS as directed * PRN decongestant/expectorant * Encourage to eat more * Dietary consult * PT/OT and RT * Routine AM labs * Cannot resume warfarin and lovenox therapy: Hgb is 7.7 grams and Platelet is 34K * Ambulate as tolerated * DVT PPx: SCDS for now * Code status: DNR/DNI * Prognosis is overall poor with declining overall health * [facility] with PT/OT as possible discharge care plans * LOS > 96 hrs for treatment of HCAP and Generalized Weakness. She is actually failing clinically in my opinion [id number]: Went back to follow up on her, daughter present at bedside. She decided to go comfort and go home with hospice tomorrow. She would like to finish her intravenous abx that is currently running and stop everything. We will go ahead and activate comfort measures. Hospice consult ordered. 06/28/2020 * Comfort measures medications * Awaiting Hospice 06/29/2020 * Remains comfortable * Offered to resume warfarin and lasix but patient refused * Possible discharge in AM
[2020-06-29] MEDS ORDERED: Morphine 10 MG/0.5 ML Oral Syringe PO PRN (17:41)
[2020-06-29] MEDS ORDERED: LORazepam 1 MG Tab PO PRN (17:42)
--- NOTE | 2020-06-30 08:13 | PCM.DCSUM1 ---
Discharge Summary - Hospital Course Brief History: This is an 84 yo pleasant elderly white female with past medical hx/o Cataract, HTN, HLD, DM2, Hx/o Multiple PEs/DVT, S/p IV Filter Placement, Hx/o SBO, CHF, Pulmonary Edema, Chronic Respiratory Failure on Supplemental O2, COPD, CKD Stage 3, Chronic Rhinitis, AR, Environmental Allergies, GERD, FV Leiden Deficiency, Lower Leg Edema and Recent COVID-19 Infection who came in with worsening generalized weakness and was admitted primraily for HCAP and Post COVID-19 Syndrome. Diagnosis: Stroke: No - Discharge Data Discharge Date: 06/30/20 Discharge Disposition: DC/Tfer to Hospice - Home 50 Condition: Fair - Referral to Home Health Primary Care Physician: Ludin Burk MD - Patient Summary/Data Operative Procedure(s) Performed: central line placement on left IJ Complications: None Consults: Consultations 06/22/20 18:46 Consult to Audit Intern [CONS] Routine 06/26/20 09:22 Consult to Dietary [Consult to Audit Intern] [CONS] Routine 06/27/20 14:23 Consult to Spiritual Care [CONS] Routine 06/27/20 18:42 Consult to Hospice [CONS] Routine Recommended Follow-up Testing/Procedures: None Hospital Course: Patient was primarily admitted for pneumonia and COVID-19 infection. She also had a lower GI bleed. She received Kcentra as well as packed red blood cells to improve her hemoglobin level. She was treated with 2 intravenous broad spectrum antibiotics for her hospital acquired pneumonia. However despite aggressive treatment, patient continued to decline and her hemoglobin started to drop again. We offered transfer to [place] for upper level of care but she decided to stay and elected to go on comfort measures. After talking to her family, she decided to go on hospice and back to her home at the assisted living facility. She will be followed by her primary care provider, Dr. Partida for hospice care. - Patient Instructions Diet: Usual Diet as Tolerated Activity: As Tolerated Driving: Do Not Drive Showering/Bathing: May Shower Notify Provider of: Fever, Increased Pain, Swelling and Redness, Drainage, N ausea and/or Vomiting - Discharge Plan *PRESCRIPTION DRUG MONITORING PROGRAM REVIEWED*: Not Applicable *COPY OF PRESCRIPTION DRUG MONITORING REPORT IN PATIENT ANTONETTE: Not Applicable Prescriptions/Med Rec: LORazepam [Ativan] 1 mg PO Q4H PRN #30 tablet PRN Reason: Anxiety/Comfort Measures Albuterol/Ipratropium [Combivent Respimat] 4 gm IH Q4H PRN #1 aer.w.adap PRN Reason: SOB/Wheezing Furosemide [Lasix] 40 mg PO ASDIRECTED PRN #15 tablet PRN Reason: Edema/Swelling Morphine [Morphine 10 MG/0.5 ML Oral Syringe] 5 mg PO Q4HR PRN #60 syringe PRN Reason: pain/comfort measures Dextromethorphan/guaiFENesin [Robitussin DM] 5 ml PO Q4H PRN #30 cup PRN Reason: Cough Scopolamine 1 each TD ASDIRECTED PRN #5 patch.td.3 PRN Reason: N/V Acetaminophen [Tylenol] 650 mg PO ASDIRECTED PRN #30 tablet PRN Reason: Pain/fever/maxwell Ondansetron [Zofran ODT] 4 mg PO Q6H PRN #15 tab.dis PRN Reason: N/V Home Medications: Home Meds Acetaminophen [Tylenol] 650 mg PO ASDIRECTED PRN #30 tablet 06/30/20 [Rx] Albuterol/Ipratropium [Combivent Respimat] 4 gm IH Q4H PRN #1 aer.w.adap 06/30/20 [Rx] Dextromethorphan/guaiFENesin [Robitussin DM] 5 ml PO Q4H PRN #30 cup 06/30/20 [Rx] Furosemide [Lasix] 40 mg PO ASDIRECTED PRN #15 tablet 06/30/20 [Rx] LORazepam [Ativan] 1 mg PO Q4H PRN #30 tablet 06/30/20 [Rx] Morphine [Morphine 10 MG/0.5 ML Oral Syringe] 5 mg PO Q4HR PRN #60 syringe 06/30/20 [Rx] Ondansetron [Zofran ODT] 4 mg PO Q6H PRN #15 tab.dis 06/30/20 [Rx] Scopolamine 1 each TD ASDIRECTED PRN #5 patch.td.3 06/30/20 [Rx] Oxygen Therapy Mode: Room Air Patient Handouts: Type 2 Diabetes Mellitus, Diagnosis, Adult, and Dying, Diabetes Mellitus and Sick Day Management, Sepsis, Diagnosis, Adult, Hospice, Venous Thromboembolism Prevention - Discharge Summary/Plan Comment DC Time >30 min.: Yes Discharge Summary/Plan Comment: Discharge to Home with Hospice - General Info Date of Service: 06/30/20 Admission Dx/Problem (Free Text: Admission Diagnosis/Problem Admission Diagnosis/Problem Weakness Subjective Update: Her diarrhea is better according to her. Her stool is more of a loose bowel rather than watery diarrhea. She feels about the same. Her INR is subtherapeutic at 1.05. Stool culture and C. Diff negative. UA shows Mar[place] Species. Her appe tite is not great. Functional Status: Reports: Pain Controlled, Urinating - Review of Systems General: Reports: Weakness, Fatigue, Malaise. Denies: Fever, Chills Pulmonary: Denies: Shortness of Breath, Cough Cardiovascular: Denies: Chest Pain Gastrointestinal: Reports: Decreased Appetite. Denies: Abdominal Pain, Nausea, Vomiting Genitourinary: Reports: Frequency Musculoskeletal: Denies: Joint Pain Skin: Reports: Bruising Neurological: Reports: Weakness, Gait Disturbance. Denies: Confusion, Dizziness Psychiatric: Denies: Depression, Anxiety, Hallucinations, Suicidal Ideation, Homicidal Ideation - Patient Data Vitals - Most Recent: Last Vital Signs Temp 37.1 C 06/30/20 03:12 Pulse 54 L 06/30/20 03:12 Resp 16 06/29/20 22:56 BP 138/57 L 06/30/20 03:12 Pulse Ox 92 L 06/30/20 03:12 Weight - Most Recent: 69.581 kg I&O - Last 24 hours: Intake & Output 06/29/20 06/30/20 06/30/20 22:59 06:59 14:59 Intake Total 500 500 Output Total 250 100 Balance 250 400 MIKE Results - Last 24 hrs: Microbiology 06/23/20 03:25 Aerobic Blood Culture - Final Blood - Venous - Lab Draw NO GROWTH AFTER 7 DAYS Anaerobic Blood Culture - Final 06/22/20 18:00 Aerobic Blood Culture - Final Blood - Venous NO GROWTH AFTER 7 DAYS Anaerobic Blood Culture - Final NO GROWTH AFTER 7 DAYS Med Orders - Current: Current Medications Acetaminophen (Tylenol) 650 mg PO Q4H PRN PRN Reason: Pain (Mild 1-3)/fever Albuterol/Ipratropium (Duoneb 3.0-0.5 Mg/3 Ml) 3 ml NEB Q6HRRT PRN PRN Reason: Shortness of Breath Last Admin: 06/23/20 15:30 Dose: 3 ml Documented by: Guaifenesin/Phenylephrine HCl (Robitussin Dm) 5 ml PO Q4H PRN PRN Reason: Cough Loperamide HCl (Imodium) 2 mg PO Q4H PRN PRN Reason: Diarrhea Last Admin: 06/26/20 17:59 Dose: 2 mg Documented by: Lorazepam (Ativan) 0.5 mg IVPUSH Q4H PRN; Protocol PRN Reason: comfort measures Lorazepam (Ativan) 1 mg PO Q4H PRN PRN Reason: Anxiety Morphine Sulfate (Morphine) 1 mg IVPUSH Q4H PRN PRN Reason: comfort measures Morphine Sulfate (Morphine 10 Mg/0.5 Ml Oral Syringe) 5 mg PO Q4HR PRN PRN Reason: pain Ondansetron HCl (Zofran) 4 mg IV Q4H PRN PRN Reason: Nausea/Vomiting Oxycodone HCl (Oxycodone) 5 mg PO Q4H PRN PRN Reason: Pain (moderate 4-6) Discontinued Medications Ascorbic Acid (Vitamin C) 500 mg PO DAILY [facility] Last Admin: 06/27/20 08:05 Dose: 500 mg Documented by: Cholecalciferol (Vitamin D3) 5,000 unit PO DAILY [facility] Last Admin: 06/27/20 08:05 Dose: 5,000 unit Documented by: Digoxin (Lanoxin) 125 mcg PO DAILY [facility] Last Admin: 06/27/20 08:05 Dose: 125 mcg Documented by: Enoxaparin Sodium (Lovenox) 70 mg SUBCUT Q12H [facility] Last Admin: 06/27/20 11:12 Dose: Not Given Documented by: Factor IX (Pha) (Kcentra) 2,275 unit IV NOW [facility] Stop: 06/23/20 11:28 Last Admin: 06/23/20 12:25 Dose: 2,275 unit Documented by: Ferrous Sulfate (Ferrous Sulfate) 324 mg PO DAILY [facility] Last Admin: 06/27/20 08:05 Dose: 324 mg Documented by: Fluconazole (Diflucan) 200 mg PO Q24H [facility] Stop: 07/07/20 16:31 Last Admin: 06/27/20 16:16 Dose: 200 mg Documented by: Furosemide (Lasix) 20 mg IVPUSH ONETIME ONE Stop: 06/23/20 15:31 Last Admin: 06/23/20 15:48 Dose: 20 mg Documented by: Furosemide (Lasix) 20 mg IVPUSH ONETIME ONE Stop: 06/24/20 03:01 Last Admin: 06/24/20 02:07 Dose: 20 mg Documented by: Furosemide (Lasix) 20 mg PO Q48H [facility] Last Admin: 06/26/20 08:27 Dose: 20 mg Documented by: Furosemide (Lasix) 40 mg PO Q24H [facility] Last Admin: 06/27/20 08:05 Dose: 40 mg Documented by: Lactated Ringer's (Ringers, Lactated) 1,000 mls @ 500 mls/hr IV ASDIRECTED [facility] Stop: 06/23/20 19:29 Last Admin: 06/22/20 22:16 Dose: 500 mls/hr Documented by: Ceftriaxone Sodium 2 gm/ (Sodium Chloride) 100 mls @ 200 mls/hr IV STAT ONE Stop: 06/22/20 17:55 Last Admin: 06/22/20 20:33 Dose: Not Given Documented by: Lidocaine HCl (Xylocaine-Mpf 1%) Confirm Administered Dose 2 mls @ as directed .ROUTE .STK-MED ONE Stop: 06/22/20 18:20 Piperacillin Sod/Tazobactam (Sod 4.5 gm/ Sodium Chloride) 100 mls @ 200 mls/hr IV ONETIME ONE Stop: 06/22/20 19:14 Last Admin: 06/22/20 19:42 Dose: 200 mls/hr Documented by: Piperacillin Sod/Tazobactam (Sod 4.5 gm/ Sodium Chloride) 100 mls @ 25 mls/hr IV Q8H [facility] Last Admin: 06/27/20 17:36 Dose: 25 mls/hr Documented by: Sodium Chloride (Normal Saline) 1,000 mls @ 130 mls/hr IV ASDIRECTED [facility] Last Admin: 06/23/20 00:35 Dose: 130 mls/hr Documented by: Sodium Chloride (Normal Saline) 1,000 mls @ 150 mls/hr IV ASDIRECTED [facility] Sodium Chloride (Normal Saline) 250 mls @ 100 mls/hr IV ASDIRECTED [facility] Phytonadione 5 mg/ Sodium (Chloride) 50.5 mls @ 101 mls/hr IV NOW ONE Stop: 06/23/20 13:59 Last Admin: 06/23/20 16:10 Dose: 101 mls/hr Documented by: Magnesium Sulfate (Magnesium Sulfate In Water Premix) 2 gm in 50 mls @ 25 mls/hr IV Q1H [facility] Stop: 06/24/20 08:14 Last Admin: 06/24/20 07:49 Dose: 25 mls/hr Documented by: Potassium Chloride 10 meq/ (Premix) 100 mls @ 100 mls/hr IV Q1H [facility] Stop: 06/24/20 10:29 Last Admin: 06/24/20 10:12 Dose: 100 mls/hr Documented by: Potassium Chloride/Sodium Chloride (Normal Saline With 20 Meq Kcl) 1,000 mls @ 100 mls/hr IV ASDIRECTED [facility] Last Admin: 06/27/20 00:17 Dose: 100 mls/hr Documented by: Lidocaine HCl (Xylocaine-Mpf 1%) Confirm Administered Dose 2 mls @ as directed .ROUTE .STK-MED ONE Stop: 06/25/20 13:51 Sodium Chloride (Normal Saline) 100 mls @ 75 mls/hr IV ASDIRECTED [facility] Last Admin: 06/25/20 15:23 Dose: 75 mls/hr Documented by: Vancomycin HCl 1 gm/ Sodium (Chloride) 250 mls @ 250 mls/hr IV Q24H [facility] Last Admin: 06/25/20 18:25 Dose: 250 mls/hr Documented by: Vancomycin HCl 1 gm/ Sodium (Chloride) 250 mls @ 250 mls/hr IV Q24H [facility] Stop: 06/27/20 22:00 Last Admin: 06/27/20 18:06 Dose: 250 mls/hr Documented by: Vancomycin HCl 1 gm/ Sodium (Chloride) 250 mls @ 250 mls/hr IV Q12H [facility] Insulin Human Lispro (Humalog) 0 unit SUBCUT QIDACANDBED [facility]; Protocol Last Admin: 06/27/20 06:33 Dose: Not Given Documented by: Iopamidol (Isovue-370 (76%)) 100 ml IVPUSH ONETIME ONE Stop: 06/25/20 15:12 Last Admin: 06/25/20 15:23 Dose: 100 ml Documented by: Lidocaine HCl (Xylocaine 1%) 10 ml INJECT ONETIME ONE Stop: 06/23/20 09:31 Last Admin: 06/23/20 10:58 Dose: 10 ml Documented by: Lidocaine HCl (Xylocaine 1%) 10 ml INJECT ONETIME ONE Stop: 06/23/20 09:16 Last Admin: 06/23/20 10:58 Dose: 10 ml Documented by: Loperamide HCl (Imodium) 4 mg PO ONETIME ONE Stop: 06/23/20 20:01 Last Admin: 06/23/20 20:01 Dose: 4 mg Documented by: Magnesium Oxide (Magnesium Oxide) 400 mg PO BID [facility] Montelukast Sodium (Singulair) 10 mg PO DAILY [facility] Last Admin: 06/27/20 08:05 Dose: 10 mg Documented by: Non-Formulary Medication (Ferrous Gluconate [Ferrous Gluconate]) 325 mg PO ASDIRECTED [facility] Atovaquone 750 Mg/ (5ml Susp Ptom) 0 mg PO BIDMEALS [facility] Last Admin: 06/25/20 08:19 Dose: Not Given Documented by: Atovaquone 750 Mg/ (5ml Susp Ptom) 0 mg PO BID [facility] Last Admin: 06/27/20 08:05 Dose: 750 mg Documented by: Non-Formulary Medication (L.Acidoph,Paracasei, B.Lactis [Probiotic]) 1 each PO DAILY [facility] Nystatin (Mycostatin) 5 ml PO QID [facility] Last Admin: 06/23/20 11:00 Dose: Not Given Documented by: Nystatin (Nystatin Oral Syringe) 500,000 unit PO QID [facility] Last Admin: 06/26/20 08:28 Dose: 500,000 unit Documented by: Pantoprazole Sodium (Protonix) 40 mg PO BIDAC [facility] Last Admin: 06/27/20 16:16 Dose: 40 mg Documented by: Phytonadione (Aquamephyton) 5 mg PO STAT ONE Stop: 06/23/20 06:35 Last Admin: 06/23/20 06:48 Dose: 5 mg Documented by: Potassium Chloride (Klor-Con M20) 20 meq PO DAILY [facility] Last Admin: 06/27/20 08:05 Dose: 20 meq Documented by: Prednisone (Prednisone) 20 mg PO BID [facility] Last Admin: 06/27/20 08:04 Dose: 20 mg Documented by: Rosuvastatin Calcium (Crestor) 10 mg PO DAILY [facility] Last Admin: 06/27/20 08:04 Dose: 10 mg Documented by: Saccharomyces Boulardii (Florastor) 250 mg PO BID [facility] Last Admin: 06/27/20 08:04 Dose: 250 mg Documented by: Sodium Chloride (Saline Flush) 10 ml FLUSH ASDIRECTED PRN PRN Reason: Keep Vein Open Sodium Chloride (Saline Flush) 10 ml FLUSH ONETIME PRN PRN Reason: IV FLUSH Last Admin: 06/25/20 15:23 Dose: 10 ml Documented by: Vancomycin HCl (Pharmacy To Dose - Vancomycin) 1 dose .XX ASDIRECTED PRN PRN Reason: RX TO DOSE VANCO Vancomycin HCl (Vancomycin) Confirm Administered Dose 1 gm .ROUTE .[facility]-MED ONE Stop: 06/26/20 17:13 Last Admin: 06/26/20 17:28 Dose: Not Given Documented by: - Exam Quality Assessment: Reports: Supplemental Oxygen General: Reports: Alert, Oriented, Cooperative, No Acute Distress HEENT: Reports: Pupils Equal, Pupils Reactive, EOMI, Mucous Membr. Moist/[place] Neck: Reports: Supple Lungs: Reports: Normal Respiratory Effort, Decreased Breath Sounds Cardiovascular: Reports: Regular Rate, Regular Rhythm GI/Abdominal Exam: Normal Bowel Sounds, Soft, Non-Tender, No Organomegaly, No Distention, No Abnormal Bruit (Female) Exam: Deferred, Other (indwelling may catheter) Rectal (Female) Exam: Deferred Back Exam: Reports: Normal Inspection, Decreased Range of Motion Extremities: Normal Inspection, Normal Range of Motion, Non-Tender, No Pedal Edema, Normal Capillary Refill Skin: Reports: Warm, Dry, Intact Neurological: Reports: No New Focal Deficit. Denies: Normal Gait Psy/Mental Status: Reports: Alert, Normal Affect, Depressed. Denies: Suicidal I deation, Homicidal Ideation
[2020-06-30 11:11] VITALS: BP 121/77; PULSE 94
== END 2020-06-30 12:11 | disposition hospice, home (50) | DRG 194 ==
LOC: JD.MS 16:41
PROVIDERS: ADMIT Internal Medicine; ATTEND Internal Medicine
PROC: 05HN33Z Insertion of Infusion Device into Left Internal Jugular Vein, Percutaneous Approach (ICD-10-PCS; 2020-06-22)
PROC: B544ZZA Ultrasonography of Left Jugular Veins, Guidance (ICD-10-PCS; 2020-06-22)
PROC: 30233N1 Transfusion of Nonautologous Red Blood Cells into Peripheral Vein, Percutaneous Approach (ICD-10-PCS; principal; 2020-06-23)
DX: J18.9 Pneumonia, unspecified organism (principal); K92.2 Gastrointestinal hemorrhage, unspecified; D68.51 Activated protein C resistance; I13.0 Hypertensive heart and chronic kidney disease with heart failure and stage 1 through stage 4 chronic kidney disease, or unspecified chronic kidney disease; J96.10 Chronic respiratory failure, unspecified whether with hypoxia or hypercapnia; B37.41 Candidal cystitis and urethritis; K52.1 Toxic gastroenteritis and colitis; Z51.5 Encounter for palliative care; E78.00 Pure hypercholesterolemia, unspecified; F41.9 Anxiety disorder, unspecified; F32.9 Major depressive disorder, single episode, unspecified; K21.9 Gastro-esophageal reflux disease without esophagitis; E86.1 Hypovolemia; J42 Unspecified chronic bronchitis; Z66 Do not resuscitate; E83.51 Hypocalcemia; E83.39 Other disorders of phosphorus metabolism; D69.6 Thrombocytopenia, unspecified; I50.9 Heart failure, unspecified; N18.30 Chronic kidney disease, stage 3 unspecified; E11.22 Type 2 diabetes mellitus with diabetic chronic kidney disease; E87.6 Hypokalemia; T36.95XA Adverse effect of unspecified systemic antibiotic, initial encounter; Z88.8 Allergy status to other drugs, medicaments and biological substances; Z79.01 Long term (current) use of anticoagulants; Z79.52 Long term (current) use of systemic steroids; Z86.718 Personal history of other venous thrombosis and embolism; Z98.49 Cataract extraction status, unspecified eye; Z90.49 Acquired absence of other specified parts of digestive tract; Z86.711 Personal history of pulmonary embolism; Z99.81 Dependence on supplemental oxygen; Z86.16 Personal history of COVID-19
CPT/HCPCS: 36410; 36415; 36430; 36600; 51702; 71045; 71045-26; 71046; 71046-26; 71275; 71275-26; 80048; 80053; 80061; 80202; 81001; 82607; 82728; 82803; 82962; 83036; 83605; 83630; 83735; 83880; 84100; 84145; 84443; 84484; 84550; 85007; 85014; 85018; 85025; 85027; 85379; 85384; 85610; 85730; 86140; 86850; 86900; 86901; 86922; 87040; 87045; 87046; 87086; 87088; 87493; 87641; 87899; 93005; 94640; 94760; 94761; 96523; 97162-GP; 99214; 99223; 99232; 99233; 99239; A9270-GY; C9132; J1815-GY; J1940; J2001; J2543; J3370; J3430; J3475; J3480; J7030; J7050; J7120; J7512; J7620-GY; P9016; Q9967